=== PATIENT | female | born 1960 | race Caucasian/White ===

== ENCOUNTER → 2017-02-14 | Outpatient (CLI) | payer BC ==
[~2017-02-14] MED LIST: ASCO250T14 PO; CLC100X PO; ENOX30IN SQ; FERR324T PO; FLNIN NAE; GABA-112 PO; GABA-113 PO; GABA1CAP5 PO; HYDR25TA4 PO; LEVO112T4 PO; LEVO200T6 PO; LOSA1TAB38 PO; OMEP20TA PO; OXYC-106 PO; OXYC-57 PO; OXYC-643 PO; PRED10TA PO; PRED20TA PO; PREG100C PO; SPIR1TAB72 PO
[2017-02-14 12:31] LABS: BASO % 0.5 %; BASO ABS # 0.07 K/uL (0-0.2); COMPLETE YES; EOS % 2.8 %; HEMATOCRIT 42.6 % (37-47); IG% 0.5 %; LYMPH ABS # 2.81 K/uL (1.2-3.4); MEAN CELL VOLUME 94.9 fL (80-100); MEAN CORPUSCULAR HGB CONC 32.6 g/dl (32-36); MEAN PLATELET VOLUME 11.2 fL (7.4-10.4); MONO % 5.5 %; NEUT % 69.7 %; PLATELET COUNT 335 K/uL (130-400); RED BLOOD COUNT 4.49 M/uL (4.2-5.4); WHITE BLOOD COUNT 13.38 K/uL (4.8-10.8)
[2017-02-14 12:41] LABS: ALT/SGPT 43 U/L (12-78); AST/SGOT 24 U/L (15-37); BLOOD UREA NITROGEN 11 mg/dl (7-18); BUN/CREATININE RATIO 13.4 (10-20); CALCIUM 8.9 mg/dl (8.5-10.1); CARBON DIOXIDE 26 mmol/L (21-32); CHLORIDE 106 mmol/L (98-107); CHOLESTEROL 177 mg/dl (0-200); CREATININE 0.79 mg/dl (0.60-1.20); GLUCOSE 94 mg/dl (70-99); POTASSIUM 4.2 mmol/L (3.5-5.1); SODIUM 141 mmol/L (136-145); TRIGLYCERIDES 205 mg/dl (0-150); VERY LOW DENSITY LIPOPROT CALC 41 mg/dl
[2017-02-14 12:48] LABS: ALB/GLOB RATIO 0.9 (0.9-2); ALKALINE PHOSPHATASE 95 U/L (45-117); CHOLESTEROL/HDL RATIO 3.1; HDL CHOLESTEROL 57 mg/dl; LDL CHOLESTEROL CALCULATED 79 mg/dl
[2017-02-14 12:56] LABS: URINE APPEARANCE CLEAR (CLEAR); URINE BILIRUBIN NEG (NEG); URINE COLOR YELLOW; URINE EPITHELIAL CELL AUTO 0-5 /lpf (0-5); URINE NITRITE NEG (NEG); URINE PH 6.5 (4.5-7.5); URINE SPECIFIC GRAVITY 1.006 (1.000-1.030); UROBILINOGEN NEG (NEG); ZZUR CULT IF INDIC CLEAN CATCH NO
[2017-02-14 13:09] LABS: MANUAL MICROSCOPIC REQUIRED? NO; REVIEW REQ? NO
[2017-02-14 13:10] LABS: ESTIMATED AVERAGE GLUCOSE 140 mg/dl; HA1C FLAG Normal (Normal)
--- NOTE | 2017-02-20 14:07 | CODING QUERY MEDICAL NECESSITY ---
SUPPORTING DIAGNOSIS NEEDED A supporting diagnosis is required for the test/procedure performed on this patient in order for us to be reimbursed by the patient's insurance. Please provide a supporting diagnosis for the following test/procedure listed below next to the test name along with your signature. *If there is no additional diagnosis for this patient that would support the following test/procedure please document that below next to the test/procedure. Test(s)/Procedure(s) that require a supporting diagnosis: * VITAMIN D 25-HYDROXY DIAGNOSIS: * DOS: 02/14/17 Provider Signature: Date: Thank you Natasha Montes [facility] Information Management Once completed, please kindly fax back to [phone] For questions please call [phone]
== END | disposition home or self-care (01) ==
LOC: C.LABBFT 10:35
PROVIDERS: ATTEND Internal Medicine
DX: Z11.59 Encounter for screening for other viral diseases (principal); R73.9 Hyperglycemia, unspecified; E03.9 Hypothyroidism, unspecified; I10 Essential (primary) hypertension; E66.01 Morbid (severe) obesity due to excess calories; R53.83 Other fatigue

== ENCOUNTER → 2017-07-02 | Day surgery (SDC) | payer BC ==
[2017-06-13 11:09] VITALS: Ht 172.7 cm; Wt 120.5 kg
[~2017-07-02] VITALS: Ht 172.7 cm; Wt 120.5 kg
[~2017-07-02] MED LIST changes: -ASCO250T14 PO; -CLC100X PO; -ENOX30IN SQ; -FERR324T PO; -FLNIN NAE; -GABA1CAP5 PO; +IOPAMIDOL INJ 61% 15 ML VIAL ONE; -LEVO112T4 PO; +LIDOCAINE HCL 1% MPF 5 ML VIAL ONE; -OXYC-106 PO; -OXYC-643 PO; -PRED20TA PO; +SODIUM CHLORIDE 0.9% INJ 10 ML VIAL ONE
--- NOTE | 2017-07-02 13:03 | History & Physical Bridge - SC ---
H&P Re-Evaluation Bridge Note: I have examined the patient, reviewed the History & Physical and in the interval since the performance of the History & Physical I have noted the following changes of clinical significance: No changes noted
[2017-07-02 13:27] VITALS: TEMP 37.2
--- NOTE | 2017-07-02 13:34 | Discharge Instructions ---
Discharge Instructions Date of Service Jul 02, 2017. Visit Reason for Visit: Lumbar Disc Displacement Discharge Discharge Diagnosis / Problem: leg pain Discharge Goals Goal(s): Decrease discomfort, Improve function Activity Recommendations Activity Limitations: resume your previous activity Anesthesia . Post Anesthesia Instructions: If you have had General Anesthesia or IV Sedation: * Do not drive today. * Resume driving when surgeon permits. * Do not make important decisions or sign legal documents today. * Call surgeon for: 1. Temperature elevations greater than 101 degrees F. 2. Uncontrollable pain. 3. Excessive bleeding. 4. Persistent nausea and vomiting. 5. Medication intolerance (nausea, vomiting or rash). * For nausea and vomiting use only clear liquids such as: tea, soda, bouillon until nausea subsides, then gradually increase diet as tolerated. * If you have any concerns or questions, call your surgeon's office. If physician is unavailable and it is an emergency, call 911 or go to the nearest emergency room. . Diet Recommendations Recommended Home Diet: resume previous diet Procedures Procedures Performed: LUMBAR EPIDURAL STEROID INJECTION Pending Studies Studies pending at discharge: no Medical Emergencies . Who to Call and When: Medical Emergencies: If at any time you feel your situation is an emergency, please call 911 immediately. . Non-Emergent Contact Non-Emergency issues call your: Specialist . . "Provider Documentation" section prepared by Solomon Haney. .
[2017-07-02 13:38] VITALS: BP 149/92; PULSE 73; O2SAT 96
--- NOTE | 2017-07-02 13:49 | OPERATIVE REPORT ---
DATE OF OPERATION: 07/02/2017 PREOPERATIVE DIAGNOSIS: Lumbar disc protrusion L4-L5, L5-S1 with bilateral L5 radiculopathies. POSTOPERATIVE DIAGNOSES: Same. PROCEDURE: Right paramedian L5-S1 intralaminar epidural steroid injection under fluoroscopic guidance. SURGEON: Dr. Solomon Haney. INDICATIONS: The patient is a 56-year-old white female who presents today for an epidural steroid injection. She has been bothered by radicular pain for a number of years that has not responded to conservative treatments. She presents today for an epidural injection. PHYSICAL EXAMINATION: Pleasant female seated comfortably. She has a hard time moving from a sit to stand position, some soreness to palpation over lower lumbar region. Sciatic notches are nontender. Difficulty moving from a flexed position to an extended position, some pain inhibition with straight leg testing of the right lower extremity, decreased subjective sensation in the L5 dermatomal distribution without any focal weakness. CONSENT: Verbal and written consent was obtained from the patient. Risks and benefits were reviewed. Risks include but are not limited to epidural abscess, epidural hematoma, allergic reaction, dural puncture. The patient wishes to proceed. PROCEDURE: The patient was taken back to the special procedures room of [facility]. She was maintained in a prone position. Backside was cleansed with Betadine x3 and a dry sterile dressing was applied. Fluoroscope was used to identify the L5-S1 intralaminar space. Overlying skin was anesthetized with 4 mL of lidocaine 1% with a 25 gauge 1.5-inch needle. A 22 gauge 4-1/4 inch Tuohy needle was then directed down towards the intralaminar space. It was advanced under lateral fluoroscopic guidance and loss of resistance was noted at a depth of 9.5 cm. Isovue-300 contrast 1 mL was injected in which demonstrated epidural uptake pattern. This was confirmed with both AP and lateral views. She then underwent injection after negative aspiration of 40 mg of Depo-Medrol and 4 mL of preservative free sodium chloride. Injection was well tolerated and reproduced a very mild transient radicular sensation down the right leg. DISPOSITION: 1. The patient is taken out into the discharge recovery area where she will be discharged home once discharge criteria have been met. 2. Follow up in the [facility] office in 2-4 weeks. I attest to the content of the Intraoperative Record and any orders documented therein. Any exception s are noted below.
== END | disposition home or self-care (01) ==
LOC: X.SURG 12:03
PROVIDERS: ATTEND Physical Medicine & Rehabilitation
DX: M51.17 Intervertebral disc disorders with radiculopathy, lumbosacral region (principal); M54.5 Low back pain; I10 Essential (primary) hypertension; F17.210 Nicotine dependence, cigarettes, uncomplicated

== ENCOUNTER → 2017-08-08 | Outpatient (CLI) | payer BC ==
[~2017-08-08] MED LIST changes: -IOPAMIDOL INJ 61% 15 ML VIAL ONE; -LIDOCAINE HCL 1% MPF 5 ML VIAL ONE; -SODIUM CHLORIDE 0.9% INJ 10 ML VIAL ONE
--- NOTE | 2017-08-08 11:39 | DIAGNOSTIC IMAGING REPORT ---
MRI LUMBAR SPINE W/O CONTRAST CLINICAL HISTORY: Back pain with bilateral leg radiculopathy. TECHNIQUE: Sagittal and axial T1, T2 and STIR images were obtained. COMPARISON STUDY: MRI dated 07/30/2011 OBSERVATIONS: The vertebral bodies and posterior elements appear intact. There is no abnormal bony signal present to suggest a marrow replacement process. L1-2: No disc protrusions or extrusions. No evidence of spinal canal or neural foraminal compromise. L2-3: No disc protrusions or extrusions. No evidence of spinal canal or neural foraminal compromise. L3-4: There is a circumferential disc bulge with mild to moderate spinal stenosis, unchanged the preceding study L4-5: There is an annular fissure. There is a right lateral disc bulge. There is no significant spinal stenosis. There is mild bilateral foraminal narrowing L5-S1: There is an anterior disc protrusion. There is no posterior protrusion. There is facet joint arthropathy. There is no significant spinal stenosis. There is minor bilateral foraminal narrowing. The conus medullaris and cauda equina appear normal. There are T2 bright renal lesions, statistically representing cysts. IMPRESSION: Multilevel spondylitic changes, relatively similar to the preceding 2010 study. The study is most significant for a circumferential disc bulge with mild to moderate spinal stenosis at the L3-4 level. Electronically signed by: Andrew Child M.D. 08/08/2017 11:37 AM Dictated Date/Time: 08/08/2017 11:32 AM
== END | disposition home or self-care (01) ==
LOC: C.MRI 09:52
PROVIDERS: ATTEND Physical Medicine & Rehabilitation
DX: M51.26 Other intervertebral disc displacement, lumbar region (principal); M54.16 Radiculopathy, lumbar region

== ENCOUNTER 2017-09-29 14:20 | Emergency (ER) | payer BC ==
[~2017-09-29] VITALS: Ht 172.7 cm; Wt 122.6 kg
[~2017-09-29 14:20] MED LIST changes: -GABA-112 PO; -GABA-113 PO; +GABA1CAP5 PO; -PRED10TA PO; -PREG100C PO
[2017-09-29 14:25] VITALS: TEMP 37.4; Ht 172.7 cm; Wt 122.6 kg
[2017-09-29] MEDS ORDERED: KETOROLAC TROMETHAMINE 60 MG/2 ML VIAL IM STA (14:41)
[2017-09-29] MEDS ORDERED: OXYC-106 PO (15:00)
[2017-09-29] MEDS ORDERED: PRED20TA PO (15:27)
--- NOTE | 2017-09-29 15:28 | EMERGENCY ROOM VISIT NOTE ---
History First contact with patient: 14:29 Chief Complaint: BACK PAIN Stated Complaint: SHARP BACK PAIN- LEG PAIN AND SPINE History of Present Illness The patient is a 57 year old female who presents to the Emergency Room with complaints of back pain. The patient states that she has had ongoing back pain for several months. Her problems started in May. She states that she sneezed and had a sudden pain in her back with radiation down both legs. She has been seeing Dr. Haney of pain management. She had a steroid injection in June with no relief and has a nerve block scheduled in a few weeks. She has had an MRI performed. She states that she has had pain in the low back with a "lightning bolt" sensation in her right leg. She states that her leg feels heavy. She denies any fevers, numbness/weakness, saddle anesthesias or bowel/ bladder dysfunction. She reports a history of fibromyalgia. She rates her discomfort a 10/10. Review of Systems A complete 10 point review of systems was reviewed with the patient with pertinent positives and negatives as per history of present illness. All else were negative. Social History Smoking Status: Current Every Day Smoker Current/Historical Medications Scheduled Gabapentin (Neurontin), 400 MG PO TID Hctz/Spironolactone (Spironolactone/Hydrochlor 25-25 mg), 1 TAB PO QAM Hydrochlorothiazide (Hctz), 25 MG PO QAM Levothyroxine Sodium (Levothyroxine Sodium), 200 MCG PO QAM Losartan Potassium (Cozaar), 100 MG PO QAM Omeprazole (Omeprazole), 20 MG PO QAM Prednisone (Prednisone), 0 PO DAILY Scheduled PRN Oxycodone/Acetaminophen 10MG/325MG (Percocet 10MG/325MG), 1 TAB PO Q4 PRN for Pain Physical Exam Vital Signs Date Time Temp Pulse Resp B/P (MAP) Pulse Ox O2 Delivery O2 Flow Rate FiO2 09/29/17 15:46 88 18 141/112 97 09/29/17 14:25 37.4 96 20 195/107 96 Room Air Physical Exam VITALS: Vitals are noted on the nurse's note and reviewed by myself. Vital signs stable. GENERAL: This is a 57-year-old female, in no acute distress, nondiaphoretic, well-developed well-nourished. SKIN: The skin was without rashes. HEART: Regular rate and rhythm without murmurs gallops or rubs. LUNGS: Clear to auscultation bilaterally without wheezes, rales or rhonchi. ABDOMEN: Soft, nontender to palpation. MUSCULOSKELETAL: There is tenderness to palpation of the bilateral lumbar region. Full range of motion of bilateral lower extremities. Strength 5/5 in bilateral lower extremities. NEURO: Patient was alert and oriented to person place and time. Normal sensation to light and sharp touch. Deep tendon reflexes 2+ throughout. Medical Decision & Procedures Medications Administered Medications (Trade) Dose Ordered Sig/Janis Route Start Time Stop Time Status Last Admin Dose Admin Ketorolac Tromethamine (Toradol Inj) 60 mg NOW STAT IM 09/29/17 14:41 09/29/17 14:42 DC 09/29/17 14:49 60 MG Medical Decision Differential diagnosis includes cauda equina syndrome, cord compression, disc herniation, muscle spasm, lumbar strain, epidural abscess, malignancy, transverse myelitis, urinary tract infection, colitis, diverticulitis, kidney stone, among others. The patient was evaluated as above. She has had back pain ongoing for several months. She had an MRI here last month. Findings were reviewed. The patient had multilevel degenerative disease as well as a disc bulge at L3 to L4. Patient was given Toradol in the emergency department with some relief. She requested a note for work. She will be placed on prednisone. I recommended that she follow-up with her primary care provider as well as orthopedic spine. The patient was agreeable to this. She will keep her follow-up appointment with pain management. She verbalized understanding of my assessment and treatment plan and was discharged home in good condition. Medication Reconcilliation Current Medication List: was personally reviewed by nh Blood Pressure Screening Patient's blood pressure: Elevated blood pressure Blood pressure disposition: Referred to PCP Impression Primary Impression: Lumbar back pain Departure Information Dispostion Home / Self-Care Condition GOOD Prescriptions Prednisone (Prednisone) 20 Mg Tab 0 PO DAILY, #18 TAB 3 DAILY FOR 3 DAYS, THEN 2 DAILY FOR 3 DAYS, THEN 1 DAILY FOR 3 DAYS. Prov: Mirna Valdivia .RAGHAV 09/29/17 Referrals Arjun De La Torre M.D. (PCP) Solomon TerryDEdgarOEdgar Patient Instructions [facility] Additional Instructions Prednisone as prescribed. You may want to take this in the morning as it can make it difficult to sleep. For pain control, you can use the following qcak-aah-ihegtry medicines (if >12 yo): - Regular strength (325mg/tab) Tylenol (acetaminophen) 2 tabs every 4-6 hours as needed. Do not exceed 12 tablets in a 24 hour period. Avoid taking more than 4 grams (4000 mg) of Tylenol per day. This includes any other sources of acetaminophen you may take on a regular basis. - Regular strength (200 mg/tab) Advil (ibuprofen) 1-2 tabs every 4-6 hours as needed. Do not exceed a dose of 3[address] mg per day[address]. Terry's office to schedule a follow-up. Follow-up with your primary care provider this week. Keep your appointment with pain management as scheduled. Return to the emergency room with numbness/weakness of the legs, bowel/bladder incontinence, numbness in your groin or any other new/concerning symptoms.
[2017-09-29 15:46] VITALS: BP 141/112; PULSE 88; O2SAT 97
== END 2017-09-29 15:47 | disposition home or self-care (01) ==
LOC: C.EDB 14:21 → C.EDC 15:47
DX: M54.5 Low back pain (principal); M79.7 Fibromyalgia; F17.210 Nicotine dependence, cigarettes, uncomplicated; Z79.899 Other long term (current) drug therapy

== ENCOUNTER → 2017-10-15 | Day surgery (SDC) | payer BC ==
[2017-09-25 11:40] VITALS: Ht 172.7 cm; Wt 120.5 kg
[~2017-10-15] VITALS: Ht 172.7 cm; Wt 120.5 kg
[~2017-10-15] MED LIST changes: +BUPIVACAINE 0.25% 2.5MG/ML PF 10 ML VIAL ONE; +LIDOCAINE HCL 1% MPF 5 ML VIAL ONE; +OXYC-106 PO; -OXYC-57 PO; +PRED20TA PO
[2017-10-15 14:19] VITALS: TEMP 36.9
--- NOTE | 2017-10-15 15:40 | Discharge Instructions ---
Discharge Instructions Date of Service Oct 15, 2017. Visit Reason for Visit: Low Back Pain Discharge Discharge Diagnosis / Problem: low back pain Discharge Goals Goal(s): Decrease discomfort, Improve function Activity Recommendations Activity Limitations: resume your previous activity Anesthesia . Post Anesthesia Instructions: If you have had General Anesthesia or IV Sedation: * Do not drive today. * Resume driving when surgeon permits. * Do not make important decisions or sign legal documents today. * Call surgeon for: 1. Temperature elevations greater than 101 degrees F. 2. Uncontrollable pain. 3. Excessive bleeding. 4. Persistent nausea and vomiting. 5. Medication intolerance (nausea, vomiting or rash). * For nausea and vomiting use only clear liquids such as: tea, soda, bouillon until nausea subsides, then gradually increase diet as tolerated. * If you have any concerns or questions, call your surgeon's office. If physician is unavailable and it is an emergency, call 911 or go to the nearest emergency room. . Diet Recommendations Recommended Home Diet: resume previous diet Procedures Procedures Performed: Bilateral L3-4 Medial Branch Blocks Pending Studies Studies pending at discharge: no Medical Emergencies . Who to Call and When: Medical Emergencies: If at any time you feel your situation is an emergency, please call 911 immediately. . Non-Emergent Contact Non-Emergency issues call your: Specialist . . "Provider Documentation" section prepared by Solomon Haney. .
[2017-10-15 15:46] VITALS: BP 160/91; PULSE 72; O2SAT 96
--- NOTE | 2017-10-15 15:54 | OPERATIVE REPORT ---
DATE OF OPERATION: 10/15/2017 PREOPERATIVE DIAGNOSES: Chronic low back pain, lumbar facet arthropathy joint pain. POSTOPERATIVE DIAGNOSES: Same. PROCEDURE: Bilateral L3-L4 medial branch blocks under fluoroscopic guidance. INDICATIONS: The patient is a 57-year-old white female who has a significant low back pain. MRI revealed a significant facet joint signal at L3-L4 bilaterally. This correlates to where she has pain in the back, worse with standing and twisting. She presents today for diagnostic medial branch blocks to determine if indeed this is the etiology of her low back pain. CONSENT: Verbal and written consent was obtained from the patient. Risks and benefits were reviewed. Risks include but are not limited to abscess and allergic reaction. The patient wishes to proceed. DESCRIPTION OF PROCEDURE: The patient was taken back to the special procedures room of the [facility]. She was maintained in a prone position. Backside was cleansed with Betadine x3 and a dry sterile dressing was applied. Fluoroscope was used to identify the L3 transverse process junction and the L4 transverse process junction. Overlying skin was anesthetized with 1.5 mL of lidocaine 1% with a 25 gauge 1.5-inch needle at each site. A 25-gauge 3.5-inch spinal needle was directed contacting bone at each site. She then underwent injection after 1 mL of bupivacaine 0.25% at each site after negative aspiration. The right L3 transverse process junction and the right L4 transverse process junction were then identified fluoroscopically. Overlying skin was anesthetized with 2 mL of lidocaine 1% at each site with a 25-gauge 1.5-inch needle. A 25-gauge 3.5-inch spinal needle was then directed at each bony target and was injected after negative aspiration with bupivacaine 0.25% at each site. DISPOSITION: 1. The patient is taken out into the discharge recovery area where she will be discharged home once discharge criteria have been met. 2. Follow up in the [facility] office in 2-4 weeks. I attest to the content of the Intraoperative Record and any orders documented therein. Any exception s are noted below.
== END | disposition home or self-care (01) ==
LOC: X.SURG 14:10
PROVIDERS: ATTEND Physical Medicine & Rehabilitation
DX: M47.816 Spondylosis without myelopathy or radiculopathy, lumbar region (principal)

== ENCOUNTER → 2017-12-02 | Outpatient (CLI) | payer OTHER ==
[~2017-12-02] MED LIST changes: -BUPIVACAINE 0.25% 2.5MG/ML PF 10 ML VIAL ONE; +CHOL1000 PO; +CYM/60 PO; -HYDR25TA4 PO; -LIDOCAINE HCL 1% MPF 5 ML VIAL ONE; +MELO7.5T5 PO; -PRED20TA PO
[2017-12-02 14:11] LABS: HEMATOCRIT 45.4 % (37-47); HEMOGLOBIN 15.4 g/dL (12.0-16.0); MEAN CORPUSCULAR HEMOGLOBIN 31.9 pg (25-34); MEAN CORPUSCULAR HGB CONC 33.9 g/dl (32-36); MEAN PLATELET VOLUME 11.8 fL (7.4-10.4); PLATELET COUNT 339 K/uL (130-400); RED CELL DISTRIBUTION WIDTH CV 14.7 % (11.5-14.5); RED CELL DISTRIBUTION WIDTH SD 50.3 fL (36.4-46.3)
[2017-12-02 14:15] LABS: BASO % 0.4 %; BASO ABS # 0.06 K/uL (0-0.2); EOS % 3.2 %; EOS ABS # 0.44 K/uL (0-0.5); IG# 0.05 K/uL (0.00-0.02); LYMPH % 18.5 %; LYMPH ABS # 2.57 K/uL (1.2-3.4); MONO % 5.4 %; MONO ABS # 0.75 K/uL (0.11-0.59); NEUT % 72.1 %; NEUT ABS # 10.03 K/uL (1.4-6.5)
== END | disposition home or self-care (01) ==
LOC: C.LABBFT 11:06
PROVIDERS: ATTEND Physician Assistant Medical
DX: E03.9 Hypothyroidism, unspecified (principal); D72.829 Elevated white blood cell count, unspecified

== ENCOUNTER 2017-12-10 06:07 | Inpatient (IN) | payer BC, OTHER ==
[2017-11-26 09:49] VITALS: BMI 40.0
--- NOTE | 2017-11-26 10:26 | PAT Medication Instructions ---
Service Date Nov 26, 2017. Current Home Medication List Cholecalciferol (Vitamin D3), Unknown Dose PO QAM Duloxetine HCl (Cymbalta), 1 CAP PO QAM Gabapentin (Neurontin), 400 MG PO TID Hctz/Spironolactone (Spironolactone/Hydrochlor 25-25 mg), 1 TAB PO QAM Levothyroxine Sodium (Levothyroxine Sodium), 200 MCG PO QAM Losartan Potassium (Cozaar), 100 MG PO QAM Meloxicam (Mobic), 7.5 MG PO UD PRN for prn Omeprazole (Omeprazole), 20 MG PO QAM Oxycodone/Acetaminophen 10MG/325MG (Percocet 10MG/325MG), 1 TAB PO Q4 PRN for Pain Medication Instructions For Your Scheduled Surgery - Check with surgeon for instructions: Meloxicam (Mobic), 7.5 MG PO UD PRN for prn - Hold the following medications the morning of surgery: Cholecalciferol (Vitamin D3), Unknown Dose PO QAM Hctz/Spironolactone (Spironolactone/Hydrochlor 25-25 mg), 1 TAB PO QAM Losartan Potassium (Cozaar), 100 MG PO QAM - Take the following medications the morning of surgery with a sip of water: Omeprazole (Omeprazole), 20 MG PO QAM Oxycodone/Acetaminophen 10MG/325MG (Percocet 10MG/325MG), 1 TAB PO Q4 PRN for Pain (okay to take up to 4 hours prior to surgery if needed) Levothyroxine Sodium (Levothyroxine Sodium), 200 MCG PO QAM Duloxetine HCl (Cymbalta), 1 CAP PO QAM Gabapentin (Neurontin), 400 MG PO TID - Take the following medications as scheduled the night before surgery: Oxycodone/Acetaminophen 10MG/325MG (Percocet 10MG/325MG), 1 TAB PO Q4 PRN for Pain (if needed) Gabapentin (Neurontin), 400 MG PO TID If you have any questions please call us at [phone] or [phone] or [phone]
--- NOTE | 2017-11-26 11:08 | DIAGNOSTIC IMAGING REPORT ---
CHEST 2 VIEWS ROUTINE HISTORY: Preop. COMPARISON: Chest 11/30/2013. FINDINGS: The lungs are clear. Cardiac silhouette is normal in size. No pleural effusions. No pneumothorax. IMPRESSION: No acute process. Electronically signed by: Haseeb Fernandez M.D. 11/26/2017 11:07 AM Dictated Date/Time: 11/26/2017 11:03 AM
[2017-11-26 12:14] LABS: BASO % 0.5 %; BASO ABS # 0.07 K/uL (0-0.2); EOS % 2.9 %; EOS ABS # 0.43 K/uL (0-0.5); HEMATOCRIT 41.7 % (37-47); HEMOGLOBIN 14.2 g/dL (12.0-16.0); IG# 0.07 K/uL (0.00-0.02); LYMPH % 22.8 %; LYMPH ABS # 3.33 K/uL (1.2-3.4); MEAN CELL VOLUME 94.3 fL (80-100); MEAN CORPUSCULAR HEMOGLOBIN 32.1 pg (25-34); MEAN CORPUSCULAR HGB CONC 34.1 g/dl (32-36); MEAN PLATELET VOLUME 11.2 fL (7.4-10.4); MONO ABS # 0.88 K/uL (0.11-0.59); NEUT % 67.3 %; NEUT ABS # 9.82 K/uL (1.4-6.5); PLATELET COUNT 353 K/uL (130-400); RED CELL DISTRIBUTION WIDTH CV 14.6 % (11.5-14.5); RED CELL DISTRIBUTION WIDTH SD 50.5 fL (36.4-46.3)
[2017-11-26 13:04] LABS: CALCIUM 9.1 mg/dl (8.5-10.1); CREATININE 0.92 mg/dl (0.60-1.20)
[2017-12-10] VITALS (8 sets, daily range): BP systolic 107–176; BP diastolic 58–99; PULSE 82–97; TEMP 36.5–37.1; O2SAT 93–97; Ht 172.7 cm; Wt 118.6 kg
[~2017-12-10] VITALS: Ht 172.7 cm; Wt 118.6 kg
[~2017-12-10 06:07] MED LIST changes: +CEFAZOLIN 2000MG IV PUSH 10 ML IV SCH; +LACTATED RINGER'S 1000ML 1,000 ML IV SCH
[2017-12-10] MEDS ORDERED: MIDAZOLAM HCL 1 MG/ML 2ML VIAL ONE (06:38)
[2017-12-10] MEDS ORDERED: FENTANYL CITRATE INJ 50 MCG/1 ML 2 ML VIAL ONE ×6 (06:38→10:39)
[2017-12-10] MEDS ORDERED: BACITRACIN 50000 UNIT VIAL ONE (07:09)
[2017-12-10] MEDS ORDERED: BUPIVACAINE/EPINEPHRINE 0.5% MPF 1:200,000 30 ML VIAL ONE (07:09)
[2017-12-10] MEDS ORDERED: SODIUM CHLORIDE 0.9% PF 50 ML VIAL ONE (07:10)
[2017-12-10] MEDS ORDERED: ONDANSETRON INJ 2 MG/ML 2 ML VIAL IV PRN ×2 (07:15→10:30)
[2017-12-10] MEDS ORDERED: MoRPHine SULFATE 10 MG/ML CARP/VIAL IV PRN (07:15)
[2017-12-10] MEDS ORDERED: ATROPINE SULFATE 0.1 MG/ML 5ML SYR IV PRN (07:15)
[2017-12-10] MEDS ORDERED: EpHEDrine SULFATE INJ 50 MG/ML AMP IV PRN (07:15)
--- NOTE | 2017-12-10 07:26 | History and Physical ---
History & Physical Date Dec 10, 2017. Chief Complaint Back and leg pain History of Present Illness The patient is a 57 year old female with complaints of back and leg pain Additional History Hepatic Disease: No Endocrine Disorder: No Kidney Disease: No Hypertension: Yes Heart Disease: No Bleeding Tendencies: No Infectious Diseases: No Allergies Coded Allergies: Propofol (Verified Allergy, Unknown, NAUSEA AND HEAVING, 12/10/17) NOTED WITH 2012 TOTAL KNEE REPLACEMENT Home Medications Scheduled Cholecalciferol (Vitamin D3), Unknown Dose PO QAM Duloxetine HCl (Cymbalta), 1 CAP PO QAM Gabapentin (Neurontin), 400 MG PO TID Hctz/Spironolactone (Spironolactone/Hydrochlor 25-25 mg), 1 TAB PO QAM Levothyroxine Sodium (Levothyroxine Sodium), 200 MCG PO QAM Losartan Potassium (Cozaar), 100 MG PO QAM Omeprazole (Omeprazole), 20 MG PO QAM Scheduled PRN Meloxicam (Mobic), 7.5 MG PO UD PRN for prn Oxycodone/Acetaminophen 10MG/325MG (Percocet 10MG/325MG), 1 TAB PO Q4 PRN for Pain Physical Examination Skin: warm/dry, no rash Eyes: normal inspection, EOMI, sclerae normal ENT: normal ENT inspection, pharynx normal Head: normocephalic, atraumatic Neck: supple, no adenopathy, trachea midline Respiratory/Chest: lungs clear, normal breath sounds, no respiratory distress Cardiovascular: regular rate, rhythm, no edema, no murmur Abdomen / GI: normal bowel sounds, non tender Back: normal inspection Extremities: normal inspection, normal range of motion Neurologic/Psych: no motor/sensory deficits, alert, normal reflexes, oriented x 3 Diagnosis Lumbar spinal stenosis Plan of Treatment L3 to S1 decompression and fusion
[2017-12-10] MEDS ORDERED: HYDROmorphone INJ 2 MG/ML SYR/VIAL ONE ×3 (07:59→10:34)
[2017-12-10] MEDS ORDERED: CEFAZOLIN SOD 1 GM VIAL ONE (08:18)
[2017-12-10] MEDS ORDERED: DEXAMETHASONE SOD INJ 4 MG/ML VIAL ONE (09:56)
[2017-12-10] MEDS ORDERED: ROCURONIUM BROMIDE 10 MG/ML 5 ML VIAL IV ONE (09:56)
[2017-12-10] MEDS ORDERED: PROPOFOL IV EMULSION 10 MG/ML 20 ML VIAL IV ONE (09:56)
[2017-12-10] MEDS ORDERED: ONDANSETRON INJ 2 MG/ML 2 ML VIAL ONE ×2 (09:56→10:35)
[2017-12-10] MEDS ORDERED: PHENYLEPHRINE 100MCG/ML 5ML SYR ONE (09:56)
[2017-12-10] MEDS ORDERED: EpHEDrine SULFATE 50MG/5ML SYR ONE (09:56)
[2017-12-10] MEDS ORDERED: LIDOCAINE HCL 2% 2 ML VIAL (20MG/ML) ONE (09:56)
[2017-12-10] MEDS ORDERED: FLOSEAL HEMOSTATIC MATRIX 10ML TOP ONE (10:20)
[2017-12-10] MEDS ORDERED: SODIUM CHLORIDE 0.9% 1000ML 1,000 ML IV SCH (10:29)
--- NOTE | 2017-12-10 10:29 | [facility] Operative Report ---
Operative Report Operative Date Dec 10, 2017. Pre-Operative Diagnosis Lumbar Spinal Stenosis Post-Operative Diagnosis Lumbar Spinal Stenosis Procedure(s) Performed #1 lumbar decompression medial facetectomies foraminotomies L2 3 L3 4 L4 5 L5-S1. #2 posterior spinal fusion L3 4 L4 5 L5-S1. #3 placement of posterior segmental instrumentation L3 to S1. #4 interbody fusion L4 5 L5-S1. #5 placement peek cage 15 x 26 mm at L4 5 and 12 x 26 mm at L5-S1. #6 placement of locally harvested morcellized autograft the posterior lateral gutters. #7 placement of infuse collagen sponge, most graft in the posterior lateral gutters and posterior bone graft in the interbody spaces. Surgeon Dr. Solomon Terry Auto Driver Surgeon(s) Sheri Comer PA-C Estimated Blood Loss 450ML Findings Severe spinal stenosis with spondylolisthesis Specimens none per surgeon Dr. Kenji Terry Description of Procedure Patient was met with him preoperatively case discussed all questions addressed. After informed consent obtained patient was taken to the operative suite underwent intubation and placed in a prone position on the [place] table on top of the Jeremiah frame. All bony prominences were well-padded eyes inspected to ensure no external pressure placed upon them. This point the lumbar spine was prepped and draped in the normal sterile fashion. Sharp dissection with the assistance of Bovie cautery was performed onto and exposing the lamina and transverse processes of L3 L4 L5 and the sacral alar bilaterally. From a caudal to cephalad fashion a complete laminectomy of L5 L4 and L3 as well as partial laminectomy of L2 was performed with addressed severe lateral recess and foraminal stenosis. Pedicle screws and placed in L3 L4 L5 and S1 levels bilaterally with the assistance of fluoroscopy. Proper size ronda was placed. Through a transforaminal approach on the left complete discectomy of L5-S1 was performed and plate curetted to subcortical bleeding bone in a 12 x 26 mm peek cage filled with osteotomy of The position. And then proceeded to the L4 5 level again to the right complete discectomy was performed and plates curetted to subcortical bleeding bone and a 15 x 26 mm peek cage filled with ostial bone graft tapped in position. The rods and locked and final position bilaterally. A 15 round ANNE drain inserted. The incision was then closed with 1 Vicryl in the fascia 2-0 Vicryl subcutaneously and 4-0 Monocryl for final skin closure. Steri-Strips sterile dressings placed. Patient will continue back [place]. Please note and there was present at the entire procedure the patient positioning complex portions of the surgery and from skin closure. I attest to the content of the Intraoperative Record and any orders documented therein. Any exceptions are noted below.
[2017-12-10] MEDS ORDERED: DO NOT ADMINISTER FLU VACCINE PRN (10:30)
[2017-12-10] MEDS ORDERED: LORAZEPAM INJ 0.5 MG in SYRINGE 0 ML IV PRN (10:30)
[2017-12-10] MEDS ORDERED: CEFAZOLIN IV 2,000 MG in DEXTROSE 5% 50ML 50 ML IV SCH (10:30)
[2017-12-10] MEDS ORDERED: METOCLOPRAMIDE HCL INJ 5 MG/ML 2 ML VIAL IV PRN (10:30)
[2017-12-10] MEDS ORDERED: PROMETHAZINE HCL INJ 12.5 MG in SODIUM CHLORIDE 0.9% 50ML 50 ML IV PRN (10:30)
[2017-12-10] MEDS ORDERED: ALUMINUM/MAGNESIUM SUSP 30 ML UDC PO PRN (10:30)
[2017-12-10] MEDS ORDERED: BISACODYL 10 MG SUPP PR PRN (10:30)
[2017-12-10] MEDS ORDERED: FAMOTIDINE 20 MG TAB PO PRN (10:30)
[2017-12-10] MEDS ORDERED: SOD PHOSPHATE/SOD BIPHOSPHATE ENEMA 132 ML BTL PR PRN (10:30)
[2017-12-10] MEDS ORDERED: ACETAMINOPHEN 500 MG TAB PO PRN (10:30)
[2017-12-10] MEDS ORDERED: NALOXONE HCL 0.4 MG/1 ML VIAL/CARP IV PRN ×2 (10:30)
[2017-12-10] MEDS ORDERED: hydrOXYzine HCL 25 MG TAB PO PRN (10:30)
[2017-12-10] MEDS ORDERED: DO NOT ADMINISTER PNEUMOCOCCAL VACCINE PRN (10:30)
[2017-12-10] MEDS ORDERED: LORAZEPAM 0.5 MG TAB PO PRN (10:30)
[2017-12-10] MEDS ORDERED: ACETAMINOPHEN IV 100 ML IV PRN (10:30)
[2017-12-10] MEDS ORDERED: MAGNESIUM HYDROXIDE SUSP 30 ML UDC PO PRN (10:30)
[2017-12-10] MEDS ORDERED: KETOROLAC TROMETHAMINE 30 MG/ML VIAL ONE (10:35)
[2017-12-10] MEDS ORDERED: GLYCOPYRROLATE INJ 0.2 MG/ML VIAL ONE (10:35)
[2017-12-10] MEDS ORDERED: NEOSTIGMINE METHYLSULFATE 1 MG/ML 10ML VIAL ONE (10:35)
--- NOTE | 2017-12-10 10:42 | DIAGNOSTIC IMAGING REPORT ---
LUMBAR SPINE, INTRAOPERATIVE FLUOROSCOPY HISTORY: L3-S1 decompression and fusion.. FLUOROSCOPY TIME: 31 seconds. FINDINGS: Intraoperative fluoroscopy was provided for the lumbar spine. 3 fluoroscopic spot images were obtained. Posterior decompression and fusion from L3 through S1 with pedicle screws and rods. The hardware appears intact. IMPRESSION: Fluoroscopy provided for a L3-S1 posterior decompression and fusion. Electronically signed by: Haseeb Fernandez M.D. 12/10/2017 10:41 AM Dictated Date/Time: 12/10/2017 10:40 AM
[2017-12-10] MEDS ORDERED: ESMOLOL HCL 10 MG/ML 10 ML VIAL ONE (10:44)
[2017-12-10] MEDS ORDERED: HYDROmorphone HCL 0.5MG/ML 50 ML CASSETTE ONE (11:12)
--- NOTE | 2017-12-10 11:24 | Anesthesiology Progress Note ---
Anesthesia Post Op Note Date & Time Dec 10, 2017 at 11:24 Vital Signs Pain Intensity: 3 Vital Signs Past 12 Hours Date Time Temp Pulse Resp B/P (MAP) Pulse Ox O2 Delivery O2 Flow Rate FiO2 12/10/17 11:11 102 19 111/59 98 12/10/17 11:11 103 19 12/10/17 11:06 95 18 12/10/17 11:06 95 18 112/64 96 12/10/17 11:01 85 17 100/56 97 12/10/17 11:01 84 17 12/10/17 10:56 84 16 12/10/17 10:56 83 16 95/57 97 12/10/17 10:52 93/50 12/10/17 10:51 82 94 12/10/17 10:51 36.4 83 16 93/50 96 Oxymask 10 12/10/17 10:51 82 12/10/17 06:25 36.7 82 22 176/99 96 Room Air Notes Mental Status: alert / awake / arousable, participated in evaluation Pt Amnestic to Procedure: Yes Nausea / Vomiting: adequately controlled Pain: adequately controlled Airway Patency, RR, SpO2: stable & adequate BP & HR: stable & adequate Hydration State: stable & adequate Anesthetic Complications: no major complications apparent
[2017-12-10] MEDS: FENTANYL CITRATE INJ 50 MCG/1 ML 2 ML VIAL IV PRN ×2 (11:26→11:31)
[2017-12-10] MEDS: HYDROmorphone HCL 0.5MG/ML 50 ML CASSETTE IV PRN ×3 (12:11→23:07)
[2017-12-10] MEDS: SODIUM CHLORIDE 0.9% 1000ML 1,000 ML IV SCH ×2 (13:54→20:40)
[2017-12-10] MEDS: GABAPENTIN 400 MG CAP PO SCH ×2 (13:55→20:41)
[2017-12-10] MEDS: CEFAZOLIN IV 2,000 MG in SYRINGE 0 ML IV SCH ×2 (16:42→23:28)
[2017-12-10] MEDS: DOCUSATE SODIUM/SENNA 50/8.6MG TAB PO SCH (20:41)
[2017-12-11] MEDS: SODIUM CHLORIDE 0.9% 1000ML 1,000 ML IV SCH (02:28)
[2017-12-11 03:00] VITALS: BP 117/74; PULSE 86; TEMP 37.1; O2SAT 94
[2017-12-11] MEDS ORDERED: NURSING DECISION MEDICATION ORDER SCH (05:00)
[2017-12-11 05:55] LABS: BASO % 0.1 %; BASO ABS # 0.01 K/uL (0-0.2); EOS % 0.1 %; EOS ABS # 0.02 K/uL (0-0.5); HEMATOCRIT 32.5 % (37-47); HEMOGLOBIN 10.8 g/dL (12.0-16.0); IG# 0.08 K/uL (0.00-0.02); LYMPH % 10.4 %; LYMPH ABS # 1.91 K/uL (1.2-3.4); MEAN CELL VOLUME 94.8 fL (80-100); MEAN CORPUSCULAR HEMOGLOBIN 31.5 pg (25-34); MEAN CORPUSCULAR HGB CONC 33.2 g/dl (32-36); MEAN PLATELET VOLUME 10.6 fL (7.4-10.4); MONO % 7.5 %; MONO ABS # 1.38 K/uL (0.11-0.59); NEUT % 81.5 %; PLATELET COUNT 269 K/uL (130-400); RED CELL DISTRIBUTION WIDTH CV 15.2 % (11.5-14.5)
[2017-12-11] MEDS: LEVOTHYROXINE 200 MCG TAB PO SCH (06:00)
[2017-12-11] MEDS ORDERED: DC PCA ONE (06:00)
[2017-12-11 06:36] LABS: CALCIUM 7.9 mg/dl (8.5-10.1); CREATININE 0.86 mg/dl (0.60-1.20); POTASSIUM 4.4 mmol/L (3.5-5.1)
[2017-12-11 07:32] VITALS: BP 118/69; PULSE 84; TEMP 36.8; O2SAT 97
[2017-12-11] MEDS ORDERED: RXC5 PO (07:50)
--- NOTE | 2017-12-11 07:51 | Discharge Instructions ---
Discharge Instructions Date of Service Dec 11, 2017. Admission Reason for Admission: Lumbar Spinal Stenosis Ls-S1 Discharge Discharge Diagnosis / Problem: lumbar stenosis Discharge Goals Goal(s): Improve function Activity Recommendations Activity Limitations: per Instructions/Follow-up section . Instructions / Follow-Up Instructions / Follow-Up ACTIVITY RECOMMENDATIONS: SELF CARE INSTRUCTIONS AFTER THORACIC/LUMBAR FUSIONS 1. You may walk to your tolerance. It is good exercise for your legs and back. Expect some back and intermittent leg aches and pains. 2. You may perform "counter-top" level activities (make a sandwich, sofia with a project, etc.). 3. No bending or lifting of more than 10 pounds or back twisting of any nature (roll like a log when turning in bed). 4. You may ride in a car for 20-30 minutes at a time. No driving until after your first visit with your doctor. 5. Frequent changes of position and restricting sitting to 30 minutes at a time will help limit the amount of back spasms and stiffness you may experience. 6. You may discontinue the use of ambulatory aids (cane, crutches, etc.) once your strength and confidence allow. 7. You may information security specialist the shower and let water strike your incision when you arrive home at least once daily. Do not take a tub bath, sit in a hot tub or go into a swimming pool until after your first recheck in the office. SPECIAL CARE INSTRUCTIONS: VERY IMPORTANT TO READ AND REVIEW A. Your surgical incision has been closed with a cosmetic suture under the skin that will dissolve in about 6 weeks. In 14 days, you can use a pair of clean scissors and cut the suture that is left outside of the skin at the ends of your incision. 1. The small skin tapes can be removed 7 days after surgery if they have not fallen off by that point. 2. You may keep the wound open to air as much as possible to promote healing after post-op day number 5 unless told otherwise by your doctor. 3. If you think the wound looks like it is becoming infected (redness or worsening drainage) and/or you are experiencing fever, chill or worsening back pain and muscle spasms, contact the office so that we may evaluate you as soon as possible. B. Complications are uncommon, but please contact us if you have any signs or symptoms of: 1. wound infection (fever higher than 102.5 degrees F, redness, separation of wound, drainage, or increasing pain from the incision) 2. blood clots in legs (pain, swelling, redness and warmth in legs) 3. urinary tract infection (fever higher than 102.5 degrees F, burning upon urination or increased frequency of urination) 4. nerve problems (inability to walk on your toes or heels, numbness, loss of bowel or bladder control) 5. any other symptoms that concern you C. Please call the office at if you have any concerns or questions about your operation or recovery. D. No smoking! Smoking drastically decreases the chance of a solid fusion. E. Do not take any anti-inflammatory medications (Indocin, Advil, Motrin, Aspirin, Naprosyn, etc.) as these may inhibit the chance of a solid fusion. Tylenol is okay to take for pain. MANAGING PAIN AFTER SPINAL SURGERY 1. Narcotic medication is intended for short-term use and will be provided for surgical pain. Surgical pain usually lasts for a period of 4-6 weeks. Narcotic medication includes Percocet, Vicodin, Darvocet, Tylenol #3 or Lortab. 2. Longer-term pain is more appropriately treated with non-narcotic medication such as Tylenol ES. 3. Muscle spasm is not appropriately treated with narcotics. Muscle relaxers such as Soma, Flexeril or Skelaxin can be used along with Tylenol ES. 4. Remember that we all live with some "aches and pains". This is not unusual or uncommon after an injury or as we get older. a. Back pain is expected and may include muscle spasms for 4 to 6 weeks after surgery. The pain should gradually improve. If the pain worsens for no apparent reason, please contact the office. b. Intermittent leg pain may also be experienced and should not be concerned about unless it worsens for no apparent reason. If so, please contact the office. 5. We will provide appropriate medication within the normal guidelines of their prescribed use. We will also be very cautious and aware of potential abuse and extended duration of patients' medication needs. a. Pain medications are for your comfort and to assist with sleep and rest so that the tissue can heal. They are not provided in order to return to normal activity and should not be used through the day. To do so or worsening pain at night can result from ongoing tissue damage and development of tolerance to the prescribed medicine. 6. Please allow 2-3 days to process refills. Prescriptions will not be mailed but must be picked up at the office. FOLLOW UP VISIT: Keep your scheduled follow-up appointment. Any questions, please call the office at . Current Hospital Diet Patient's current hospital diet: Regular Diet Discharge Diet Recommended Diet: Regular Diet Procedures Procedures Performed: #1 lumbar decompression medial facetectomies foraminotomies L2 3 L3 4 L4 5 L5-S1. #2 posterior spinal fusion L3 4 L4 5 L5-S1. #3 placement of posterior segmental instrumentation L3 to S1. #4 interbody fusion L4 5 L5-S1. #5 placement peek cage 15 x 26 mm at L4 5 and 12 x 26 mm at L5-S1. #6 placement of locally harvested morcellized autograft the posterior lateral gutters. #7 placement of infuse collagen sponge, most graft in the posterior lateral gutters and posterior bone graft in the interbody spaces. Pending Studies Studies pending at discharge: no Medical Emergencies . Who to Call and When: Medical Emergencies: If at any time you feel your situation is an emergency, please call 911 immediately. . Non-Emergent Contact Non-Emergency issues call your: Primary Care Provider . "Provider Documentation" section prepared by Solomon Terry. . VTE Core Measure Inpt VTE Proph given/why not?: Maurizio Olivera, [facility]
[2017-12-11] MEDS: HYDROmorphone INJ 0.5 MG/0.5 ML SYR IV PRN (08:02)
[2017-12-11] MEDS: DULOXETINE HCL 60 MG CAP PO SCH (08:03)
[2017-12-11] MEDS: GABAPENTIN 400 MG CAP PO SCH ×3 (08:03→21:02)
[2017-12-11] MEDS: LOSARTAN POTASSIUM 50 MG TAB PO SCH (08:03)
[2017-12-11] MEDS: SPIRONOLACTONE/HCTZ 25-25 PO SCH (08:04)
[2017-12-11] MEDS: PANTOprazole SOD 40 MG TAB PO SCH (08:04)
[2017-12-11] MEDS ORDERED: VOLUVEN IN NSS ONE (08:36)
[2017-12-11 11:10] VITALS: BP 115/77; PULSE 93; TEMP 36.5; O2SAT 93
--- NOTE | 2017-12-11 12:09 | Progress Note ---
Progress Note Date of Service Dec 11, 2017. Progress Note Back pain is controlled. She feels her legs are stronger and pain is improved. An exam she is sitting in chair at bedside screw strength testing. Assessment status post multilevel lumbar decompression fusion preplan this time will continue physical therapy advance her bowel regimen anticipate home Friday or Friday.
[2017-12-11] MEDS: OXYCODONE HCL IR 5 MG TAB (IMMEDIATE RELEASE) PO PRN ×3 (12:11→21:00)
--- NOTE | 2017-12-11 13:46 | Anesthesiology Progress Note ---
Anesthesia Post Op Note Date & Time Dec 11, 2017 at 13:46 Vital Signs Vital Signs Past 12 Hours Date Time Temp Pulse Resp B/P (MAP) Pulse Ox O2 Delivery O2 Flow Rate FiO2 12/11/17 11:10 36.5 93 17 115/77 (90) 93 Room Air 12/11/17 08:15 Room Air 12/11/17 07:32 36.8 84 17 118/69 (85) 97 Nasal Cannula 2.0 12/11/17 03:00 37.1 86 18 117/74 (88) 94 Nasal Cannula 2.0 Notes Mental Status: alert / awake / arousable, participated in evaluation Pt Amnestic to Procedure: Yes Nausea / Vomiting: adequately controlled Pain: adequately controlled Airway Patency, RR, SpO2: stable & adequate BP & HR: stable & adequate Hydration State: stable & adequate Anesthetic Complications: no major complications apparent
[2017-12-11 15:44] VITALS: BP 143/84; PULSE 89; TEMP 36.7; O2SAT 94
[2017-12-11] MEDS: DOCUSATE SODIUM/SENNA 50/8.6MG TAB PO SCH (21:01)
[2017-12-11 23:25] VITALS: BP 146/88; PULSE 92; TEMP 37.2; O2SAT 92
[2017-12-12] MEDS: HYDROmorphone INJ 0.5 MG/0.5 ML SYR IV PRN ×2 (00:24→08:56)
[2017-12-12] MEDS ORDERED: NURSING VERBAL MED ORDER ONE (01:15)
[2017-12-12] MEDS: LEVOTHYROXINE 200 MCG TAB PO SCH (05:39)
[2017-12-12] MEDS: OXYCODONE HCL IR 5 MG TAB (IMMEDIATE RELEASE) PO PRN ×2 (05:42→16:58)
[2017-12-12] MEDS ORDERED: POLYETHYLENE (MIRALAX) 17 GM PACK PO SCH (06:00)
[2017-12-12 06:46] VITALS: BP 124/75; PULSE 82; TEMP 36.8; O2SAT 91
[2017-12-12] MEDS: LOSARTAN POTASSIUM 50 MG TAB PO SCH (07:28)
[2017-12-12] MEDS: DULOXETINE HCL 60 MG CAP PO SCH (07:29)
[2017-12-12] MEDS: GABAPENTIN 400 MG CAP PO SCH ×3 (07:29→20:45)
[2017-12-12] MEDS: PANTOprazole SOD 40 MG TAB PO SCH (07:29)
[2017-12-12] MEDS: SPIRONOLACTONE/HCTZ 25-25 PO SCH (07:29)
--- NOTE | 2017-12-12 13:33 | Progress Note ---
Progress Note Date of Service Dec 12, 2017. Progress Note Patient's back pain is controlled. Leg pain markedly improved. Vital signs stable. On exam she is sitting up in bed has good strength testing. Assessment status post lumbar decompression fusion preplan this time will maintain the ANNE drain and other day and anticipate discharge home tomorrow.
[2017-12-12 15:43] VITALS: BP 122/80; PULSE 90; TEMP 37.2; O2SAT 94
[2017-12-12] MEDS: DOCUSATE SODIUM/SENNA 50/8.6MG TAB PO SCH (20:45)
[2017-12-12 23:20] VITALS: BP 115/74; PULSE 89; TEMP 37.1; O2SAT 92
[2017-12-13] MEDS: OXYCODONE HCL IR 5 MG TAB (IMMEDIATE RELEASE) PO PRN ×3 (00:14→10:01)
[2017-12-13] MEDS: LEVOTHYROXINE 200 MCG TAB PO SCH (05:35)
[2017-12-13 08:08] VITALS: BP 121/86; PULSE 86; TEMP 36.8; O2SAT 95
[2017-12-13] MEDS: PANTOprazole SOD 40 MG TAB PO SCH (08:39)
[2017-12-13] MEDS: DULOXETINE HCL 60 MG CAP PO SCH (08:39)
[2017-12-13] MEDS: SPIRONOLACTONE/HCTZ 25-25 PO SCH (08:39)
[2017-12-13] MEDS: LOSARTAN POTASSIUM 50 MG TAB PO SCH (08:39)
[2017-12-13] MEDS: GABAPENTIN 400 MG CAP PO SCH (08:39)
[2017-12-13 09:08] VITALS: BP 121/86; PULSE 86; TEMP 36.8; O2SAT 95
--- NOTE | 2017-12-13 09:34 | Discharge Summary ---
Orthopedic Discharge Summary Admission Date/Reason Dec 10, 2017 at 07:30 Lumbar Spinal Stenosis Ls-S1. Discharge Date/Disposition Dec 13, 2017 Home Diagnosis Principal Diagnosis: Lumbar spinal stenosis Admission Physical Exam As per Admitting History & Physical. Hospital Course Patient underwent multilevel lumbar decompression and fusion tolerated this well and was taken to the orthopedic floor postoperatively. Postoperative day # 1 she was up and amatory. She progressed nicely throughout her hospital stay. Sexually she was discharged home. Discharge orders and instructions can be found on the chart for further review. Discharge Instructions Please refer to the electronic Patient Visit Report (Discharge Instructions) for additional information.
== END 2017-12-13 10:15 | disposition home or self-care (01) | DRG 455 ==
LOC: C.ACU 06:07 → C.3E 07:30 → ENRESERV 11:54
PROVIDERS: ADMIT Orthopaedic Surgery Orthopaedic Surgery of the Spine; ATTEND Orthopaedic Surgery Orthopaedic Surgery of the Spine
PROC: 0SG1071 Fusion of 2 or more Lumbar Vertebral Joints with Autologous Tissue Substitute, Posterior Approach, Posterior Column, Open Approach (ICD-10-PCS; principal; 2017-12-10 07:45)
PROC: 0ST20ZZ Resection of Lumbar Vertebral Disc, Open Approach (ICD-10-PCS; principal; 2017-12-10 07:45)
PROC: 01NB0ZZ Release Lumbar Nerve, Open Approach (ICD-10-PCS; principal; 2017-12-10 07:45)
PROC: 0SG3071 Fusion of Lumbosacral Joint with Autologous Tissue Substitute, Posterior Approach, Posterior Column, Open Approach (ICD-10-PCS; principal; 2017-12-10 07:45)
PROC: 0SG30AJ Fusion of Lumbosacral Joint with Interbody Fusion Device, Posterior Approach, Anterior Column, Open Approach (ICD-10-PCS; principal; 2017-12-10 07:45)
PROC: 0SG00AJ Fusion of Lumbar Vertebral Joint with Interbody Fusion Device, Posterior Approach, Anterior Column, Open Approach (ICD-10-PCS; principal; 2017-12-10 07:45)
DX: M48.061 Spinal stenosis, lumbar region without neurogenic claudication (principal); M43.16 Spondylolisthesis, lumbar region; I10 Essential (primary) hypertension; Z88.4 Allergy status to anesthetic agent

== ENCOUNTER 2019-06-23 10:55 | Inpatient (IN) ==
--- NOTE | 2019-06-16 16:43 | PAT Medication Instructions ---
Medication Instructions Date of Service June 17, 2019 Home Medications Medication Instructions Recorded oxycodone 5 mg PO Q6H PRN #20 tab 06/09/19 duloxetine 60 mg capsule,delayed 60 mg PO DAILY #90 cap 06/16/19 release cholecalciferol (vitamin D3) [Vitamin D3] 1,000 unit PO QAM hydrochlorothiazide 25 mg PO QAM levothyroxine 175 mcg PO QAM losartan 100 mg PO QAM omeprazole 20 mg PO QAM oxycodone 5 mg PO Q6H NEEDED duloxetine 60 mg capsule,delayed release 60 mg PO DAILY DO NOT take the morning of surgery cholecalciferol (vitamin D3) [Vitamin D3] 1,000 unit PO QAM hydrochlorothiazide 25 mg PO QAM losartan 100 mg PO QAM Take morning of surgery With a small sip of water, OTHERWISE NOTHING TO EAT OR DRINK AFTER MIDNIGHT: levothyroxine 175 mcg PO QAM omeprazole 20 mg PO QAM oxycodone 5 mg PO Q6H NEEDED (if needed; stop 4 hours before surgery) duloxetine 60 mg capsule,delayed release 60 mg PO DAILY Take evening before surgery oxycodone 5 mg PO Q6H NEEDED (if needed) Other Notes If you have any questions please call us at [phone] or [phone] or [phone] or [phone]
--- NOTE | 2019-06-17 09:35 | Anesthesiology Consultation ---
Date of Service June 17, 2019 Assessment & Plan (1) Encounter for pre-operative examination: Chart Review Chart Review: Acceptable Risk for Surgery and Patient seen in Pre Admission Testing Teaching & Discussion Instructed NPO after midnight before surgery, except medications with 15 cc of water. Medication instructions provided according to the PAT guidelines. History Surgery Operation Date: 06/23/19 10:25 Proposed Procedures p L2-L3 Decompression, L2-S1 Fusion, L3-S1 Hardware Removal with Spinal Cord Monitoring - Solomon Terry DO Height/Weight Height: 5 ft 8 in Weight: 120.202 kg Allergies Allergy/AdvReac Type Severity Reaction Status Date / Time propofol AdvReac Mild NAUSEA AND Verified 06/16/19 09:11 HEAVING Medications Home Medications Medication Instructions Recorded Confirmed Last Taken cholecalciferol (vitamin D3) 1,000 unit PO QAM 12/31/18 06/16/19 06/09/19 [Vitamin D3] hydrochlorothiazide 25 mg PO QAM 12/31/18 06/16/19 06/09/19 levothyroxine 175 mcg PO QAM 12/31/18 06/16/19 06/09/19 losartan 100 mg PO QAM 12/31/18 06/16/19 06/09/19 omeprazole 20 mg PO QAM 12/31/18 06/16/19 06/09/19 oxycodone 5 mg PO Q6H PRN #20 tab 06/09/19 06/16/19 Unknown duloxetine 60 mg capsule,delayed 60 mg PO DAILY #90 cap 06/16/19 Unknown release Past Medical History Medical History Lumbar stenosis with neurogenic claudication Fibromyalgia GERD (gastroesophageal reflux disease) History of recurrent UTIs Hypertension Hypothyroidism Leukocytosis Chronic, noted in hx since 2014, stable. Morbid (severe) obesity due to excess calories Osteoarthritis Exercise / Class Metabolic Activity IV < 2 Limit ADL/Bedbound (Using wheelchair and walker primarily x 2wks) Prior to severe back pain, patient could ambulate up stairs without CP or SOB. 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 I DON'T REMEMBER ANY OF IT." - KNEE SURGERY 06/2013 [facility] History of PONV No Hx of Motion Sickness and History of PONV (mild, nausea) Social History Smoking Status: Current some day smoker tobacco type: cigarettes Smoking cigarettes per day: 20 CIG DAILY Do You Dip or Chew Tobacco: No Hx Alcohol Use: No alcohol intake frequency: holidays/special occasions only Hx Substance Use: No substance use type: does not use Review of Systems Pt denies any recent chest pain, shortness of breath, palpitations, cough, fever or URI. Physical Exam Vital Signs BP: 117/82 P: 82bpm SPO2: 96% RA T: 98.3 F R: 16 Constitutional + obese ENMT Mouth: + dentures and + edentulous Thyromental Distance: < 3.5 Finger Breadths (3) Mallampati Class: IV Neck normal visual inspection; neck extension not limited Respiratory normal respiratory effort Auscultation: lungs clear to auscultation bilaterally Cardiovascular Rate/Rhythm: regular rate and regular rhythm Heart Sounds: no murmur Vessels: no carotid bruit Extremities: no edema Testing Laboratory Results 06/17/19 09:24 PT 9.6 Seconds (9.0-12.0) 06/17/19 09:24 INR 0.9 (0.9-1.1) 06/17/19 09:24 APTT 25.1 Seconds (21.0-31.0) 06/17/19 09:24 Urine Color Yellow 06/17/19 09:24 Urine Appearance Clear (Clear) 06/17/19 09:24 Urine pH 5.0 (4.5-7.5) 06/17/19 09:24 Ur Specific [place] 1.011 (1.000-1.030) 06/17/19 09:24 Urine Protein Negative (Negative) 06/17/19 09:24 Urine Glucose (UA) Negative (Negative) 06/17/19 09:24 Urine Ketones Negative (Negative) 06/17/19 09:24 Urine Nitrite Negative (Negative) 06/17/19 09:24 Ur Leukocyte Esterase 2+ (Negative) H 06/17/19 09:24 Urine WBC (Auto) 1-5 /hpf (0-5) 06/17/19 09:24 Urine RBC (Auto) 0-4 /hpf (0-4) 06/17/19 09:24 U Hyaline Cast (Auto) 1-5 /lpf (0-5) 06/17/19 09:24 U Epithel Cells (Auto) 10-20 /lpf (0-5) H 06/17/19 09:24 Urine Bacteria (Auto) Negative (Negative) 06/17/19 09:24 Blood Type O Positive 06/17/19 09:24 Antibody Screen NEGATIVE 06/17/19 09:24 06/09/19 SODIUM: 139 POTASSIUM: 4.0 CHLORIDE: 107 CO2: 23 BUN: 16 CREATININE: 0.96 GLUCOSE: 91 Electrocardiogram Date: 06/17/19 Findings: + NSR @ (76) Chest X-Ray Date: 06/17/19 Findings: + NAD
--- NOTE | 2019-06-17 10:10 | XRay Report ---
XR chest Pre-admission PA/Lat HISTORY: Preop. COMPARISON: Chest 03/06/2019. FINDINGS: The lungs are clear. Cardiac silhouette is normal in size. No pleural effusions. No pneumot horax. Prior cholecystectomy. Posterior fusion within the lower lumbar spine. This is only partially visualized on this study. IMPRESSION: No acute process. Electronically signed by: Haseeb Fernandez M.D. 06/17/2019 10:09 AM
[2019-06-17 11:07] LABS: Basophils # (auto) 0.07 K/uL (0-0.2); Basophils % (auto) 0.4 %; Eosinophils # (auto) 0.53 K/uL (0-0.5); Eosinophils % (auto) 3.2 %; Hematocrit (blood only) 43.2 % (37-47); Hemoglobin 14.3 g/dL (12.0-16.0); Immature Granulocytes # (auto) 0.13 K/uL (0.00-0.02); Immature Granulocytes % (auto) 0.8 %; Lymphocytes # (auto) 3.55 K/uL (1.2-3.4); Lymphocytes % (auto) 21.1 %; Mean Corpuscular Hgb Conc 33.1 g/dL (32-36); Mean Corpuscular Volume 92.9 fL (80-100); Monocytes # (auto) 1.03 K/uL (0.11-0.59); Monocytes % (auto) 6.1 %; Neutrophils % (auto) 68.4 %; Platelet Count 371 K/uL (130-400); RDW Coefficient of Variation 15.8 % (11.5-14.5); RDW Standard Deviation 54.1 fL (36.4-46.3); Red Blood Count 4.65 M/uL (4.2-5.4); White Blood Count 16.81 K/uL (4.8-10.8)
[2019-06-17 11:10] LABS: Appearance Urine Clear (Clear); Bacteria Urine Automated Negative (Negative); Bilirubin Urine Negative (Negative); Blood Urine Negative (Negative); Color Urine Yellow; Glucose Urine UA Negative (Negative); Ketones Urine Negative (Negative); Leukocyte Esterase Urine 2+ (Negative); Nitrite Urine Negative (Negative); Protein Urine Negative (Negative); RBC Urine Automated 0-4 /hpf (0-4); Specific Gravity Urine 1.011 (1.000-1.030); Urobilinogen Urine Negative (Negative)
[2019-06-17 11:24] LABS: INR 0.9 (0.9-1.1); Partial Thromboplastin Ratio 0.9; Partial Thromboplastin Time 25.1 Seconds (21.0-31.0); Prothrombin Time 9.6 Seconds (9.0-12.0)
[~2019-06-23 10:55] MED LIST changes: -CEFAZOLIN 2000MG IV PUSH 10 ML IV SCH; +CEFAZOLIN 3000MG 65 ML IV SCH; -CHOL1000 PO; -CYM/60 PO; -GABA1CAP5 PO; -LACTATED RINGER'S 1000ML 1,000 ML IV SCH; -LEVO200T6 PO; -LOSA1TAB38 PO; +LR 15ML/HR IV SCH; -MELO7.5T5 PO; -OMEP20TA PO; -OXYC-106 PO; -SPIR1TAB72 PO
[2019-06-23] MEDS ORDERED: fentaNYL citrate 100 MCG/2 ML VIAL ONE ×6 (11:14→13:59)
[2019-06-23] MEDS ORDERED: MIDAZOLAM HCL 1 MG/ML 2ML VIAL ONE (11:14)
--- NOTE | 2019-06-23 11:23 | History & Physical Bridge Note ---
Date of Service June 23, 2019 History & Physical Bridge Note I have examined the patient, reviewed the History & Physical and in the interval since the performance of the History & Physical I have noted the following changes of clinical significance: no changes noted
--- NOTE | 2019-06-23 11:24 | History & Physical Report ---
Date of Service June 23, 2019 Assessment & Plan (1) Lumbar stenosis with neurogenic claudication: Decompression L2-3 fusion L2-S1 hardware removal L3-S1 Present on Admission?: Yes History of Present Illness Chief Complaint: Back and leg pain Primary Care Provider: Arjun De La Torre MD This is a 58-year-old female well-known to the presents with worsening back and leg pain. After failing extensive course of nonoperative care is here for surgical intervention. Allergies Allergy/AdvReac Type Severity Reaction Status Date / Time propofol AdvReac Mild NAUSEA AND Verified 06/21/19 13:11 HEAVING Home Medications Home Medications Medication Instructions Recorded Confirmed Type levothyroxine 175 mcg PO QAM 12/31/18 06/20/19 History losartan 100 mg PO QAM 12/31/18 06/20/19 History omeprazole 20 mg PO QAM 12/31/18 06/20/19 History oxycodone 5 mg PO Q6H PRN #20 tab 06/09/19 06/21/19 Rx duloxetine 60 mg capsule,delayed 60 mg PO DAILY #90 cap 06/16/19 06/21/19 Rx release cholecalciferol (vitamin D3) 1,000 1,000 unit PO QAM 06/20/19 06/20/19 History unit capsule Past Med/Surg History Medical History Lumbar stenosis with neurogenic claudication Fibromyalgia GERD (gastroesophageal reflux disease) History of recurrent UTIs Hypertension Hypothyroidism Leukocytosis Chronic, noted in hx since 2014, stable. Morbid (severe) obesity due to excess calories Osteoarthritis Surgical History History of cholecystectomy History of colonoscopy History of knee replacement procedure of right knee History of lumbar surgery HARDWARE PRESENT History of tooth extraction Family History Other No significant family history Social History Preferred Language: Albanian Communication Ability: Effective Dishwashing Machine Repairer Required: No Beliefs That Will Affect Care: None marital status: Current Living Situation: Spouse and Family Current Living Situation Comment: DTR - 15 AND SPECIAL NEEDS SON - 32 current occupational status: employed Other Information That Helps Us Care for You: No Feels Safe at Home: Yes Safety Concerns: Feels Safe At This Time Smoking Status: Never smoker Tobacco Type: cigarettes ; Cigarettes Per Day: 1 PPD ; Do You Dip or Chew Tobacco: No ; Second Hand Exposure: No ; Tobacco Cessation Education Requested by Patient: No Hx Alcohol Use: Yes Hx Substance Use: No Physical Exam Physical Exam: Patient is alert and oriented neurologically intact.
[2019-06-23] MEDS ORDERED: ONDANSETRON INJ 2 MG/ML 2 ML VIAL IV PRN ×2 (11:29→15:31)
[2019-06-23] MEDS ORDERED: ATROPINE SULFATE 0.1 MG/ML 10ML SYR IV PRN (11:29)
[2019-06-23] MEDS ORDERED: ePHEDrine sulfate 50 MG/ML AMP IV PRN (11:29)
[2019-06-23] MEDS ORDERED: HYDROmorphone INJ 1 MG/ML SYRINGE IV PRN (11:29)
[2019-06-23] MEDS ORDERED: DEXAMETHASONE SOD INJ 4 MG/ML VIAL ONE (11:41)
[2019-06-23] MEDS ORDERED: NEOSTIGMINE METHYLSULFATE 1 MG/ML 10ML VIAL ONE (11:41)
[2019-06-23] MEDS ORDERED: LIDOCAINE HCL 2% 2 ML VIAL/AMP(20MG/ML) INFIL ONE (11:41)
[2019-06-23] MEDS ORDERED: PROPOFOL IV EMULSION 10 MG/ML 20 ML VIAL IV ONE (11:41)
[2019-06-23] MEDS ORDERED: ONDANSETRON INJ 2 MG/ML 2 ML VIAL ONE (11:41)
[2019-06-23] MEDS ORDERED: GLYCOPYRROLATE 0.2 MG/ML VIAL ONE (11:41)
[2019-06-23] MEDS ORDERED: ROCURONIUM BROMIDE 10 MG/ML 5 ML VIAL ONE (11:41)
[2019-06-23] MEDS ORDERED: HYDROmorphone INJ 2 MG/ML SYR/VIAL ONE ×2 (11:42→14:00)
[2019-06-23] MEDS ORDERED: BUPIVACAINE/EPINEPHRINE 0.5% MPF 1:200,000 30 ML VIAL ONE (11:44)
[2019-06-23] MEDS ORDERED: BACITRACIN INJ 50,000 UNIT VIAL ONE (11:44)
[2019-06-23 11:56] LABS: BUN Creatinine Ratio 15.9 (10-20); Calcium 9.1 mg/dl (8.5-10.1); Creatinine Clr Calc Pharmacy 103.3 ml/min; Est GFR (African American) 92.1; Est GFR (Non-African American) 79.4; Potassium 3.8 mmol/L (3.5-5.1)
[2019-06-23] MEDS ORDERED: FLOSEAL HEMOSTATIC MATRIX 10ML TOP ONE (13:06)
[2019-06-23] MEDS ORDERED: KETOROLAC 30 MG/ML VIAL ONE (13:53)
[2019-06-23] MEDS ORDERED: LARYING-O-JET KIT (LTA) ONE (13:53)
[2019-06-23] MEDS ORDERED: ePHEDrine sulfate 50 MG/ML SYR ONE (13:53)
--- NOTE | 2019-06-23 13:57 | Operative Report ---
Post Operative Report Pre & Post Diagnosis Operation Date: 06/23/19 12:25 Pre-Op Diagnosis: Lumbar stenosis with neurogenic claudication Post-Op Diagnosis: Lumbar stenosis with neurogenic claudication Procedure Operation Date: 06/23/19 12:25 Actual Procedures #1 removal of posterior segmental instrumentation L3-S1. #2 expiration of fusion L3-S1 per #3 lumbar decompression with bilateral medial facetectomies foraminotomies L1-L2 3. #4 posterior spinal fusion L2-3. #5 placement posterior segmental instrumentation L2-S1. #6 interbody fusion L2-3. #7 placement of peek cage 12 x 22 mm at L2-3. #8 placement of local autograft in the posterior lateral gutters per #9 placement infuse collagen sponge bone mass graft in the posterior lateral gutters and ostial Surgeon Solomon Terry, DO Mortgage Closing Clerk Sheri Deleon Estimated Blood Loss 275 Findings See Below The patient is 5 foot 8 inches tall weighing over 120 kg with a BMI in excess of 40. Patient's body habitus marked scarring from previous decompression added significant technical difficulty throughout the procedure adding at least 40% increase in operative time. She required her deepest retractors and longus instruments in order to perform the procedure. Specimens None Indications This is a 58-year-old female who presents with above-mentioned diagnosis after failing extensive course of nonoperative care noting further decline in ability to ambulate like to undergo the above-mentioned procedure. Description of Procedure Patient was met with identified and informed consent obtained. Patient was then taken to the operative suite underwent intubation placed in a prone position on the [place] table on top of the Jeremiah frame. All bony prominences well-padded eyes inspected to ensure no external pressure placed upon them. This point the lumbar spine was prepped and draped in normal sterile fashion. Sharp dissection with the assistance of Bovie cautery performed down to and exposing the lamina transverse processes of L2 and the instrumentation at L3-L4-L5 and S1 levels bilaterally. And then proceeded to remove the hardware bilaterally I explored the fusion mass noting it to be intact. And then performed a complete laminectomy of L2 partial laminectomy of L1 including bilateral medial facetectomies and foraminotomies addressing severe spinal stenosis. Pedicle screws were then placed in L2-L3-L4 L5-S1 levels bilaterally with assistance of fluoroscopy the purposes ronda placed. By way of a transforaminal approach on the left the discectomy of L2-3 was performed endplates curetted to subcortical bleeding bone and a 12 x 22 mm peek cage filled with ostium bone graft tapped in position. Rods were then locked in final position bilaterally. The transverse processes of L2 and L3 burred to subcortical bleeding bone. Infuse collagen sponge master graft local autograft placed in the posterior lateral gutters. 15 round ANNE drain inserted. Incision was then closed with 1 Vicryl in the fascia 2-0 Vicryl substantially and 4 Monocryl for final skin closure. Steri-Strip sterile dressings placed. Patient will continue PACU stable condition. Please note Sheri Deleon present at the entire procedure involved in patient positioning complex portions of the surgery and final skin closure. Lastly spinal cord monitoring was utilized throughout the procedure no changes noted. I attest to the content of the Intraoperative Record and any orders documented therein. Any exceptions are noted below.
[2019-06-23] MEDS ORDERED: LABETALOL HCL IV 5 MG/ML 20ML IV ONE (14:20)
--- NOTE | 2019-06-23 14:33 | Fluoroscopy Report ---
INTRAOPERATIVE RADIOGRAPHS CLINICAL HISTORY: Hardware removal. L2-S1 spinal fusion. Fluoroscopy time: 11 seconds. FINDINGS: 3 spot fluoroscopic views of the lumbar spine are presented. There has been discectomy at L 2-L3, L4-L5, and L5-S1. There is been laminectomy and posterior fusion from L2 -S1. Interpedicular sc rews are present at all levels. The orthopedic hardware appears intact. IMPRESSION: Intraoperative images from L2 -S1 spinal fusion as above. Electronically signed by: Andrew Dixon M.D. 06/23/2019 2:32 PM
[2019-06-23] MEDS: fentaNYL citrate 100 MCG/2 ML VIAL IV PRN ×2 (14:42→14:47)
--- NOTE | 2019-06-23 15:03 | Anesthesiology Progress Note ---
Date of Service June 23, 2019 Anesthesia Post Procedure Vital Signs Vital Signs: Temp Pulse Pulse Resp BP Pulse Ox 06/23/19 14:55 97.9 F 66 16 111/62 94 06/23/19 14:45 99.0 F 70 15 121/85 95 06/23/19 14:35 99.0 F 73 17 151/91 H 97 06/23/19 14:25 99.0 F 80 15 115/88 94 06/23/19 14:16 99.0 F 65 14 120/76 96 06/23/19 11:36 98.2 F 77 18 145/90 H 96 Transfer of Care Handoff Completed per policy Notes Mental Status: alert / awake / arousable and participated in evaluation Patient Amnestic to Procedure: Yes Nausea / Vomiting: adequately controlled Pain: adequately controlled Airway Patency, RR, SpO2: stable & adequate BP & HR: stable & adequate Hydration State: stable & adequate Anesthetic Complications: no major complications apparent and Pt Satisfied with anesthetic care
[2019-06-23] MEDS: LACTATED RINGER'S 1,000 ML IV SCH ×2 (15:20→21:45)
[2019-06-23] MEDS ORDERED: LORazepam 0.5 MG/1 ML VIAL IV PRN (15:31)
[2019-06-23] MEDS ORDERED: LORazepam 0.5 MG TAB PO PRN (15:31)
[2019-06-23] MEDS ORDERED: DO NOT ADMINISTER FLU VACCINE PRN (15:31)
[2019-06-23] MEDS ORDERED: ALUMINUM/MAGNESIUM SUSP 30 ML UDC PO PRN (15:31)
[2019-06-23] MEDS ORDERED: MAGNESIUM HYDROXIDE SUSP 30 ML UDC PO PRN (15:31)
[2019-06-23] MEDS ORDERED: SOD PHOSPHATE/SOD BIPHOSPHATE ENEMA 132 ML BTL PR PRN (15:31)
[2019-06-23] MEDS ORDERED: DO NOT ADMINISTER PNEUMOCOCCAL VACCINE PRN (15:31)
[2019-06-23] MEDS ORDERED: PROMETHAZINE HCL 12.5 MG in SODIUM CHLORIDE 0.9% 50 ML IV PRN (15:31)
[2019-06-23] MEDS ORDERED: ACETAMINOPHEN 500 MG TAB PO PRN (15:31)
[2019-06-23] MEDS ORDERED: METOCLOPRAMIDE HCL INJ 5 MG/ML 2 ML VIAL IV PRN (15:31)
[2019-06-23] MEDS ORDERED: FAMOTIDINE 20 MG TAB PO PRN (15:31)
[2019-06-23] MEDS ORDERED: ONDANSETRON 4 MG TAB PO PRN (15:31)
[2019-06-23] MEDS ORDERED: BISACODYL 10 MG SUPP PR PRN (15:31)
[2019-06-23] MEDS ORDERED: HYDROmorphone INJ 0.5 MG/0.5 ML SYR IV PRN (15:31)
[2019-06-23] MEDS ORDERED: NALOXONE HCL 0.4 MG/1 ML VIAL/CARP IV PRN (15:31)
[2019-06-23] MEDS ORDERED: TRAMADOL HCL 50 MG TABLET PO PRN (15:31)
[2019-06-23] MEDS ORDERED: ACETAMINOPHEN 1,000 MG/100 ML VIAL IV PRN (15:31)
[2019-06-23] MEDS: OXYCODONE HCL IR 5 MG TAB (IMMEDIATE RELEASE) PO PRN ×2 (15:55→22:24)
[2019-06-23] MEDS: KETOROLAC TROMETHAMINE 15 MG/ML VIAL IV SCH ×2 (16:41→20:27)
[2019-06-23] MEDS: DOCUSATE SODIUM/SENNA 50/8.6MG TAB PO SCH (20:27)
[2019-06-23] MEDS: CEFAZOLIN 2000MG 2,000 MG/15 ML SYR IV SCH (20:27)
[2019-06-24] MEDS: KETOROLAC TROMETHAMINE 15 MG/ML VIAL IV SCH ×2 (03:24→10:00)
[2019-06-24] MEDS: CEFAZOLIN 2000MG 2,000 MG/15 ML SYR IV SCH (03:24)
[2019-06-24] MEDS: OXYCODONE HCL IR 5 MG TAB (IMMEDIATE RELEASE) PO PRN ×3 (05:36→18:41)
[2019-06-24] MEDS: LEVOTHYROXINE SODIUM 175 MCG TABLET PO SCH (05:36)
[2019-06-24] MEDS: POLYETHYLENE (MIRALAX) 17 GM PACK PO SCH ×4 (05:36→23:34)
[2019-06-24 07:46] LABS: Basophils # (auto) 0.02 K/uL (0-0.2); Basophils % (auto) 0.1 %; Eosinophils # (auto) 0.02 K/uL (0-0.5); Eosinophils % (auto) 0.1 %; Hematocrit (blood only) 33.2 % (37-47); Immature Granulocytes % (auto) 0.5 %; Lymphocytes # (auto) 1.63 K/uL (1.2-3.4); Lymphocytes % (auto) 7.7 %; Mean Corpuscular Hgb Conc 33.1 g/dL (32-36); Mean Corpuscular Volume 91.2 fL (80-100); Mean Platelet Volume 10.8 fL (7.4-10.4); Monocytes # (auto) 1.01 K/uL (0.11-0.59); Monocytes % (auto) 4.8 %; Neutrophils % (auto) 86.8 %; Platelet Count 312 K/uL (130-400); RDW Coefficient of Variation 15.5 % (11.5-14.5); RDW Standard Deviation 51.6 fL (36.4-46.3); Red Blood Count 3.64 M/uL (4.2-5.4); White Blood Count 21.08 K/uL (4.8-10.8)
[2019-06-24 07:54] LABS: BUN Creatinine Ratio 16.1 (10-20); Calcium 8.8 mg/dl (8.5-10.1); Creatinine Clr Calc Pharmacy 93.1 ml/min; Est GFR (African American) 81.2; Potassium 4.4 mmol/L (3.5-5.1)
--- NOTE | 2019-06-24 08:20 | Orthopedic Progress Note ---
Date of Service June 24, 2019 Assessment & Plan (1) Lumbar stenosis with neurogenic claudication: This time will initiate physical therapy monitor her ANNE output anticipate discharge home this weekend. Present on Admission?: Yes Subjective Back pain is controlled leg pain improved. Physical Exam Physical Exam: Patient is sitting up in bed she is comfortable. She is good strength testing. Results & Data Vital Signs (Past 12 Hours) Vital Signs Temp Pulse Resp BP BP Pulse Ox 06/24/19 07:53 36.4 C L 74 16 128/65 92 06/24/19 03:35 37 C 64 16 127/78 92 06/24/19 02:55 37 C 80 18 122/77 92 06/23/19 23:05 36.8 C 55 L 16 126/77 93
[2019-06-24] MEDS: DULOXETINE HCL 60 MG CAP PO SCH (08:30)
[2019-06-24] MEDS: LOSARTAN POTASSIUM 50 MG TAB PO SCH (08:30)
[2019-06-24] MEDS: PANTOprazole 40 MG TAB PO SCH (08:31)
--- NOTE | 2019-06-24 09:37 | Anesthesiology Progress Note ---
Date of Service June 24, 2019 Anesthesia Post Procedure Vital Signs Vital Signs: Temp Pulse Pulse Resp BP BP Pulse Ox 06/24/19 07:53 36.4 C L 74 16 128/65 92 06/24/19 03:35 37 C 64 16 127/78 92 06/24/19 02:55 37 C 80 18 122/77 92 06/23/19 23:05 36.8 C 55 L 16 126/77 93 06/23/19 18:29 36.6 C 58 L 17 117/74 94 06/23/19 17:20 36.9 C 67 17 106/66 94 06/23/19 16:26 37.0 C 62 17 106/71 97 06/23/19 15:56 61 15 113/73 95 06/23/19 15:20 37.1 C 77 15 126/83 95 06/23/19 15:05 36.6 C 69 15 117/70 95 06/23/19 14:55 36.6 C 66 16 111/62 94 06/23/19 14:45 37.2 C 70 15 121/85 95 06/23/19 14:35 37.2 C 73 17 151/91 H 97 06/23/19 14:25 37.2 C 80 15 115/88 94 06/23/19 14:16 37.2 C 65 14 120/76 96 06/23/19 11:36 36.8 C 77 18 145/90 H 96 Pain Intensity Back: Pain Intensity: 3 Notes Mental Status: alert / awake / arousable and participated in evaluation Patient Amnestic to Procedure: Yes Nausea / Vomiting: adequately controlled Pain: adequately controlled Airway Patency, RR, SpO2: stable & adequate BP & HR: stable & adequate Hydration State: stable & adequate Anesthetic Complications: no major complications apparent and Pt Satisfied with anesthetic care
[2019-06-24] MEDS: DOCUSATE SODIUM/SENNA 50/8.6MG TAB PO SCH (20:51)
[2019-06-25] MEDS: OXYCODONE HCL IR 5 MG TAB (IMMEDIATE RELEASE) PO PRN ×3 (03:39→15:39)
[2019-06-25] MEDS: LEVOTHYROXINE SODIUM 175 MCG TABLET PO SCH (05:32)
[2019-06-25] MEDS: POLYETHYLENE (MIRALAX) 17 GM PACK PO SCH ×4 (05:32→23:26)
[2019-06-25] MEDS: DULOXETINE HCL 60 MG CAP PO SCH (08:09)
[2019-06-25] MEDS: PANTOprazole 40 MG TAB PO SCH (08:09)
[2019-06-25] MEDS: LOSARTAN POTASSIUM 50 MG TAB PO SCH (08:09)
--- NOTE | 2019-06-25 09:22 | Orthopedic Progress Note ---
Date of Service June 25, 2019 Assessment & Plan (1) Lumbar stenosis with neurogenic claudication: This time we will obtain x-rays of the right knee. She states however she is up and ambulating with a walker and tolerating this overall relatively well. Certainly feels better than her preoperative status. Most likely discharge home tomorrow. Present on Admission?: Yes Subjective Patient overall is doing well struggling mostly with the right knee pain. She did have several falls recently and strained her right knee. She is status post total knee arthroplasty approximately 7 years ago. This was performed by Dr. Rasheed. Physical Exam Physical Exam: On exam she does have pain to palpation the medial aspect of her right knee. She does have some weakness with dorsiflexion on the right. She is markedly tender to palpation. Results & Data Vital Signs (Past 12 Hours) Vital Signs Temp Pulse Resp BP Pulse Ox 06/25/19 07:00 36.8 C 73 16 131/81 94 06/24/19 23:10 36.9 C 71 16 116/76 96
--- NOTE | 2019-06-25 10:20 | XRay Report ---
XR knee RT 3V CLINICAL HISTORY: Right knee pain. COMPARISON: Knee radiographs June 07, 2015. FINDINGS: Alignment of the total right knee arthroplasty is anatomic. There is no periprosthetic fra cture or lucency. A moderate size right knee joint effusion is present. IMPRESSION: 1. Status post total right knee arthroplasty. Hardware intact. No periprosthetic fracture or lucency. 2. Moderate size right knee joint effusion. Electronically signed by: Dhruv Ball M.D. 06/25/2019 10:19 AM
[2019-06-25] MEDS: DOCUSATE SODIUM/SENNA 50/8.6MG TAB PO SCH (21:05)
[2019-06-26] MEDS: POLYETHYLENE (MIRALAX) 17 GM PACK PO SCH (04:28)
[2019-06-26] MEDS: LEVOTHYROXINE SODIUM 175 MCG TABLET PO SCH (04:28)
[2019-06-26] MEDS: OXYCODONE HCL IR 5 MG TAB (IMMEDIATE RELEASE) PO PRN (04:31)
[2019-06-26] MEDS: PANTOprazole 40 MG TAB PO SCH (07:30)
[2019-06-26] MEDS: LOSARTAN POTASSIUM 50 MG TAB PO SCH (07:30)
[2019-06-26] MEDS: DULOXETINE HCL 60 MG CAP PO SCH (07:30)
--- NOTE | 2019-06-26 08:07 | Discharge Summary ---
Date of Service June 26, 2019 Admission HPI Per Admitting Provider This is a 58-year-old female well-known to the presents with worsening back and leg pain. After failing extensive course of nonoperative care is here for surgical intervention. Admission Exam (Per Admitting) Constitutional WD/WN, vitals as above Eyes normal visual sherwood by confrontation ENMT external ear and nose normal, oropharynx normal Neck normal visual inspection Respiratory normal respiratory effort Cardiovascular RRR, no murmur, no edema Chest (Breasts) Chest: normal inspection of chest Gastrointestinal (Abdomen) normal bowel sounds, soft, nontender, no hepatosplenomegaly Musculoskeletal no cyanosis or clubbing, extremities motor strength 5/5 Head/Neck/Chest: + head abnormal to inspection Skin no rashes, warm and dry Neurologic patellar DTR's 2+ bilat, sensation intact normal touch/pain/proprioception and CN's II-XI intact bilaterally Psychiatric A+Ox3, euthymic affect Discharge Data Consultations 06/23/19 15:31 Consult Case Management - Discharge Planning Routine Procedures Performed Operation Date: 06/23/19 12:25 Actual Procedures p L2-L3 Decompression, L2-S1 Fusion, Interbody Fusion L2-L3, with Spinal Cord Monitoring(Not Applicable) - Solomon Terry DO s L3-S1 Hardware Removal(Not Applicable) - Solomon Terry DO Hospital Course (1) Lumbar stenosis with neurogenic claudication: Patient is being discharged home on postoperative day 3. She is had an uncomplicated hospital course. She has noted some right knee pain and is status post right total knee arthroplasty by Dr. Rasheed few years ago. Preoperatively she is having significant pain and weakness that affected her legs therefore causing several falls. She does report 1 of these falls caused her to land directly on her right knee. X-rays were performed which shows small joint effusion. Otherwise she is been making progress with physical therapy. She is passing flatus. No bowel movement. ANNE drain is diminishing. Operative status. Discharge Instructions ACTIVITY RECOMMENDATIONS: SELF CARE INSTRUCTIONS AFTER THORACIC/LUMBAR FUSIONS 1. You may walk to your tolerance. It is good exercise for your legs and back. Expect some back and intermittent leg aches and pains. 2. You may perform "counter-top" level activities (make a sandwich, sofia with a project, etc.). 3. No bending or lifting of more than 10 pounds or back twisting of any nature (roll like a log when turning in bed). 4. You may ride in a car for 20-30 minutes at a time. No driving until after your first visit with your doctor. 5. Frequent changes of position and restricting sitting to 30 minutes at a time will help limit the amount of back spasms and stiffness you may experience. 6. You may discontinue the use of ambulatory aids (cane, crutches, etc.) once your strength and confidence allow. 7. You may aeronautical engineer the shower and let water strike your incision when you arrive home at least once daily. Do not take a tub bath, sit in a hot tub or go into a swimming pool until after your first recheck in the office. SPECIAL CARE INSTRUCTIONS: VERY IMPORTANT TO READ AND REVIEW A. Your surgical incision has been closed with a cosmetic suture under the skin that will dissolve in about 6 weeks. In 14 days, you can use a pair of clean scissors and cut the suture that is left outside of the skin at the ends of your incision. 1. The small skin tapes can be removed 7 days after surgery if they have not fallen off by that point. 2. You may keep the wound open to air as much as possible to promote healing after post-op day number 5 unless told otherwise by your doctor. 3. If you think the wound looks like it is becoming infected (redness or worsening drainage) and/or you are experiencing fever, chill or worsening back pain and muscle spasms, contact the office so that we may evaluate you as soon as possible. B. Complications are uncommon, but please contact us if you have any signs or symptoms of: 1. wound infection (fever higher than 102.5 degrees F, redness, separation of wound, drainage, or increasing pain from the incision) 2. blood clots in legs (pain, swelling, redness and warmth in legs) 3. urinary tract infection (fever higher than 102.5 degrees F, burning upon urination or increased frequency of urination) 4. nerve problems (inability to walk on your toes or heels, numbness, loss of bowel or bladder control) 5. any other symptoms that concern you C. Please call the office at if you have any concerns or questions about your operation or recovery. D. No smoking! Smoking drastically decreases the chance of a solid fusion. E. Do not take any anti-inflammatory medications (Indocin, Advil, Motrin, Aspirin, Naprosyn, etc.) as these may inhibit the chance of a solid fusion. Tylenol is okay to take for pain. MANAGING PAIN AFTER SPINAL SURGERY 1. Narcotic medication is intended for short-term use and will be provided for surgical pain. Surgical pain usually lasts for a period of 4-6 weeks. Narcotic medication includes Percocet, Vicodin, Darvocet, Tylenol #3 or Lortab. 2. Longer-term pain is more appropriately treated with non-narcotic medication such as Tylenol ES. 3. Muscle spasm is not appropriately treated with narcotics. Muscle relaxers such as Soma, Flexeril or Skelaxin can be used along with Tylenol ES. 4. Remember that we all live with some "aches and pains". This is not unusual or uncommon after an injury or as we get older. a. Back pain is expected and may include muscle spasms for 4 to 6 weeks after surgery. The pain should gradually improve. If the pain worsens for no apparent reason, please contact the office. b. Intermittent leg pain may also be experienced and should not be concerned about unless it worsens for no apparent reason. If so, please contact the office. 5. We will provide appropriate medication within the normal guidelines of their prescribed use. We will also be very cautious and aware of potential abuse and extended duration of patients' medication needs. a. Pain medications are for your comfort and to assist with sleep and rest so that the tissue can heal. They are not provided in order to return to normal activity and should not be used through the day. To do so or worsening pain at night can result from ongoing tissue damage and development of tolerance to the prescribed medicine. 6. Please allow 2-3 days to process refills. Prescriptions will not be mailed but must be picked up at the office. FOLLOW UP VISIT: Keep your scheduled follow-up appointment. Any questions, please call the office at . Supervising Physician Co-Signing Physician Notes Dr. Solomon Terry
== END 2019-06-26 09:25 | disposition home or self-care (01) | DRG 455 ==
LOC: ASU 10:55 → 3E 13:59

== ENCOUNTER 2023-06-29 17:18 | Inpatient (IN) ==
[2023-06-29] MEDS ORDERED: CHLORHEXIDINE GLUCONATE 4% SOL 4OZ BTL EXT ONE (17:27)
--- NOTE | 2023-06-29 18:08 | Emergency Department Note ---
Impression & Plan Fall, Poor personal hygiene, Hypoxia, Decubitus skin ulcer, Maggot infestation, Cellulitis, Hematuria ED Provider Note Provider: Antwan Jones MD DATE OF SERVICE: 06/29/2023 CHIEF COMPLAINT: Fall HISTORY OF PRESENT ILLNESS: Patient is a 62-year-old female reported history of hypothyroidism, hypertension, and GERD presenting here via ambulance from her home. EMS reports that the patient fell today as son was trying to help her take a bath. She evidently had her feet slipped out from under her and fell onto her buttocks. Fire and then EMS was called for evaluation. EMS reports that the patient was in a poorly kept state and they report that they have contacted code for evaluation. Patient was found to be somewhat hypoxic on room air and placed on oxygen by EMS. Patient herself upon arrival denies significant complaints. Denies feeling short of breath. Patient does relate s he is a smoker. Denies significant head neck or chest pain. Denies significant pain to the abdomen. EMS noted that the patient had maggots in the groin and vaginal area. Patient states she was unaware of this. She is unable to tell me exactly how long ago she had a bath. PAST MEDICAL HISTORY: As noted above MEDICATIONS: Patient is unsure when she last took prescribed medications SOCIAL HISTORY: Lives at home with son and teenage daughter by her report PHYSICAL EXAM: GENERAL: alert and oriented in no acute distress on stretcher laying flat with a dirty nightgown in place Head: normocephalic and atraumatic EYES: No injection, discharge or icterus. NECK: Trachea midline. Supple. ENT: Mucous membranes pink and moist. LUNGS: Airway patent. No retractions. Breath sounds with faint expiratory wheeze. HEART: Regular rate and rhythm. No chest wall tenderness ABDOMEN: Soft and non-tender, without guarding or rebound. SKIN: Acyanotic predominantly warm and dry without significant rash noted outside of the injuries as result of the bilateral breast as well as the lower abdominal pannus and into the inguinal and groin region there is areas of erythema and some excoriation. Many dozens of maggots are noted in these areas. They are crawling. There are areas of excoriation in the groin and vulvar region Is extending into the proximal thighs. The right groin to medial buttock there is an approximately 4 x 3 cm area of stage II decubitus ulceration from which a wound swab was taken. Pelvic with patient permission and nurse bulk gas specialist Megha latonia Ingris: The external vulvar and vaginal area is irritated with excoriated skin. There are probably 6-12 maggots crawling around the area and the external groin and vaginal area. Speculum inserted into the vagina. The vault is clear with some trace yellowish discharge. Do not see any significant deep or retained magnets or insects at this time. Not significantly inflamed in the anterior vaginal matias. Area flushed with saline and speculum removed. EXTREMITIES: Initially quite dirty and poorly kept without severe wounds noted to the upper or lower extremities. NEUROLOGICAL: No focal deficits. No aphasia. No facial droop or slurred speech. EK bpm normal sinus rhythm. No PVC. No acute ST segment elevation or depression with QTc of 433. CONTINUOUS CARDIAC MONITORING: was ordered and showed a heart rate of 70s-90s bpm in normal sinus rhythm GCS 15. Patient's laboratory studies and imaging reviewed. Differential includes traumatic injury, infection, skin wounds with concern for possible cellulitis/fungal infection, dehydration, metabolic abnormality, hypo/hyperglycemia, electrolyte disturbance, anemia, hypoxia, cardiac sources, intracerebral event, toxicologic, neurologic, as well as other pathologies. IMPRESSION/MEDICAL DECISION MAKING: Patient brought in after what sounds like a fall from near standing onto her buttock region. Patient herself is denying significant pain but found to be according to EMS and very poorly kept home and state. On examination the patient is quite dirty with a stained blouse and upon evaluation of the intertriginous regions under the bilateral breasts and the abdominal pannus and into the groin region there are many maggots noted crawling. The skin itself is excoriated and red in nature. Patient is likely not complaining of any severe pain. Noted be a bit hypoxic in route and question if this may be a bit more chronic with her history of smoking. Will obtain CT imaging as well as x-ray to evaluate the lungs as well as given the fall to exclude any significant traumatic injury of the head neck or abdomen pelvis. Basic blood work obtained. With help of nursing staff, patient was taken and cleaned with soap and water and some Hibiclens to these areas. Did discuss with the patient that given the severity of these wounds and maggots found in the we really need to obtain photos to help us monitor healing. Patient was somewhat reluctant but agreed to this. Case management was alerted as there are some concern for presentation with these maggots and areas of sores. Area of aging did discuss with the patient. Patient requiring some oxygen supplementation likely due to combination of COPD as well as habitus as were positioning and cleaning her. Chest x-ray without clear evidence of pneumonia or pneumothorax. Blood work with a mild leukocytosis 13.7 but no anemia. Some hyponatremia noted of 129. TSH abnormal likely related to possible medication noncompliance as she is unsure when she last took her prescribed medications and its been about 9 months and she was at the doctor's office. No troponin elevation and doubt cardiac injury. Doubt she is in myxedema coma at this time. Negative COVID. Urinalysis sent from [facility] placed here given concern for the open areas and excoriated wounds here. Nystatin powder was ordered for the area. Will cover with Zosyn given the skin wounds prickly in the groin region. Surface skin culture from wound on the groin is ordered. Some fluid hydration ordered. Harris does show hematuria returning. Patient's unsure of how long this may have been present. Blood as well as white blood cells noted and again received antibiotics. Culture sent. 2 L of IV saline ordered for ideal body weight 30 mg/kg fluid bolus. Do not however believe that she is truly septic and likely some of the transient hypoxia/hypotension or during periods where we were frequently moving and rolling and cleaning her likely making these were spurious. CT scans completed and reports reviewed. No signs of severe trauma. Patient agreeable with the plan to stay here for further care and evaluation. DIAGNOSIS: Fall, decubitus ulcerations, poor hygiene, hypoxia, maggot infestation, cellulitis DISPOSITION: Hospitalist will evaluate Past Med/Surg History Medical History Fibromyalgia GERD (gastroesophageal reflux disease) History of recurrent UTIs Hypertension Hypothyroidism Leukocytosis Chronic, noted in hx since 2014, stable. Lumbar stenosis with neurogenic claudication Morbid (severe) obesity due to excess calories Osteoarthritis Surgical History History of section History of cholecystectomy History of colonoscopy History of knee replacement procedure of right knee History of lumbar surgery HARDWARE PRESENT L2-S1 fusion History of tooth extraction Family History Mother Hypertension Father Hypertension Stroke Other No significant family history Denies family history of Breast cancer Colorectal cancer Social History Smoking Status: Heavy tobacco smoker Tobacco Type: Cigarettes Age Started Using Tobacco: 21; packs per day: 1; Cigarettes Per Day: 20; Second Hand Exposure: No; Do You Dip or Chew Tobacco: No; Hx Alcohol Use: No Hx Substance Use: No Preferred Language: Maltese Communication Ability: Effective Cloth Finishing Range Back Tender Required: No Beliefs That Will Affect Care: None marital status: Current Living Situation: Spouse and Family Current Living Situation Comment: DTR - 17, DTR - 30 AND SPECIAL NEEDS SON - 34. Going through a divorce. 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 Feels Safe at Home: Yes Assistive Devices: Walker and Wheelchair Allergies Allergies Allergy/AdvReac Type Severity Reaction Status Date / Time propofol AdvReac Intermediate NAUSEA AND Verified 06/29/23 20:53 HEAVING Home Meds Home Medications Medication Instructions Recorded Confirmed No Known Home Medications 06/29/23 06/29/23 Results & Data (ED) Vital Signs Vital Signs - 24 hr 06/29/23 17:14 06/29/23 17:14 06/29/23 18:32 Temperature 36.8 C Temperature Source Oral Pulse Rate 85 Pulse Rate [Apical] 85 76 Pulse Rate from SpO2 Sensor Pulse Rhythm Regular Pulse Rhythm [Apical] Regular Pulse Strength Normal Pulse Strength [Apical] Normal Respiratory Rate 26 H 26 H 23 Respiratory Effort / Characteristics Labored Labored Spontaneous Respiratory Depth Shallow Shallow Respiratory Pattern Tachypnea Tachypnea Blood Pressure 109/78 Blood Pressure [Right Arm] 109/78 85/73 L Blood Pressure Mean 88 Blood Pressure Mean [Right Arm] 88 77 Blood Pressure Position [Right Arm] Lying Pulse Oximetry 91 91 92 Oxygen Delivery Method Room Air Room Air Oxymask Oxygen Flow Rate 14 Sepsis Recent Fever Within 48 Hours No Sepsis New/Unexplained Change in Mental Status No Sepsis Action Taken by Nursing No Action Required 06/29/23 18:36 06/29/23 20:00 06/29/23 21:26 Temperature Temperature Source Pulse Rate 80 Pulse Rate [Apical] 82 Pulse Rate from SpO2 Sensor Pulse Rhythm Pulse Rhythm [Apical] Regular Pulse Strength Pulse Strength [Apical] Respiratory Rate 16 20 Respiratory Effort / Characteristics Non-Labored Spontaneous Respiratory Depth Normal Respiratory Pattern Regular Blood Pressure Blood Pressure [Right Arm] 122/59 L Blood Pressure Mean Blood Pressure Mean [Right Arm] 80 Blood Pressure Position [Right Arm] Pulse Oximetry 96 95 Oxygen Delivery Method Room Air Oxymask Oxygen Flow Rate 6 Sepsis Recent Fever Within 48 Hours Sepsis New/Unexplained Change in Mental Status Sepsis Action Taken by Nursing 06/29/23 18:30 06/29/23 19:00 06/29/23 19:30 Temperature Temperature Source Pulse Rate 80 73 Pulse Rate [Apical] Pulse Rate from SpO2 Sensor 79 Pulse Rhythm Pulse Rhythm [Apical] Pulse Strength Pulse Strength [Apical] Respiratory Rate 27 H 24 Respiratory Effort / Characteristics Respiratory Depth Respiratory Pattern Blood Pressure 85/73 L 108/88 115/79 Blood Pressure [Right Arm] Blood Pressure Mean 77 94 91 Blood Pressure Mean [Right Arm] Blood Pressure Position [Right Arm] Pulse Oximetry 80 L 92 96 Oxygen Delivery Method Oxymask Oxymask Oxygen Flow Rate 6 6 Sepsis Recent Fever Within 48 Hours Sepsis New/Unexplained Change in Mental Status Sepsis Action Taken by Nursing 06/29/23 20:00 06/29/23 20:30 06/29/23 21:02 Temperature Temperature Source Pulse Rate 80 Pulse Rate [Apical] Pulse Rate from SpO2 Sensor 87 77 Pulse Rhythm Pulse Rhythm [Apical] Pulse Strength Pulse Strength [Apical] Respiratory Rate 20 Respiratory Effort / Characteristics Respiratory Depth Respiratory Pattern Blood Pressure 116/70 127/67 131/75 Blood Pressure [Right Arm] Blood Pressure Mean 85 87 109 Blood Pressure Mean [Right Arm] Blood Pressure Position [Right Arm] Pulse Oximetry 90 95 97 Oxygen Delivery Method Oxymask Oxymask Oxymask Oxygen Flow Rate 6 6 6 Sepsis Recent Fever Within 48 Hours Sepsis New/Unexplained Change in Mental Status Sepsis Action Taken by Nursing 06/29/23 21:30 Temperature Temperature Source Pulse Rate 80 Pulse Rate [Apical] Pulse Rate from SpO2 Sensor Pulse Rhythm Pulse Rhythm [Apical] Pulse Strength Pulse Strength [Apical] Respiratory Rate 23 Respiratory Effort / Characteristics Respiratory Depth Respiratory Pattern Blood Pressure 128/68 Blood Pressure [Right Arm] Blood Pressure Mean 88 Blood Pressure Mean [Right Arm] Blood Pressure Position [Right Arm] Pulse Oximetry 98 Oxygen Delivery Method Oxymask Oxygen Flow Rate 6 Sepsis Recent Fever Within 48 Hours Sepsis New/Unexplained Change in Mental Status Sepsis Action Taken by Nursing Laboratory Data 06/29/23 17:53 06/29/23 17:53 Lab Results 06/29/23 06/29/23 06/29/23 Range/Units 17:53 17:53 17:53 WBC 13.72 H (4.8-10.8) K/ul RBC 4.68 (4.20-5.40) M/uL Hgb 15.5 (12.0-16.0) g/dl POC Hgb (12.0-16.0) g/dl Hct 44.6 (37.0-47.0) % POC Hct (37-47) % MCV 95.3 (80.0-100.0) fL MCH 33.1 (25.0-34.0) pg MCHC 34.8 (32.0-36.0) g/dL RDW Std Deviation 56.0 H (36.4-46.3) fL RDW Coeff of Tino 16.0 H (11.5-14.5) % Plt Count 273 (130-400) K/uL MPV 9.6 (9.4-12.4) fL Immature Gran % (Auto) 1.9 % Neut % (Auto) 83.2 % Lymph % (Auto) 6.3 % [place] % (Auto) 7.9 % Eos % (Auto) 0.3 % Baso % (Auto) 0.4 % Neut # (Auto) 11.42 H (1.40-6.50) K/uL Lymph # (Auto) 0.86 L (1.2-3.4) K/uL [place] # (Auto) 1.08 H (0.11-0.59) K/uL Eos # (Auto) 0.04 (0-0.50) K/uL Baso # (Auto) 0.06 (0-0.2) K/uL Immature Gran # (Auto) 0.26 H (0.01-0.20) K/uL Absolute Nucleated RBC 0.02 (0-0.12) K/uL Nucleated RBC % (auto) 0.1 % PT 11.5 (9.0-12.0) Seconds INR 1.1 (0.9-1.1) POC Sodium (135-144) mmol/L Sodium 129 L (136-145) mmol/L POC Potassium (3.3-5.0) mmol/L Potassium 4.1 (3.5-5.1) mmol/L POC Chloride (101-112) mmol/L Chloride 88 L (98-107) mmol/L Carbon Dioxide 30 (21-32) mmol/L POC Total CO2 (24-31) mmol/L Anion Gap 11 (3-11) POC Anion Gap (16-25) mmol/L POC BUN (7-18) mg/dl BUN 34 H (6-23) mg/dl Creatinine 1.23 H (0.6-1.2) mg/dl POC Creatinine (0.6-1.3) mg/dl Est Cr Clr Drug Dosing 69.5 ml/min Est GFR ( Amer) 54.8 ml/min Est GFR (Non-Af Amer) 47.3 ml/min BUN/Creatinine Ratio 27.6 H (10-20) Glucose 116 H (70-99(Fasting)) mg/dl POC Glucose (other) (70-99) mg/dl Calcium 8.9 (8.6-10.3) mg/dl POC Ioniz Calcium Demetrius (1.12-1.32) mmol/l Magnesium 2.0 (1.7-2.4) mg/dl Total Bilirubin 2.1 H (0.2-1.0) mg/dl AST 20 (13-39) U/L ALT 15 (7-52) U/L Alkaline Phosphatase 86 (34-104) U/L Total Creatine Kinase 228 H (26-192) U/L Troponin I High Sens 10.5 (0-14) pg/ml Total Protein 7.1 (6.0-8.3) gm/dl Albumin 4.3 (3.4-5.0) gm/dl Globulin 2.8 (2.5-4.0) gm/dl Albumin/Globulin Ratio 1.5 (0.9-2) TSH (0.300-4.500) uIu/ml Free T4 (0.61-1.60) ng/dl Urine Color Urine Appearance (Clear) Urine pH (4.5-7.5) Ur Specific [place] (1.000-1.030) Urine Protein (Negative) Urine Glucose (UA) (Negative) Urine Ketones (Negative) Urine Blood (Negative) Urine Nitrite (Negative) Urine Bilirubin (Negative) Urine Urobilinogen (Negative) Ur Leukocyte Esterase (Negative) Urine RBC (0-4) /hpf Urine WBC (0-5) /hpf Ur Epithelial Cells (0-5) /lpf Urine Bacteria (Negative) SARS-CoV-2, RNA, NAAT (NEGATIVE) 06/29/23 06/29/23 06/29/23 Range/Units 17:53 17:53 17:59 WBC (4.8-10.8) K/ul RBC (4.20-5.40) M/uL Hgb (12.0-16.0) g/dl POC Hgb 17.0 H (12.0-16.0) g/dl Hct (37.0-47.0) % POC Hct 50 H (37-47) % MCV (80.0-100.0) fL MCH (25.0-34.0) pg MCHC (32.0-36.0) g/dL RDW Std Deviation (36.4-46.3) fL RDW Coeff of Tino (11.5-14.5) % Plt Count (130-400) K/uL MPV (9.4-12.4) fL Immature Gran % (Auto) % Neut % (Auto) % Lymph % (Auto) % [place] % (Auto) % Eos % (Auto) % Baso % (Auto) % Neut # (Auto) (1.40-6.50) K/uL Lymph # (Auto) (1.2-3.4) K/uL Win[place] # (Auto) (0.11-0.59) K/uL Eos # (Auto) (0-0.50) K/uL Baso # (Auto) (0-0.2) K/uL Immature Gran # (Auto) (0.01-0.20) K/uL Absolute Nucleated RBC (0-0.12) K/uL Nucleated RBC % (auto) % PT (9.0-12.0) Seconds INR (0.9-1.1) POC Sodium 128 L (135-144) mmol/L Sodium (136-145) mmol/L POC Potassium 4.0 (3.3-5.0) mmol/L Potassium (3.5-5.1) mmol/L POC Chloride 89 L (101-112) mmol/L Chloride (98-107) mmol/L Carbon Dioxide (21-32) mmol/L POC Total CO2 29 (24-31) mmol/L Anion Gap (3-11) POC Anion Gap 16.0 (16-25) mmol/L POC BUN 32 H (7-18) mg/dl BUN (6-23) mg/dl Creatinine (0.6-1.2) mg/dl POC Creatinine 1.3 (0.6-1.3) mg/dl Est Cr Clr Drug Dosing ml/min Est GFR ( Amer) ml/min Est GFR (Non-Af Amer) ml/min BUN/Creatinine Ratio (10-20) Glucose (70-99(Fasting)) mg/dl POC Glucose (other) 120 H (70-99) mg/dl Calcium (8.6-10.3) mg/dl POC Ioniz Calcium Demetrius 0.97 L (1.12-1.32) mmol/l Magnesium (1.7-2.4) mg/dl Total Bilirubin (0.2-1.0) mg/dl AST (13-39) U/L ALT (7-52) U/L Alkaline Phosphatase (34-104) U/L Total Creatine Kinase (26-192) U/L Troponin I High Sens (0-14) pg/ml Total Protein (6.0-8.3) gm/dl Albumin (3.4-5.0) gm/dl Globulin (2.5-4.0) gm/dl Albumin/Globulin Ratio (0.9-2) TSH 26.695 H (0.300-4.500) uIu/ml Free T4 < 0.25 L (0.61-1.60) ng/dl Urine Color Urine Appearance (Clear) Urine pH (4.5-7.5) Ur Specific [place] (1.000-1.030) Urine Protein (Negative) Urine Glucose (UA) (Negative) Urine Ketones (Negative) Urine Blood (Negative) Urine Nitrite (Negative) Urine Bilirubin (Negative) Urine Urobilinogen (Negative) Ur Leukocyte Esterase (Negative) Urine RBC (0-4) /hpf Urine WBC (0-5) /hpf Ur Epithelial Cells (0-5) /lpf Urine Bacteria (Negative) SARS-CoV-2, RNA, NAAT NEGATIVE (NEGATIVE) 06/29/23 Range/Units 19:17 WBC (4.8-10.8) K/ul RBC (4.20-5.40) M/uL Hgb (12.0-16.0) g/dl POC Hgb (12.0-16.0) g/dl Hct (37.0-47.0) % POC Hct (37-47) % MCV (80.0-100.0) fL MCH (25.0-34.0) pg MCHC (32.0-36.0) g/dL RDW Std Deviation (36.4-46.3) fL RDW Coeff of Tino (11.5-14.5) % Plt Count (130-400) K/uL MPV (9.4-12.4) fL Immature Gran % (Auto) % Neut % (Auto) % Lymph % (Auto) % [place] % (Auto) % Eos % (Auto) % Baso % (Auto) % Neut # (Auto) (1.40-6.50) K/uL Lymph # (Auto) (1.2-3.4) K/uL [place] # (Auto) (0.11-0.59) K/uL Eos # (Auto) (0-0.50) K/uL Baso # (Auto) (0-0.2) K/uL Immature Gran # (Auto) (0.01-0.20) K/uL Absolute Nucleated RBC (0-0.12) K/uL Nucleated RBC % (auto) % PT (9.0-12.0) Seconds INR (0.9-1.1) POC Sodium (135-144) mmol/L Sodium (136-145) mmol/L POC Potassium (3.3-5.0) mmol/L Potassium (3.5-5.1) mmol/L POC Chloride (101-112) mmol/L Chloride (98-107) mmol/L Carbon Dioxide (21-32) mmol/L POC Total CO2 (24-31) mmol/L Anion Gap (3-11) POC Anion Gap (16-25) mmol/L POC BUN (7-18) mg/dl BUN (6-23) mg/dl Creatinine (0.6-1.2) mg/dl POC Creatinine (0.6-1.3) mg/dl Est Cr Clr Drug Dosing ml/min Est GFR ( Amer) ml/min Est GFR (Non-Af Amer) ml/min BUN/Creatinine Ratio (10-20) Glucose (70-99(Fasting)) mg/dl POC Glucose (other) (70-99) mg/dl Calcium (8.6-10.3) mg/dl POC Ioniz Calcium Demetrius (1.12-1.32) mmol/l Magnesium (1.7-2.4) mg/dl Total Bilirubin (0.2-1.0) mg/dl AST (13-39) U/L ALT (7-52) U/L Alkaline Phosphatase (34-104) U/L Total Creatine Kinase (26-192) U/L Troponin I High Sens (0-14) pg/ml Total Protein (6.0-8.3) gm/dl Albumin (3.4-5.0) gm/dl Globulin (2.5-4.0) gm/dl Albumin/Globulin Ratio (0.9-2) TSH (0.300-4.500) uIu/ml Free T4 (0.61-1.60) ng/dl Urine Color Red Urine Appearance Turbid A (Clear) Urine pH 7.0 (4.5-7.5) Ur Specific [place] 1.020 (1.000-1.030) Urine Protein 3+ H (Negative) Urine Glucose (UA) Negative (Negative) Urine Ketones 2+ H (Negative) Urine Blood 3+ H (Negative) Urine Nitrite Negative (Negative) Urine Bilirubin 3+ H (Negative) Urine Urobilinogen Negative (Negative) Ur Leukocyte Esterase 1+ H (Negative) Urine RBC >30 H (0-4) /hpf Urine WBC >30 H (0-5) /hpf Ur Epithelial Cells 5-10 H (0-5) /lpf Urine Bacteria 1+ H (Negative) SARS-CoV-2, RNA, NAAT (NEGATIVE) Administered Medications Discontinued Medications Albuterol (Albut/Ipratrop 3mg/0.5mg Neb 3 Ml Vial) 3 ml NEB NOW STA; Protocol Stop: 06/29/23 19:29 Last Admin: 06/29/23 21:26 Dose: 3 ml Documented By: MAURISIO Chlorhexidine Gluconate (Chlorhexidine Gluconate 4% Noris 4oz Btl) Confirm Administered Dose 1 btl EXT .STK-MED ONE Stop: 06/29/23 17:28 Last Admin: 06/29/23 19:25 Dose: 1 btl Documented By: YONAS Piperacillin Sod/Tazobactam Sod (Zosyn) 4.5 gm in 120 mls @ 240 mls/hr IV NOW ONE Stop: 06/29/23 19:56 Last Admin: 06/29/23 21:18 Dose: 240 mls/hr Documented By: MAURISIO Sodium Chloride (Nss 1000ml) 1,000 mls @ 999 mls/hr IV .Q1H1M ONE Stop: 06/29/23 22:17 Last Admin: 06/29/23 21:26 Dose: 999 mls/hr Documented By: MAURISIO Ioversol (Optiray 320 100ml) 89 ml IV ONCE ONE Stop: 06/29/23 20:47 Last Admin: 06/29/23 20:46 Dose: 89 ml Documented By: [place] Imaging Data Radiologist's Impression: Chest X-Ray 06/29/23 17:29 XR chest 1V portable CLINICAL HISTORY: fall TECHNIQUE: Single frontal radiograph of the chest was obtained. Comparison: Comparison is made to chest radiograph 09/23/2022 FINDINGS: No lines and tubes are seen. Cardiomegaly is noted. Bilateral atelectasis is seen. No evidence of pleural effusion or pneumothorax. IMPRESSION: No acute chest disease. ACT 112: Negative or not required by law. Electronically signed by: Rosalio Noguera M.D. 06/29/2023 6:45 PM Abdomen/Pelvis CT 06/29/23 17:32 Exam(s): CT ABDOMEN + PELVIS With Contrast IV Amt: 91 ml optiray 320 EXAM: CT Abdomen and Pelvis With Intravenous Contrast CLINICAL HISTORY: Reason for exam: fall. TECHNIQUE: Axial computed tomography images of the abdomen and pelvis with intravenous contrast. Automated exposure control was utilized for the study. A dose lowering technique was utilized adhering to the principles of ALARA. CONTRAST: Patient received 91 ml optiray 320 of IV contrast COMPARISON: CT abdomen pelvis 12/31/2018 FINDINGS: ABDOMEN: Liver: Hepatomegaly and hepatic steatosis. Gallbladder and bile ducts: Cholecystectomy. Pancreas: Unremarkable. Spleen: Unremarkable. Adrenals: Unremarkable. Kidneys and ureters: Few cortical cysts in the kidneys. No hydronephrosis. Stomach and bowel: Unremarkable. PELVIS: Appendix: No findings to suggest acute appendicitis. Bladder: Circumferential mucosal thickening of the bladder with surrounding fat stranding consistent with cystitis. Harris catheter within the bladder. Reproductive: Unremarkable as visualized. ABDOMEN and PELVIS: Intraperitoneal space: Unremarkable. No free air. No significant fluid collection. Bones/joints: Chronic appearing inferior endplate fracture at L1. Advanced degenerative changes at L1-L2. Multilevel fusion construct in the lumbar spine. Soft tissues: Unremarkable. Vasculature: Unremarkable. Lymph nodes: Unremarkable. IMPRESSION: 1. Circumferential mucosal thickening of the bladder with surrounding fat stranding consistent with cystitis. 2. Hepatomegaly and hepatic steatosis. Electronically signed by: Jw Alonso MD 06/29/23 23:[address] 06/29/23 17:32 Exam(s): CT HEAD Without Contrast EXAM: CT Head Without Intravenous Contrast CLINICAL HISTORY: Reason for exam: fall. TECHNIQUE: Axial computed tomography images of the head/brain without intravenous contrast. Automated exposure control was utilized for the study. A dose lowering technique was utilized adhering to the principles of ALARA. COMPARISON: No relevant prior studies available. FINDINGS: Brain: No hemorrhage, extra-axial fluid collection, mass effect, or edema. Ventricles: Unremarkable. Bones/joints: Unremarkable. No fracture. Soft tissues: Unremarkable. Sinuses: No acute sinusitis. Mastoid air cells: Unremarkable as visualized. IMPRESSION: 1. No acute intracranial abnormality. Electronically signed by: Jw Alonso MD 06/29/23 22:47 PM Discharge Plan Visit Data Chief Complaint: Fall Stated Complaint: FALL ED Provider: Antwan Jones Discharge Problem: Fall, Poor personal hygiene, Hypoxia, Decubitus skin ulcer, Maggot infestation, Cellulitis, Hematuria Patient Disposition: Being Evaluated by Hospitalist Discharge Instructions Interventions: ED Discharge Assessment Last Done: 06/29/23 22:20 Fall Qualifiers: Encounter type: initial encounter Qualified Code(s): W19.XXXA - Unspecified fall, initial encounter
[2023-06-29 18:10] LABS: Basophils # (auto) 0.06 K/uL (0-0.2); Basophils % (auto) 0.4 %; Eosinophils # (auto) 0.04 K/uL (0-0.50); Eosinophils % (auto) 0.3 %; Hematocrit (blood only) 44.6 % (37.0-47.0); Hemoglobin 15.5 g/dl (12.0-16.0); Immature Granulocytes # (auto) 0.26 K/uL (0.01-0.20); Immature Granulocytes % (auto) 1.9 %; Lymphocytes # (auto) 0.86 K/uL (1.2-3.4); Lymphocytes % (auto) 6.3 %; Mean Corpuscular Hemoglobin 33.1 pg (25.0-34.0); Mean Corpuscular Hgb Conc 34.8 g/dL (32.0-36.0); Mean Corpuscular Volume 95.3 fL (80.0-100.0); Mean Platelet Volume 9.6 fL (9.4-12.4); Monocytes # (auto) 1.08 K/uL (0.11-0.59); Monocytes % (auto) 7.9 %; Neutrophils # (auto) 11.42 K/uL (1.40-6.50); Neutrophils % (auto) 83.2 %; Nucleated RBC # (auto) 0.02 K/uL (0-0.12); Nucleated RBC % (auto) 0.1 %; Platelet Count 273 K/uL (130-400); Red Blood Count 4.68 M/uL (4.20-5.40); White Blood Count 13.72 K/ul (4.8-10.8)
[2023-06-29 18:13] LABS: iSTAT Creatinine 1.3 mg/dl (0.6-1.3); iSTAT Ionized Calcium 0.97 mmol/l (1.12-1.32)
[2023-06-29 18:24] LABS: Albumin Globulin Ratio 1.5 (0.9-2); Albumin Level 4.3 gm/dl (3.4-5.0); BUN Creatinine Ratio 27.6 (10-20); Bilirubin,Total 2.1 mg/dl (0.2-1.0); Calcium 8.9 mg/dl (8.6-10.3); Creatinine Clr Calc Pharmacy 69.5 ml/min; Est GFR (African American) 54.8 ml/min; Est GFR (Non-African American) 47.3 ml/min; Globulin 2.8 gm/dl (2.5-4.0); Potassium 4.1 mmol/L (3.5-5.1); Total Protein 7.1 gm/dl (6.0-8.3)
[2023-06-29 18:30] LABS: Troponin I High Sensitivity 10.5 pg/ml (0-14)
[2023-06-29 18:33] LABS: INR 1.1 (0.9-1.1); Prothrombin Time 11.5 Seconds (9.0-12.0)
[2023-06-29 18:40] LABS: Thyroid Stimulating Hormone 26.695 uIu/ml (0.300-4.500)
[2023-06-29] MEDS ORDERED: NYSTATIN POWDER 15GM BTL EXT ONE (18:40)
--- NOTE | 2023-06-29 18:46 | XRay Report ---
XR chest 1V portable CLINICAL HISTORY: fall TECHNIQUE: Single frontal radiograph of the chest was obtained. Comparison: Comparison is made to chest radiograph 09/23/2022 FINDINGS: No lines and tubes are seen. Cardiomegaly is noted. Bilateral atelectasis is seen. No evidence of ple ural effusion or pneumothorax. IMPRESSION: No acute chest disease. ACT 112: Negative or not required by law. Electronically signed by: Rosalio Noguera M.D. 06/29/2023 6:45 PM
[2023-06-29 18:50] LABS: T4 Free Thyroxine < 0.25 ng/dl (0.61-1.60)
[2023-06-29] MEDS ORDERED: PIPERACILLIN/TAZOBACTAM 4.5 GM/120 ML BAG IV ONE (19:27)
[2023-06-29] MEDS ORDERED: ALBUT/IPRATROP 3MG/0.5MG NEB 3 ML VIAL NEB STA (19:28)
[2023-06-29] MEDS ORDERED: SODIUM CHLORIDE 0.9% 500 ML IV ONE ×2 (19:28→21:18)
[2023-06-29 19:37] LABS: Appearance Urine Turbid (Clear); Bilirubin Urine 3+ (Negative); Blood Urine 3+ (Negative); Color Urine Red; Glucose Urine UA Negative (Negative); Ketones Urine 2+ (Negative); Leukocyte Esterase Urine 1+ (Negative); Nitrite Urine Negative (Negative); Protein Urine 3+ (Negative); Urobilinogen Urine Negative (Negative)
[2023-06-29 19:38] LABS: RBC Urine >30 /hpf (0-4); WBC Urine >30 /hpf (0-5)
[2023-06-29 19:39] LABS: Bacteria Urine 1+ (Negative)
[2023-06-29] MEDS ORDERED: OPTIRAY 320 100ml IV ONE (20:46)
[2023-06-29] MEDS ORDERED: SODIUM CHLORIDE 0.9% 1,000 ML IV ONE (21:17)
--- NOTE | 2023-06-29 21:36 | History & Physical Report ---
Date of Service June 29, 2023 Assessment & Plan (1) Fall: Plan: 62yo female presenting after a fall at home. Patient is in a poorly kempt state. Has not been taking care of herself. She reports decreased appetite and poor oral intake. Has not taken her medications for at least 8 months. -Admit to medical with telemetry -Maintain fall precautions -PT/OT evaluations appreciated -Case Management assistance appreciated (2) Hematuria: Plan: Patient with hematuria and UTI. Harris in place -Monitor output -Ceftriaxone 2gm IV daily -Follow cultures (3) Maggot infestation: Plan: Patient with fairly diffuse intertriginous yeast infection present under bilateral breasts and groin. Overall in a state of poor hygiene. She has been cleaned in the ER. -Nystatin BID -Oral care q shift -Office of Aging will be following along -Case management assistance appreciated (4) Hypertension: Plan: Patient with low blood pressure in the ER - presently 103/60 after 1L NSS. Per review of last PCP note from 09/26/23, she is to be taking Spironolactone 25mg-HCTZ 25mg Losartan 100mg po daily She reports that she has not been taking any medications for at least 8 months. -Hold antihypertensive agents -Monitor blood pressure (5) Hypothyroidism: Plan: Patient with history of hypothyroidism. She is to be taking Synthroid 200mcg po daily but has not had any medications for over 8 months. Her TSH is markedly elevated at 26.695 and her Free T4 is undetectable at <0.25. Normal temperature. Close attention to mentation and blood pressure. Do not suspect myxedema at this time. -Will resume Synthroid 200mcg po daily -Patient should have a followup TSH outpatient (6) GERD (gastroesophageal reflux disease): Plan: Patient with history of GERD. She is to be on Protonix 40mg po daily. No medications x 8 months -Resume Protonix 40mg po daily (7) Fibromyalgia: Plan: Patient with history of Fibromyalgia. She is on Duloxetine 60mg po daily. -Will hold for now, consider resuming prior to DC F/E/N - LR at 125mL/hr x 2L, hyponatremia with Wx=138 likely secondary to dehydration - patient appears very dry on exam, hypocalcemia with ICal=0.97, will administer 2gm calcium gluconate and repeat ionized Ca in AM, Heart healthy diet with aspiration precautions as tolerated, bowel regimen with Senna and Miralax Ppx - Lovenox Code - Full per discussion with patient Dispo -Admit to medical with telemetry History of Present Illness Chief Complaint: fall Primary Care Provider: Arjun De La Torre MD Rian Hernandez is a 62yo female with history of HTN, Hypothyroidism, GERD, Fibromyalgia and Morbid Obesity presenting after a fall at home. Patient lives in an apartment with her 32yo son (special needs) and daughter. Her son tried to help her get up this afternoon to take a bath. The floor was wet and patient fell onto her buttock. She was unable to get up and EMS was called. She denies head trauma or loss of consciousness. EMS noted that the home and patient were poorly kempt. Patient was hypoxic en route and had supplemental oxygen placed. Upon arrival she was afebrile, hypotensive initially with blood pressure of 85/73, tachypneic with RR of 27 saturating 80% on room air. She was placed on supplemental O2 - currently on 6L Oxymask with adequate oxygenation. Blood pressure did improve after administration of IVF. Patient noted to have fairly severe intertriginous infection with presence of maggots in the groin and vaginal area. The area was cleaned and irrigated by ER staff. Office of the Aging has been contacted and will be following the case to ensure safe and proper discharge plan. Protective Services have also been contacted for patient's son who lives at home and is special needs. ER Course: NSS x 1L Albuterol 3mL neb Zosyn 4.5gm Chlorhexidine oral care Allergies Allergy/AdvReac Type Severity Reaction Status Date / Time propofol AdvReac Intermediate NAUSEA AND Verified 06/29/23 20:53 HEAVING Home Medications Medication Instructions Recorded Confirmed Type No Known Home Medications 06/29/23 06/29/23 History Past Med/Surg History Medical History Fibromyalgia GERD (gastroesophageal reflux disease) History of recurrent UTIs Hypertension Hypothyroidism Leukocytosis Chronic, noted in hx since 2014, stable. Lumbar stenosis with neurogenic claudication Morbid (severe) obesity due to excess calories Osteoarthritis Surgical History History of section History of cholecystectomy History of colonoscopy History of knee replacement procedure of right knee History of lumbar surgery HARDWARE PRESENT L2-S1 fusion History of tooth extraction Family History Mother Hypertension Father Hypertension Stroke Other No significant family history Denies family history of Breast cancer Colorectal cancer Social History Smoking Status: Heavy tobacco smoker Tobacco Type: Cigarettes Age Started Using Tobacco: 21; packs per day: 1; Cigarettes Per Day: 20; Second Hand Exposure: No; Do You Dip or Chew Tobacco: No; Hx Alcohol Use: No Hx Substance Use: No Preferred Language: Cambodian Communication Ability: Effective Manager Continuous Improvement Required: No Beliefs That Will Affect Care: None marital status: Current Living Situation: Spouse and Family Current Living Situation Comment: DTR - 17, DTR - 30 AND SPECIAL NEEDS SON - 34. Going through a divorce. 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 Feels Safe at Home: Yes Assistive Devices: Walker and Wheelchair Review of Systems Review of Systems: All systems reviewed & are unremarkable except as noted in HPI & below Physical Exam Physical Exam: General: morbidly obese female patient resting comfortably, Oxymask in place, NAD, chronically ill and unkempt in appearance, oriented to self and location - able to answer questions and follow commands Skin: intertriginous yeast infection noted under bilateral breasts and in groin HEENT: NC/AT, PERRL, EOMI, anicteric sclera, conjunctiva without injection, external ear normal to inspection and nontender, nares patent, very dry mucus membranes with poor oral care, no oropharyngeal lesions, neck supple, trachea midline, no LAD, no thyromegaly, no JVD Heart: +S1/S2, regular, no m/r/g Lungs: equal air entry bilaterally, no rales/rhonchi/wheezes anteriorly Abd: +BS, soft, NT/ND, no masses/organomegaly/ascites, Harris in place with hematuria and sediment Ext: warm, 2+ pulses in UE/LE bilaterally, no clubbing/cyanosis or edema Neuro: nonfocal, patient AA&O x 2, speech slow but intact, no facial droop, moving all extremities on command with equal strength 5/5 Results & Data Results & Data Vital Signs (Past 12 Hours) Vital Signs Temp Pulse Pulse Resp BP BP Pulse Ox 06/29/23 21:26 20 95 06/29/23 20:00 82 16 122/59 L 96 06/29/23 18:36 80 06/29/23 18:32 76 23 85/73 L 92 06/29/23 17:14 85 26 H 109/78 91 06/29/23 17:14 36.8 C 85 26 H 109/78 91 O2 Del Method O2 Flow Rate 06/29/23 21:26 Oxymask 6 06/29/23 20:00 Room Air 06/29/23 18:36 06/29/23 18:32 Oxymask 14 06/29/23 17:14 Room Air 06/29/23 17:14 Room Air Laboratory Results Laboratory Results WBC 13.72 K/ul (4.8-10.8) H 06/29/23 17:53 RBC 4.68 M/uL (4.20-5.40) 06/29/23 17:53 Hgb 15.5 g/dl (12.0-16.0) 06/29/23 17:53 POC Hgb 17.0 g/dl (12.0-16.0) H 06/29/23 17:59 Hct 44.6 % (37.0-47.0) 06/29/23 17:53 POC Hct 50 % (37-47) H 06/29/23 17:59 MCV 95.3 fL (80.0-100.0) 06/29/23 17:53 MCH 33.1 pg (25.0-34.0) 06/29/23 17:53 MCHC 34.8 g/dL (32.0-36.0) 06/29/23 17:53 RDW Std Deviation 56.0 fL (36.4-46.3) H 06/29/23 17:53 RDW Coeff of Tino 16.0 % (11.5-14.5) H 06/29/23 17:53 Plt Count 273 K/uL (130-400) 06/29/23 17:53 MPV 9.6 fL (9.4-12.4) 06/29/23 17:53 Immature Gran % (Auto) 1.9 % 06/29/23 17:53 Neut % (Auto) 83.2 % 06/29/23 17:53 Lymph % (Auto) 6.3 % 06/29/23 17:53 Otero % (Auto) 7.9 % 06/29/23 17:53 Eos % (Auto) 0.3 % 06/29/23 17:53 Baso % (Auto) 0.4 % 06/29/23 17:53 Neut # (Auto) 11.42 K/uL (1.40-6.50) H 06/29/23 17:53 Lymph # (Auto) 0.86 K/uL (1.2-3.4) L 06/29/23 17:53 Otero # (Auto) 1.08 K/uL (0.11-0.59) H 06/29/23 17:53 Eos # (Auto) 0.04 K/uL (0-0.50) 06/29/23 17:53 Baso # (Auto) 0.06 K/uL (0-0.2) 06/29/23 17:53 Immature Gran # (Auto) 0.26 K/uL (0.01-0.20) H 06/29/23 17:53 Absolute Nucleated RBC 0.02 K/uL (0-0.12) 06/29/23 17:53 Nucleated RBC % (auto) 0.1 % 06/29/23 17:53 PT 11.5 Seconds (9.0-12.0) 06/29/23 17:53 INR 1.1 (0.9-1.1) 06/29/23 17:53 POC Sodium 128 mmol/L (135-144) L 06/29/23 17:59 Sodium 129 mmol/L (136-145) L 06/29/23 17:53 POC Potassium 4.0 mmol/L (3.3-5.0) 06/29/23 17:59 Potassium 4.1 mmol/L (3.5-5.1) 06/29/23 17:53 POC Chloride 89 mmol/L (101-112) L 06/29/23 17:59 Chloride 88 mmol/L (98-107) L 06/29/23 17:53 Carbon Dioxide 30 mmol/L (21-32) 06/29/23 17:53 POC Total CO2 29 mmol/L (24-31) 06/29/23 17:59 Anion Gap 11 (3-11) 06/29/23 17:53 POC Anion Gap 16.0 mmol/L (16-25) 06/29/23 17:59 POC BUN 32 mg/dl (7-18) H 06/29/23 17:59 BUN 34 mg/dl (6-23) H 06/29/23 17:53 Creatinine 1.23 mg/dl (0.6-1.2) H 06/29/23 17:53 POC Creatinine 1.3 mg/dl (0.6-1.3) 06/29/23 17:59 Est Cr Clr Drug Dosing 69.5 ml/min 06/29/23 17:53 Est GFR ( Amer) 54.8 ml/min 06/29/23 17:53 Est GFR (Non-Af Amer) 47.3 ml/min 06/29/23 17:53 BUN/Creatinine Ratio 27.6 (10-20) H 06/29/23 17:53 Glucose 116 mg/dl (70-99(Fasting)) H 06/29/23 17:53 POC Glucose (other) 120 mg/dl (70-99) H 06/29/23 17:59 Calcium 8.9 mg/dl (8.6-10.3) 06/29/23 17:53 POC Ioniz Calcium Demetrius 0.97 mmol/l (1.12-1.32) L 06/29/23 17:59 Magnesium 2.0 mg/dl (1.7-2.4) 06/29/23 17:53 Total Bilirubin 2.1 mg/dl (0.2-1.0) H 06/29/23 17:53 AST 20 U/L (13-39) 06/29/23 17:53 ALT 15 U/L (7-52) 06/29/23 17:53 Alkaline Phosphatase 86 U/L (34-104) 06/29/23 17:53 Total Creatine Kinase 228 U/L (26-192) H 06/29/23 17:53 Troponin I High Sens 10.5 pg/ml (0-14) 06/29/23 17:53 Total Protein 7.1 gm/dl (6.0-8.3) 06/29/23 17:53 Albumin 4.3 gm/dl (3.4-5.0) 06/29/23 17:53 Globulin 2.8 gm/dl (2.5-4.0) 06/29/23 17:53 Albumin/Globulin Ratio 1.5 (0.9-2) 06/29/23 17:53 TSH 26.695 uIu/ml (0.300-4.500) H 06/29/23 17:53 Free T4 < 0.25 ng/dl (0.61-1.60) L 06/29/23 17:53 Urine Color Red 06/29/23 19:17 Urine Appearance Turbid (Clear) A 06/29/23 19:17 Urine pH 7.0 (4.5-7.5) 06/29/23 19:17 Ur Specific [place] 1.020 (1.000-1.030) 06/29/23 19:17 Urine Protein 3+ (Negative) H 06/29/23 19:17 Urine Glucose (UA) Negative (Negative) 06/29/23 19:17 Urine Ketones 2+ (Negative) H 06/29/23 19:17 Urine Blood 3+ (Negative) H 06/29/23 19:17 Urine Nitrite Negative (Negative) 06/29/23 19:17 Urine Bilirubin 3+ (Negative) H 06/29/23 19:17 Urine Urobilinogen Negative (Negative) 06/29/23 19:17 Ur Leukocyte Esterase 1+ (Negative) H 06/29/23 19:17 Urine RBC >30 /hpf (0-4) H 06/29/23 19:17 Urine WBC >30 /hpf (0-5) H 06/29/23 19:17 Ur Epithelial Cells 5-10 /lpf (0-5) H 06/29/23 19:17 Urine Bacteria 1+ (Negative) H 06/29/23 19:17 SARS-CoV-2, RNA, NAAT NEGATIVE (NEGATIVE) 06/29/23 17:53 Impressions Chest X-Ray 06/29/23 17:29 XR chest 1V portable CLINICAL HISTORY: fall TECHNIQUE: Single frontal radiograph of the chest was obtained. Comparison: Comparison is made to chest radiograph 09/23/2022 FINDINGS: No lines and tubes are seen. Cardiomegaly is noted. Bilateral atelectasis is seen. No evidence of pleural effusion or pneumothorax. IMPRESSION: No acute chest disease. ACT 112: Negative or not required by law. Electronically signed by: Rosalio Noguera M.D. 06/29/2023 6:[address] Head, Cervical spine and Abdomen/Pelvis obtained - STAT-rad readings PENDING ECG Additional Comments: EKG - per my interpretation - study is NSR at 79bpm, low voltage, LW=126, QRS=78, PYb=410, no acute ischemic changes PG Care Time/CCT Total # of Minutes Spent Total Time Spent with Patient: Total time spent is greater than 50% in coordination of care (as documented) at patient's floor/unit and/or counseling patient: Coding Level of Care Code 79295 INT INP/OBS CARE MIN Diagnoses Fall W19.XXXA Encounter type: initial encounter Hematuria R31.9 Maggot infestation B87.9 Hypertension I10 Hypothyroidism E03.9 GERD (gastroesophageal reflux disease) K21.9 Fibromyalgia M79.7 (1) Fall Encounter type: initial encounter Qualified Code(s): W19.XXXA - Unspecified fall, initial encounter
[2023-06-29] MEDS ORDERED: STAT IV STA (22:37)
[2023-06-29] MEDS ORDERED: CALCIUM GLUCONATE 10% 2,000 MG in DEXTROSE 5% 50 ML IV STA (22:38)
--- NOTE | 2023-06-29 22:48 | CT Scan Report ---
Exam(s): CT HEAD Without Contrast EXAM: CT Head Without Intravenous Contrast CLINICAL HISTORY: Reason for exam: fall. TECHNIQUE: Axial computed tomography images of the head/brain without intravenous contrast. Automated exposure control was utilized for the study. A dose lowering technique was utilized adhering to the principles of ALARA. COMPARISON: No relevant prior studies available. FINDINGS: Brain: No hemorrhage, extra-axial fluid collection, mass effect, or edema. Ventricles: Unremarkable. Bones/joints: Unremarkable. No fracture. Soft tissues: Unremarkable. Sinuses: No acute sinusitis. Mastoid air cells: Unremarkable as visualized. IMPRESSION: 1. No acute intracranial abnormality. Electronically signed by: Jw Alonso MD 06/29/23 22:47 PM
--- NOTE | 2023-06-29 23:02 | CT Scan Report ---
Exam(s): CT ABDOMEN + PELVIS With Contrast IV Amt: 91 ml optiray 320 EXAM: CT Abdomen and Pelvis With Intravenous Contrast CLINICAL HISTORY: Reason for exam: fall. TECHNIQUE: Axial computed tomography images of the abdomen and pelvis with intravenous contrast. Automated exposure control was utilized for the study. A dose lowering technique was utilized adhering to the principles of ALARA. CONTRAST: Patient received 91 ml optiray 320 of IV contrast COMPARISON: CT abdomen pelvis 12/31/2018 FINDINGS: ABDOMEN: Liver: Hepatomegaly and hepatic steatosis. Gallbladder and bile ducts: Cholecystectomy. Pancreas: Unremarkable. Spleen: Unremarkable. Adrenals: Unremarkable. Kidneys and ureters: Few cortical cysts in the kidneys. No hydronephrosis. Stomach and bowel: Unremarkable. PELVIS: Appendix: No findings to suggest acute appendicitis. Bladder: Circumferential mucosal thickening of the bladder with surrounding fat stranding consistent with cystitis. Harris catheter within the bladder. Reproductive: Unremarkable as visualized. ABDOMEN and PELVIS: Intraperitoneal space: Unremarkable. No free air. No significant fluid collection. Bones/joints: Chronic appearing inferior endplate fracture at L1. Advanced degenerative changes at L1-L2. Multilevel fusion construct in the lumbar spine. Soft tissues: Unremarkable. Vasculature: Unremarkable. Lymph nodes: Unremarkable. IMPRESSION: 1. Circumferential mucosal thickening of the bladder with surrounding fat stranding consistent with cystitis. 2. Hepatomegaly and hepatic steatosis. Electronically signed by: Jw Alonso MD 06/29/23 23:01 PM
--- NOTE | 2023-06-29 23:03 | CT Scan Report ---
Exam(s): CT C SPINE EXAM: CT Cervical Spine Without Intravenous Contrast CLINICAL HISTORY: Reason for exam: fall. TECHNIQUE: Axial computed tomography images of the cervical spine without intravenous contrast. Automated exposure control was utilized for the study. A dose lowering technique was utilized adhering to the principles of ALARA. COMPARISON: No relevant prior studies available. FINDINGS: Vertebrae: No acute fracture or malalignment. Soft tissues: Unremarkable. IMPRESSION: No acute fracture or malalignment. Electronically signed by: Jw Alonso MD 06/29/23 23:03 PM
[2023-06-30] MEDS: cefTRIAXone SODIUM 2,000 MG in DEXTROSE 5% 50 ML IV SCH ×2 (01:12→22:46)
[2023-06-30] MEDS: SODIUM CHLORIDE 0.9% 1,000 ML IV SCH ×2 (02:00→10:21)
[2023-06-30 07:48] LABS: Hemoglobin 15.2 g/dl (12.0-16.0); Mean Corpuscular Volume 99.8 fL (80.0-100.0); Mean Platelet Volume 10.8 fL (9.4-12.4); Platelet Count 190 K/uL (130-400); RDW Coefficient of Variation 16.6 % (11.5-14.5); RDW Standard Deviation 61.3 fL (36.4-46.3); Red Blood Count 4.61 M/uL (4.20-5.40); White Blood Count 11.54 K/ul (4.8-10.8)
[2023-06-30 07:57] LABS: Albumin Level 4.1 gm/dl (3.4-5.0); Bilirubin Direct 0.5 mg/dl (0-0.2); Bilirubin,Total 1.4 mg/dl (0.2-1.0); Calcium 8.6 mg/dl (8.6-10.3); Creatinine Clr Calc Pharmacy 85.4 ml/min; Est GFR (African American) 70.4 ml/min; Est GFR (Non-African American) 60.8 ml/min; Total Protein 6.9 gm/dl (6.0-8.3)
[2023-06-30] MEDS: LEVOTHYROXINE SODIUM 200 MCG TABLET PO SCH (09:09)
[2023-06-30] MEDS: PANTOprazole 40 MG TAB PO SCH (09:09)
[2023-06-30] MEDS: POLYETHYLENE (MIRALAX) 17 GM PACK PO SCH (09:09)
[2023-06-30] MEDS: SENNA 8.6 MG TAB PO SCH (09:09)
[2023-06-30] MEDS: NYSTATIN OINT 15 GM TUBE EXT SCH ×2 (10:29→20:10)
--- NOTE | 2023-06-30 13:34 | Pulmonary Consultation ---
Date of Consultation June 30, 2023 Assessment & Plan (1) Acute hypercapnic respiratory failure: (2) Obesity hypoventilation syndrome: (3) Snoring: (4) Tobacco abuse: Plan IMPRESSION: 62-year-old female with a significant history of tobacco abuse, morbid obesity, and poor functional status who presents after fall and is found to have acute hypercapnic respiratory failure. Pulmonary medicine consulted for ongoing management. RECOMMENDATIONS: 1. Acute hypercapnic respiratory failure - Multiple contributors including extensive tobacco abuse history with likely underlying component of COPD, obesity hypoventilation syndrome, likely sleep disordered breathing, and poor functional capacity. Question if this is largely iatrogenic in the setting of patient with likely sleep disordered breathing who desaturates while sleeping with the addition of supplemental oxygen which likely resulted in decreased respiratory drive and worsening hypercarbia. Patient should continue with BiPAP settings for now. We will repeat a blood gas in 2 hours. Thankfully, she is awakening better and her gas is trending in the right direction. Patient likely requires NIV with sleep. Would aim for an oxygen saturation of 90 to 94%. Patient warrants outpatient sleep study as well as formal pulmonary function testing. 2. Obesity hypoventilation syndrome - Patient would benefit from significant weight loss to improve her respiratory function. 3. Snoring - Patient admits to a significant history of snoring. Patient likely with sleep disordered breathing which is contributing to nocturnal desaturations would continue to advocate for NIV settings overnight. Would continue with BiPAP for now, however patient may benefit from nocturnal CPAP settings in the future. Again, patient warrants outpatient in lab sleep study. 4. Tobacco abuse - Patient reports extensive history of smoking with a 40+ pack-year history. Patient educated on smoking cessation. Given her degree of hypercapnia, this certainly could represent poor ventilatory function and suggestive of diagnosis of COPD. Patient warrants formal pulmonary function testing. Given age and smoking history, she also qualifies for yearly low-dose lung CT screening. Thank you for allowing us to participate in the care of this patient. Supervising Physician Co-Signing Physician Notes Patient seen and examined. EMR reviewed. Discussed with AMANDEEP and agree with assessment plan as noted. The patient has likely sleep disordered breathing/obesity hypoventilation syndrome and possible overlap syndrome. Would avoid oxygen saturations greater than 90%. Continue CPAP until mental status has resolved and then she should be on empiric CPAP at 12-15 cmH2O nightly and when sleeping. Outpatient PFTs and polysomnography recommended. Management of the patient's other medical issues per the primary hospitalist service History of Present Illness Reason for Consultation: acute hypercapnic respiratory failure Requesting Physician: Dr. Voss Attending Physician: Prakahs Voss History of Present Illness Patient is a 62-year-old female with a significant past medical history of hypertension, hypothyroidism, GERD, fibromyalgia, morbid obesity, and tobacco abuse who presented to the emergency department after a fall at home. The patient lives with her special needs son and daughter in an apartment in [facility]. Apparently, she had tried to take a bath and was unable to get out of the tub after sustaining a fall. She was found to have skin breakdown and maggots growing from her intertriginous areas. Patient has been admitted for her multiple complaints stated above. Pulmonary medicine was consulted as the patient was noted to be somnolent on evaluation. She had been placed on oxygen overnight with desaturations while sleeping. She was felt to be a heavy sleeper and on assessment, the patient was noted to have a very significant respiratory acidosis with a CO2 of 122. pH was 7.09. She was started on BiPAP and 2 hours later, her pH had climbed to 7.19 and CO2 decreased to 92. Upon assessment in the emergency department, the patient is initially somnolent with BiPAP in place. Her tidal volumes were in the 3-400 range. Patient awakens with noxious stimuli. She is able to communicate and provides some historical information at this point. She offers no overt complaints at this time. Allergies Allergy/AdvReac Type Severity Reaction Status Date / Time propofol AdvReac Intermediate NAUSEA AND Verified 06/29/23 20:53 HEAVING Home Medications Medication Instructions Recorded Confirmed Type No Known Home Medications 06/29/23 06/29/23 History Patient History Medical History Fibromyalgia GERD (gastroesophageal reflux disease) History of recurrent UTIs Hypertension Hypothyroidism Leukocytosis Chronic, noted in hx since 2014, stable. Lumbar stenosis with neurogenic claudication Morbid (severe) obesity due to excess calories Osteoarthritis Surgical History History of section History of cholecystectomy History of colonoscopy History of knee replacement procedure of right knee History of lumbar surgery HARDWARE PRESENT L2-S1 fusion History of tooth extraction Family History Mother Hypertension Father Hypertension Stroke Other No significant family history Denies family history of Breast cancer Colorectal cancer Social History Smoking Status: Heavy tobacco smoker Tobacco Type: Cigarettes Age Started Using Tobacco: 21; packs per day: 1; Cigarettes Per Day: 20; Second Hand Exposure: No; Do You Dip or Chew Tobacco: No; Hx Alcohol Use: No Hx Substance Use: No Preferred Language: Maltese Communication Ability: Impaired Cleaner And Dyer Required: No Beliefs That Will Affect Care: None marital status: Current Living Situation: Spouse and Family Current Living Situation Comment: DTR - 17, DTR - 30 AND SPECIAL NEEDS SON - 34. Going through a divorce. 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 All else were negative. Physical Exam Physical Exam: VITAL SIGNS - Vital signs and nursing notes were reviewed. GENERAL - 62-year-old female appearing her stated age who is somnolent on exam. Awakens with noxious stimuli and contributed to HPI. NOSE - Midline and without cyanosis. MOUTH/OROPHARYNX - Mask in place. Without perioral cyanosis. LUNGS - No distress. Clear breath sounds without wheezes, rales, or rhonchi. CARDIAC - RRR with S1/S2. No murmur, rubs, or gallops appreciated. ABDOMEN - Abdominal inspection demonstrates an obese abdomen. BS normoactive all four quadrants. No tenderness, palpable masses, or ascites noted. PSYCH -initially somnolent, however eventually woke with noxious stimuli and then was contributing to HPI. Results & Data Results & Data Vital Signs (Past 12 Hours) Vital Signs Pulse Pulse Resp BP BP Pulse Ox O2 Del Method 06/30/23 11:20 71 26 H 96 06/30/23 11:55 68 12 114/85 92 BiPAP 06/30/23 11:00 72 20 114/85 92 BiPAP 06/30/23 09:20 68 23 96 06/30/23 09:07 68 20 98/62 L 90 Oxymask 06/30/23 07:15 72 06/30/23 05:00 72 17 124/74 91 Oxymask 06/30/23 04:30 71 21 116/64 90 Oxymask 06/30/23 03:30 72 19 98/64 L 92 Oxymask 06/30/23 03:00 68 20 98/63 L 92 Oxymask 06/30/23 02:30 69 21 105/60 90 Oxymask 06/30/23 02:00 72 17 107/70 91 Oxymask 06/30/23 01:30 71 20 107/64 94 Oxymask O2 Flow Rate FiO2 06/30/23 11:20 30 06/30/23 11:55 35 06/30/23 11:00 30 06/30/23 09:20 60 06/30/23 09:07 7 06/30/23 07:15 06/30/23 05:00 6 06/30/23 04:30 6 06/30/23 03:30 6 06/30/23 03:00 6 06/30/23 02:30 6 06/30/23 02:00 6 06/30/23 01:30 6 PG Care Time/CCT Total # of Minutes Spent Total Time Spent with Patient: Total time spent is greater than 50% in coordination of care (as documented) at patient's floor/unit and/or counseling patient: Coding Level of Care Code 94943 IN/OBS CONSULT LVL 5,80M Diagnoses Acute hypercapnic respiratory failure J96.02 Obesity hypoventilation syndrome E66.2 Snoring R06.83 Tobacco abuse Z72.0
--- NOTE | 2023-06-30 14:10 | Electrocardiogram Report ---
Test Reason : Blood Pressure : / mmHG Vent. Rate : 079 BPM Atrial Rate : 079 BPM P-R Int : 162 ms QRS Dur : 078 ms QT Int : 378 ms P-R-T Axes : 060 089 066 degrees QTc Int : 433 ms Normal sinus rhythm Low voltage QRS Cannot rule out Anterior infarct (cited on or before 23-SEP-2022) Abnormal ECG When compared with ECG of 23-SEP-2022 16:24, Questionable change in QRS axis Nonspecific T wave abnormality no longer evident in Lateral leads Confirmed by Cosmo Hawkins ([id number]) on 06/30/2023 2:10:10 PM Referred By: REFERRED SELF Confirmed By:Cosmo Hawkins
[2023-06-30 14:16] LABS: iSTAT Arterial Blood Gas HCO3 33 meg/L (19-24); iSTAT Arterial Blood Gas pCO2 73 mmHg (35-46); iSTAT Arterial Blood Gas pH 7.26 (7.35-7.45); iSTAT Arterial Blood Gas pO2 61 mmHg (80-95); iSTAT Carbon Dioxide 35 mmol/L (24-31); iSTAT Hematocrit 46 % (37-47); iSTAT Hemoglobin 15.6 g/dl (12.0-16.0); iSTAT Potassium 3.7 mmol/L (3.3-5.0); iSTAT Sodium 131 mmol/L (135-144)
[2023-06-30 14:45] LABS: Base Excess ABG 2.6 mEq/L (-9-1.8); HCO3 ABG 32 mmol/L (19-24); Oxygen Saturation ABG 96.8 % (90-95); PCO2 ABG 67 mmHg (35-46); PO2 ABG 68 mmHg (80-95); pH ABG 7.28 (7.35-7.45)
[2023-06-30 14:46] LABS: Allen Test Pos (Pos)
[2023-06-30 16:23] LABS: iSTAT Arterial Blood Gas HCO3 38 meg/L (19-24); iSTAT Arterial Blood Gas pCO2 > 115 mmHg (35-46); iSTAT Arterial Blood Gas pO2 69 mmHg (80-95); iSTAT Carbon Dioxide > 40 mmol/L (24-31); iSTAT Hematocrit 48 % (37-47); iSTAT Hemoglobin 16.3 g/dl (12.0-16.0); iSTAT Potassium 3.7 mmol/L (3.3-5.0); iSTAT Sodium 131 mmol/L (135-144)
[2023-06-30 16:24] LABS: iSTAT Arterial Blood Gas HCO3 35 meg/L (19-24); iSTAT Arterial Blood Gas pCO2 92 mmHg (35-46); iSTAT Arterial Blood Gas pH 7.19 (7.35-7.45); iSTAT Arterial Blood Gas pO2 60 mmHg (80-95); iSTAT Carbon Dioxide 38 mmol/L (24-31); iSTAT Hematocrit 47 % (37-47); iSTAT Potassium 3.7 mmol/L (3.3-5.0); iSTAT Sodium 129 mmol/L (135-144)
[2023-06-30 16:36] LABS: iSTAT Arterial Blood Gas HCO3 38 meg/L (19-24); iSTAT Arterial Blood Gas pCO2 > 115 mmHg (35-46); iSTAT Arterial Blood Gas pO2 69 mmHg (80-95); iSTAT Carbon Dioxide > 40 mmol/L (24-31); iSTAT Hematocrit 48 % (37-47); iSTAT Hemoglobin 16.3 g/dl (12.0-16.0); iSTAT Potassium 3.7 mmol/L (3.3-5.0); iSTAT Sodium 131 mmol/L (135-144)
--- NOTE | 2023-06-30 22:31 | Hospitalist Progress Note ---
Date of Service June 30, 2023 Assessment & Plan (1) Acute hypercapnic respiratory failure: Plan: ABG showed severe acute respiratory acidosis. Ph 7.02 Patient was placed on BIPAP, Repeat ABG was ordered, showed improved of ph. THis was again repeated in the afternoon. Patient will remain on BIPAP thorighout the day, also consulted pulmonary. (2) Fall: Plan: 62yo female presenting after a fall at home. Patient is in a poorly kempt state. Has not been taking care of herself. She reports decreased appetite and poor oral intake. Has not taken her medications for at least 8 months. -Admit to medical with telemetry -Maintain fall precautions -PT/OT evaluations appreciated -Case Management assistance appreciated (3) Hematuria: Plan: Patient with hematuria and UTI. Harris in place -Monitor output -Ceftriaxone 2gm IV daily -Follow cultures (4) Maggot infestation: Plan: Patient with fairly diffuse intertriginous yeast infection present under bilateral breasts and groin. Overall in a state of poor hygiene. She has been cleaned in the ER. -Nystatin BID -Oral care q shift -[facility] will be following along -Case management assistance appreciated (5) Hypertension: Plan: Patient with low blood pressure in the ER - presently 103/60 after 1L NSS. Per review of last PCP note from 09/26/23, she is to be taking Spironolactone 25mg-HCTZ 25mg Losartan 100mg po daily She reports that she has not been taking any medications for at least 8 months. -Hold antihypertensive agents -Monitor blood pressure (6) Hypothyroidism: Plan: Patient with history of hypothyroidism. She is to be taking Synthroid 200mcg po daily but has not had any medications for over 8 months. Her TSH is markedly elevated at 26.695 and her Free T4 is undetectable at <0.25. Normal temperature. Close attention to mentation and blood pressure. Do not suspect myxedema at this time. -Will resume Synthroid 200mcg po daily -Patient should have a followup TSH outpatient (7) GERD (gastroesophageal reflux disease): Plan: Patient with history of GERD. She is to be on Protonix 40mg po daily. No medications x 8 months -Resume Protonix 40mg po daily (8) Fibromyalgia: Plan: Patient with history of Fibromyalgia. She is on Duloxetine 60mg po daily. -Will hold for now, consider resuming prior to DC Admission and Anticipated Discharge Date Admission Date: June 29, 2023 Subjective Patient is lethargic on BIPAP. Niurse reports other maggots were found on skin folds, these were on skin folds Review of Systems Review of Systems: Unobtainable due to cognitive status Physical Exam Physical Exam: General: morbidly obese female on BIPAP Skin: intertriginous yeast infection noted under bilateral breasts and in groin HEENT: NC/AT, PERRL, EOMI, anicteric sclera, conjunctiva without injection, Heart: +S1/S2, regular, no m/r/g Lungs: equal air entry bilaterally, no rales/rhonchi/wheezes anteriorly Abd: +BS, soft, NT/ND, no masses/organomegaly/ascites, Harris in place with hematuria and sediment Ext: warm, 2+ pulses in UE/LE bilaterally, no clubbing/cyanosis or edema Neuro: nonfocal, patient AA&O x 2, speech slow but intact, no facial droop, moving all extremities on command with equal strength 5/5 Results & Data Results & Data Vital Signs (Past 12 Hours) Vital Signs Pulse Pulse Resp BP BP Pulse Ox O2 Del Method 06/30/23 22:00 73 22 94 BiPAP 06/30/23 22:00 108/68 06/30/23 21:00 67 23 98 06/30/23 21:00 117/72 06/30/23 20:11 117/72 06/30/23 20:11 75 23 94 06/30/23 20:06 78 06/30/23 20:00 73 24 90 06/30/23 20:00 115/66 06/30/23 19:30 118/71 06/30/23 19:30 75 19 90 BiPAP 06/30/23 19:00 75 17 91 06/30/23 19:00 129/72 06/30/23 18:37 123/77 06/30/23 18:37 76 23 92 06/30/23 18:00 76 27 H 91 06/30/23 17:31 122/73 06/30/23 17:31 72 17 94 06/30/23 17:01 69 18 94 06/30/23 17:00 73 24 95 06/30/23 16:30 69 9 L 94 06/30/23 16:30 106/64 06/30/23 16:01 70 20 93 06/30/23 16:01 122/64 06/30/23 16:00 72 16 96 06/30/23 15:56 120/73 06/30/23 15:56 77 21 94 06/30/23 15:31 69 22 92 06/30/23 15:01 69 12 06/30/23 15:01 106/82 06/30/23 15:00 67 18 94 06/30/23 14:31 71 19 96 06/30/23 14:17 108/79 06/30/23 14:17 67 3 L 93 06/30/23 14:05 79 19 95 06/30/23 14:00 70 5 L 94 06/30/23 13:00 72 17 96 06/30/23 12:00 68 7 L 95 06/30/23 11:11 114/85 06/30/23 11:11 63 16 100 06/30/23 11:00 95 H 21 96 06/30/23 10:31 66 19 97 06/30/23 10:31 104/63 06/30/23 20:04 77 31 H 98 06/30/23 17:00 70 14 118/69 92 BiPAP 06/30/23 15:00 66 14 119/76 93 BiPAP 06/30/23 14:15 63 22 93 06/30/23 14:01 68 12 108/79 93 BiPAP 06/30/23 13:00 68 14 114/85 93 Room Air 06/30/23 11:20 71 26 H 96 06/30/23 11:55 68 12 114/85 92 BiPAP 06/30/23 11:00 72 20 114/85 92 BiPAP FiO2 06/30/23 22:00 06/30/23 22:00 06/30/23 21:00 06/30/23 21:00 06/30/23 20:11 06/30/23 20:11 06/30/23 20:06 06/30/23 20:00 06/30/23 20:00 06/30/23 19:30 06/30/23 19:30 06/30/23 19:00 06/30/23 19:00 06/30/23 18:37 06/30/23 18:37 06/30/23 18:00 06/30/23 17:31 06/30/23 17:31 06/30/23 17:01 06/30/23 17:00 06/30/23 16:30 06/30/23 16:30 06/30/23 16:01 06/30/23 16:01 06/30/23 16:00 06/30/23 15:56 06/30/23 15:56 06/30/23 15:31 06/30/23 15:01 06/30/23 15:01 06/30/23 15:00 06/30/23 14:31 06/30/23 14:17 06/30/23 14:17 06/30/23 14:05 06/30/23 14:00 06/30/23 13:00 06/30/23 12:00 06/30/23 11:11 06/30/23 11:11 06/30/23 11:00 06/30/23 10:31 06/30/23 10:31 06/30/23 20:04 40 06/30/23 17:00 06/30/23 15:00 06/30/23 14:15 30 06/30/23 14:01 06/30/23 13:00 06/30/23 11:20 30 06/30/23 11:55 35 06/30/23 11:00 30 PG Care Time/CCT Total # of Minutes Spent Total Time Spent with Patient: Total time spent is greater than 50% in coordination of care (as documented) at patient's floor/unit and/or counseling patient: Critical Care Time: Yes Total Critical Care Time: 35 This is a life threatening event. Coding Level of Care Code 03884 SUB INP/OBS CARE 3/50MIN (25 - SIGNIFICANT, SEPARATELY IDENTIFIABLE ) Diagnoses Acute hypercapnic respiratory failure J96.02 Fall W19.XXXA Encounter type: initial encounter Hematuria R31.9 Maggot infestation B87.9 Hypertension I10 Hypothyroidism E03.9 GERD (gastroesophageal reflux disease) K21.9 Fibromyalgia M79.7 Additional Codes Critical Care Time - Critical Care Time: Yes ([id number]) (2) Fall Encounter type: initial encounter Qualified Code(s): W19.XXXA - Unspecified fall, initial encounter
[2023-07-01] MEDS: LEVOTHYROXINE SODIUM 200 MCG TABLET PO SCH (07:40)
[2023-07-01 08:03] LABS: Hematocrit (blood only) 39.8 % (37.0-47.0); Hemoglobin 12.9 g/dl (12.0-16.0); Mean Corpuscular Hemoglobin 32.6 pg (25.0-34.0); Mean Corpuscular Hgb Conc 32.4 g/dL (32.0-36.0); Mean Corpuscular Volume 100.5 fL (80.0-100.0); Nucleated RBC # (auto) 0.02 K/uL (0-0.12); Nucleated RBC % (auto) 0.2 %; Platelet Count 208 K/uL (130-400); RDW Coefficient of Variation 16.8 % (11.5-14.5); RDW Standard Deviation 62.6 fL (36.4-46.3); Red Blood Count 3.96 M/uL (4.20-5.40); White Blood Count 9.88 K/ul (4.8-10.8)
[2023-07-01 08:20] LABS: BUN Creatinine Ratio 26.2 (10-20); C Reactive Protein 4.62 mg/dl (0-0.5); Calcium 8.1 mg/dl (8.6-10.3); Creatinine Clr Calc Pharmacy 82.2 ml/min; Est GFR (African American) 67.9 ml/min; Est GFR (Non-African American) 58.6 ml/min; Potassium 3.8 mmol/L (3.5-5.1)
--- NOTE | 2023-07-01 08:25 | Pulmonology Progress Note ---
Date of Service July 01, 2023 Assessment & Plan (1) Acute hypercapnic respiratory failure: (2) Obesity hypoventilation syndrome: (3) Snoring: (4) Tobacco abuse: Plan IMPRESSION: 62-year-old female with a significant history of tobacco abuse, morbid obesity, and poor functional status who presents after fall and is found to have acute hypercapnic respiratory failure. Her mental status is back to normal with noninvasive positive pressure ventilation overnight. She likely has a component of overlap syndrome (COPD and sleep disordered breathing) as well as probable obesity hypoventilation syndrome. RECOMMENDATIONS: 1. Acute hypercapnic respiratory failure -clinically improved. With target oxygen saturation around 89 to 90%. Patient should use BiPAP 16/10 when slee ping as well as if she develops decreased mental status or increasing work of breathing. Patient warrants outpatient sleep study as well as formal pulmonary function testing. Recommend getting case management to get the patient set up with BiPAP to discharge home. 2. Obesity hypoventilation syndrome - Patient would benefit from significant weight loss to improve her respiratory function. Referral to bariatric medicine may be appropriate in the outpatient setting 3. Snoring - Patient admits to a significant history of snoring. Patient likely with sleep disordered breathing which is contributing to nocturnal desaturations would continue to advocate for NIV settings overnight. Would co ntinue with BiPAP for now, however patient may benefit from nocturnal CPAP settings in the future. Again, patient warrants outpatient in lab sleep study. 4. Tobacco abuse - Patient reports extensive history of smoking with a 40+ pack-year history. Patient educated on smoking cessation. Given her degree of hypercapnia, this certainly could represent poor ventilatory function and suggestive of diagnosis of COPD. Patient warrants formal pulmonary function testing. Given age and smoking history, she also qualifies for yearly low-dose lung CT screening. She is not bronchospastic currently no indication for additional inhalers or steroids at this point in time. Thank you for allowing us to participate in the care of this patient. Admission and Anticipated Discharge Date Admission Date: June 29, 2023 Subjective Patient seen and examined. EMR reviewed. She is now awake alert conversant and sitting up. She has minimal recollection of yesterday. She is satting well on 2 L nasal cannula. She was able to use noninvasive positive pressure ventilation all night last evening. Her lower extremity edema is significantly improved as well. Patient denies fevers chills or night sweats. She does report a 1 pack/day tobacco history. She does not use inhalers or oxygen at home. She has never had a prior pulmonary evaluation or PFTs performed Review of Systems Review of Systems: All systems reviewed & are unremarkable except as noted in Subjective Physical Exam Constitutional: WD/WN, vitals as above + morbidly obese; no acute distress Neck: trachea midline, no thyromegaly Respiratory: normal respiratory effort, lungs clear to auscultation Cardiovascular: RRR, no murmur, no edema Gastrointestinal (Abdomen): normal bowel sounds, soft, nontender, no hepatosplenomegaly Musculoskeletal: Extremities: extremities normal to inspection Skin: no rashes, warm and dry Neurologic: Nonfocal exam Lymphatic: no cervical lymphadenopathy Results & Data Results & Data Vital Signs (Past 12 Hours) Vital Signs Temp Pulse Pulse Pulse Resp BP BP 07/01/23 07:53 36.5 C 68 16 94/58 L 07/01/23 07:21 68 27 H 07/01/23 03:25 66 28 H 07/01/23 01:29 07/01/23 00:34 36.9 C 78 20 109/69 06/30/23 23:00 72 22 120/63 06/30/23 22:00 73 22 06/30/23 22:00 108/68 06/30/23 21:00 67 23 06/30/23 21:00 117/72 Pulse Ox O2 Del Method O2 Flow Rate FiO2 07/01/23 07:53 95 Nasal Cannula 2 07/01/23 07:21 97 30 07/01/23 03:25 96 40 07/01/23 01:29 Nasal Cannula 4 07/01/23 00:34 92 Nasal Cannula 4 06/30/23 23:00 96 BiPAP 06/30/23 22:00 94 BiPAP 06/30/23 22:00 06/30/23 21:00 98 06/30/23 21:00 Laboratory Results 07/01/23 07:23 PG Care Time/CCT Total # of Minutes Spent Total Time Spent with Patient: Total time spent is greater than 50% in coordination of care (as documented) at patient's floor/unit and/or counseling patient: Coding Level of Care Code 50188 SUB INP/OBS CARE 2/35MIN Diagnoses Acute hypercapnic respiratory failure J96.02 Obesity hypoventilation syndrome E66.2 Snoring R06.83 Tobacco abuse Z72.0
[2023-07-01] MEDS: NYSTATIN OINT 15 GM TUBE EXT SCH ×2 (08:42→20:13)
[2023-07-01] MEDS: SENNA 8.6 MG TAB PO SCH (08:42)
[2023-07-01] MEDS: POLYETHYLENE (MIRALAX) 17 GM PACK PO SCH (08:42)
[2023-07-01] MEDS: PANTOprazole 40 MG TAB PO SCH (08:42)
--- NOTE | 2023-07-01 14:18 | Psychiatric Consultation ---
Date of Consultation July 01, 2023 Impression / Recommendations Impression 62 yo female with no prior psych hx, onset of depression following inability to work/divorce, contributing to poor self care and noncompliance with medications. (1) Major depress dis, severe: Plan would benefit from a trial of an SSRI, Prozac likely ideal given compliance hx and low energy. Would start 20 mg qam and repeat sodium prior to titration. I suspect patient may require rehab or other placement so will follow to determine appropriateness of any additional services Psych History Identifying Data 62 yo female from [place], was residing with special needs son (reportedly) and 19 yo daughter. Admit with physical decline. Consult is hospitalist service for depression screening. Chief Complaint "I just gave up when [facility] wouldn't let me work there anymore. I guess I'll just be homeless on the streets of [place]." History of Present Illness Patient had fallen out of wheelchair and couldn't get up so family called EMS for assist. patient's home was found to be in deplorable conditions, on exam patient had multiple unattended to conditions. She admits she didn't take any of her medications for 8 months. She was unaware of maggots in skin folds/vagina. She explained to me that after she couldn't go to work any more (wouldn't accommodate her conditions) she didn't care about anything but smoking and didn't have much appetite. She scored 23 on the PHQ-9. She did endorse a 3 on #9 but is not actively suicidal, she said she was hopeless and would "pray my eyes didn't open." The only vegetative symptoms she didn't endorse was poor concentration. She has no prior psychiatric history. She denied a family history of depression. 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 She has 3 children. Her 1st was at bedside when liaison took history and confirmed patient's reports that no prior SI/SA. Allergies Allergy/AdvReac Type Severity Reaction Status Date / Time propofol AdvReac Intermediate NAUSEA AND Verified 06/29/23 20:53 HEAVING Home Medications Medication Instructions Recorded Confirmed Type No Known Home Medications 06/29/23 06/29/23 History Patient History Medical History Fibromyalgia GERD (gastroesophageal reflux disease) History of recurrent UTIs Hypertension Hypothyroidism Leukocytosis Chronic, noted in hx since 2014, stable. Lumbar stenosis with neurogenic claudication Morbid (severe) obesity due to excess calories Osteoarthritis Surgical History History of section History of cholecystectomy History of colonoscopy History of knee replacement procedure of right knee History of lumbar surgery HARDWARE PRESENT L2-S1 fusion History of tooth extraction Family History Mother Hypertension Father Hypertension Stroke Other No significant family history Denies family history of Breast cancer Colorectal cancer Social History Smoking Status: Current every day smoker Tobacco Type: Cigarettes Age Started Using Tobacco: 21; packs per day: 1; Cigarettes Per Day: 20; Second Hand Exposure: No; Do You Dip or Chew Tobacco: No; Hx Alcohol Use: No Hx Substance Use: Yes Last Used Substance: Unknown Preferred Language: Venezuelan Communication Ability: Effective Field Supervisor Required: No Beliefs That Will Affect Care: None marital status: Current Living Situation: Family Current Living Situation Comment: DTR - 17, DTR - 30 AND SPECIAL NEEDS SON - 34. Going through a divorce. 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 Feels Safe at Home: No Is there a partner from a previous relationship who is making you feel unsafe now?: No Assistive Devices: Scooter/Electric Scooter Physical Exam Psychiatric: Orientation: alert Apperance: appropriately groomed Eye Contact: good eye contact Motor Behavior: no abnormal motor movements Speech: normal rate/rhythm/volume of speech Affect: + depressed affect Mood: + depressed mood Thought Process: + concrete thought process Thought Content: reality based without delusions Suicidal Thoughts: denies suicidal thoughts hopeless about housing situation but no intent/plan to harm self Homicidal Thoughts: denies homicidal thoughts Hallucinations: no auditory hallucinations and no visual hallucinations Cognition: attention grossly intact and language grossly intact Insight: + limited insight Judgment: + limited judgement Vital Signs (Past 24 Hours): Last Vital Signs Temp 36.7 C 07/01/23 11:34 Pulse 68 07/01/23 11:34 Resp 16 07/01/23 11:34 BP 105/69 07/01/23 11:34 Pulse Ox 94 07/01/23 11:34 O2 Del Method Nasal Cannula 07/01/23 11:34 O2 Flow Rate 3 07/01/23 11:34 FiO2 30 07/01/23 07:21 Review of Systems All systems reviewed & are unremarkable except as noted in HPI & below (patient reports swelling in hands and feet.) Results & Data (PSY) Laboratory Results 07/01/23 07/01/23 07/01/23 Range/Units 07: 07:23 07:23 WBC (4.8-10.8) K/ul RBC (4.20-5.40) M/uL Hgb (12.0-16.0) g/dl POC Hgb (12.0-16.0) g/dl Hct (37.0-47.0) % POC Hct (37-47) % MCV (80.0-100.0) fL MCH (25.0-34.0) pg MCHC (32.0-36.0) g/dL RDW Std Deviation (36.4-46.3) fL RDW Coeff of Tino (11.5-14.5) % Plt Count (130-400) K/uL MPV (9.4-12.4) fL Absolute Nucleated RBC (0-0.12) K/uL Nucleated RBC % (auto) % POC pH (7.35-7.45) POC pCO2 (35-46) mmHg POC pO2 (80-95) mmHg POC HCO3 (19-24) yosvany/L POC Total CO2 (24-31) mmol/L POC Base Excess (-9-1.8) yosvany/L ABG pH (7.35-7.45) ABG pCO2 (35-46) mmHg ABG pO2 (80-95) mmHg ABG HCO3 (19-24) mmol/L POC ABG O2 Sat (90-95) % ABG O2 Saturation (90-95) % ABG Base Excess (-9-1.8) mEq/L Theron Test (Pos) Oxygen Given POC Sodium (135-144) mmol/L Sodium 133 L (136-145) mmol/L POC Potassium (3.3-5.0) mmol/L Potassium 3.8 (3.5-5.1) mmol/L Chloride 93 L (98-107) mmol/L Carbon Dioxide 33 H (21-32) mmol/L Anion Gap 7 (3-11) BUN 27 H (6-23) mg/dl Creatinine 1.03 (0.6-1.2) mg/dl Est Cr Clr Drug Dosing 82.2 ml/min Est GFR ( Amer) 67.9 ml/min Est GFR (Non-Af Amer) 58.6 ml/min BUN/Creatinine Ratio 26.2 H (10-20) Glucose 90 (70-99(Fasting)) mg/dl Calcium 8.1 L (8.6-10.3) mg/dl C-Reactive Protein 4.62 H (0-0.5) mg/dl Procalcitonin 0.20 (0-0.5) ng/ml Hepatitis C Ab (EIA) Pending 07/01/23 06/30/23 06/30/23 Range/Units 07:23 14:33 11:21 WBC 9.88 (4.8-10.8) K/ul RBC 3.96 L (4.20-5.40) M/uL Hgb 12.9 (12.0-16.0) g/dl POC Hgb 16.0 (12.0-16.0) g/dl Hct 39.8 (37.0-47.0) % POC Hct 47 (37-47) % MCV 100.5 H (80.0-100.0) fL MCH 32.6 (25.0-34.0) pg MCHC 32.4 (32.0-36.0) g/dL RDW Std Deviation 62.6 H (36.4-46.3) fL RDW Coeff of Tino 16.8 H (11.5-14.5) % Plt Count 208 (130-400) K/uL MPV 10.0 (9.4-12.4) fL Absolute Nucleated RBC 0.02 (0-0.12) K/uL Nucleated RBC % (auto) 0.2 % POC pH 7.19 L* (7.35-7.45) POC pCO2 92 H (35-46) mmHg POC pO2 60 L (80-95) mmHg POC HCO3 35 H (19-24) yosvany/L POC Total CO2 38 H (24-31) mmol/L POC Base Excess 6.0 H (-9-1.8) yosvany/L ABG pH 7.28 L (7.35-7.45) ABG pCO2 67 H (35-46) mmHg ABG pO2 68 L (80-95) mmHg ABG HCO3 32 H (19-24) mmol/L POC ABG O2 Sat 82.0 L (90-95) % ABG O2 Saturation 96.8 H (90-95) % ABG Base Excess 2.6 H (-9-1.8) mEq/L Theron Test Pos (Pos) Oxygen Given 7L POC Sodium 129 L (135-144) mmol/L Sodium (136-145) mmol/L POC Potassium 3.7 (3.3-5.0) mmol/L Potassium (3.5-5.1) mmol/L Chloride (98-107) mmol/L Carbon Dioxide (21-32) mmol/L Anion Gap (3-11) BUN (6-23) mg/dl Creatinine (0.6-1.2) mg/dl Est Cr Clr Drug Dosing ml/min Est GFR ( Amer) ml/min Est GFR (Non-Af Amer) ml/min BUN/Creatinine Ratio (10-20) Glucose (70-99(Fasting)) mg/dl Calcium (8.6-10.3) mg/dl C-Reactive Protein (0-0.5) mg/dl Procalcitonin (0-0.5) ng/ml Hepatitis C Ab (EIA) 06/30/23 06/30/23 Range/Units 09:12 09:12 WBC (4.8-10.8) K/ul RBC (4.20-5.40) M/uL Hgb (12.0-16.0) g/dl POC Hgb 16.3 H 16.3 H (12.0-16.0) g/dl Hct (37.0-47.0) % POC Hct 48 H 48 H (37-47) % MCV (80.0-100.0) fL MCH (25.0-34.0) pg MCHC (32.0-36.0) g/dL RDW Std Deviation (36.4-46.3) fL RDW Coeff of Tino (11.5-14.5) % Plt Count (130-400) K/uL MPV (9.4-12.4) fL Absolute Nucleated RBC (0-0.12) K/uL Nucleated RBC % (auto) % POC pH 7.10 L* 7.10 L* (7.35-7.45) POC pCO2 > 115 H > 115 H (35-46) mmHg POC pO2 69 L 69 L (80-95) mmHg POC HCO3 38 H 38 H (19-24) yosvany/L POC Total CO2 > 40 H* > 40 H* (24-31) mmol/L POC Base Excess 8.0 H 8.0 H (-9-1.8) yosvany/L ABG pH (7.35-7.45) ABG pCO2 (35-46) mmHg ABG pO2 (80-95) mmHg ABG HCO3 (19-24) mmol/L POC ABG O2 Sat 83.0 L 83.0 L (90-95) % ABG O2 Saturation (90-95) % ABG Base Excess (-9-1.8) mEq/L Theron Test (Pos) Oxygen Given POC Sodium 131 L 131 L (135-144) mmol/L Sodium (136-145) mmol/L POC Potassium 3.7 3.7 (3.3-5.0) mmol/L Potassium (3.5-5.1) mmol/L Chloride (98-107) mmol/L Carbon Dioxide (21-32) mmol/L Anion Gap (3-11) BUN (6-23) mg/dl Creatinine (0.6-1.2) mg/dl Est Cr Clr Drug Dosing ml/min Est GFR ( Amer) ml/min Est GFR (Non-Af Amer) ml/min BUN/Creatinine Ratio (10-20) Glucose (70-99(Fasting)) mg/dl Calcium (8.6-10.3) mg/dl C-Reactive Protein (0-0.5) mg/dl Procalcitonin (0-0.5) ng/ml Hepatitis C Ab (EIA) Medications Administered Ceftriaxone Sodium 2,000 mg/ (Dextrose) 70 mls @ 100 mls/hr IV Q24H [facility]; Protocol Stop: 07/04/23 22:19 Last Infusion: 07/01/23 00:33 Dose: 0 mls/hr [place] [facility] [place]: 06/30/23 22:46 Dose: 100 mls/hr Documented By: Infusion: 06/30/23 02:00 Dose: 0 mls/hr Documented By: Admin: 06/30/23 01:12 Dose: 100 mls/hr Documented By: MAURISIO Levothyroxine Sodium (Levothyroxine Sodium 200 Mcg Tablet) 200 mcg PO DAILYBB [facility] Stop: 07/30/23 06:29 Last Admin: 07/01/23 07:40 Dose: 200 mcg Documented By: Admin: 06/30/23 09:09 Dose: Not Given Documented By: TAYLOR Nystatin (Nystatin Oint 15 Gm Tube) 1 appln EXT BID [facility] Stop: 07/30/23 08:59 Last Admin: 07/01/23 08:42 Dose: 1 appln Documented By: Admin: 06/30/23 20:10 Dose: 1 appln Documented By: Admin: 06/30/23 10:29 Dose: 1 appln Documented By: TYALOR Pantoprazole Sodium (Pantoprazole 40 Mg Tab) 40 mg PO DAILY [facility] Stop: 07/30/23 08:59 Last Admin: 07/01/23 08:42 Dose: 40 mg Documented By: Admin: 06/30/23 09:09 Dose: Not Given Documented By: TAYLOR Polyethylene Glycol (Polyethylene (Miralax) 17 Gm Pack) 17 gm PO DAILY [facility] Stop: 07/30/23 08:59 Last Admin: 07/01/23 08:42 Dose: Not Given Documented By: Admin: 06/30/23 09:09 Dose: Not Given Documented By: TAYLOR Sennosides (Senna 8.6 Mg Tab) 8.6 mg PO QAM [facility]J Stop: 07/30/23 08:59 Last Admin: 07/01/23 08:42 Dose: 8.6 mg Documented By: Admin: 06/30/23 09:09 Dose: Not Given Documented By: TAYLOR Coding Level of Care Code 93817 [facility] Intl Hosp Care Lvl 2 Diagnoses Major depress dis, severe F32.2
[2023-07-01] MEDS: NICOTINE 21 MG/24 HR TDSY TD SCH (20:15)
--- NOTE | 2023-07-01 22:32 | Hospitalist Progress Note ---
Date of Service July 01, 2023 Assessment & Plan (1) Acute hypercapnic respiratory failure: Plan: ABG showed severe acute respiratory acidosis. Ph 7.02 Patient was placed on BIPAP, Repeat ABG was ordered, showed improved of ph. THis was again repeated in the afternoon. Patient will remain on BIPAP thorighout the day, also consulted pulmonary. PH improved to 7.22 Mental status has improved. Goal is to qualify for home BIPAP. (2) Fall: Plan: 62yo female presenting after a fall at home. Patient is in a poorly kempt state. Has not been taking care of herself. She reports decreased appetite and poor oral intake. Has not taken her medications for at least 8 months. -Admit to medical with telemetry -Maintain fall precautions -PT/OT evaluations appreciated -Case Management assistance appreciated (3) Hematuria: Plan: Patient with hematuria and UTI. Harris in place -Monitor output -Ceftriaxone 2gm IV daily -Follow cultures (4) Maggot infestation: Plan: Patient with fairly diffuse intertriginous yeast infection present under bilateral breasts and groin. Overall in a state of poor hygiene. She has been cleaned in the ER. -Nystatin BID -Oral care q shift -Office of Aging will be following along -Case management assistance appreciated (5) Hypertension: Plan: Patient with low blood pressure in the ER - presently 103/60 after 1L NSS. Per review of last PCP note from 09/26/23, she is to be taking Spironolactone 25mg-HCTZ 25mg Losartan 100mg po daily She reports that she has not been taking any medications for at least 8 months. -Hold antihypertensive agents -Monitor blood pressure (6) Hypothyroidism: Plan: Patient with history of hypothyroidism. She is to be taking Synthroid 200mcg po daily but has not had any medications for over 8 months. Her TSH is markedly elevated at 26.695 and her Free T4 is undetectable at <0.25. Normal temperature. Close attention to mentation and blood pressure. Do not suspect myxedema at this time. -Will resume Synthroid 200mcg po daily -Patient should have a followup TSH outpatient (7) GERD (gastroesophageal reflux disease): Plan: Patient with history of GERD. She is to be on Protonix 40mg po daily. No medications x 8 months -Resume Protonix 40mg po daily (8) Fibromyalgia: Plan: Patient with history of Fibromyalgia. She is on Duloxetine 60mg po daily. -Will hold for now, consider resuming prior to DC Admission and Anticipated Discharge Date Admission Date: June 29, 2023 Subjective Patient reports no new symptoms. Patient is not agreeing to use BIPAP at home. Review of Systems Review of Systems: All systems reviewed & are unremarkable except as noted in HPI & below Physical Exam Physical Exam: General: morbidly obese female on BIPAP Skin: intertriginous yeast infection noted under bilateral breasts and in groin HEENT: NC/AT, PERRL, EOMI, anicteric sclera, conjunctiva without injection, Heart: +S1/S2, regular, no m/r/g Lungs: equal air entry bilaterally, no rales/rhonchi/wheezes anteriorly Abd: +BS, soft, NT/ND, no masses/organomegaly/ascites, Harris in place with hematuria and sediment Ext: warm, 2+ pulses in UE/LE bilaterally, no clubbing/cyanosis or edema Neuro: nonfocal, patient AA&O x 2, speech slow but intact, no facial droop, moving all extremities on command with equal strength 5/5 Results & Data Results & Data Vital Signs (Past 12 Hours) Vital Signs Temp Pulse Pulse Pulse Resp BP BP 07/01/23 21:16 07/01/23 19:00 36.8 C 73 20 118/71 07/01/23 17:17 07/01/23 14:00 73 07/01/23 15:11 36.8 C 71 16 100/64 07/01/23 11:34 36.7 C 68 16 105/69 Pulse Ox O2 Del Method O2 Flow Rate 07/01/23 21:16 Nasal Cannula 3 07/01/23 19:00 95 Nasal Cannula 3 07/01/23 17:17 Nasal Cannula 3 07/01/23 14:00 07/01/23 15:11 93 Nasal Cannula 3 07/01/23 11:34 94 Nasal Cannula 3 PG Care Time/CCT Total # of Minutes Spent Total Time Spent with Patient: Total time spent is greater than 50% in coordination of care (as documented) at patient's floor/unit and/or counseling patient: Coding Level of Care Code 11782 SUB INP/OBS CARE 2/35MIN Diagnoses Acute hypercapnic respiratory failure J96.02 Fall W19.XXXA Encounter type: initial encounter Hematuria R31.9 Maggot infestation B87.9 Hypertension I10 Hypothyroidism E03.9 GERD (gastroesophageal reflux disease) K21.9 Fibromyalgia M79.7 (2) Fall Encounter type: initial encounter Qualified Code(s): W19.XXXA - Unspecified fall, initial encounter
[2023-07-01] MEDS: cefTRIAXone SODIUM 2,000 MG in DEXTROSE 5% 50 ML IV SCH (23:23)
[2023-07-02] MEDS: LEVOTHYROXINE SODIUM 200 MCG TABLET PO SCH (05:16)
[2023-07-02] MEDS: ONDANSETRON INJ 2 MG/ML 2 ML VIAL IV PRN (05:17)
[2023-07-02] MEDS: NYSTATIN OINT 15 GM TUBE EXT SCH ×2 (08:05→20:18)
[2023-07-02] MEDS: POLYETHYLENE (MIRALAX) 17 GM PACK PO SCH (08:06)
[2023-07-02] MEDS: ACETAMINOPHEN 325 MG TAB PO PRN (08:07)
[2023-07-02] MEDS: NICOTINE 21 MG/24 HR TDSY TD SCH (08:08)
[2023-07-02] MEDS: PANTOprazole 40 MG TAB PO SCH (08:09)
[2023-07-02] MEDS: SENNA 8.6 MG TAB PO SCH (08:09)
[2023-07-02] MEDS: FLUoxetine HCL 20 MG CAP PO SCH (09:11)
--- NOTE | 2023-07-02 09:49 | Pulmonology Progress Note ---
Date of Service July 02, 2023 Assessment & Plan (1) Acute hypercapnic respiratory failure: (2) Obesity hypoventilation syndrome: (3) Snoring: (4) Tobacco abuse: Plan IMPRESSION: 62-year-old female with a significant history of tobacco abuse, morbid obesity, and poor functional status who presents after fall and is found to have acute hypercapnic respiratory failure. Her mental status is back to normal with noninvasive positive pressure ventilation overnight. She likely has a component of overlap syndrome (COPD and sleep disordered breathing) as well as probable obesity hypoventilation syndrome. RECOMMENDATIONS: 1. Acute hypercapnic respiratory failure - Improved and back to her baseline at this time. With target oxygen saturation around 89 to 90%. Patient should use BiPAP 16/10 when sleeping as well as if she develops decreased mental status or increasing work of breathing. Patient warrants outpatient sleep study as well as formal pulmonary function testing. Recommend getting case management to get the patient set up with BiPAP to discharge home. 2. Obesity hypoventilation syndrome - Patient would benefit from significant weight loss to improve her respiratory function. Referral to bariatric medicine may be appropriate in the outpatient setting 3. Snoring - Patient admits to a significant history of snoring. Patient likely with sleep disordered breathing which is contributing to nocturnal desaturations would continue to advocate for NIV settings overnight. Would continue with BiPAP for now, however patient may benefit from nocturnal CPAP settings in the future. Again, patient warrants outpatient in lab sleep study. 4. Tobacco abuse - Patient reports extensive history of smoking with a 40+ pack-year history. Patient educated on smoking cessation. Given her degree of hypercapnia, this certainly could represent poor ventilatory function and suggestive of diagnosis of COPD. Patient warrants formal pulmonary function testing. Given age and smoking history, she also qualifies for yearly low-dose lung CT screening. She is not bronchospastic currently no indication for additional inhalers or steroids at this point in time. Thank you for allowing us to participate in the care of this patient. Pulmonary medicine will sign off at this time. Please reach out to us if we can be of any futher help. Admission and Anticipated Discharge Date Admission Date: June 29, 2023 Supervising Physician Co-Signing Physician Notes Patient seen and examined. EMR reviewed. Discussed with AMANDEEP. Agree with assessment plan as noted. The patient continues to improve from a respiratory standpoint. Recommendations are as noted previously. Recommend discharging the patient on BiPAP at night and when sleeping. Outpatient PFTs and polysomnography should be conducted. This may be somewhat difficult due to the patient's social situation. Pulmonary has nothing else to add at this point time. Her acute issues appear resolved. We will sign off. Feel free to contact us with questions or concerns Subjective Patient was seen and evaluated bedside today. Patient is awake alert and oriented back to her baseline at this time. She does not enjoy the BiPAP, but understands utility. She offers no other complaints today other than her worsening depression with concerns for homelessness. Review of Systems Review of Systems: A complete 10 point review of systems was reviewed with the patient with pertinent positives and negatives as per history of present illness. All else were negative. Physical Exam Physical Exam: VITAL SIGNS - Vital signs and nursing notes were reviewed. GENERAL - 62-year-old female appearing her stated age who is somnolent on exam. Awakens with noxious stimuli and contributed to HPI. LUNGS - No distress. Clear breath sounds without wheezes, rales, or rhonchi. CARDIAC - RRR with S1/S2. No murmur, rubs, or gallops appreciated. PSYCH -initially somnolent, however eventually woke with noxious stimuli and then was contributing to HPI. Results & Data Results & Data Vital Signs (Past 12 Hours) Vital Signs Temp Pulse Pulse Pulse Pulse Resp BP 07/02/23 07:56 36.7 C 69 16 97/60 L 07/02/23 06:00 67 07/02/23 03:00 36.8 C 67 18 111/67 07/02/23 03:21 66 07/01/23 23:39 36.8 C 72 18 108/68 07/01/23 23:30 79 24 Pulse Ox O2 Del Method FiO2 07/02/23 07:56 97 Nasal Cannula 07/02/23 06:00 07/02/23 03:00 98 CPAP 07/02/23 03:21 07/01/23 23:39 94 Room Air 07/01/23 23:30 93 35 PG Care Time/CCT Total # of Minutes Spent Total Time Spent with Patient: Total time spent is greater than 50% in coordination of care (as documented) at patient's floor/unit and/or counseling patient: Coding Level of Care Code 51477 SUB INP/OBS CARE 2/35MIN Diagnoses Acute hypercapnic respiratory failure J96.02 Obesity hypoventilation syndrome E66.2 Snoring R06.83 Tobacco abuse Z72.0
[2023-07-02] MEDS: ENOXAPARIN INJ 40 MG/0.4 ML SYR SQ SCH ×2 (15:04→22:57)
[2023-07-02] MEDS: cefTRIAXone SODIUM 2,000 MG in DEXTROSE 5% 50 ML IV SCH (22:54)
[2023-07-03] MEDS ORDERED: LACTATED RINGER'S 1,000 ML IV ONE (00:09)
[2023-07-03] MEDS: LEVOTHYROXINE SODIUM 200 MCG TABLET PO SCH (06:33)
--- NOTE | 2023-07-03 06:44 | Hospitalist Progress Note ---
Date of Service July 02, 2023 Assessment & Plan (1) Acute hypercapnic respiratory failure: Plan: Likely Chronic respiratory failure with hypoxia ABG showed severe acute respiratory acidosis. Ph 7.02 Patient was placed on BIPAP, Repeat ABG was ordered, showed improved of ph. THis was again repeated in the afternoon. Patient will remain on BIPAP thorighout the day, also consulted pulmonary. PH improved to 7.28 Mental status has improved. Goal is to qualify for home BIPAP. Obtain ABG on 07/03 in AM after being on oxygen supplementation overnight. (2) Fall: Plan: 62yo female presenting after a fall at home. Patient is in a poorly kempt state. Has not been taking care of herself. She reports decreased appetite and poor oral intake. Has not taken her medications for at least 8 months. -Admit to medical with telemetry -Maintain fall precautions -PT/OT evaluations appreciated -Case Management assistance appreciated (3) Hematuria: Plan: Patient with hematuria and UTI. Harris in place -Monitor output -Ceftriaxone 2gm IV daily -cultures showed proteus and E coli. UA improved. (4) Maggot infestation: Plan: Total self-care deficit Patient with fairly diffuse intertriginous yeast infection present under b ilateral breasts and groin. Overall in a state of poor hygiene. She has been cleaned in the ER. -Nystatin BID -Oral care q shift -Office of Aging will be following along -Case management assistance appreciated Wound culture on decubitus ulcers: positive for proteus, on ceftriaxone. (5) Hypertension: Plan: Patient with low blood pressure in the ER - presently 103/60 after 1L NSS. Per review of last PCP note from 09/26/23, she is to be taking Spironolactone 25mg-HCTZ 25mg Losartan 100mg po daily She reports that she has not been taking any medications for at least 8 months. -Hold antihypertensive agents -Monitor blood pressure (6) Hypothyroidism: Plan: Patient with history of hypothyroidism. She is to be taking Synthroid 200mcg po daily but has not had any medications for over 8 months. Her TSH is markedly elevated at 26.695 and her Free T4 is undetectable at <0.25. Normal temperature. Close attention to mentation and blood pressure. Do not suspect myxedema at this time. -Will resume Synthroid 200mcg po daily -Patient should have a followup TSH outpatient (7) GERD (gastroesophageal reflux disease): Plan: Patient with history of GERD. She is to be on Protonix 40mg po daily. No medications x 8 months -Resume Protonix 40mg po daily (8) Fibromyalgia: Plan: Patient with history of Fibromyalgia. She is on Duloxetine 60mg po daily. -Will resume on 07/03 Admission and Anticipated Discharge Date Admission Date: June 29, 2023 Subjective Patient is resting comfortably. Patient has no new complaints. Review of Systems Review of Systems: All systems reviewed & are unremarkable except as noted in HPI & below Physical Exam Physical Exam: General: morbidly obese female on nasal cannula, speech improved. Skin: intertriginous yeast infection noted under bilateral breasts and in groin HEENT: NC/AT, PERRL, EOMI, anicteric sclera, conjunctiva without injection, Heart: +S1/S2, regular, no m/r/g Lungs: equal air entry bilaterally, no rales/rhonchi/wheezes anteriorly Abd: +BS, soft, NT/ND, no masses/organomegaly/ascites, Harris in place with hematuria and sediment Ext: warm, 2+ pulses in UE/LE bilaterally, no clubbing/cyanosis or edema Results & Data Results & Data Vital Signs (Past 12 Hours) Vital Signs Temp Pulse Pulse Resp BP BP Pulse Ox 07/03/23 04:28 36.4 C L 72 20 104/70 95 07/03/23 01:49 36.4 C L 98 H 20 104/72 95 07/03/23 00:32 124 H 22 94 07/03/23 00:04 36.6 C 121 H 18 115/75 92 07/02/23 22:00 36.7 C 67 20 105/69 92 07/02/23 19:00 36.7 C 70 20 103/62 93 O2 Del Method O2 Flow Rate FiO2 07/03/23 04:28 Nasal Cannula 3 07/03/23 01:49 Nasal Cannula 3 07/03/23 00:32 35 07/03/23 00:04 Nasal Cannula 3 07/02/23 22:00 Nasal Cannula 3 07/02/23 19:00 Nasal Cannula 3 PG Care Time/CCT Total # of Minutes Spent Total Time Spent with Patient: Total time spent is greater than 50% in coordination of care (as documented) at patient's floor/unit and/or counseling patient: Coding Level of Care Code 47276 SUB INP/OBS CARE 2/35MIN Diagnoses Acute hypercapnic respiratory failure J96.02 Fall W19.XXXA Encounter type: initial encounter Hematuria R31.9 Maggot infestation B87.9 Hypertension I10 Hypothyroidism E03.9 GERD (gastroesophageal reflux disease) K21.9 Fibromyalgia M79.7 (2) Fall Encounter type: initial encounter Qualified Code(s): W19.XXXA - Unspecified fall, initial encounter
[2023-07-03 07:56] LABS: Allen Test Pos (Pos); Base Excess ABG 4.4 mEq/L (-9-1.8); HCO3 ABG 33 mmol/L (19-24); Oxygen Saturation ABG 98.8 % (90-95); PCO2 ABG 65 mmHg (35-46); PO2 ABG 87 mmHg (80-95); pH ABG 7.31 (7.35-7.45)
[2023-07-03 08:02] LABS: Hematocrit (blood only) 37.6 % (37.0-47.0); Hemoglobin 12.6 g/dl (12.0-16.0); Mean Corpuscular Hemoglobin 32.5 pg (25.0-34.0); Mean Corpuscular Hgb Conc 33.5 g/dL (32.0-36.0); Mean Corpuscular Volume 96.9 fL (80.0-100.0); Mean Platelet Volume 10.1 fL (9.4-12.4); Platelet Count 198 K/uL (130-400); RDW Coefficient of Variation 15.8 % (11.5-14.5); RDW Standard Deviation 56.6 fL (36.4-46.3); Red Blood Count 3.88 M/uL (4.20-5.40); White Blood Count 7.92 K/ul (4.8-10.8)
[2023-07-03] MEDS: SENNA 8.6 MG TAB PO SCH (08:09)
[2023-07-03] MEDS: PANTOprazole 40 MG TAB PO SCH (08:09)
[2023-07-03] MEDS: NICOTINE 21 MG/24 HR TDSY TD SCH (08:09)
[2023-07-03] MEDS: ENOXAPARIN INJ 40 MG/0.4 ML SYR SQ SCH ×2 (08:09→20:19)
[2023-07-03] MEDS: FLUoxetine HCL 20 MG CAP PO SCH (08:09)
[2023-07-03] MEDS: POLYETHYLENE (MIRALAX) 17 GM PACK PO SCH (08:10)
[2023-07-03] MEDS: NYSTATIN OINT 15 GM TUBE EXT SCH ×2 (08:10→20:21)
[2023-07-03 08:34] LABS: BUN Creatinine Ratio 17.3 (10-20); Calcium 8.2 mg/dl (8.6-10.3); Creatinine Clr Calc Pharmacy 112.8 ml/min; Est GFR (African American) 99.7 ml/min; Potassium 3.7 mmol/L (3.5-5.1)
--- NOTE | 2023-07-03 15:45 | Electrocardiogram Report ---
Test Reason : Blood Pressure : / mmHG Vent. Rate : 112 BPM Atrial Rate : 129 BPM P-R Int : 000 ms QRS Dur : 092 ms QT Int : 318 ms P-R-T Axes : 000 064 016 degrees QTc Int : 434 ms Atrial fibrillation with rapid ventricular response Low voltage QRS Abnormal ECG When compared with ECG of 29-JUN-2023 18:48, Atrial fibrillation has replaced Sinus rhythm Confirmed by Cosmo Hawkins ([id number]) on 07/03/2023 3:44:38 PM Referred By: REFERRED SELF Confirmed By:Cosmo Hawkins
--- NOTE | 2023-07-03 16:33 | Hospitalist Progress Note ---
Date of Service July 03, 2023 Assessment & Plan (1) Acute hypercapnic respiratory failure: Plan: Likely Chronic respiratory failure with hypoxia ABG showed severe acute respiratory acidosis and hypercarbia. in the morning even after BiPAP bentonite the patient has hypercarbia and depressed pH consulted pulmonary recommending home with noninvasive positive pressure ventilator shunt device however patient has insurance barriers and this was going to be challenging to accomplish. we will attempt to maximize her medical management however patient may need nursing placement to continue this treatment (2) Fall: Plan: 62yo female presenting after a fall at home. Has not taken her medications for a few months. Patient states she recently retired from the [employer] (3) Hematuria: Plan: Patient with hematuria and UTI. Harris in place -Monitor output -Ceftriaxone 2gm IV daily -cultures showed proteus and E coli. UA improved. (4) Maggot infestation: Plan: Total self-care deficit Patient with fairly diffuse intertriginous yeast infection present under bilateral breasts and groin. Overall in a state of poor hygiene. She has been cleaned in the ER. -Nystatin BID -Oral care q shift -Office of Aging will be following along -Case management assistance appreciated Wound culture on decubitus ulcers: positive for proteus, on ceftriaxone. (5) Hypertension: Plan: previously on losartan and spironolactone hydrochlorothiazide these are currently on hold (6) Hypothyroidism: Plan: Patient with history of hypothyroidism. She is to be taking Synthroid 200mcg po daily but has not had any medications for over 8 months. Her TSH is markedly elevated at 26.695 and her Free T4 is undetectable at <0.25. Normal temperature. Close attention to mentation and blood pressure. Do not suspect myxedema at this time. - did resume Synthroid 200mcg po daily -Patient should have a followup TSH outpatient (7) GERD (gastroesophageal reflux disease): Plan: Patient with history of GERD. She is to be on Protonix 40mg po daily. No medications x 8 months -Resume Protonix 40mg po daily (8) Fibromyalgia: Plan: Patient with history of Fibromyalgia. She is on Duloxetine 60mg po daily. -Will resume on 07/03 (9) Hyponatremia: Plan: patient noted to be hyponatremic in the afternoon of 817. Placed on fluid restriction we will check a serum osmolality in the morning and urine sodium for SIADH. (10) Major depress dis, severe: Plan: Patient claims to be severely depressed she has been so in the past is agreeable to talk to counseling services and start antidepressant, previously on duloxetine we will restart Admission and Anticipated Discharge Date Admission Date: June 29, 2023 Subjective patient was sleeping upon my entering the room she awoke she was appropriate. Disposition is a challenge as the patient does not have a safe place to go at this time and there is insurance conflict regarding placement Physical Exam Physical Exam: patient awoke and was oriented x3 Results & Data Results & Data Vital Signs (Past 12 Hours) Vital Signs Temp Pulse Pulse Resp BP BP Pulse Ox 07/03/23 16:00 60 07/03/23 16:17 97.5 F L 66 16 108/68 97 07/03/23 10:44 97.5 F L 72 16 94/63 L 97 07/03/23 08:00 67 07/03/23 07:44 97.7 F 69 16 91/60 L 96 07/03/23 04:28 97.5 F L 72 20 104/70 95 O2 Del Method O2 Flow Rate 07/03/23 16:00 07/03/23 16:17 Nasal Cannula 3 07/03/23 10:44 Nasal Cannula 3 07/03/23 08:00 07/03/23 07:44 Nasal Cannula 3 07/03/23 04:28 Nasal Cannula 3 Laboratory Results reviewed CBC reviewed arterial blood gas reviewed chemistry PG Care Time/CCT Total # of Minutes Spent Total Time Spent with Patient: Total time spent is greater than 50% in coordination of care (as documented) at patient's floor/unit and/or counseling patient: Coding Level of Care Code 08410 SUB INP/OBS CARE 2/35MIN Diagnoses Acute hypercapnic respiratory failure J96.02 Fall W19.XXXA Encounter type: initial encounter Hematuria R31.9 Maggot infestation B87.9 Hypertension I10 Hypothyroidism E03.9 GERD (gastroesophageal reflux disease) K21.9 Fibromyalgia M79.7 Hyponatremia E87.1 Major depress dis, severe F32.2 (2) Fall Encounter type: initial encounter Qualified Code(s): W19.XXXA - Unspecified fall, initial encounter
[2023-07-04] MEDS: cefTRIAXone SODIUM 2,000 MG in DEXTROSE 5% 50 ML IV SCH (00:02)
[2023-07-04] MEDS: LEVOTHYROXINE SODIUM 200 MCG TABLET PO SCH (05:45)
[2023-07-04] MEDS: ACETAMINOPHEN 325 MG TAB PO PRN ×2 (06:01→20:15)
[2023-07-04 08:01] LABS: BUN Creatinine Ratio 15.3 (10-20); Calcium 8.3 mg/dl (8.6-10.3); Creatinine Clr Calc Pharmacy 117.2 ml/min; Est GFR (African American) 104.8 ml/min; Est GFR (Non-African American) 90.4 ml/min; Potassium 3.6 mmol/L (3.5-5.1)
[2023-07-04] MEDS: SENNA 8.6 MG TAB PO SCH (08:45)
[2023-07-04] MEDS: PANTOprazole 40 MG TAB PO SCH (08:45)
[2023-07-04] MEDS: FLUoxetine HCL 20 MG CAP PO SCH (08:45)
[2023-07-04] MEDS: ENOXAPARIN INJ 40 MG/0.4 ML SYR SQ SCH ×2 (08:45→20:17)
[2023-07-04] MEDS: POLYETHYLENE (MIRALAX) 17 GM PACK PO SCH (08:46)
[2023-07-04] MEDS: NYSTATIN OINT 15 GM TUBE EXT SCH ×2 (08:46→20:19)
[2023-07-04] MEDS: NICOTINE 21 MG/24 HR TDSY TD SCH (08:46)
[2023-07-04] MEDS ORDERED: DULoxetine HCL 30 MG CAP PO SCH (09:00)
--- NOTE | 2023-07-04 17:19 | Hospitalist Progress Note ---
Date of Service July 04, 2023 Assessment & Plan (1) Acute hypercapnic respiratory failure: Plan: Likely Chronic respiratory failure with hypoxia ABG showed severe acute respiratory acidosis and hypercarbia. in the morning even after BiPAP bentonite the patient has hypercarbia and depressed pH consulted pulmonary recommending home with noninvasive positive pressure ventilator device however patient has insurance barriers and this was going to be challenging to accomplish. we will attempt to maximize her medical management however patient may need nursing placement to continue this treatment (2) Fall: Plan: 62yo female presenting after a fall at home. Has not taken her medications for a few months. Patient states she recently retired from the [employer] has been shut in and disheveled with poor self-care (3) Hematuria: Plan: Patient with hematuria and UTI. Harris in place -Monitor output -Ceftriaxone 2gm IV daily -cultures showed proteus and E coli. UA improved. (4) Maggot infestation: Plan: Total self-care deficit Patient with fairly diffuse intertriginous yeast infection present under bilateral breasts and groin. Overall in a state of poor hygiene. She has been cleaned in the ER. -Nystatin BID -Oral care q shift -Office of Aging will be following along -Case management assistance appreciated Wound culture on decubitus ulcers: positive for proteus, on ceftriaxone. (5) Hypertension: Plan: previously on losartan and spironolactone hydrochlorothiazide these are currently on hold with hyponatremia suggested to be hypervolemic hyponatremia diuretic therapy and fluid restriction will be the treatment (6) Hypothyroidism: Plan: Patient with history of hypothyroidism. She is to be taking Synthroid 200mcg po daily but has not had any medications for over 8 months. Her TSH is markedly elevated at 26.695 and her Free T4 is undetectable at <0.25. Normal temperature. Close attention to mentation and blood pressure. Do not suspect myxedema at this time. - did resume Synthroid 200mcg po daily -Patient should have a followup TSH outpatient (7) GERD (gastroesophageal reflux disease): Plan: Patient with history of GERD. She is to be on Protonix 40mg po daily. No medications x 8 months -Resume Protonix 40mg po daily (8) Fibromyalgia: Plan: Patient with history of Fibromyalgia. She is on Duloxetine 60mg po daily. -Will resume on 07/03 (9) Hyponatremia: Plan: patient noted to be hyponatremic in the afternoon of 817. Placed on fluid restriction decreased serum osmolality and low urine sodium suspect hypervolemic hyponatremia fluid restriction and diuretic therapy used (10) Major depress dis, severe: Plan: Patient claims to be severely depressed she has been so in the past is agreeable to talk to counseling services and start antidepressant, previously on duloxetine we will restart Admission and Anticipated Discharge Date Admission Date: June 29, 2023 Subjective patient states she cannot tolerate BiPAP or CPAP any longer. she is agreeable to wearing nocturnal oxygen though. Patient still does not have a place to live. Patient is open to rehab. She is open to continued treatment for her depression. She is been ambulating short distances with a walker Physical Exam Physical Exam: patient awoke and was oriented x3 pulm exam is diminished at the bases but otherwise clear Results & Data Results & Data Vital Signs (Past 12 Hours) Vital Signs Temp Pulse Pulse Pulse Resp BP Pulse Ox 07/04/23 16:00 67 07/04/23 15:59 97.7 F 66 17 109/71 94 07/04/23 11:30 98.1 F 64 16 118/76 95 07/04/23 08:00 65 07/04/23 08:00 07/04/23 07:24 97.9 F 64 18 106/68 96 O2 Del Method O2 Flow Rate 07/04/23 16:00 07/04/23 15:59 Nasal Cannula 1.5 07/04/23 11:30 Nasal Cannula 95 07/04/23 08:00 07/04/23 08:00 Nasal Cannula 1.5 07/04/23 07:24 Nasal Cannula 3 Laboratory Results reviewed chemistry reviewed serum osmolality reviewed random sodium PG Care Time/CCT Total # of Minutes Spent Total Time Spent with Patient: Total time spent is greater than 50% in coordination of care (as documented) at patient's floor/unit and/or counseling patient: Coding Level of Care Code 22259 SUB INP/OBS CARE 2/35MIN Diagnoses Acute hypercapnic respiratory failure J96.02 Fall W19.XXXA Encounter type: initial encounter Hematuria R31.9 Maggot infestation B87.9 Hypertension I10 Hypothyroidism E03.9 GERD (gastroesophageal reflux disease) K21.9 Fibromyalgia M79.7 Hyponatremia E87.1 Major depress dis, severe F32.2 (2) Fall Encounter type: initial encounter Qualified Code(s): W19.XXXA - Unspecified fall, initial encounter
[2023-07-04] MEDS ORDERED: CALCIUM CARBONATE 500 MG CHEWABLE TAB PO PRN (21:34)
[2023-07-05] MEDS: ACETAMINOPHEN 325 MG TAB PO PRN (00:23)
[2023-07-05] MEDS: LEVOTHYROXINE SODIUM 200 MCG TABLET PO SCH (06:03)
[2023-07-05] MEDS: FUROSEMIDE 20 MG TAB PO SCH (08:19)
[2023-07-05] MEDS: SENNA 8.6 MG TAB PO SCH (08:19)
[2023-07-05] MEDS: PANTOprazole 40 MG TAB PO SCH (08:19)
[2023-07-05] MEDS: ENOXAPARIN INJ 40 MG/0.4 ML SYR SQ SCH ×2 (08:19→21:02)
[2023-07-05] MEDS: FLUoxetine HCL 20 MG CAP PO SCH (08:19)
[2023-07-05] MEDS: NICOTINE 21 MG/24 HR TDSY TD SCH (08:19)
[2023-07-05] MEDS: POLYETHYLENE (MIRALAX) 17 GM PACK PO SCH (08:20)
[2023-07-05] MEDS: NYSTATIN OINT 15 GM TUBE EXT SCH ×2 (08:20→21:02)
[2023-07-05 08:45] LABS: Creatinine Clr Calc Pharmacy 143.5 ml/min; Est GFR (Non-African American) 98.4 ml/min
--- NOTE | 2023-07-05 13:18 | Psychiatric Progress Note ---
Date of Service July 05, 2023 Impression / Recommendations Impression 62 yo woman with no prior psych hx, onset of depression following inability to work/divorce, contributing to poor self care and nonadherence with medications. Diagnostically consistent with major depressive episode. Acute risk of self-harm is low given denial of active SI, future-oriented, strong deterrents to suicide, interested in psychiatric medications to help with depression. Chronic risk is low to moderate given periods of passive SI associated with MDD but no hx of prior attempts. Continues to have hyponatremia but given severity of depression and likelihood it contributed to recent poor self-care would consider augmentation of fluoxetine with Wellbutrin XL 150mg daily which should offer faster effect from dopaminergic activity and hopefully will also help with tobacco cessation. (1) Major depress dis, severe: (2) Personal history of tobacco use: Plan -Consider starting Wellbutrin XL 150mg daily if safe from cardiac standpoint, modafinil could also be considered in the future if increased concern for cardiac effects -Continue with fluoxetine 20mg daily -Agree with ongoing monitoring of hyponatremia Interval History Identifying Information 62 yo female from [place], was residing with special needs son (reportedly) and 19 yo daughter. Admit with physical decline. Consult is hospitalist service for depression screening. Chief Complaint "All the time". Subjective Subjective Patient was seen & assessed and interval progress reviewed. No side effects so far from fluoxetine. Still feels depressed "all the time". Still has interm ittent passive SI but denies active SI, no hx prior attempts, no access to guns, states strong deterrents of her children. No history of seizures. Used to like crocheting but difficult due to arthritis. Likes to play games on her phone. Doesn't like bipap as makes her feel claustrophobic. Physical Exam Psychiatric Orientation: alert and oriented x 3 Apperance: appropriately groomed Eye Contact: good eye contact Motor Behavior: no abnormal motor movements Speech: normal rate/rhythm/volume of speech Affect: + depressed affect Mood: + depressed mood Thought Process: + concrete thought process Thought Content: reality based without delusions Suicidal Thoughts: denies suicidal plan and denies suicidal intent; + reports suicidal thoughts (passive SI, denies active SI) Homicidal Thoughts: denies homicidal thoughts Hallucinations: no auditory hallucinations and no visual hallucinations Cognition: attention grossly intact and language grossly intact Insight: + limited insight Judgment: + limited judgement Vital Signs (Past 24 Hours) Last Vital Signs Temp 36.5 C 07/05/23 11:19 Pulse 74 07/05/23 11:19 Resp 18 07/05/23 11:19 BP 103/70 07/05/23 11:19 Pulse Ox 94 07/05/23 11:19 O2 Del Method Nasal Cannula 07/05/23 11:19 O2 Flow Rate 2 07/05/23 11:19 FiO2 35 07/03/23 00:32 Results & Data ([facility]) Laboratory Results Laboratory Results - last 24 hr 07/05/23 07/05/23 07/05/23 05:06 05:10 07:10 Creatinine 0.60 Est Cr Clr Drug Dosing 143.5 Est GFR ( Amer) 114.0 Est GFR (Non-Af Amer) 98.4 Stl C. diff Tox B Gene Negative Cdiff Gene C. difficile Tox B Gene Cancelled Current Inpatient Medications Current Inpatient Medications: Current Inpatient Medications Acetaminophen (Acetaminophen 325 Mg Tab) 650 mg PO Q4H PRN PRN Reason: Pain or Fever Stop: 07/29/23 22:19 Last Admin: 07/05/23 00:23 Dose: 650 mg Calcium Carbonate (Calcium Carbonate 500 Mg Chewable Tab) 500 mg PO Q2H PRN PRN Reason: Indigestion Stop: 08/03/23 21:33 Last Admin: 07/04/23 21:53 Dose: 500 mg Enoxaparin Sodium (Enoxaparin Inj 40 Mg/0.4 Ml Syr) 40 mg SQ BID [facility] Stop: 08/01/23 13:59 Last Admin: 07/05/23 08:19 Dose: 40 mg Fluoxetine HCl (Fluoxetine Hcl 20 Mg Cap) 20 mg PO QAM [facility] Stop: 08/01/23 08:59 Last Admin: 07/05/23 08:19 Dose: 20 mg Furosemide (Furosemide 20 Mg Tab) 20 mg PO QAM [facility] Stop: 08/04/23 08:59 Last Admin: 07/05/23 08:19 Dose: 20 mg Levothyroxine Sodium (Levothyroxine Sodium 200 Mcg Tablet) 200 mcg PO DAILYBB [facility] Stop: 07/30/23 06:29 Last Admin: 07/05/23 06:03 Dose: 200 mcg Miscellaneous (Remove Nicoderm Patch) 1 each N/A DAILY@0859 [facility] Stop: 08/01/23 08:58 Last Admin: 07/05/23 08:19 Dose: 1 each Nicotine (Nicotine 21 Mg/24 Hr Tdsy) 21 mg TD QAM [facility] Stop: 07/31/23 16:29 Last Admin: 07/05/23 08:19 Dose: 21 mg Nystatin (Nystatin Oint 15 Gm Tube) 1 appln EXT BID [facility] Stop: 07/30/23 08:59 Last Admin: 07/05/23 08:20 Dose: 1 appln Ondansetron HCl (Ondansetron Inj 2 Mg/Ml 2 Ml Vial) 4 mg IV Q6H PRN PRN Reason: Nausea Stop: 07/29/23 22:19 Last Admin: 07/02/23 05:17 Dose: 4 mg Pantoprazole Sodium (Pantoprazole 40 Mg Tab) 40 mg PO DAILY [facility] Stop: 07/30/23 08:59 Last Admin: 07/05/23 08:19 Dose: 40 mg Polyethylene Glycol (Polyethylene (Miralax) 17 Gm Pack) 17 gm PO DAILY [facility] Stop: 07/30/23 08:59 Last Admin: 07/05/23 08:20 Dose: Not Given Sennosides (Senna 8.6 Mg Tab) 8.6 mg PO QAM [facility] Stop: 07/30/23 08:59 Last Admin: 07/05/23 08:19 Dose: 8.6 mg
--- NOTE | 2023-07-05 15:10 | Hospitalist Progress Note ---
Date of Service July 05, 2023 Assessment & Plan (1) Acute hypercapnic respiratory failure: Plan: Likely Chronic respiratory failure with hypoxia ABG showed severe acute respiratory acidosis and hypercarbia. in the morning even after BiPAP bentonite the patient has hypercarbia and depressed pH consulted pulmonary recommending home with noninvasive positive pressure ventilator device however patient has insurance barriers and this was going to be challenging to accomplish. we will attempt to maximize her medical management however patient may need nursing placement to continue this treatment (2) Fall: Plan: 62yo female presenting after a fall at home. Has not taken her medications for a few months. Patient states she recently retired from the [employer] has been shut in and disheveled with poor self-care (3) Hematuria: Plan: Patient with hematuria and UTI. Proteus and E. coli UTI has been treated, persistent mild hematuria from Harris catheter which has been hesitant to be removed due to her mobility issues (4) Major depress dis, severe: Plan: Patient claims to be severely depressed she has been so in the past is agreeable to talk to counseling services and start antidepressant, previously on duloxetine patient been started on Prozac and continued. Reviewed repeat visit by psychiatric services recommend consideration of Wellbutrin if patient sodium issue improves (5) Maggot infestation: Plan: Total self-care deficit now improved Patient with fairly diffuse intertriginous yeast infection present under bilateral breasts and groin. Overall in a state of poor hygiene. She has been cleaned in the ER. -Nystatin BID -Oral care q shift -[facility] will be following along -Case management assistance appreciated Wound culture on decubitus ulcers: positive for proteus, completed treatment with ceftriaxone. (6) Hypertension: Plan: previously on losartan and spironolactone hydrochlorothiazide these are currently on hold with hyponatremia suggested to be hypervolemic hyponatremia diuretic therapy and fluid restriction will be the treatment (7) Hypothyroidism: Plan: Patient with history of hypothyroidism. She is to be taking Synthroid 200mcg po daily but has not had any medications for over 8 months. Her TSH is markedly elevated at 26.695 and her Free T4 is undetectable at <0.25. Normal temperature. Close attention to mentation and blood pressure. Do not suspect myxedema at this time. - did resume Synthroid 200mcg po daily -Patient should have a followup TSH outpatient (8) GERD (gastroesophageal reflux disease): Plan: Patient with history of GERD. She is to be on Protonix 40mg po daily. No medications x 8 months -Resume Protonix 40mg po daily (9) Fibromyalgia: Plan: Patient with history of Fibromyalgia. She is on Duloxetine 60mg po daily. -Will resume on 07/03 (10) Hyponatremia: Plan: patient noted to be hyponatremic in the afternoon of 817. Placed on fluid restriction decreased serum osmolality and low urine sodium suspect hypervolemic hyponatremia fluid restriction and diuretic therapy used Admission and Anticipated Discharge Date Admission Date: June 29, 2023 Subjective patient continues to state that shecannot tolerate BiPAP or CPAP. she is agreeable to wearing nocturnal oxygen though. Patient still does not have a place to live. Patient is open to rehab. She is open to continued treatment for her depression. psychiatry is recommending instituting additional medications if her laboratories are favorable She is been ambulating short distances with a walker Physical Exam Physical Exam: patient awoke and was oriented x3 pulm exam is diminished at the bases but otherwise clear extremities are with 1+ edema bilaterally Results & Data Results & Data Vital Signs (Past 12 Hours) Vital Signs Temp Pulse Pulse Resp BP Pulse Ox O2 Del Method 07/05/23 11:19 97.7 F 74 18 103/70 94 Nasal Cannula 07/05/23 08:00 72 07/05/23 07:39 79 07/05/23 07:28 98.4 F 115 H 18 107/73 92 Nasal Cannula 07/05/23 03:58 97.5 F L 66 18 101/63 95 Nasal Cannula O2 Flow Rate 07/05/23 11:19 2 07/05/23 08:00 07/05/23 07:39 07/05/23 07:28 2 07/05/23 03:58 1.5 PG Care Time/CCT Total # of Minutes Spent Total Time Spent with Patient: Total time spent is greater than 50% in coordination of care (as documented) at patient's floor/unit and/or counseling patient: Coding Level of Care Code 22700 SUB INP/OBS CARE 2/35MIN Diagnoses Acute hypercapnic respiratory failure J96.02 Fall W19.XXXA Encounter type: initial encounter Hematuria R31.9 Major depress dis, severe F32.2 Maggot infestation B87.9 Hypertension I10 Hypothyroidism E03.9 GERD (gastroesophageal reflux disease) K21.9 Fibromyalgia M79.7 Hyponatremia E87.1 (2) Fall Encounter type: initial encounter Qualified Code(s): W19.XXXA - Unspecified fall, initial encounter
[2023-07-06] MEDS: LEVOTHYROXINE SODIUM 200 MCG TABLET PO SCH (06:10)
[2023-07-06 08:10] LABS: BUN Creatinine Ratio 17.9 (10-20); Calcium 8.6 mg/dl (8.6-10.3); Creatinine Clr Calc Pharmacy 153.8 ml/min; Est GFR (African American) 116.6 ml/min; Est GFR (Non-African American) 100.6 ml/min; Potassium 3.4 mmol/L (3.5-5.1)
[2023-07-06] MEDS: NICOTINE 21 MG/24 HR TDSY TD SCH (08:21)
[2023-07-06] MEDS: FLUoxetine HCL 20 MG CAP PO SCH (08:21)
[2023-07-06] MEDS: ENOXAPARIN INJ 40 MG/0.4 ML SYR SQ SCH ×2 (08:21→20:33)
[2023-07-06] MEDS: FUROSEMIDE 20 MG TAB PO SCH (08:21)
[2023-07-06] MEDS: PANTOprazole 40 MG TAB PO SCH (08:21)
[2023-07-06] MEDS: NYSTATIN OINT 15 GM TUBE EXT SCH ×2 (08:21→20:33)
[2023-07-06] MEDS: SENNA 8.6 MG TAB PO SCH (08:22)
[2023-07-06] MEDS: POLYETHYLENE (MIRALAX) 17 GM PACK PO SCH (08:22)
[2023-07-06] MEDS ORDERED: POTASSIUM CHLORIDE CRTAB 20 MEQ TABCR PO STA (09:46)
--- NOTE | 2023-07-06 16:53 | Hospitalist Progress Note ---
Date of Service July 06, 2023 Assessment & Plan (1) Acute hypercapnic respiratory failure: Plan: Likely Chronic respiratory failure with hypoxia ABG showed severe acute respiratory acidosis and hypercarbia. in the morning even after BiPAP bentonite the patient has hypercarbia and depressed pH consulted pulmonary recommending home with noninvasive positive pressure ventilator device however patient has insurance barriers and this was going to be challenging to accomplish. we will attempt to maximize her medical management however patient may need nursing placement to continue this treatment (2) Fall: Plan: 62yo female presenting after a fall at home. Has not taken her medications for a few months. Patient states she recently retired from the [employer] has been shut in and disheveled with poor self-care (3) Hematuria: Plan: Patient with hematuria and UTI. Proteus and E. coli UTI has been treated, persistent mild hematuria from Harris catheter which has been hesitant to be removed due to her mobility issues (4) Major depress dis, severe: Plan: Patient claims to be severely depressed she has been so in the past is agreeable to talk to counseling services and start antidepressant, previously on duloxetine patient been started on Prozac and continued. Reviewed repeat visit by psychiatric services recommend consideration of Wellbutrin since sodium has improved lites do Wellbutrin on 07/06 (5) Maggot infestation: Plan: Total self-care deficit now improved Patient with fairly diffuse intertriginous yeast infection present under bilateral breasts and groin. Overall in a state of poor hygiene. She has been cleaned in the ER. -Nystatin BID -Oral care q shift -[facility] will be following along -Case management assistance appreciated Wound culture on decubitus ulcers: positive for proteus, completed treatment with ceftriaxone. (6) Hypertension: Plan: previously on losartan and spironolactone hydrochlorothiazide these are currently on hold with hyponatremia suggested to be hypervolemic hyponatremia diuretic therapy and fluid restriction will be the treatment (7) Hypothyroidism: Plan: Patient with history of hypothyroidism. She is to be taking Synthroid 200mcg po daily but has not had any medications for over 8 months. Her TSH is markedly elevated at 26.695 and her Free T4 is undetectable at <0.25. Normal temperature. Close attention to mentation and blood pressure. Do not suspect myxedema at this time. - did resume Synthroid 200mcg po daily -Patient should have a followup TSH outpatient (8) GERD (gastroesophageal reflux disease): Plan: Patient with history of GERD. She is to be on Protonix 40mg po daily. No medications x 8 months -Resume Protonix 40mg po daily (9) Fibromyalgia: Plan: Patient with history of Fibromyalgia. She is on Duloxetine 60mg po daily. -Will resume on 07/03 (10) Hyponatremia: Plan: patient noted to be hyponatremic in the afternoon of 817. Placed on fluid restriction decreased serum osmolality and low urine sodium suspect hypervolemic hyponatremia fluid restriction and diuretic therapy used slow and steady improvement of sodium hypokalemia from diuretic instituting potassium replacement therapy Admission and Anticipated Discharge Date Admission Date: June 29, 2023 Subjective patient continues to slowly improve. Electrolytes are stabilized we will institute Wellbutrin therapy. We will need to replete hypokalemia on 07/06 patient is activity is still limited due to deconditioning and fatigue Physical Exam Physical Exam: patient awoke and was oriented x3 pulm exam is diminished at the bases but otherwise clear extremities are with 1+ edema bilaterally Results & Data Results & Data Vital Signs (Past 12 Hours) Vital Signs Temp Pulse Pulse Resp BP BP Pulse Ox 07/06/23 16:00 62 07/06/23 14:38 97.9 F 69 18 124/80 92 07/06/23 11:16 97.5 F L 68 18 124/80 94 07/06/23 08:00 72 07/06/23 07:26 97.5 F L 65 20 168/85 H 96 O2 Del Method O2 Flow Rate 07/06/23 16:00 07/06/23 14:38 Room Air 07/06/23 11:16 Nasal Cannula 2 07/06/23 08:00 07/06/23 07:26 Room Air Laboratory Results reviewed chemistry PG Care Time/CCT Total # of Minutes Spent Total Time Spent with Patient: Total time spent is greater than 50% in coordination of care (as documented) at patient's floor/unit and/or counseling patient: Coding Level of Care Code 28375 SUB INP/OBS CARE 2/35MIN Diagnoses Acute hypercapnic respiratory failure J96.02 Fall W19.XXXA Encounter type: initial encounter Hematuria R31.9 Major depress dis, severe F32.2 Maggot infestation B87.9 Hypertension I10 Hypothyroidism E03.9 GERD (gastroesophageal reflux disease) K21.9 Fibromyalgia M79.7 Hyponatremia E87.1 (2) Fall Encounter type: initial encounter Qualified Code(s): W19.XXXA - Unspecified fall, initial encounter
[2023-07-06] MEDS: buPROPion SR 100 MG TABCR PO SCH (20:33)
[2023-07-07] MEDS: LEVOTHYROXINE SODIUM 200 MCG TABLET PO SCH (05:54)
[2023-07-07] MEDS: NICOTINE 21 MG/24 HR TDSY TD SCH (08:39)
[2023-07-07] MEDS: FUROSEMIDE 20 MG TAB PO SCH (08:39)
[2023-07-07] MEDS: ENOXAPARIN INJ 40 MG/0.4 ML SYR SQ SCH (08:39)
[2023-07-07] MEDS: PANTOprazole 40 MG TAB PO SCH (08:39)
[2023-07-07] MEDS: FLUoxetine HCL 20 MG CAP PO SCH (08:39)
[2023-07-07] MEDS: buPROPion SR 100 MG TABCR PO SCH ×2 (08:39→20:12)
[2023-07-07] MEDS: NYSTATIN OINT 15 GM TUBE EXT SCH ×2 (08:40→20:13)
[2023-07-07] MEDS: SENNA 8.6 MG TAB PO SCH (08:40)
[2023-07-07] MEDS: POLYETHYLENE (MIRALAX) 17 GM PACK PO SCH ×2 (08:40→20:12)
[2023-07-07] MEDS: POTASSIUM CHLORIDE CRTAB 20 MEQ TABCR PO SCH (08:41)
[2023-07-07 08:46] LABS: BUN Creatinine Ratio 14.8 (10-20); Calcium 8.3 mg/dl (8.6-10.3); Creatinine Clr Calc Pharmacy 145.5 ml/min; Est GFR (Non-African American) 101.8 ml/min; Potassium 3.2 mmol/L (3.5-5.1)
--- NOTE | 2023-07-07 14:11 | Hospitalist Progress Note ---
Date of Service July 07, 2023 Assessment & Plan (1) Acute hypercapnic respiratory failure: Plan: Likely Chronic respiratory failure with hypoxia ABG showed severe acute respiratory acidosis and hypercarbia. patient has been rescued now and is on nasal cannula cannot tolerate noninvasive positive pressure ventilation and consulted pulmonary recommending home with noninvasive positive pressure ventilator device however patient has insurance barriers and this was going to be challenging to accomplish. we will attempt to maximize her medical management however patient may need nursing placement to continue this treatment (2) Fall: Plan: 62yo female presenting after a fall at home. Has not taken her medications for a few months. Patient states she recently retired from the [employer] has been shut in and disheveled with poor self-care (3) Hematuria: Plan: Patient with hematuria and UTI. Proteus and E. coli UTI has been treated, persistent mild hematuria from Harris catheter which has been hesitant to be removed due to her mobility issues (4) Major depress dis, severe: Plan: Patient claims to be severely depressed she has been so in the past is agreeable to talk to counseling services and start antidepressant, previously on duloxetine patient been started on Prozac and continued. Reviewed repeat visit by psychiatric services recommend consideration of Wellbutrin since sodium has improved lites do Wellbutrin on 07/06 (5) Maggot infestation: Plan: Total self-care deficit now improved Patient with fairly diffuse intertriginous yeast infection present under bilateral breasts and groin. Overall in a state of poor hygiene. She has been cleaned in the ER. -Nystatin BID -Oral care q shift -[facility] will be following along -Case management assistance appreciated Wound culture on decubitus ulcers: positive for proteus, completed treatment with ceftriaxone. (6) Hypertension: Plan: previously on losartan and spironolactone hydrochlorothiazide these are currently on hold hyponatremia has improved hypokalemia persistent will be replete discontinuation of Lasix due to lower blood pressure (7) Hypothyroidism: Plan: Patient with history of hypothyroidism. She is to be taking Synthroid 200mcg po daily but has not had any medications for over 8 months. Her TSH is markedly elevated at 26.695 and her Free T4 is undetectable at <0.25. Normal temperature. Close attention to mentation and blood pressure. Do not suspect myxedema at this time. - did resume Synthroid 200mcg po daily -Patient should have a followup TSH outpatient (8) GERD (gastroesophageal reflux disease): Plan: Patient with history of GERD. She is to be on Protonix 40mg po daily. No medications x 8 months -Resume Protonix 40mg po daily patient complains of constipation abdominal fullness chest x-ray continues on Protonix increased cathartic agents have dietary supplement ordered patient says she cannot taste any of her food will order COVID testing (9) Fibromyalgia: Plan: Patient with history of Fibromyalgia. She is on Duloxetine 60mg po daily. -Will resume on 07/03 (10) Hyponatremia: Plan: improving Admission and Anticipated Discharge Date Admission Date: June 29, 2023 Subjective patient is less upbeat today continues to complain about not wanting to eat because she cannot taste her food. Having reduced output of stool but has issues with constipation at home. Still challenging with disposition blood pressure slightly lower we will discontinue diuretic therapy she is hypokalemic we will need to continue her potassium replacement for a few more days Physical Exam Physical Exam: patient awake and oriented x3 pulm exam is diminished at the bases but otherwise clear extremities are with 1+ edema bilaterally abdomen NABS soft and nontender Results & Data Results & Data Vital Signs (Past 12 Hours) Vital Signs Temp Pulse Pulse Resp BP Pulse Ox O2 Del Method 07/07/23 11:39 97.5 F L 82 19 96/60 L 93 Room Air 07/07/23 07:53 97.3 F L 87 19 119/72 93 Room Air 07/07/23 02:58 97.3 F L 82 12 124/83 95 Room Air Laboratory Results reviewed chemistry change potassium supplementation and discontinue Lasix increased cathartic medications ordered dietary consult ordered COVID test ordered KUB of abdomen look for obstipation PG Care Time/CCT Total # of Minutes Spent Total Time Spent with Patient: Total time spent is greater than 50% in coordination of care (as documented) at patient's floor/unit and/or counseling patient: Coding Level of Care Code 36015 SUB INP/OBS CARE 3/50MIN Diagnoses Acute hypercapnic respiratory failure J96.02 Fall W19.XXXA Encounter type: initial encounter Hematuria R31.9 Major depress dis, severe F32.2 Maggot infestation B87.9 Hypertension I10 Hypothyroidism E03.9 GERD (gastroesophageal reflux disease) K21.9 Fibromyalgia M79.7 Hyponatremia E87.1 (2) Fall Encounter type: initial encounter Qualified Code(s): W19.XXXA - Unspecified fall, initial encounter
--- NOTE | 2023-07-07 17:03 | XRay Report ---
KUB HISTORY: Acute generalized abdominal pain eval for bowel obs COMPARISON: CT 06/29/2023. FINDINGS: Nonobstructive bowel gas pattern. Cholecystectomy. Mild gaseous distention of the central s mall bowel. No renal calculi. No ureteral calculi. No pneumoperitoneum or pneumatosis. Degenerative and postoperative changes of the lumbar spine. No fracture. IMPRESSION: Mild gaseous distention of small bowel loops within the central abdomen which may represent an ileus versus developing obstruction. Follow-up recommended. ACT 112: Negative or not required by law. The above report was generated using voice recognition software. It may contain grammatical, syntax o r spelling errors. Electronically signed by: Wilfredo Fraire M.D. 07/07/2023 5:02 PM
[2023-07-08] MEDS: LEVOTHYROXINE SODIUM 200 MCG TABLET PO SCH (05:51)
[2023-07-08] MEDS: POTASSIUM CHLORIDE CRTAB 20 MEQ TABCR PO SCH (08:24)
[2023-07-08] MEDS: NICOTINE 21 MG/24 HR TDSY TD SCH (08:25)
[2023-07-08] MEDS: SENNA 8.6 MG TAB PO SCH (08:25)
[2023-07-08] MEDS: buPROPion SR 100 MG TABCR PO SCH ×2 (08:25→20:09)
[2023-07-08] MEDS: ENOXAPARIN INJ 40 MG/0.4 ML SYR SQ SCH (08:25)
[2023-07-08] MEDS: FLUoxetine HCL 20 MG CAP PO SCH (08:25)
[2023-07-08] MEDS: PANTOprazole 40 MG TAB PO SCH (08:25)
[2023-07-08] MEDS: NYSTATIN OINT 15 GM TUBE EXT SCH ×2 (08:26→20:10)
[2023-07-08] MEDS: POLYETHYLENE (MIRALAX) 17 GM PACK PO SCH ×2 (08:26→20:10)
[2023-07-08 08:33] LABS: BUN Creatinine Ratio 15.5 (10-20); Calcium 8.4 mg/dl (8.6-10.3); Creatinine Clr Calc Pharmacy 145.8 ml/min; Est GFR (African American) 115.3 ml/min; Est GFR (Non-African American) 99.5 ml/min; Potassium 3.3 mmol/L (3.5-5.1)
--- NOTE | 2023-07-08 18:25 | Hospitalist Progress Note ---
Date of Service July 08, 2023 Assessment & Plan (1) Acute hypercapnic respiratory failure: Plan: Likely Chronic respiratory failure with hypoxia ABG showed severe acute respiratory acidosis and hypercarbia. patient has been rescued now and is on nasal cannula cannot tolerate noninvasive positive pressure ventilation and consulted pulmonary recommending home with noninvasive positive pressure ventilator device however patient has insurance barriers and this was going to be challenging to accomplish. we will attempt to maximize her medical management however patient may need nursing placement to continue this treatment (2) Fall: Plan: 62yo female presenting after a fall at home. Has not taken her medications for a few months. Patient states she recently retired from the [employer] has been shut in and disheveled with poor self-care (3) Hematuria: Plan: Patient with hematuria and UTI. Proteus and E. coli UTI has been treated, persistent mild hematuria from Harris catheter which has been hesitant to be removed due to her mobility issues (4) Major depress dis, severe: Plan: Patient claims to be severely depressed she has been so in the past is agreeable to talk to counseling services and start antidepressant, previously on duloxetine patient been started on Prozac and continued. Reviewed repeat visit by psychiatric services recommend consideration of Wellbutrin started Wellbutrin on 07/06 (5) Maggot infestation: Plan: Total self-care deficit now improved Patient with fairly diffuse intertriginous yeast infection present under bilateral breasts and groin. Overall in a state of poor hygiene. She has been cleaned in the ER. -Nystatin BID -Oral care q shift -Office of Aging will be following along -Case management assistance appreciated Wound culture on decubitus ulcers: positive for proteus, completed treatment with ceftriaxone. (6) Hypertension: Plan: previously on losartan and spironolactone hydrochlorothiazide these are currently on hold hyponatremia has improved hypokalemia persistent will be replete discontinuation of Lasix due to lower blood pressure (7) Hypothyroidism: Plan: Patient with history of hypothyroidism. She is to be taking Synthroid 200mcg po daily but has not had any medications for over 8 months. Her TSH is markedly elevated at 26.695 and her Free T4 is undetectable at <0.25. Normal temperature. Close attention to mentation and blood pressure. Do not suspect myxedema at this time. - did resume Synthroid 200mcg po daily -Patient should have a followup TSH outpatient somewhere around the end of July 2020 (8) GERD (gastroesophageal reflux disease): Plan: Patient with history of GERD. She is to be on Protonix 40mg po daily. No medications x 8 months -Resume Protonix 40mg po daily patient complains of constipation abdominal fullness on Protonix increased cathartic agents have dietary supplement ordered also ordering probiotic patient says she cannot taste any of her food will order COVID testing negative (9) Fibromyalgia: Plan: Patient with history of Fibromyalgia. She is on Duloxetine 60mg po daily. -Will resume on 07/03 (10) Hyponatremia: Plan: improving Admission and Anticipated Discharge Date Admission Date: June 29, 2023 Subjective pa patient continues to endorse not wanting to eat because she cannot taste her food. Abdominal x-ray did not show any obstruction or obstipation still challenging with disposition she is hypokalemic we will need to continue her potassium replacement for a few more days Physical Exam Physical Exam: patient awake and oriented x3 pulm exam is diminished at the bases but otherwise clear extremities are with 1+ edema bilaterally abdomen NABS soft and nontender Results & Data Results & Data Vital Signs (Past 12 Hours) Vital Signs Temp Pulse Pulse Resp BP Pulse Ox O2 Del Method 07/08/23 15:20 97.7 F 67 16 113/79 90 Room Air 07/08/23 16:00 78 07/08/23 11:05 97.5 F L 72 16 113/76 92 Room Air 07/08/23 08:00 61 07/08/23 07:30 97.5 F L 65 16 102/69 90 Room Air Laboratory Results Reviewed chemistry Reviewed prior days COVID test being negative PG Care Time/CCT Total # of Minutes Spent Total Time Spent with Patient: Total time spent is greater than 50% in coordination of care (as documented) at patient's floor/unit and/or counseling patient: Coding Level of Care Code 51075 SUB INP/OBS CARE 2/35MIN Diagnoses Acute hypercapnic respiratory failure J96.02 Fall W19.XXXA Encounter type: initial encounter Hematuria R31.9 Major depress dis, severe F32.2 Maggot infestation B87.9 Hypertension I10 Hypothyroidism E03.9 GERD (gastroesophageal reflux disease) K21.9 Fibromyalgia M79.7 Hyponatremia E87.1 (2) Fall Encounter type: initial encounter Qualified Code(s): W19.XXXA - Unspecified fall, initial encounter
[2023-07-09] MEDS: LEVOTHYROXINE SODIUM 200 MCG TABLET PO SCH (05:31)
[2023-07-09] MEDS: PANTOprazole 40 MG TAB PO SCH (09:50)
[2023-07-09] MEDS: FLUoxetine HCL 20 MG CAP PO SCH (09:50)
[2023-07-09] MEDS: SACCHAROMYCES BOULARDII 250 MG CAP PO SCH (09:50)
[2023-07-09] MEDS: ENOXAPARIN INJ 40 MG/0.4 ML SYR SQ SCH (09:50)
[2023-07-09] MEDS: buPROPion SR 100 MG TABCR PO SCH ×2 (09:51→21:00)
[2023-07-09] MEDS: POLYETHYLENE (MIRALAX) 17 GM PACK PO SCH ×2 (09:51→21:00)
[2023-07-09] MEDS: POTASSIUM CHLORIDE CRTAB 20 MEQ TABCR PO SCH (09:52)
[2023-07-09] MEDS: SENNA 8.6 MG TAB PO SCH (09:53)
[2023-07-09] MEDS: NICOTINE 21 MG/24 HR TDSY TD SCH (09:56)
[2023-07-09] MEDS: CIPROFLOXACIN HCL 0.3% OP SOLN 2.5 ML BTL OP SCH ×3 (10:00→21:00)
[2023-07-09] MEDS: NYSTATIN OINT 15 GM TUBE EXT SCH (10:15)
--- NOTE | 2023-07-09 16:58 | Hospitalist Progress Note ---
Date of Service July 09, 2023 Assessment & Plan (1) Acute hypercapnic respiratory failure: Plan: Likely Chronic respiratory failure with hypoxia ABG showed severe acute respiratory acidosis and hypercarbia. patient has been rescued now and is on nasal cannula cannot tolerate noninvasive positive pressure ventilation and consulted pulmonary recommending home with noninvasive positive pressure ventilator device however patient has insurance barriers and this was going to be challenging to accomplish. we will attempt to maximize her medical management however patient may need nursing placement to continue this treatment (2) Fall: Plan: 62yo female presenting after a fall at home. Has not taken her medications for a few months. Patient states she recently retired from the [employer] has been shut in and disheveled with poor self-care (3) Hematuria: Plan: Patient with hematuria and UTI. Proteus and E. coli UTI has been treated, persistent mild hematuria from Harris catheter which has been hesitant to be removed due to her mobility issues (4) Major depress dis, severe: Plan: Patient claims to be severely depressed she has been so in the past is agreeable to talk to counseling services and start antidepressant, previously on duloxetine patient been started on Prozac and continued. Reviewed repeat visit by psychiatric services recommend consideration of Wellbutrin started Wellbutrin on 07/06 (5) Maggot infestation: Plan: Total self-care deficit now improved Patient with fairly diffuse intertriginous yeast infection present under bilateral breasts and groin. Overall in a state of poor hygiene. She has been cleaned in the ER. -Nystatin BID -Oral care q shift -Office of Aging will be following along -Case management assistance appreciated Wound culture on decubitus ulcers: positive for proteus, completed treatment with ceftriaxone. (6) Hypertension: Plan: previously on losartan and spironolactone hydrochlorothiazide these are currently on hold hyponatremia has improved hypokalemia persistent will be replete discontinuation of Lasix due to lower blood pressure (7) Hypothyroidism: Plan: Patient with history of hypothyroidism. She is to be taking Synthroid 200mcg po daily but has not had any medications for over 8 months. Her TSH is markedly elevated at 26.695 and her Free T4 is undetectable at <0.25. Normal temperature. Close attention to mentation and blood pressure. Do not suspect myxedema at this time. - did resume Synthroid 200mcg po daily -Patient should have a followup TSH outpatient somewhere around the end of July 2020 (8) GERD (gastroesophageal reflux disease): Plan: Patient with history of GERD. She is to be on Protonix 40mg po daily. No medications x 8 months -Resume Protonix 40mg po daily patient complains of constipation abdominal fullness on Protonix increased cathartic agents have dietary supplement ordered also ordering probiotic patient says she cannot taste any of her food will order COVID testing negative (9) Fibromyalgia: Plan: Patient with history of Fibromyalgia. She is on Duloxetine 60mg po daily. -Will resume on 07/03 (10) Hyponatremia: Plan: improving Plan conjunctivitis, use cipro gtts culture Admission and Anticipated Discharge Date Admission Date: June 29, 2023 Subjective pa patient continues to endorse not wanting to eat because she cannot taste her food. Abdominal x-ray did not show any obstruction or obstipation still challenging with disposition ordering BOOST did have some eye drainage, culture and staring gtts she is hypokalemic we will need to continue her potassium replacement for a few more days Physical Exam Physical Exam: patient awake and oriented x3 eyes did not seem abn when I saw him pulm exam is diminished at the bases but otherwise clear extremities are with 1+ edema bilaterally abdomen NABS soft and nontender Results & Data Results & Data Vital Signs (Past 12 Hours) Vital Signs Temp Pulse Pulse Resp BP Pulse Ox O2 Del Method 07/09/23 14:55 97.3 F L 72 16 107/73 93 Room Air 07/09/23 15:52 68 07/09/23 11:43 97.3 F L 73 16 103/70 91 Room Air 07/09/23 07:15 97.9 F 95 H 16 104/70 91 Room Air 07/09/23 08:12 75 PG Care Time/CCT Total # of Minutes Spent Total Time Spent with Patient: Total time spent is greater than 50% in coordination of care (as documented) at patient's floor/unit and/or counseling patient: Coding Level of Care Code 09163 SUB INP/OBS CARE 2/35MIN Diagnoses Acute hypercapnic respiratory failure J96.02 Fall W19.XXXA Encounter type: initial encounter Hematuria R31.9 Major depress dis, severe F32.2 Maggot infestation B87.9 Hypertension I10 Hypothyroidism E03.9 GERD (gastroesophageal reflux disease) K21.9 Fibromyalgia M79.7 Hyponatremia E87.1 (2) Fall Encounter type: initial encounter Qualified Code(s): W19.XXXA - Unspecified fall, initial encounter
[2023-07-09] MEDS: MICONAZOLE NITRATE POWDER 85 GM EXT SCH (21:00)
[2023-07-10] MEDS: LEVOTHYROXINE SODIUM 200 MCG TABLET PO SCH (05:53)
[2023-07-10 06:32] LABS: Hematocrit (blood only) 36.9 % (37.0-47.0); Hemoglobin 12.8 g/dl (12.0-16.0); Mean Corpuscular Hemoglobin 32.4 pg (25.0-34.0); Mean Corpuscular Hgb Conc 34.7 g/dL (32.0-36.0); Mean Corpuscular Volume 93.4 fL (80.0-100.0); Mean Platelet Volume 10.2 fL (9.4-12.4); Platelet Count 227 K/uL (130-400); RDW Coefficient of Variation 15.9 % (11.5-14.5); RDW Standard Deviation 54.4 fL (36.4-46.3); Red Blood Count 3.95 M/uL (4.20-5.40); White Blood Count 6.84 K/ul (4.8-10.8)
[2023-07-10 06:55] LABS: BUN Creatinine Ratio 18.5 (10-20); Calcium 8.2 mg/dl (8.6-10.3); Creatinine Clr Calc Pharmacy 124.8 ml/min; Est GFR (African American) 111.1 ml/min; Est GFR (Non-African American) 95.8 ml/min; Magnesium 1.7 mg/dl (1.7-2.4); Potassium 3.2 mmol/L (3.5-5.1)
[2023-07-10] MEDS: SENNA 8.6 MG TAB PO SCH (09:49)
[2023-07-10] MEDS: PANTOprazole 40 MG TAB PO SCH (09:49)
[2023-07-10] MEDS: SACCHAROMYCES BOULARDII 250 MG CAP PO SCH (09:49)
[2023-07-10] MEDS: POLYETHYLENE (MIRALAX) 17 GM PACK PO SCH ×2 (09:49→21:48)
[2023-07-10] MEDS: CIPROFLOXACIN HCL 0.3% OP SOLN 2.5 ML BTL OP SCH ×3 (09:50→21:47)
[2023-07-10] MEDS: ENOXAPARIN INJ 40 MG/0.4 ML SYR SQ SCH (09:50)
[2023-07-10] MEDS: MICONAZOLE NITRATE POWDER 85 GM EXT SCH ×2 (09:50→21:48)
[2023-07-10] MEDS: FLUoxetine HCL 20 MG CAP PO SCH (09:50)
[2023-07-10] MEDS: NICOTINE 21 MG/24 HR TDSY TD SCH (09:50)
[2023-07-10] MEDS: buPROPion SR 100 MG TABCR PO SCH ×2 (09:51→21:47)
--- NOTE | 2023-07-10 13:59 | Hospitalist Progress Note ---
Date of Service July 10, 2023 Assessment & Plan (1) Acute hypercapnic respiratory failure: Plan: Chronic respiratory failure with hypoxia, hypercapnia. Obesity hypoventilation syndrome, tobacco abuse BMI 40. Additionally with [id number] history of smoking, no PFTs available for review. ABG on admit with severe acute respiratory acidosis and hypercapnia Recommended to use BiPAP 16/10 at bedtime. Is not tolerating noninvasive PPV. Tolerates nasal cannula, subsequently weaned from this during the day On admit 06/30 ABG 7.10/115/69/38/40 severe acute hypox/hypercap RF. Repeat ABG 07/03: 7.3 //33, chronic incompletely compensated respiratory acidosis Pulmonology consulted. Recommending home with noninvasive positive pressure ventilator device however patient has insurance barriers and this was going to be challenging to accomplish. -Placement pending, office of aging contacted and pending recommendations as well (2) Fall: Plan: 62yo female presenting after a fall at home. Has not taken her medications for a few months. Patient states she recently retired from the [employer] has been shut in and disheveled with poor self-care (3) Hematuria: Plan: Patient with hematuria and UTI. Proteus and E. coli UTI has been treated, persistent mild hematuria from Harris catheter, removed 07/10. May use PureWick (4) Major depress dis, severe: Plan: Patient claims to be severely depressed she has been so in the past is agreeable to talk to counseling services and start antidepressant, previously on duloxetine patient been started on Prozac and continued. Reviewed repeat visit by psychiatric services recommend consideration of Wellbutrin started Wellbutrin on 07/06 (5) Maggot infestation: Plan: Total self-care deficit now improving Patient with fairly diffuse intertriginous yeast infection present under bilateral breasts and groin. Overall in a state of poor hygiene. She has been cleaned in the ER. -Nystatin BID -Oral care q shift -Office of Aging contacted, pending recommendations. Discussed with CM -Case management assistance appreciated Wound culture on decubitus ulcers: positive for proteus, completed treatment with ceftriaxone. (6) Hypertension: Plan: previously on losartan and spironolactone hydrochlorothiazide these are currently on hold. Patient remains normotensive 07/10 hyponatremia has improved hypokalemia persistent will be replete discontinuation of Lasix due to lower blood pressure (7) Hypothyroidism: Plan: Patient with history of hypothyroidism. She is to be taking Synthroid 200mcg po daily but has not had any medications for over 8 months. Her TSH is markedly elevated at 26.695 and her Free T4 is undetectable at <0.25. Normal temperature. Close attention to mentation and blood pressure. Do not suspect myxedema at this time. - did resume Synthroid 200mcg po daily -Patient should have a followup TSH outpatient somewhere around the end of July 2020 (8) GERD (gastroesophageal reflux disease): Plan: Patient with history of GERD. She is to be on Protonix 40mg po daily. No medications x 8 months -Resume Protonix 40mg po daily patient complains of constipation abdominal fullness on Protonix increased cathartic agents have dietary supplement ordered also ordering probiotic patient says she cannot taste any of her food will order COVID testing negative (9) Fibromyalgia: Plan: Patient with history of Fibromyalgia. She is on Duloxetine 60mg po daily. -Will resume on 07/03 (10) Hyponatremia: Plan: improving (11) Ageusia: Plan: Unclear cause Recommend tobacco cessation Really reported with AB/ARB which were discontinued. Continue boost B12, zinc levels pending. Replete if low Plan conjunctivitis on cipro drops TID Admission and Anticipated Discharge Date Admission Date: June 29, 2023 Subjective Continues to report poor appetite, reports she cannot smell or taste and this makes food mostly unpalatable to her. Denies nausea. Reports she has bowel movements generally daily and does not have abdominal pain at time of visit. No other questions or concerns. Discussed with case management, pending callback from office of aging and regarding placement Review of Systems Review of Systems: All systems reviewed & are unremarkable except as noted in Subjective Physical Exam Physical Exam: General: Somnolent, awakens easily. Answers questions appropriately HEENT: Atraumatic, normocephalic. Pulm: CTAB A&P. -wheezes, -rales, -rhonchi. Symmetrical chest rise. No increased work of breathing. No respiratory distress. Cardiac: RRR, -mrg. Radial pulses intact and symmetrical. Abdominal: Nontender, nondistended, soft. BS present. Results & Data Results & Data Vital Signs (Past 12 Hours) Vital Signs Temp Pulse Pulse Resp BP Pulse Ox O2 Del Method 07/10/23 13:00 36.4 C L 65 18 121/69 94 Room Air 07/10/23 10:10 62 07/10/23 09:12 36.8 C 67 18 109/64 92 Room Air 07/10/23 03:08 36.4 C L 65 18 114/67 98 Nasal Cannula 07/10/23 02:51 18 94 Nasal Cannula O2 Flow Rate 07/10/23 13:00 07/10/23 10:10 07/10/23 09:12 07/10/23 03:08 2 07/10/23 02:51 2 PG Care Time/CCT Total # of Minutes Spent Total Time Spent with Patient: Total time spent is greater than 50% in coordination of care (as documented) at patient's floor/unit and/or counseling patient: Coding Level of Care Code 48825 SUB INP/OBS CARE 3/50MIN Diagnoses Acute hypercapnic respiratory failure J96.02 Fall W19.XXXA Encounter type: initial encounter Hematuria R31.9 Major depress dis, severe F32.2 Maggot infestation B87.9 Hypertension I10 Hypothyroidism E03.9 GERD (gastroesophageal reflux disease) K21.9 Fibromyalgia M79.7 Hyponatremia E87.1 Ageusia R43.2 (2) Fall Encounter type: initial encounter Qualified Code(s): W19.XXXA - Unspecified fall, initial encounter
[2023-07-10] MEDS: ONDANSETRON INJ 2 MG/ML 2 ML VIAL IV PRN (14:22)
[2023-07-11] MEDS: LEVOTHYROXINE SODIUM 200 MCG TABLET PO SCH (06:12)
[2023-07-11 07:39] LABS: Basophils # (auto) 0.05 K/uL (0.00-0.20); Basophils % (auto) 0.7 %; Eosinophils # (auto) 0.11 K/uL (0.00-0.50); Eosinophils % (auto) 1.5 %; Hematocrit (blood only) 35.5 % (37.0-47.0); Hemoglobin 12.3 g/dl (12.0-16.0); Immature Granulocytes # (auto) 0.05 K/uL (0.01-0.20); Immature Granulocytes % (auto) 0.7 %; Lymphocytes # (auto) 1.43 K/uL (1.20-3.40); Lymphocytes % (auto) 19.4 %; Mean Corpuscular Hemoglobin 32.8 pg (25.0-34.0); Mean Corpuscular Hgb Conc 34.6 g/dL (32.0-36.0); Mean Corpuscular Volume 94.7 fL (80.0-100.0); Mean Platelet Volume 10.2 fL (9.4-12.4); Monocytes # (auto) 0.55 K/uL (0.11-0.59); Monocytes % (auto) 7.5 %; Neutrophils # (auto) 5.19 K/uL (1.40-6.50); Neutrophils % (auto) 70.2 %; Platelet Count 220 K/uL (130-400); Red Blood Count 3.75 M/uL (4.20-5.40); White Blood Count 7.38 K/ul (4.8-10.8)
--- NOTE | 2023-07-11 07:43 | Hospitalist Progress Note ---
Date of Service July 11, 2023 Assessment & Plan (1) Acute hypercapnic respiratory failure: Plan: Chronic respiratory failure with hypoxia, hypercapnia. Obesity hypoventilation syndrome, tobacco abuse BMI 40. Additionally with [id number] history of smoking, no PFTs available for review ABG on admit with severe acute respiratory acidosis and hypercapnia Recommended to use BiPAP 16/10 at bedtime. Unfortunately, patient is not tolerating noninvasive PPV. Tolerates nasal cannula, subsequently weaned from this during daytime Pulmonology consulted this admission, recommending home with NIPPV device however patient has insurance barriers and this was going to be challenging to accomplish, outpatient PFTs and polysomnography recommended Placement pending, OOA involved due to severely unkempt state and evidence of neglect, poor care/help at home, poor access to healthcare services, Case Management assisting as well (2) Maggot infestation: Plan: - Total self-care deficit now improving, infestation resolved - Patient with fairly diffuse intertriginous yeast infection present under bilateral breasts and groin, ulcerations of buttocks, improving with wound care. Overall in a state of poor hygiene on admission - Fungal powder and wound care per nursing, assistance by wound care services - Oral care q shift - Office of Aging contacted, pending recommendations. Discussed with CM - Case management assistance appreciated Wound culture on decubitus ulcers: - Positive for proteus, completed treatment with ceftriaxone. (3) Fall: Plan: Has not taken her medications for a few months. Patient states she recently retired from the [employer] Has been shut in and disheveled with poor self-care, no help at home from daughter per patient (4) Hematuria: Plan: - Patient with hematuria and UTI. Proteus and E. coli UTI has been treated, persistent mild hematuria from Harris catheter, removed 07/10. May use PureWick (5) Major depress dis, severe: Plan: - Patient claims to be severely depressed she has been so in the past is agreeable to talk to counseling services and start antidepressant, previously on duloxetine. Per Psych recommendations this admission has been started on fluoxetine/Wellbutrin (6) Hypertension: Plan: - Previously on losartan, spironolactone, hydrochlorothiazide however hadn't taken medications for months, patient normotensive so deferring use now (7) Hypothyroidism: Plan: Patient with history of hypothyroidism. She is to be taking Synthroid 200mcg po daily but has not had any medications for over 8 months. Her TSH was markedly elevated at 26.695 and her Free T4 is undetectable at <0.25. Normal temperature. Close attention to mentation and blood pressure. Do not suspect myxedema at this time. - Resumed Synthroid 200mcg PO daily this admission - Patient should have a followup TSH outpatient somewhere around the end of July (8) GERD (gastroesophageal reflux disease): Plan: Patient with history of GERD. She is to be on Protonix 40mg po daily. No medications x 8 months -Resume Protonix 40mg po daily -Patient says she cannot taste any of her food, COVID testing negative (9) Fibromyalgia: Plan: Patient with history of Fibromyalgia. Now on fluoxetine 20mg daily. (10) Hyponatremia: Plan: improving (11) Ageusia: Plan: Recommend tobacco cessation Rarely reported with AB/ARB which were discontinued due to normotensive Continue Boost B12 normal, zinc pending Folate level 2.20, could be contributing to her symptoms so will add folic acid supplement first IV daily then transition to PO on discharge (12) Nutritional deficiency: Plan: With hypokalemia and hypomagnesemia in the setting of poor appetite, depression K 2.9, Mg 1.6 Replete with Mg Sulfate, KCl/KRiders with repeat BMP tomorrow (13) Conjunctivitis: Plan: Cipro drops for conjunctivitis transitioned to gentamicin today as eye culture grew S. aureus Conjunctivitis improving Plan Patient is not safe for discharge to home given the conditions that were reported of her home, her lack of help at home, and her overall poor medical state on arrival. OOA and Case Management working on insurance, placement, and discharge planning. 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 Difficulty with taste has developed in the last 4 weeks she thinks, has noticed that she needs to add more sour or flavorful things to taste them (examples include sauerkraut on hot dogs, "a bunch of style sauces" to her chicken at home, more hot sauce. She notes that foods taste normal for a the first few seconds but then taste "like gruel or dirt". She notes that mashed potatoes tasted normal, and Boost tastes pretty good. She denies pain, itching, SOB, nausea. Review of Systems Review of Systems: All systems reviewed & are unremarkable except as noted in Subjective Physical Exam Constitutional: WD/WN, vitals as above Respiratory: normal respiratory effort, lungs clear to auscultation Cardiovascular: RRR, no murmur, no edema Gastrointestinal (Abdomen): normal bowel sounds, soft, nontender, no hepatosplenomegaly Skin: no rash noted to inframammary folds, noted to have redness and superficial open areas in deep lower abdominal skin fold that appear somewhat improved compared to previous record Psychiatric: A+Ox3, euthymic affect Results & Data Results & Data Vital Signs (Past 12 Hours) Vital Signs Temp Pulse Pulse Resp BP BP Pulse Ox 07/10/23 22:37 66 07/11/23 03:00 36.4 C L 65 20 93/58 L 93 07/10/23 22:00 36.7 C 64 20 122/74 92 O2 Del Method 07/10/23 22:37 07/11/23 03:00 Room Air 07/10/23 22:00 Room Air PG Care Time/CCT Total # of Minutes Spent Total Time Spent with Patient: Total time spent is greater than 50% in coordination of care (as documented) at patient's floor/unit and/or counseling patient: Coding Level of Care Code 32097 SUB INP/OBS CARE 3/50MIN Diagnoses Acute hypercapnic respiratory failure J96.02 Maggot infestation B87.9 Fall W19.XXXA Encounter type: initial encounter Hematuria R31.9 Major depress dis, severe F32.2 Hypertension I10 Hypothyroidism E03.9 GERD (gastroesophageal reflux disease) K21.9 Fibromyalgia M79.7 Hyponatremia E87.1 Ageusia R43.2 Nutritional deficiency E63.9 Conjunctivitis H10.9 (3) Fall Encounter type: initial encounter Qualified Code(s): W19.XXXA - Unspecified fall, initial encounter
[2023-07-11 08:01] LABS: BUN Creatinine Ratio 23.8 (10-20); Calcium 8.2 mg/dl (8.6-10.3); Creatinine Clr Calc Pharmacy 133.3 ml/min; Est GFR (African American) 112.2 ml/min; Est GFR (Non-African American) 96.8 ml/min; Magnesium 1.6 mg/dl (1.7-2.4); Potassium 2.9 mmol/L (3.5-5.1)
[2023-07-11] MEDS ORDERED: POTASSIUM CHLORIDE CRTAB 20 MEQ TABCR PO STA (10:13)
[2023-07-11] MEDS: NICOTINE 21 MG/24 HR TDSY TD SCH (10:21)
[2023-07-11] MEDS: PANTOprazole 40 MG TAB PO SCH (10:22)
[2023-07-11] MEDS: buPROPion SR 100 MG TABCR PO SCH ×2 (10:22→21:07)
[2023-07-11] MEDS: FLUoxetine HCL 20 MG CAP PO SCH (10:22)
[2023-07-11] MEDS: SACCHAROMYCES BOULARDII 250 MG CAP PO SCH (10:22)
[2023-07-11] MEDS: ONDANSETRON INJ 2 MG/ML 2 ML VIAL IV PRN (10:22)
[2023-07-11] MEDS: POLYETHYLENE (MIRALAX) 17 GM PACK PO SCH ×2 (10:22→21:07)
[2023-07-11] MEDS: CIPROFLOXACIN HCL 0.3% OP SOLN 2.5 ML BTL OP SCH ×2 (10:22→13:18)
[2023-07-11] MEDS: ENOXAPARIN INJ 40 MG/0.4 ML SYR SQ SCH (10:22)
[2023-07-11] MEDS: SENNA 8.6 MG TAB PO SCH (10:23)
[2023-07-11] MEDS: MICONAZOLE NITRATE POWDER 85 GM EXT SCH ×2 (10:23→21:07)
[2023-07-11] MEDS: ACETAMINOPHEN 325 MG TAB PO PRN (11:21)
[2023-07-11] MEDS: MAGNESIUM SULFATE / D5W 1 GM/100 ML BAG IV SCH ×2 (12:03→13:17)
[2023-07-11] MEDS: POTASSIUM CHLORIDE / WTR 10 MEQ/100 ML PLCT IV SCH ×4 (12:03→16:11)
[2023-07-11] MEDS: GENTAMICIN SULFATE 0.3% OP SOLN 5 ML BTL OP SCH ×2 (16:11→21:06)
[2023-07-11] MEDS ORDERED: TRIMETHOPRIM/POLYMYXIN B OP SCH (17:00)
[2023-07-11] MEDS: FOLIC ACID 1 MG in SYRINGE 9.8 ML IV SCH (21:05)
[2023-07-12 06:26] LABS: Basophils # (auto) 0.06 K/uL (0.00-0.20); Eosinophils # (auto) 0.15 K/uL (0.00-0.50); Eosinophils % (auto) 2.4 %; Hematocrit (blood only) 35.2 % (37.0-47.0); Hemoglobin 12.3 g/dl (12.0-16.0); Immature Granulocytes # (auto) 0.04 K/uL (0.01-0.20); Immature Granulocytes % (auto) 0.6 %; Lymphocytes # (auto) 1.55 K/uL (1.20-3.40); Mean Corpuscular Hemoglobin 32.7 pg (25.0-34.0); Mean Corpuscular Hgb Conc 34.9 g/dL (32.0-36.0); Mean Corpuscular Volume 93.6 fL (80.0-100.0); Mean Platelet Volume 10.4 fL (9.4-12.4); Monocytes % (auto) 8.1 %; Neutrophils % (auto) 62.9 %; Platelet Count 245 K/uL (130-400); RDW Coefficient of Variation 15.9 % (11.5-14.5); RDW Standard Deviation 54.5 fL (36.4-46.3); Red Blood Count 3.76 M/uL (4.20-5.40)
[2023-07-12] MEDS: LEVOTHYROXINE SODIUM 200 MCG TABLET PO SCH (06:37)
[2023-07-12 06:48] LABS: Anion Gap 6 (3-11); BUN Creatinine Ratio 23.8 (10-20); Blood Urea Nitrogen 15 mg/dl (6-23); Calcium 8.3 mg/dl (8.6-10.3); Carbon Dioxide 30 mmol/L (21-32); Chloride 96 mmol/L (98-107); Creatinine Clr Calc Pharmacy 133.1 ml/min; Est GFR (African American) 112.2 ml/min; Est GFR (Non-African American) 96.8 ml/min; Glucose 90 mg/dl (70-99(Fasting)); Sodium 132 mmol/L (136-145)
--- NOTE | 2023-07-12 08:02 | Hospitalist Progress Note ---
Date of Service July 12, 2023 Assessment & Plan (1) Acute hypercapnic respiratory failure: Plan: Chronic respiratory failure with hypoxia, hypercapnia, obesity hypoventilation syndrome, tobacco abuse BMI 40. Additionally with [id number] history of smoking, no PFTs available for review ABG on admit with severe acute respiratory acidosis and hypercapnia Pulmonology consulted this admission, recommending home with NIPPV device however patient has insurance barriers making this challenging to accomplish, and patient has so far been intolerant of NIPPV, outpatient PFTs and polysomnography recommended (2) Maggot infestation: Plan: - Total self-care deficit now improving, infestation resolved - Patient with fairly diffuse intertriginous yeast infection present under bilateral breasts and groin, ulcerations of buttocks, improving with wound care. Overall in a state of poor hygiene on admission - Fungal powder and wound care per nursing, assistance by wound care services - Oral care q shift - Placement pending, OOA involved due to severely unkempt state and evidence of neglect, poor care/help at home, poor access to healthcare services, Case Management assisting as well Wound culture on decubitus ulcers: - Positive for Proteus, completed treatment with ceftriaxone (3) Ageusia: Plan: Recommended tobacco cessation this admission Rarely reported with AB/ARB which were discontinued due to normotensive status Continue Boost B12 normal, zinc pending Folate level 2.20, could be contributing to her symptoms so will add folic acid supplement, to continue on discharge Hopeful that with nutritional supplementation, hypothyroidism tx, and trying different foods that we can continue to improve upon this problem and find good balance for her nutritionally (4) Nutritional deficiency: Plan: With hypokalemia and hypomagnesemia in the setting of poor appetite, depression K 2.9, Mg 1.6 on 07/11 both resolved with normal potassium and magnesium levels today Check BMP/Mg intermittently while admitted (5) Hypothyroidism: Plan: Patient with history of hypothyroidism. She was to be taking Synthroid 200mcg po daily but had not had any medications for over 8 months, with reported worsening fatigue, depression at home. Her TSH was markedly elevated at 26.695 and her Free T4 was undetectable at <0.25. Normal temperature. Close attention to mentation and blood pressure. Do not suspect myxedema at this time. - Resumed Synthroid 200mcg PO daily this admission - Patient should have a followup TSH outpatient around the end of July (6) Conjunctivitis: Plan: Cipro drops started 07/09 for conjunctivitis transitioned to gentamicin 07/11 as eye culture grew S. aureus, however per patient gentamicin drops are irritating and to my exam conjunctivitis has resolved, drops stopped (7) Fall: Plan: Has not taken her medications for a few months. Patient states she recently retired from the [employer] Has been shut in and disheveled with poor self-care, no help at home from daughter per patient Per patient had been dwindling over months, so tired she couldn't get up some days (8) Hematuria: Plan: - Patient with hematuria and UTI. Proteus and E. coli UTI has been treated, Harris catheter removed 07/10. May use PureWick (9) Major depress dis, severe: Plan: - Patient claims to be severely depressed, and has been so in the past, is agreeable to talk to counseling services and start antidepressant, previously on duloxetine. Per Psych recommendations this admission has been started on fluoxetine/Wellbutrin with good tolerance to date. Melatonin added for sleep. (10) Hypertension: Plan: - Previously on losartan, spironolactone, hydrochlorothiazide however hadn't taken medications for months, patient's BPs have been at goal for age so have not reinitiated (11) GERD (gastroesophageal reflux disease): Plan: -Continue Protonix 40mg PO daily x2 months (12) Fibromyalgia: Plan: -Patient with history of fibromyalgia, continue fluoxetine 20mg daily (13) Hyponatremia: Plan: Stable at ~132 Plan Patient is not safe for discharge to home given the conditions that were reported of her home, her lack of help at home, and her overall poor medical state on arrival. OOA and Case Management working on insurance, placement, and discharge planning. Continue working on nutrition, repleting electrolytes as necessary Admission and Anticipated Discharge Date Admission Date: June 29, 2023 Subjective Overnight had some difficulty with sleeping, very worried overall about what sort of home she will return to if/when she returns to her home. She endorses having few social supports in her life, none that she feels would be willing to assist her with ADLs should she need it. Nervous about money, and about not having insurance. Regarding diet, notes that yesterday into today had some foods that she liked; notes that her coffee with creamer today tasted normal, as did the noodle portion of the stuffed shells. She notes that her weird taste gets worse the more she chews her food. Physical Exam Constitutional: WD/WN, vitals as above Respiratory: normal respiratory effort, lungs clear to auscultation Cardiovascular: RRR, no murmur, no edema Gastrointestinal (Abdomen): normal bowel sounds, soft, nontender, no hepatosplenomegaly Psychiatric: alert and oriented, tearful at times Results & Data Results & Data Vital Signs (Past 12 Hours) Vital Signs Temp Pulse Pulse Resp BP Pulse Ox O2 Del Method 07/12/23 07:46 36.5 C 66 16 141/84 H 93 Room Air 07/12/23 04:00 36.8 C 67 18 127/86 92 Room Air 07/12/23 03:20 Room Air 07/12/23 03:00 65 07/12/23 00:00 36.6 C 61 18 118/81 94 Room Air PG Care Time/CCT Total # of Minutes Spent Total Time Spent with Patient: Total time spent is greater than 50% in coordination of care (as documented) at patient's floor/unit and/or counseling patient: Coding Level of Care Code 42233 SUB INP/OBS CARE 3/50MIN Diagnoses Acute hypercapnic respiratory failure J96.02 Maggot infestation B87.9 Ageusia R43.2 Nutritional deficiency E63.9 Hypothyroidism E03.9 Conjunctivitis H10.9 Fall W19.XXXA Encounter type: initial encounter Hematuria R31.9 Major depress dis, severe F32.2 Hypertension I10 GERD (gastroesophageal reflux disease) K21.9 Fibromyalgia M79.7 Hyponatremia E87.1 (7) Fall Encounter type: initial encounter Qualified Code(s): W19.XXXA - Unspecified fall, initial encounter
[2023-07-12] MEDS: GENTAMICIN SULFATE 0.3% OP SOLN 5 ML BTL OP SCH ×3 (09:17→16:24)
[2023-07-12] MEDS: SENNA 8.6 MG TAB PO SCH (09:20)
[2023-07-12] MEDS: POLYETHYLENE (MIRALAX) 17 GM PACK PO SCH ×2 (09:20→21:15)
[2023-07-12] MEDS: ENOXAPARIN INJ 40 MG/0.4 ML SYR SQ SCH (09:20)
[2023-07-12] MEDS: FLUoxetine HCL 20 MG CAP PO SCH (09:21)
[2023-07-12] MEDS: MULTIVITAMIN TAB PO SCH (09:21)
[2023-07-12] MEDS: PANTOprazole 40 MG TAB PO SCH (09:21)
[2023-07-12] MEDS: NICOTINE 21 MG/24 HR TDSY TD SCH (09:22)
[2023-07-12] MEDS: SACCHAROMYCES BOULARDII 250 MG CAP PO SCH (09:22)
[2023-07-12] MEDS: FOLIC ACID 1 MG in SYRINGE 9.8 ML IV SCH (09:23)
[2023-07-12] MEDS: buPROPion SR 100 MG TABCR PO SCH ×2 (09:23→21:15)
[2023-07-12] MEDS: MICONAZOLE NITRATE POWDER 85 GM EXT SCH ×2 (09:23→21:16)
[2023-07-12] MEDS: MELATONIN 3 MG TAB PO SCH (21:14)
[2023-07-13 05:57] LABS: Basophils # (auto) 0.08 K/uL (0.00-0.20); Basophils % (auto) 1.1 %; Eosinophils # (auto) 0.16 K/uL (0.00-0.50); Eosinophils % (auto) 2.3 %; Hematocrit (blood only) 34.4 % (37.0-47.0); Hemoglobin 12.1 g/dl (12.0-16.0); Immature Granulocytes # (auto) 0.04 K/uL (0.01-0.20); Immature Granulocytes % (auto) 0.6 %; Lymphocytes # (auto) 1.51 K/uL (1.20-3.40); Lymphocytes % (auto) 21.7 %; Mean Corpuscular Hemoglobin 32.4 pg (25.0-34.0); Mean Corpuscular Hgb Conc 35.2 g/dL (32.0-36.0); Mean Platelet Volume 10.3 fL (9.4-12.4); Monocytes # (auto) 0.59 K/uL (0.11-0.59); Monocytes % (auto) 8.5 %; Neutrophils # (auto) 4.58 K/uL (1.40-6.50); Neutrophils % (auto) 65.8 %; Platelet Count 233 K/uL (130-400); RDW Coefficient of Variation 16.1 % (11.5-14.5); RDW Standard Deviation 54.1 fL (36.4-46.3); Red Blood Count 3.74 M/uL (4.20-5.40); White Blood Count 6.96 K/ul (4.8-10.8)
[2023-07-13 06:18] LABS: BUN Creatinine Ratio 23.8 (10-20); Calcium 8.5 mg/dl (8.6-10.3); Creatinine Clr Calc Pharmacy 133.1 ml/min; Est GFR (African American) 112.2 ml/min; Est GFR (Non-African American) 96.8 ml/min; Potassium 3.4 mmol/L (3.5-5.1)
[2023-07-13] MEDS: LEVOTHYROXINE SODIUM 200 MCG TABLET PO SCH (06:22)
--- NOTE | 2023-07-13 07:38 | Hospitalist Progress Note ---
Date of Service July 13, 2023 Assessment & Plan (1) Acute hypercapnic respiratory failure: Plan: Chronic respiratory failure with hypoxia, hypercapnia, obesity hypoventilation syndrome, tobacco abuse BMI 40. Additionally with [id number] history of smoking, no PFTs available for review ABG on admit with severe acute respiratory acidosis and hypercapnia Pulmonology consulted this admission, recommending home with NIPPV device however patient has insurance barriers making this challenging to accomplish, and patient has so far been intolerant of NIPPV, outpatient PFTs and polysomnography recommended (2) Maggot infestation: Plan: - Total self-care deficit now improving, infestation resolved - Patient with fairly diffuse intertriginous yeast infection present under bilateral breasts and groin, ulcerations of buttocks, improving with wound care. Overall in a state of poor hygiene on admission - Fungal powder and wound care daily per nursing, assistance by wound care services - Oral care q shift - Placement pending, OOA involved due to severely unkempt state and evidence of neglect, poor care/help at home, poor access to healthcare services, Case Management assisting as well Wound culture on decubitus ulcers: - Positive for Proteus, completed treatment with ceftriaxone (3) Ageusia: Plan: Symptoms of decreased / bad taste are better today, tolerated breakfast fairly well Recommended tobacco cessation this admission Rarely reported with AB/ARB which were discontinued due to normotensive status Continue Boost B12 normal, zinc pending Folate level 2.20, could be contributing to her symptoms so added supplement, unclear if this is helping her symptoms but given low levels will continue Hopeful that with nutritional supplementation, hypothyroidism tx, and trying different foods that we can continue to improve upon this problem and find good balance for her nutritionally (4) Nutritional deficiency: Plan: With hypokalemia and hypomagnesemia in the setting of poor appetite, depression K 2.9, Mg 1.6 on 07/11 both resolved, start KCl 20meq daily supplement for K 3.4 today Check BMP/Mg intermittently while admitted (5) Hypothyroidism: Plan: Patient with history of hypothyroidism. She was to be taking Synthroid 200mcg po daily but had not had any medications for over 8 months, with reported worsening fatigue, depression at home. Her TSH was markedly elevated at 26.695 and her Free T4 was undetectable at <0.25. Normal temperature. Close attention to mentation and blood pressure. Do not suspect myxedema at this time. - Resumed Synthroid 200mcg PO daily this admission - Patient should have a followup TSH outpatient around the end of July (6) Conjunctivitis: Plan: Cipro drops started 07/09 for conjunctivitis transitioned to gentamicin 07/11 as eye culture grew S. aureus, continue these (7) Fall: Plan: Has not taken her medications for a few months. Patient states she recently retired from [employer] Has been shut in and disheveled with poor self-care, no help at home from daughter per patient Per patient had been dwindling over months, so tired she couldn't get up some days, see hypothyroidism tx (8) Hematuria: Plan: - Patient with hematuria and UTI. Proteus and E. coli UTI has been treated, Harris catheter removed 07/10. May use PureWick (9) Major depress dis, severe: Plan: - Patient claims to be severely depressed, and has been so in the past, agreeable to outpatient counseling services and starting antidepressant, previously on duloxetine. Per Psych recommendations this admission has been started on fluoxetine/Wellbutrin with good tolerance to date. Melatonin added for sleep. (10) Hypertension: Plan: - Previously on losartan, spironolactone, hydrochlorothiazide however hadn't taken medications for months, patient's BPs have been at goal for age so have n ot reinitiated (11) GERD (gastroesophageal reflux disease): Plan: -Continue Protonix 40mg PO daily x2 months (12) Fibromyalgia: Plan: -Patient with history of fibromyalgia, continue fluoxetine 20mg daily (13) Hyponatremia: Plan: Stable at ~133 Plan Patient is not safe for discharge to home given the conditions that were reported of her home, her lack of help at home, and her overall poor medical state on arrival. OOA and Case Management working on insurance, placement, and discharge planning. Continue working on nutrition, repleting electrolytes as necessary Admission and Anticipated Discharge Date Admission Date: June 29, 2023 Subjective Today patient is in better spirits, feels that she can smell and taste better today, today ate all of her eggs without any bad taste or smell. Denies chest pain, SOB, abdominal pain, nausea. Physical Exam Constitutional: WD/WN, vitals as above Respiratory: normal respiratory effort, lungs clear to auscultation Cardiovascular: RRR, no murmur, no edema Gastrointestinal (Abdomen): normal bowel sounds, soft, nontender, no hepatosplenomegaly Psychiatric: alert and oriented, euthymic affect Results & Data Results & Data Vital Signs (Past 12 Hours) Vital Signs Temp Pulse Pulse Resp BP BP Pulse Ox 07/13/23 06:00 56 L 07/13/23 04:00 36.8 C 69 18 117/70 95 07/12/23 23:00 36.6 C 60 18 127/83 94 07/13/23 00:54 07/13/23 00:50 60 O2 Del Method 07/13/23 06:00 07/13/23 04:00 Room Air 07/12/23 23:00 Room Air 07/13/23 00:54 Room Air 07/13/23 00:50 PG Care Time/CCT Total # of Minutes Spent Total Time Spent with Patient: Total time spent is greater than 50% in coordination of care (as documented) at patient's floor/unit and/or counseling patient: Coding Level of Care Code 98610 SUB INP/OBS CARE 2/35MIN Diagnoses Acute hypercapnic respiratory failure J96.02 Maggot infestation B87.9 Ageusia R43.2 Nutritional deficiency E63.9 Hypothyroidism E03.9 Conjunctivitis H10.9 Fall W19.XXXA Encounter type: initial encounter Hematuria R31.9 Major depress dis, severe F32.2 Hypertension I10 GERD (gastroesophageal reflux disease) K21.9 Fibromyalgia M79.7 Hyponatremia E87.1 (7) Fall Encounter type: initial encounter Qualified Code(s): W19.XXXA - Unspecified fall, initial encounter
[2023-07-13] MEDS: FOLIC ACID 1 MG in SYRINGE 9.8 ML IV SCH (08:34)
[2023-07-13] MEDS: ENOXAPARIN INJ 40 MG/0.4 ML SYR SQ SCH (08:34)
[2023-07-13] MEDS: POTASSIUM CHLORIDE CRTAB 20 MEQ TABCR PO SCH (08:35)
[2023-07-13] MEDS: buPROPion SR 100 MG TABCR PO SCH ×2 (08:36→21:27)
[2023-07-13] MEDS: FLUoxetine HCL 20 MG CAP PO SCH (08:36)
[2023-07-13] MEDS: NICOTINE 21 MG/24 HR TDSY TD SCH (08:36)
[2023-07-13] MEDS: SENNA 8.6 MG TAB PO SCH (08:36)
[2023-07-13] MEDS: POLYETHYLENE (MIRALAX) 17 GM PACK PO SCH ×2 (08:36→21:27)
[2023-07-13] MEDS: MULTIVITAMIN TAB PO SCH (08:36)
[2023-07-13] MEDS: MICONAZOLE NITRATE POWDER 85 GM EXT SCH ×2 (08:36→21:29)
[2023-07-13] MEDS: SACCHAROMYCES BOULARDII 250 MG CAP PO SCH (08:36)
[2023-07-13] MEDS: PANTOprazole 40 MG TAB PO SCH (08:36)
[2023-07-13] MEDS: GENTAMICIN SULFATE 0.3% OP SOLN 5 ML BTL OP SCH ×2 (19:16→21:26)
[2023-07-13] MEDS: MELATONIN 3 MG TAB PO SCH (21:27)
[2023-07-14] MEDS: LEVOTHYROXINE SODIUM 200 MCG TABLET PO SCH (05:56)
--- NOTE | 2023-07-14 07:58 | Hospitalist Progress Note ---
Date of Service July 14, 2023 Assessment & Plan (1) Ageusia: Plan: Symptoms of decreased / bad taste are better, tolerated last several meals fairly well Recommended tobacco cessation this admission, continue nicotine patch Rarely reported with AB/ARB which were discontinued anyway due to low normal BPs Continue Boost, line out man involved in care this admission B12 normal, zinc pending Folate level 2.20, could be contributing to her symptoms so added supplement, symptoms improving so will continue supplementation now transitioned to 1mg PO daily Hopeful that with nutritional supplementation, hypothyroidism tx, and trying different foods that we can continue to improve upon this problem and find good balance for her nutritionally (2) Acute hypercapnic respiratory failure: Plan: Chronic respiratory failure with hypoxia, hypercapnia, obesity hypoventilation syndrome, tobacco abuse BMI 40. Additionally with [id number] history of smoking, no PFTs available for review ABG on admit with severe acute respiratory acidosis and hypercapnia, resolved Pulmonology consulted this admission, recommending home with NIPPV device however patient has insurance barriers making this challenging to accomplish, and patient has so far been intolerant of NIPPV, outpatient PFTs and polysomnography recommended (3) Maggot infestation: Plan: - Total self-care deficit now improving while admitted, infestation resolved - Patient with fairly diffuse intertriginous yeast infection present under bilateral breasts and groin, ulcerations of buttocks, improving with wound care. Overall in a state of poor hygiene on admission - Fungal powder and wound care daily per nursing, assistance by wound care services - Oral care q shift - Placement pending; OOA involved due to severely unkempt state and evidence of neglect, poor care/help at home, poor access to healthcare services and lack of health insurance, Case Management assisting as well Wound culture on decubitus ulcers: - Positive for Proteus, completed treatment with ceftriaxone (4) Nutritional deficiency: Plan: With hypokalemia and hypomagnesemia this admission in the setting of poor appetite and depression Continue KCl 20md daily supplement, start Mg Oxide 400mg daily supplement for Mg 1.4 today Check BMP/Mg intermittently while admitted (5) Hypothyroidism: Plan: Patient with history of hypothyroidism. She was to be taking Synthroid 200mcg po daily but had not had any medications for over 8 months, with reported worsening fatigue, depression at home. Her TSH was markedly elevated at 26.695 and her Free T4 was undetectable at <0.25. Normal temperature. Close attention to mentation and blood pressure. Do not suspect myxedema at this time. - Resumed Synthroid 200mcg PO daily this admission - Patient should have a followup TSH outpatient around the end of July (6) Conjunctivitis: Plan: Continue gentamicin drops for bilateral L>R conjunctivitis, improving (7) Fall: Plan: Has not taken her medications for a few months. Patient states she recently retired from [employer] Has been shut in and disheveled with poor self-care, no help at home from daughter per patient, with fall at home prior to admission Per patient had been dwindling over months, so tired she couldn't get up some days, see hypothyroidism and depression tx (8) Hematuria: Plan: - Patient with hematuria and UTI earlier this admission. Proteus and E. coli UTI has been treated, Harris catheter removed 07/10. May use PureWick (9) Major depress dis, severe: Plan: - Patient claimed to be severely depressed, and has been so in the past, agreeable to outpatient counseling services and starting antidepressant, previously on duloxetine. Per Psych recommendations this admission has been started on fluoxetine/Wellbutrin with good tolerance to date. Melatonin added for sleep. (10) Hypertension: Plan: - Previously on losartan, spironolactone, hydrochlorothiazide however hadn't taken medications for months, patient's BPs have been at goal for age so have not reinitiated (11) GERD (gastroesophageal reflux disease): Plan: -Continue Protonix 40mg PO daily x2 months (12) Fibromyalgia: Plan: -Patient with history of fibromyalgia, continue fluoxetine 20mg daily (13) Hyponatremia: Plan: Stable at ~134 Plan Patient is not safe for discharge to home given the conditions that were reported of her home, her lack of help at home, and her overall poor medical state on arrival. OOA and Case Management working on insurance, placement, and discharge planning. Continue working on nutrition, repleting electrolytes as necessary Admission and Anticipated Discharge Date Admission Date: June 29, 2023 Subjective No overnight events, food continues to taste better, eyes not as irritated and tolerating drops ok, no complaints of chest pain, SOB, nausea, abdominal pain. Physical Exam Constitutional: WD/WN, vitals as above Respiratory: normal respiratory effort, lungs clear to auscultation Cardiovascular: RRR, no murmur, no edema Gastrointestinal (Abdomen): normal bowel sounds, soft, nontender, no hepatosplenomegaly Psychiatric: alert and oriented, euthymic affect Results & Data Results & Data Vital Signs (Past 12 Hours) Vital Signs Temp Pulse Pulse Resp BP Pulse Ox O2 Del Method 07/14/23 06:22 62 07/14/23 04:00 36.5 C 60 18 119/69 93 Room Air 07/14/23 03:25 Room Air 07/14/23 01:00 62 07/13/23 23:00 36.5 C 61 18 132/84 94 Room Air PG Care Time/CCT Total # of Minutes Spent Total Time Spent with Patient: Total time spent is greater than 50% in coordination of care (as documented) at patient's floor/unit and/or counseling patient: Coding Level of Care Code 67686 SUB INP/OBS CARE 2/35MIN Diagnoses Ageusia R43.2 Acute hypercapnic respiratory failure J96.02 Maggot infestation B87.9 Nutritional deficiency E63.9 Hypothyroidism E03.9 Conjunctivitis H10.9 Fall W19.XXXA Encounter type: initial encounter Hematuria R31.9 Major depress dis, severe F32.2 Hypertension I10 GERD (gastroesophageal reflux disease) K21.9 Fibromyalgia M79.7 Hyponatremia E87.1 (7) Fall Encounter type: initial encounter Qualified Code(s): W19.XXXA - Unspecified fall, initial encounter
[2023-07-14] MEDS: POLYETHYLENE (MIRALAX) 17 GM PACK PO SCH ×2 (09:19→21:00)
[2023-07-14] MEDS: MULTIVITAMIN TAB PO SCH (09:19)
[2023-07-14] MEDS: PANTOprazole 40 MG TAB PO SCH (09:19)
[2023-07-14] MEDS: SACCHAROMYCES BOULARDII 250 MG CAP PO SCH (09:19)
[2023-07-14] MEDS: GENTAMICIN SULFATE 0.3% OP SOLN 5 ML BTL OP SCH ×4 (09:19→21:00)
[2023-07-14] MEDS: FLUoxetine HCL 20 MG CAP PO SCH (09:19)
[2023-07-14] MEDS: buPROPion SR 100 MG TABCR PO SCH ×2 (09:19→20:59)
[2023-07-14] MEDS: MICONAZOLE NITRATE POWDER 85 GM EXT SCH ×2 (09:20→21:00)
[2023-07-14] MEDS: FOLIC ACID 1 MG in SYRINGE 9.8 ML IV SCH (09:20)
[2023-07-14] MEDS: SENNA 8.6 MG TAB PO SCH (09:20)
[2023-07-14] MEDS: NICOTINE 21 MG/24 HR TDSY TD SCH (09:20)
[2023-07-14] MEDS: POTASSIUM CHLORIDE CRTAB 20 MEQ TABCR PO SCH (09:20)
[2023-07-14] MEDS: ENOXAPARIN INJ 40 MG/0.4 ML SYR SQ SCH (09:21)
[2023-07-14 10:07] LABS: BUN Creatinine Ratio 17.6 (10-20); Calcium 8.9 mg/dl (8.6-10.3); Creatinine Clr Calc Pharmacy 113.7 ml/min; Est GFR (African American) 101.3 ml/min; Est GFR (Non-African American) 87.4 ml/min; Magnesium 1.4 mg/dl (1.7-2.4); Potassium 3.5 mmol/L (3.5-5.1)
[2023-07-14] MEDS ORDERED: MAGNESIUM OXIDE 400 MG TAB PO ONE (16:47)
[2023-07-14] MEDS: MELATONIN 3 MG TAB PO SCH (20:59)
[2023-07-15 02:37] LABS: Zinc 67 mcg/dL (60-130)
[2023-07-15] MEDS: LEVOTHYROXINE SODIUM 200 MCG TABLET PO SCH (05:43)
--- NOTE | 2023-07-15 07:48 | Hospitalist Progress Note ---
Date of Service July 15, 2023 Assessment & Plan (1) Ageusia: Plan: Symptoms of decreased / bad taste are much improved, tolerating food fairly well Recommended tobacco cessation this admission, continue nicotine patch Ageusia rarely reported with AB/ARB, discontinued, had not been taking at home regardless Continue Boost, financial systems manager involved in care this admission B12 normal, zinc level normal Folate level 2.20, could be contributing to her symptoms so added supplement,and symptoms improved (unclear if related), continue folic acid 1mg PO daily (2) Acute hypercapnic respiratory failure: Plan: Chronic respiratory failure with hypoxia, hypercapnia multifactorial with obesity hypoventilation syndrome, tobacco use history (40 pack years) without PFTs for review ABG on admit with severe acute respiratory acidosis and hypercapnia, resolved Pulmonology consulted this admission, recommending home with NIPPV device however patient has insurance barriers making this challenging to accomplish, and patient has so far been intolerant of NIPPV; outpatient PFTs and polysomnography recommended (3) Maggot infestation: Plan: - Total self-care deficit now improving while admitted, infestation resolved - Patient with fairly diffuse intertriginous yeast infection present under bilateral breasts and groin, ulcerations of buttocks, greatly improved with wound care. Overall in a state of poor hygiene on admission - Fungal powder and wound care daily per nursing, assistance by wound care services - Oral care q shift - Placement pending; OOA involved due to severely unkempt state and evidence of neglect, poor care/help at home, poor access to healthcare services and lack of health insurance, Case Management assisting as well Wound culture on decubitus ulcers: - Positive for Proteus, completed treatment with ceftriaxone (4) Nutritional deficiency: Plan: With hypokalemia and hypomagnesemia this admission in the setting of poor appetite and depression Continue KCl 20meq daily supplement and Mg Oxide 400mg daily supplement, K and Mg normal today (5) Hypothyroidism: Plan: Patient with history of hypothyroidism. She was to be taking Synthroid 200mcg po daily but had not had any medications for over 8 months, with reported worsening fatigue, depression at home. Her TSH was markedly elevated at 26.695 and her Free T4 was undetectable at <0.25. Normal temperature. Close attention to mentation and blood pressure. Do not suspect myxedema at this time. - Resumed Synthroid 200mcg PO daily this admission - Patient should have a followup TSH outpatient around the end of July (6) Conjunctivitis: Plan: Continue gentamicin drops for bilateral L>R conjunctivitis through 07/23/23, improving (7) Fall: Plan: Has not taken her medications for a few months. Patient states she recently retired from the [employer] Has been shut in and disheveled with poor self-care, no help at home from daughter per patient, with fall at home prior to admission Per patient had been dwindling over months, so tired she couldn't get up some days, see hypothyroidism and depression tx (8) Hematuria: Plan: - Patient with hematuria and UTI earlier this admission. Proteus and E. coli UTI has been treated, Harris catheter removed 07/10. May use PureWick (9) Major depress dis, severe: Plan: - Patient claimed to be severely depressed, and has been so in the past, agreeable to outpatient counseling services and starting antidepressant, previously on duloxetine. Per Psych recommendations this admission has been started on fluoxetine/Wellbutrin with good tolerance to date. Melatonin added for sleep. (10) Hypertension: Plan: - Previously on losartan, spironolactone, and hydrochlorothiazide however hadn't taken medications for months at home Patient's BPs have been generally at goal for age so have not reinitiated medications, continue to monitor (11) GERD (gastroesophageal reflux disease): Plan: -Continue Protonix 40mg PO daily x2 months (12) Fibromyalgia: Plan: -Patient with history of fibromyalgia, continue fluoxetine 20mg daily (13) Hyponatremia: Plan: Stable in mid-130s Plan Patient is not safe for discharge to home given the conditions that were reported of her home, her lack of help at home, and her overall poor medical state on arrival. OOA and Case Management working on insurance, placement, and discharge planning. Admission and Anticipated Discharge Date Admission Date: June 29, 2023 Subjective No acute overnight events, denies pain, SOB, nausea. [place]all feeling well today. Physical Exam Constitutional: WD/WN, vitals as above Psychiatric: alert and oriented, euthymic affect Results & Data Results & Data Vital Signs (Past 12 Hours) Vital Signs Temp Pulse Resp BP Pulse Ox O2 Del Method 07/14/23 23:51 Room Air 07/14/23 23:25 36.5 C 68 16 132/85 93 Room Air 07/14/23 20:05 36.3 C L 68 18 132/85 94 Room Air PG Care Time/CCT Total # of Minutes Spent Total Time Spent with Patient: Total time spent is greater than 50% in coordination of care (as documented) at patient's floor/unit and/or counseling patient: Coding Level of Care Code 97881 SUB INP/OBS CARE 2/35MIN Diagnoses Ageusia R43.2 Acute hypercapnic respiratory failure J96.02 Maggot infestation B87.9 Nutritional deficiency E63.9 Hypothyroidism E03.9 Conjunctivitis H10.9 Fall W19.XXXA Encounter type: initial encounter Hematuria R31.9 Major depress dis, severe F32.2 Hypertension I10 GERD (gastroesophageal reflux disease) K21.9 Fibromyalgia M79.7 Hyponatremia E87.1 (7) Fall Encounter type: initial encounter Qualified Code(s): W19.XXXA - Unspecified fall, initial encounter
[2023-07-15 08:04] LABS: BUN Creatinine Ratio 16.9 (10-20); Creatinine Clr Calc Pharmacy 118.7 ml/min; Est GFR (African American) 106.5 ml/min; Est GFR (Non-African American) 91.9 ml/min; Magnesium 1.7 mg/dl (1.7-2.4); Potassium 3.9 mmol/L (3.5-5.1)
[2023-07-15] MEDS: MULTIVITAMIN TAB PO SCH (08:41)
[2023-07-15] MEDS: PANTOprazole 40 MG TAB PO SCH (08:41)
[2023-07-15] MEDS: GENTAMICIN SULFATE 0.3% OP SOLN 5 ML BTL OP SCH ×4 (08:41→20:11)
[2023-07-15] MEDS: buPROPion SR 100 MG TABCR PO SCH ×2 (08:41→20:11)
[2023-07-15] MEDS: SACCHAROMYCES BOULARDII 250 MG CAP PO SCH (08:41)
[2023-07-15] MEDS: POTASSIUM CHLORIDE CRTAB 20 MEQ TABCR PO SCH (08:41)
[2023-07-15] MEDS: FLUoxetine HCL 20 MG CAP PO SCH (08:41)
[2023-07-15] MEDS: FOLIC ACID 1 MG TAB PO SCH (08:41)
[2023-07-15] MEDS: SENNA 8.6 MG TAB PO SCH (08:41)
[2023-07-15] MEDS: MICONAZOLE NITRATE POWDER 85 GM EXT SCH ×2 (08:42→20:12)
[2023-07-15] MEDS: ENOXAPARIN INJ 40 MG/0.4 ML SYR SQ SCH (08:42)
[2023-07-15] MEDS: POLYETHYLENE (MIRALAX) 17 GM PACK PO SCH ×2 (08:43→20:07)
[2023-07-15] MEDS: NICOTINE 21 MG/24 HR TDSY TD SCH (08:43)
[2023-07-15] MEDS: MELATONIN 3 MG TAB PO SCH (20:11)
[2023-07-16] MEDS: LEVOTHYROXINE SODIUM 200 MCG TABLET PO SCH (05:35)
[2023-07-16] MEDS: MULTIVITAMIN TAB PO SCH (08:06)
[2023-07-16] MEDS: GENTAMICIN SULFATE 0.3% OP SOLN 5 ML BTL OP SCH ×4 (08:06→20:18)
[2023-07-16] MEDS: SENNA 8.6 MG TAB PO SCH (08:07)
[2023-07-16] MEDS: buPROPion SR 100 MG TABCR PO SCH ×2 (08:07→20:18)
[2023-07-16] MEDS: PANTOprazole 40 MG TAB PO SCH (08:07)
[2023-07-16] MEDS: FLUoxetine HCL 20 MG CAP PO SCH (08:07)
[2023-07-16] MEDS: ENOXAPARIN INJ 40 MG/0.4 ML SYR SQ SCH (08:08)
[2023-07-16] MEDS: SACCHAROMYCES BOULARDII 250 MG CAP PO SCH (08:08)
[2023-07-16] MEDS: FOLIC ACID 1 MG TAB PO SCH (08:08)
[2023-07-16] MEDS: NICOTINE 21 MG/24 HR TDSY TD SCH (08:09)
[2023-07-16] MEDS: MICONAZOLE NITRATE POWDER 85 GM EXT SCH ×2 (08:10→20:19)
[2023-07-16] MEDS: POLYETHYLENE (MIRALAX) 17 GM PACK PO SCH ×2 (08:10→20:17)
[2023-07-16] MEDS: POTASSIUM CHLORIDE CRTAB 20 MEQ TABCR PO SCH (09:05)
[2023-07-16] MEDS: ACETAMINOPHEN 325 MG TAB PO PRN (11:30)
--- NOTE | 2023-07-16 17:51 | Hospitalist Progress Note ---
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 admission B12 normal, zinc level normal Folate level 2.20, could be contributing to her symptoms so added supplement, and symptoms improved (unclear if related), continue folic acid 1mg PO daily (2) Acute hypercapnic respiratory failure: Plan: Chronic respiratory failure with hypoxia, hypercapnia Multifactorial with obesity hypoventilation syndrome, tobacco use history (40 pack years) without PFTs for review ABG on admit with severe acute respiratory acidosis and hypercapnia, resolved Pulmonology consulted this admission, recommending home with NIPPV device however patient has insurance barriers making this challenging to accomplish, and patient has so far been intolerant of NIPPV; outpatient PFTs and polysomnography recommended (3) Maggot infestation: Plan: - Total self-care deficit now resolved while admitted, infestation resolved - Patient with fairly diffuse intertriginous yeast infection present under bilateral breasts and groin, ulcerations of buttocks, greatly improved with wound care. Overall in a state of poor hygiene on admission - Fungal powder and wound care daily per nursing, assistance by wound care services - Oral care q shift - Placement pending; OOA involved due to severely unkempt state and evidence of neglect on admission, poor care/help at home, poor access to healthcare services and lack of health insurance, Case Management assisting as well Wound culture on decubitus ulcers: - Positive for Proteus, completed treatment with ceftriaxone (4) Nutritional deficiency: Plan: With hypokalemia and hypomagnesemia this admission in the setting of poor appetite and depression Continue KCl 20meq daily supplement and Mg Oxide 400mg daily supplement, with intermittent checks moving forward (5) Hypothyroidism: Plan: Patient with history of hypothyroidism. She was to be taking Synthroid 200mcg po daily but had not had any medications for over 8 months, with reported worsening fatigue, depression at home. Her TSH was markedly elevated at 26.695 and her Free T4 was undetectable at <0.25. Normal temperature. Close attention to mentation and blood pressure. Do not suspect myxedema at this time. - Resumed Synthroid 200mcg PO daily on admission - Patient should have a followup TSH outpatient around the end of July (6) Conjunctivitis: Plan: Continue gentamicin drops for bilateral L>R conjunctivitis through 07/23/23, improving (7) Fall: Plan: Has not taken her medications for a few months. Patient states she recently retired from [employer] Has been shut in and disheveled with poor self-care, no help at home from daughter per patient, with fall at home prior to admission Per patient had been dwindling over months, so tired she couldn't get up some days, see hypothyroidism and depression tx (8) Hematuria: Plan: - Patient with hematuria and UTI earlier this admission. Proteus and E. coli UTI has been treated, Harris catheter removed 07/10. May use PureWick (9) Major depress dis, severe: Plan: - Patient claimed to be severely depressed, and has been so in the past, agreeable to outpatient counseling services and starting antidepressant, previously on duloxetine. Per Psych recommendations this admission has been started on fluoxetine/Wellbutrin with good tolerance to date. Melatonin added for sleep. (10) Hypertension: Plan: - Previously on losartan, spironolactone, and hydrochlorothiazide however hadn't taken medications for months at home Patient's BPs have been generally at goal for age so have not reinitiated medications, continue to monitor (11) GERD (gastroesophageal reflux disease): Plan: -Continue Protonix 40mg PO daily x2 months (12) Fibromyalgia: Plan: -Patient with history of fibromyalgia, continue fluoxetine 20mg daily (13) Hyponatremia: Plan: Stable in mid-130s Plan Patient is not safe for discharge to home given the conditions that were reported of her home, her lack of help at home, and her overall poor medical state on arrival. OOA and Case Management working on insurance, placement, and discharge planning. Patient is medically stable for discharge from hospital when safe discharge plan can be arranged. Admission and Anticipated Discharge Date Admission Date: June 29, 2023 Subjective Overnight slept funny, today with some shoulder/neck muscular pain and frontal headache. Denies chest pain, SOB, nausea, abdominal pain Physical Exam Constitutional: WD/WN, vitals as above Respiratory: normal respiratory effort, lungs clear to auscultation Cardiovascular: RRR, no murmur, no edema Psychiatric: alert and oriented, euthymic affect Results & Data Results & Data Vital Signs (Past 12 Hours) Vital Signs Temp Pulse Resp BP Pulse Ox O2 Del Method 07/16/23 15:05 36.6 C 71 16 143/87 H 94 Room Air 07/16/23 07:35 Room Air 07/16/23 07:28 36.7 C 66 16 135/84 95 Room Air PG Care Time/CCT Total # of Minutes Spent Total Time Spent with Patient: Total time spent is greater than 50% in coordination of care (as documented) at patient's floor/unit and/or counseling patient: Coding Level of Care Code 16693 SUB INP/OBS CARE 12/11MIN Diagnoses Ageusia R43.2 Acute hypercapnic respiratory failure J96.02 Maggot infestation B87.9 Nutritional deficiency E63.9 Hypothyroidism E03.9 Conjunctivitis H10.9 Fall W19.XXXA Encounter type: initial encounter Hematuria R31.9 Major depress dis, severe F32.2 Hypertension I10 GERD (gastroesophageal reflux disease) K21.9 Fibromyalgia M79.7 Hyponatremia E87.1 (7) Fall Encounter type: initial encounter Qualified Code(s): W19.XXXA - Unspecified fall, initial encounter
[2023-07-16] MEDS: MELATONIN 3 MG TAB PO SCH (20:18)
[2023-07-17] MEDS: LEVOTHYROXINE SODIUM 200 MCG TABLET PO SCH (05:37)
[2023-07-17] MEDS: GENTAMICIN SULFATE 0.3% OP SOLN 5 ML BTL OP SCH ×4 (07:50→20:48)
--- NOTE | 2023-07-17 07:59 | Hospitalist Progress Note ---
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 admission B12 normal, zinc level normal Folate level 2.20 earlier this admission, could be contributing to her symptoms so added supplement, and symptoms improved (unclear if related), continue folic acid 1mg PO daily (2) Acute hypercapnic respiratory failure: Plan: Chronic respiratory failure with hypoxia, hypercapnia Multifactorial with obesity hypoventilation syndrome, tobacco use history (40 pack years) without PFTs for review ABG on admit with severe acute respiratory acidosis and hypercapnia, resolved Pulmonology consulted this admission, recommending home with NIPPV device however patient has insurance barriers making this challenging to accomplish, and patient has so far been intolerant of NIPPV; outpatient PFTs and polysomnography recommended (3) Maggot infestation: Plan: - Total self-care deficit now resolved while admitted, infestation resolved - Patient with fairly diffuse intertriginous yeast infection present under bilateral breasts and groin, ulcerations of buttocks, greatly improved with wound care. Overall in a state of poor hygiene on admission - Fungal powder and wound care daily per nursing, assistance by wound care services - Oral care q shift - Placement pending; OOA involved due to severely unkempt state and evidence of neglect on admission, poor care/help at home, poor access to healthcare services and lack of health insurance, Case Management assisting as well Wound culture on decubitus ulcers: - Positive for Proteus, completed treatment with ceftriaxone, continue wound care (4) Nutritional deficiency: Plan: With hypokalemia and hypomagnesemia this admission in the setting of poor appetite and depression Continue KCl 20meq daily supplement and Mg Oxide 400mg daily supplement, with intermittent checks moving forward (5) Hypothyroidism: Plan: Patient with history of hypothyroidism. She was to be taking Synthroid 200mcg po daily but had not had any medications for over 8 months, with reported worsening fatigue, depression at home. Her TSH was markedly elevated at 26.695 and her Free T4 was undetectable at <0.25. Normal temperature. Close attention to mentation and blood pressure. Do not suspect myxedema at this time. - Resumed Synthroid 200mcg PO daily on admission - Patient should have a followup TSH outpatient around the end of July - Depressive symptoms and fatigue are both improving while admitted (6) Conjunctivitis: Plan: Continue gentamicin drops for bilateral L>R conjunctivitis through 07/23/23, improving (7) Fall: Plan: Has not taken her medications for a few months. Patient states she recently retired from [employer] Has been shut in and disheveled with poor self-care, no help at home from daughter per patient, with fall at home prior to admission Per patient had been dwindling over months, so tired she couldn't get up some days, see hypothyroidism and depression tx (8) Hematuria: Plan: - Patient with hematuria and UTI earlier this admission. Proteus and E. coli UTI has been treated, Harris catheter removed 07/10. May use PureWick (9) Major depress dis, severe: Plan: - Patient severely depressed, and has been so in the past, agreeable to outpatient counseling services and starting antidepressant, previously on duloxetine. Per Psych recommendations this admission has been started on fluoxetine/Wellbutrin with good tolerance to date. Melatonin added for sleep. (10) Hypertension: Plan: - Previously on losartan, spironolactone, and hydrochlorothiazide however hadn't taken medications for months at home - Patient's BPs have been generally at goal for age so have not reinitiated medications, continue to monitor (11) GERD (gastroesophageal reflux disease): Plan: -Continue Protonix 40mg PO daily x2 months (12) Fibromyalgia: Plan: -Patient with history of fibromyalgia, continue fluoxetine 20mg daily (13) Hyponatremia: Plan: - Stable in mid-130s on previous checks, repeat BMP tomorrow Plan Patient is not safe for discharge to home given the conditions that were reported of her home, her lack of help at home, and her overall poor medical state on arrival. OOA and Case Management working on insurance, placement, and discharge planning. Patient is medically stable for discharge from hospital when safe discharge plan can be arranged. Admission and Anticipated Discharge Date Admission Date: June 29, 2023 Subjective Today shoulders and neck feels better, thinks she slept funny on her right hip area, some discomfort in that area. Otherwise, no complaints today. Physical Exam Constitutional: WD/WN, vitals as above Respiratory: normal respiratory effort, lungs clear to auscultation Cardiovascular: RRR, no murmur, no edema Musculoskeletal: No TTP over R lumbar spine, paraspinal muscles, or SI joint Psychiatric: alert and oriented, euthymic affect Results & Data Results & Data Vital Signs (Past 12 Hours) Vital Signs Temp Pulse Resp BP Pulse Ox O2 Del Method 07/16/23 22:38 Room Air 07/16/23 20:17 36.6 C 67 16 114/66 95 Room Air PG Care Time/CCT Total # of Minutes Spent Total Time Spent with Patient: Total time spent is greater than 50% in coordination of care (as documented) at patient's floor/unit and/or counseling patient: Coding Level of Care Code 73501 SUB INP/OBS CARE 12/11MIN Diagnoses Ageusia R43.2 Acute hypercapnic respiratory failure J96.02 Maggot infestation B87.9 Nutritional deficiency E63.9 Hypothyroidism E03.9 Conjunctivitis H10.9 Fall W19.XXXA Encounter type: initial encounter Hematuria R31.9 Major depress dis, severe F32.2 Hypertension I10 GERD (gastroesophageal reflux disease) K21.9 Fibromyalgia M79.7 Hyponatremia E87.1 (7) Fall Encounter type: initial encounter Qualified Code(s): W19.XXXA - Unspecified fall, initial encounter
[2023-07-17] MEDS: SACCHAROMYCES BOULARDII 250 MG CAP PO SCH (08:07)
[2023-07-17] MEDS: MULTIVITAMIN TAB PO SCH (08:07)
[2023-07-17] MEDS: FLUoxetine HCL 20 MG CAP PO SCH (08:07)
[2023-07-17] MEDS: buPROPion SR 100 MG TABCR PO SCH ×2 (08:08→20:49)
[2023-07-17] MEDS: PANTOprazole 40 MG TAB PO SCH (08:08)
[2023-07-17] MEDS: SENNA 8.6 MG TAB PO SCH (08:08)
[2023-07-17] MEDS: FOLIC ACID 1 MG TAB PO SCH (08:08)
[2023-07-17] MEDS: ENOXAPARIN INJ 40 MG/0.4 ML SYR SQ SCH (08:09)
[2023-07-17] MEDS: MICONAZOLE NITRATE POWDER 85 GM EXT SCH ×2 (08:15→20:55)
[2023-07-17] MEDS: POLYETHYLENE (MIRALAX) 17 GM PACK PO SCH ×2 (08:57→20:53)
[2023-07-17] MEDS: POTASSIUM CHLORIDE CRTAB 20 MEQ TABCR PO SCH (08:57)
[2023-07-17] MEDS: NICOTINE 21 MG/24 HR TDSY TD SCH (08:59)
[2023-07-17] MEDS: ACETAMINOPHEN 325 MG TAB PO PRN (11:50)
[2023-07-17] MEDS: MELATONIN 3 MG TAB PO SCH (20:53)
[2023-07-18] MEDS: LEVOTHYROXINE SODIUM 200 MCG TABLET PO SCH (05:36)
[2023-07-18] MEDS: ACETAMINOPHEN 325 MG TAB PO PRN (07:10)
[2023-07-18 07:53] LABS: Hematocrit (blood only) 35.4 % (37.0-47.0); Hemoglobin 12.6 g/dl (12.0-16.0); Mean Corpuscular Hgb Conc 35.6 g/dL (32.0-36.0); Mean Corpuscular Volume 92.7 fL (80.0-100.0); Mean Platelet Volume 10.9 fL (9.4-12.4); Platelet Count 250 K/uL (130-400); RDW Coefficient of Variation 16.7 % (11.5-14.5); RDW Standard Deviation 56.8 fL (36.4-46.3); Red Blood Count 3.82 M/uL (4.20-5.40); White Blood Count 5.56 K/ul (4.8-10.8)
[2023-07-18 08:16] LABS: BUN Creatinine Ratio 14.3 (10-20); Calcium 8.9 mg/dl (8.6-10.3); Creatinine Clr Calc Pharmacy 120.4 ml/min; Est GFR (African American) 108.4 ml/min; Est GFR (Non-African American) 93.5 ml/min; Magnesium 1.6 mg/dl (1.7-2.4)
[2023-07-18] MEDS: FOLIC ACID 1 MG TAB PO SCH (08:53)
[2023-07-18] MEDS: GENTAMICIN SULFATE 0.3% OP SOLN 5 ML BTL OP SCH ×4 (08:53→20:06)
[2023-07-18] MEDS: MULTIVITAMIN TAB PO SCH (08:53)
[2023-07-18] MEDS: buPROPion SR 100 MG TABCR PO SCH ×2 (08:53→20:07)
[2023-07-18] MEDS: ENOXAPARIN INJ 40 MG/0.4 ML SYR SQ SCH (08:54)
[2023-07-18] MEDS: PANTOprazole 40 MG TAB PO SCH (08:54)
[2023-07-18] MEDS: FLUoxetine HCL 20 MG CAP PO SCH (08:55)
[2023-07-18] MEDS: SACCHAROMYCES BOULARDII 250 MG CAP PO SCH (08:55)
[2023-07-18] MEDS: SENNA 8.6 MG TAB PO SCH (08:55)
[2023-07-18] MEDS: NICOTINE 21 MG/24 HR TDSY TD SCH (08:55)
[2023-07-18] MEDS: MICONAZOLE NITRATE POWDER 85 GM EXT SCH ×2 (08:57→20:08)
[2023-07-18] MEDS: POTASSIUM CHLORIDE CRTAB 20 MEQ TABCR PO SCH (09:02)
[2023-07-18] MEDS: POLYETHYLENE (MIRALAX) 17 GM PACK PO SCH ×2 (09:02→20:10)
--- NOTE | 2023-07-18 14:04 | Hospitalist Progress Note ---
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 Overall in a state of poor hygiene on admission - Fungal powder and wound care daily per nursing, assistance by wound care services - Oral care q shift - Placement pending; OOA involved due to severely unkempt state and evidence of neglect on admission, poor care/help at home, poor access to healthcare services and lack of health insurance, Case Management assisting as well Wound culture on decubitus ulcers: - Positive for Proteus, completed treatment with ceftriaxone, continue wound care (4) Nutritional deficiency: Plan: With hypokalemia and hypomagnesemia this admission in the setting of poor appetite and depression Continue KCl 20meq daily supplement and Mg Oxide 400mg daily supplement, with intermittent checks moving forward (5) Hypothyroidism: Plan: Patient with history of hypothyroidism. She was to be taking Synthroid 200mcg po daily but had not had any medications for over 8 months, with reported worsening fatigue, depression at home. Her TSH was markedly elevated at 26.695 and her Free T4 was undetectable at <0.25. Normal temperature. Close attention to mentation and blood pressure. Do not suspect myxedema at this time. - Resumed Synthroid 200mcg PO daily on admission - Patient should have a followup TSH outpatient around the end of July - Depressive symptoms and fatigue are both improving while admitted (6) Conjunctivitis: Plan: Continue gentamicin drops for bilateral L>R conjunctivitis through 07/23/23, improving (7) Fall: Plan: Has not taken her medications for a few months. Patient states she recently retired from [employer] Has been shut in and disheveled with poor self-care, no help at home from daughter per patient, with fall at home prior to admission Per patient had been dwindling over months, so tired she couldn't get up some days, see hypothyroidism and depression tx (8) Hematuria: Plan: - Patient with hematuria and UTI earlier this admission. Proteus and E. coli UTI has been treated, Harris catheter removed 07/10. May use PureWick (9) Major depress dis, severe: Plan: - Patient severely depressed, and has been so in the past, agreeable to outpatient counseling services and starting antidepressant, previously on duloxetine. Per Psych recommendations this admission has been started on fluoxetine/Wellbutrin with good tolerance to date. Melatonin added for sleep. (10) Hypertension: Plan: - Previously on losartan, spironolactone, and hydrochlorothiazide however hadn't taken medications for months at home - Patient's BPs have been generally at goal for age so have not reinitiated medications, continue to monitor (11) GERD (gastroesophageal reflux disease): Plan: -Continue Protonix 40mg PO daily x2 months (12) Fibromyalgia: Plan: -Patient with history of fibromyalgia, continue fluoxetine 20mg daily (13) Hyponatremia: Plan: - Stable in mid-130s on previous checks, repeat BMP tomorrow Plan Patient is not safe for discharge to home given the conditions that were reported of her home, her lack of help at home, and her overall poor medical state on arrival. OOA and Case Management working on insurance, placement, and discharge planning. Patient is medically stable for discharge from hospital when safe discharge plan can be arranged. Admission and Anticipated Discharge Date Admission Date: June 29, 2023 Subjective patient seen and examined, no new complaints Review of Systems Review of Systems: All systems reviewed are negative, apart from the ones contained in the history. Physical Exam Physical Exam: The patient is awake, alert and oriented 3, well developed and well nourished, normocephalic and atraumatic, lying in bed and in no acute distress. HEENT--PERRL, EOMI, mucous membranes and oropharynx mildly dry Neck--supple. No JVD. No bruits. Thyroid normal, trachea midline, no adenopathy. Heart--normal S1 and S2. No murmurs, rubs or gallops. Lungs--clear bilaterally, no respiratory distress, no accessory muscle use. Abdomen--normal bowel sounds and soft. Mild epigastric and left sided abdominal pain Extremities--no cyanosis or clubbing. No edema. Dermatologic--normal skin turgor, normal color, no abnormal lymph nodes, no rash. Neurologic--cranial nerves II through XII grossly intact. Rheumatologic--normal range of motion. Psychiatric--normal affect. Results & Data Results & Data Vital Signs (Past 12 Hours) Vital Signs Temp Pulse Resp BP Pulse Ox O2 Del Method 07/18/23 07:21 97.9 F 64 18 118/85 95 Room Air PG Care Time/CCT Total # of Minutes Spent Total Time Spent with Patient: Total time spent is greater than 50% in coordination of care (as documented) at patient's floor/unit and/or counseling patient: Coding Level of Care Code 12399 SUB INP/OBS CARE 2/35MIN Diagnoses Ageusia R43.2 Acute hypercapnic respiratory failure J96.02 Maggot infestation B87.9 Nutritional deficiency E63.9 Hypothyroidism E03.9 Conjunctivitis H10.9 Fall W19.XXXA Encounter type: initial encounter Hematuria R31.9 Major depress dis, severe F32.2 Hypertension I10 GERD (gastroesophageal reflux disease) K21.9 Fibromyalgia M79.7 Hyponatremia E87.1 Time Spent (min) 35 (7) Fall Encounter type: initial encounter Qualified Code(s): W19.XXXA - Unspecified fall, initial encounter
[2023-07-18] MEDS: MELATONIN 3 MG TAB PO SCH (20:10)
[2023-07-19] MEDS: LEVOTHYROXINE SODIUM 200 MCG TABLET PO SCH (05:32)
[2023-07-19] MEDS: ONDANSETRON INJ 2 MG/ML 2 ML VIAL IV PRN (08:20)
[2023-07-19] MEDS: ENOXAPARIN INJ 40 MG/0.4 ML SYR SQ SCH (08:20)
[2023-07-19] MEDS: GENTAMICIN SULFATE 0.3% OP SOLN 5 ML BTL OP SCH ×4 (08:21→21:13)
[2023-07-19] MEDS: NICOTINE 21 MG/24 HR TDSY TD SCH (08:21)
[2023-07-19] MEDS: FLUoxetine HCL 20 MG CAP PO SCH (08:22)
[2023-07-19] MEDS: PANTOprazole 40 MG TAB PO SCH (08:22)
[2023-07-19] MEDS: FOLIC ACID 1 MG TAB PO SCH (08:22)
[2023-07-19] MEDS: SENNA 8.6 MG TAB PO SCH (08:22)
[2023-07-19] MEDS: ACETAMINOPHEN 325 MG TAB PO PRN (08:22)
[2023-07-19] MEDS: buPROPion SR 100 MG TABCR PO SCH ×2 (08:22→21:14)
[2023-07-19] MEDS: MULTIVITAMIN TAB PO SCH (08:22)
[2023-07-19] MEDS: MICONAZOLE NITRATE POWDER 85 GM EXT SCH ×2 (08:27→21:15)
[2023-07-19] MEDS: POTASSIUM CHLORIDE CRTAB 20 MEQ TABCR PO SCH (08:35)
[2023-07-19] MEDS: POLYETHYLENE (MIRALAX) 17 GM PACK PO SCH ×2 (08:36→21:12)
[2023-07-19] MEDS: SACCHAROMYCES BOULARDII 250 MG CAP PO SCH (09:43)
[2023-07-19] MEDS ORDERED: bisacodyL 10 MG SUPP PR STA (10:58)
[2023-07-19] MEDS: traMADol HCL 50 MG TABLET PO PRN ×3 (11:28→21:12)
[2023-07-19] MEDS ORDERED: KETOROLAC TROMETHAMINE 15 MG/ML VIAL IV ONE (13:03)
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
--- NOTE | 2023-07-19 17:18 | XRay Report ---
XR hip RT 2V w pelvis CLINICAL HISTORY: right hip pain TECHNIQUE: 2 views of the right hip and single frontal view of the pelvis were obtained. Comparison: None available at the time of this dictation. FINDINGS: There is no evidence of an acute fracture. Posterior fixation hardware is seen. Degenerative changes are seen in the hip joint. No soft tissue abnormality is seen. IMPRESSION: No evidence of acute osseous injury. ACT 112: Negative or not required by law. Electronically signed by: Rosalio Noguera M.D. 07/19/2023 5:16 PM
[2023-07-19] MEDS: MELATONIN 3 MG TAB PO SCH (21:12)
[2023-07-20] MEDS: LEVOTHYROXINE SODIUM 200 MCG TABLET PO SCH (05:37)
[2023-07-20] MEDS: GENTAMICIN SULFATE 0.3% OP SOLN 5 ML BTL OP SCH ×4 (07:39→20:47)
[2023-07-20] MEDS: NICOTINE 21 MG/24 HR TDSY TD SCH (07:39)
[2023-07-20] MEDS: MULTIVITAMIN TAB PO SCH (07:39)
[2023-07-20] MEDS: FOLIC ACID 1 MG TAB PO SCH (07:39)
[2023-07-20] MEDS: SACCHAROMYCES BOULARDII 250 MG CAP PO SCH (07:39)
[2023-07-20] MEDS: PANTOprazole 40 MG TAB PO SCH (07:39)
[2023-07-20] MEDS: ENOXAPARIN INJ 40 MG/0.4 ML SYR SQ SCH (07:40)
[2023-07-20] MEDS: FLUoxetine HCL 20 MG CAP PO SCH (07:40)
[2023-07-20] MEDS: traMADol HCL 50 MG TABLET PO PRN ×2 (07:41→17:27)
[2023-07-20] MEDS: ONDANSETRON INJ 2 MG/ML 2 ML VIAL IV PRN (07:41)
[2023-07-20] MEDS: buPROPion SR 100 MG TABCR PO SCH ×2 (07:41→20:47)
[2023-07-20] MEDS: MICONAZOLE NITRATE POWDER 85 GM EXT SCH ×2 (07:42→20:47)
[2023-07-20] MEDS: POLYETHYLENE (MIRALAX) 17 GM PACK PO SCH ×2 (07:42→20:46)
[2023-07-20] MEDS: POTASSIUM CHLORIDE CRTAB 20 MEQ TABCR PO SCH (07:42)
[2023-07-20] MEDS: SENNA 8.6 MG TAB PO SCH (08:45)
[2023-07-20] MEDS ORDERED: KETOROLAC TROMETHAMINE 15 MG/ML VIAL IV ONE (10:29)
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
[2023-07-20] MEDS: MELATONIN 3 MG TAB PO SCH (20:46)
[2023-07-21] MEDS: LEVOTHYROXINE SODIUM 200 MCG TABLET PO SCH (05:38)
[2023-07-21] MEDS: traMADol HCL 50 MG TABLET PO PRN (07:22)
[2023-07-21] MEDS: GENTAMICIN SULFATE 0.3% OP SOLN 5 ML BTL OP SCH ×4 (08:23→20:34)
[2023-07-21] MEDS: buPROPion SR 100 MG TABCR PO SCH ×2 (08:24→20:34)
[2023-07-21] MEDS: FOLIC ACID 1 MG TAB PO SCH (08:24)
[2023-07-21] MEDS: FLUoxetine HCL 20 MG CAP PO SCH (08:24)
[2023-07-21] MEDS: ENOXAPARIN INJ 40 MG/0.4 ML SYR SQ SCH (08:24)
[2023-07-21] MEDS: MICONAZOLE NITRATE POWDER 85 GM EXT SCH ×2 (08:25→20:35)
[2023-07-21] MEDS: NICOTINE 21 MG/24 HR TDSY TD SCH (08:25)
[2023-07-21] MEDS: MULTIVITAMIN TAB PO SCH (08:25)
[2023-07-21] MEDS: SENNA 8.6 MG TAB PO SCH (08:26)
[2023-07-21] MEDS: SACCHAROMYCES BOULARDII 250 MG CAP PO SCH (08:26)
[2023-07-21] MEDS: PANTOprazole 40 MG TAB PO SCH (08:26)
[2023-07-21] MEDS: POLYETHYLENE (MIRALAX) 17 GM PACK PO SCH ×2 (08:32→20:40)
[2023-07-21] MEDS: POTASSIUM CHLORIDE CRTAB 20 MEQ TABCR PO SCH (08:32)
[2023-07-21] MEDS: methylPREDNISolone 40 MG in SYRINGE 0 ML IV SCH ×2 (12:31→20:34)
--- NOTE | 2023-07-21 15:48 | Hospitalist Progress Note ---
Date of Service July 21, 2023 Assessment & Plan (1) Back pain: Plan: Lumbar pain and what appears to be right lumbar radiculopathy. Parenteral steroids ordered. Supportive care. Pain control measures. X ray right hip did not show any acute pathology. (2) Ageusia: Plan: Resolved (3) Acute hypercapnic respiratory failure: Plan: Present on admission. Now resolved. (4) Maggot infestation: Plan: Present on admission. Now resolved. This was due to intertriginous yeast infection present under bilateral breasts and groin. Wound culture on decubitus ulcers: Positive for Proteus. Completed treatment with ceftriaxone. Continue wound care (5) Nutritional deficiency: Plan: With hypokalemia and hypomagnesemia this admission in the setting of poor appetite and depression. Corrected with supplementation. (6) Hypothyroidism: Plan: Patient with history of hypothyroidism. She was to be taking Synthroid 200mcg po daily but had not had any medications for over 8 months. Reported worsening fatigue, depression at home. Her TSH was markedly elevated at 26.695 and her Free T4 was undetectable at <0.25. Normal temperature. Resumed Synthroid 200mcg PO daily on admission. Will need thyroid levels checked at a later date (7) Conjunctivitis: Plan: Much improved with gentamicin drops for bilateral L>R conjunctivitis through 07/23/23 (8) Fall: Plan: From deconditioning and chronic back pains. Continue OT and PT (9) Hematuria: Plan: hematuria and UTI earlier this admission. Proteus and E. coli UTI has been treated. (10) Major depress dis, severe: Plan: Patient severely depressed on admission. Agreeable to outpatient counseling services. Started antidepressant per Psych recommendations this admission - fluoxetine/Wellbutrin. (11) Hypertension: Plan: Previously on losartan, spironolactone, and hydrochlorothiazide however hadn't taken medications for months at home. Patient's BPs have been generally at goal for age so have not reinitiated medications (12) GERD (gastroesophageal reflux disease): Plan: Stable. Continue Protonix therapy (13) Hyponatremia: Plan: Mild. Stable. No intervention necessary at this time Plan Placement pending. Case management involved Admission and Anticipated Discharge Date Admission Date: June 29, 2023 Subjective Alert and oriented. No distress. She has developed what appears to be right sciatica. Parenteral steroids initiated today, July 21. Otherwise stable. Placement proceedings are pending Review of Systems Review of Systems: Constitutional-no fever or chills ENT-no blurred vision, no double vision, no epistaxis, no sore throat Respiratory-no cough, no wheezing, no shortness of breath Cardiac-no palpitations, no chest pain, no syncope GI-no nausea, vomiting, diarrhea, melena, hematochezia -no urinary retention, no urinary incontinence, no dysuria, no hematuria Musculoskeletal-right lower extremity sciatica symptoms Skin-no bruising, no rashes, no pruritus Neuro-no isolated weakness, no paresthesia, no weakness Psych-no depression, no anxiety Physical Exam Physical Exam: General-alert and oriented x3, no fevers, no chills HEENT-head atraumatic and normocephalic, pupils equal and reactive to light, extraocular muscles intact Neck-no lymphadenopathy or thyromegaly, trachea midline Chest-clear to auscultation percussion. No rales wheezing or rhonchi Cardiac-regular rate and rhythm, normal S1 and S2 Abdomen-normal bowel sounds, nontender, no hepatosplenomegaly Extremities-no cyanosis, clubbing, or edema Neuro-cranial nerves II through XII intact, right lower extremity sciatica sym ptoms . No tenderness over the right hip joint Psych-normal affect, normal mood Results & Data Results & Data Vital Signs (Past 12 Hours) Vital Signs Temp Pulse Resp BP Pulse Ox O2 Del Method 07/21/23 14:51 36.4 C L 65 18 116/74 93 Room Air 07/21/23 07:40 36.7 C 58 L 16 115/72 94 Room Air Laboratory Results 07/18/23 07:10 07/18/23 07:10 PG Care Time/CCT Total # of Minutes Spent Total Time Spent with Patient: Total time spent is greater than 50% in coordination of care (as documented) at patient's floor/unit and/or counseling patient: Coding Level of Care Code 45223 SUB INP/OBS CARE 3/50MIN Diagnoses Back pain M54.9 Ageusia R43.2 Acute hypercapnic respiratory failure J96.02 Maggot infestation B87.9 Nutritional deficiency E63.9 Hypothyroidism E03.9 Conjunctivitis H10.9 Fall W19.XXXA Encounter type: initial encounter Hematuria R31.9 Major depress dis, severe F32.2 Hypertension I10 GERD (gastroesophageal reflux disease) K21.9 Hyponatremia E87.1 (8) Fall Encounter type: initial encounter Qualified Code(s): W19.XXXA - Unspecified fall, initial encounter
[2023-07-21] MEDS: MELATONIN 3 MG TAB PO SCH (20:40)
[2023-07-22] MEDS: methylPREDNISolone 40 MG in SYRINGE 0 ML IV SCH (04:12)
[2023-07-22] MEDS: LEVOTHYROXINE SODIUM 200 MCG TABLET PO SCH (05:04)
[2023-07-22 07:33] LABS: Basophils # (auto) 0.03 K/uL (0.00-0.20); Basophils % (auto) 0.3 %; Hematocrit (blood only) 41.2 % (37.0-47.0); Hemoglobin 14.3 g/dl (12.0-16.0); Immature Granulocytes # (auto) 0.12 K/uL (0.01-0.20); Immature Granulocytes % (auto) 1.1 %; Lymphocytes # (auto) 0.82 K/uL (1.20-3.40); Lymphocytes % (auto) 7.6 %; Mean Corpuscular Hemoglobin 32.4 pg (25.0-34.0); Mean Corpuscular Hgb Conc 34.7 g/dL (32.0-36.0); Mean Corpuscular Volume 93.2 fL (80.0-100.0); Mean Platelet Volume 10.8 fL (9.4-12.4); Monocytes # (auto) 0.28 K/uL (0.11-0.59); Monocytes % (auto) 2.6 %; Neutrophils # (auto) 9.53 K/uL (1.40-6.50); Neutrophils % (auto) 88.4 %; Platelet Count 308 K/uL (130-400); RDW Coefficient of Variation 16.4 % (11.5-14.5); RDW Standard Deviation 55.6 fL (36.4-46.3); Red Blood Count 4.42 M/uL (4.20-5.40); White Blood Count 10.78 K/ul (4.8-10.8)
[2023-07-22 07:45] LABS: BUN Creatinine Ratio 19.1 (10-20); Calcium 9.6 mg/dl (8.6-10.3); Creatinine Clr Calc Pharmacy 120.8 ml/min; Est GFR (African American) 109.4 ml/min; Est GFR (Non-African American) 94.4 ml/min; Potassium 4.5 mmol/L (3.5-5.1)
[2023-07-22] MEDS: GENTAMICIN SULFATE 0.3% OP SOLN 5 ML BTL OP SCH ×4 (08:21→21:12)
[2023-07-22] MEDS: buPROPion SR 100 MG TABCR PO SCH ×2 (08:25→21:12)
[2023-07-22] MEDS: PANTOprazole 40 MG TAB PO SCH (08:25)
[2023-07-22] MEDS: SACCHAROMYCES BOULARDII 250 MG CAP PO SCH (08:25)
[2023-07-22] MEDS: FLUoxetine HCL 20 MG CAP PO SCH (08:25)
[2023-07-22] MEDS: NICOTINE 21 MG/24 HR TDSY TD SCH (08:25)
[2023-07-22] MEDS: FOLIC ACID 1 MG TAB PO SCH (08:25)
[2023-07-22] MEDS: MULTIVITAMIN TAB PO SCH (08:25)
[2023-07-22] MEDS: ENOXAPARIN INJ 40 MG/0.4 ML SYR SQ SCH (08:25)
[2023-07-22] MEDS: SENNA 8.6 MG TAB PO SCH (08:26)
[2023-07-22] MEDS: POTASSIUM CHLORIDE CRTAB 20 MEQ TABCR PO SCH (08:34)
[2023-07-22] MEDS: MICONAZOLE NITRATE POWDER 85 GM EXT SCH ×2 (08:35→21:12)
[2023-07-22] MEDS: POLYETHYLENE (MIRALAX) 17 GM PACK PO SCH ×2 (08:35→21:11)
[2023-07-22 10:45] LABS: Thyroid Stimulating Hormone 7.19 uIu/ml (0.300-4.500)
[2023-07-22 10:47] LABS: T4 Free Thyroxine 1.09 ng/dl (0.61-1.60)
--- NOTE | 2023-07-22 13:43 | Hospitalist Progress Note ---
Date of Service July 22, 2023 Assessment & Plan (1) Back pain: Plan: Lumbar pain and what appears to be right lumbar radiculopathy have nearly resolved with parenteral steroid therapy which has been switched over to oral prednisone which will gradually be tapered off. Supportive care. Pain control measures. X ray right hip did not show any acute pathology. (2) Ageusia: Plan: Resolved (3) Acute hypercapnic respiratory failure: Plan: Present on admission. Now resolved. (4) Maggot infestation: Plan: Present on admission. Now resolved. This was due to intertriginous yeast infection present under bilateral breasts and groin. Wound culture on decubitus ulcers: Positive for Proteus. Completed treatment with ceftriaxone. Continue wound care (5) Nutritional deficiency: Plan: With hypokalemia and hypomagnesemia this admission in the setting of poor appetite and depression. Corrected with supplementation. (6) Hypothyroidism: Plan: Patient with history of hypothyroidism. She was to be taking Synthroid daily b ut had not had any medications for over 8 months. Reported worsening fatigue, depression at home. Her TSH was markedly elevated at 26.695 and her Free T4 was undetectable at <0.25. TSH has improved to 7 and free T4 is now normal. Synthroid dosage has been down titrated today, July 22. (7) Conjunctivitis: Plan: Much improved with gentamicin drops for bilateral L>R conjunctivitis through 07/23/23 (8) Fall: Plan: From deconditioning and chronic back pains. Continue OT and PT (9) Hematuria: Plan: hematuria and UTI earlier this admission have resolved. Proteus and E. coli UTI has been treated. (10) Major depress dis, severe: Plan: Patient severely depressed on admission. Agreeable to outpatient counseling ser vices. Started antidepressant per Psych recommendations this admission - fluoxetine/Wellbutrin. (11) Hypertension: Plan: Previously on losartan, spironolactone, and hydrochlorothiazide however hadn't taken medications for months at home. Patient's BPs have been generally at goal for age so have not restarted these medications (12) GERD (gastroesophageal reflux disease): Plan: Stable. Continue Protonix therapy (13) Hyponatremia: Plan: Mild. Stable. No intervention necessary at this time Plan Placement pending. Case management involved Admission and Anticipated Discharge Date Admission Date: June 29, 2023 Subjective Alert and oriented. Good spirits. The parenteral steroids helped dramatically with the right sciatica symptoms. She states she is feeling 100% better. Solu- Medrol switched to oral prednisone which will be tapered off gradually. Thyroid status has markedly improved with high-dose Synthroid. TSH is down to 7 and free T4 levels are now normal. Synthroid dose has been decreased to 150 mcg daily. Placement proceedings continue Review of Systems Review of Systems: Constitutional-no fever or chills ENT-no blurred vision, no double vision, no epistaxis, no sore throat Respiratory-no cough, no wheezing, no shortness of breath Cardiac-no palpitations, no chest pain, no syncope GI-no nausea, vomiting, diarrhea, melena, hematochezia -no urinary retention, no urinary incontinence, no dysuria, no hematuria Musculoskeletal-right lower extremity sciatica symptoms Skin-no bruising, no rashes, no pruritus Neuro-no isolated weakness, no paresthesia, no weakness Psych-no depression, no anxiety Physical Exam Physical Exam: General-alert and oriented x3, no fevers, no chills HEENT-head atraumatic and normocephalic, pupils equal and reactive to light, extraocular muscles intact Neck-no lymphadenopathy or thyromegaly, trachea midline Chest-clear to auscultation percussion. No rales wheezing or rhonchi Cardiac-regular rate and rhythm, normal S1 and S2 Abdomen-normal bowel sounds, nontender, no hepatosplenomegaly Extremities-no cyanosis, clubbing, or edema Neuro-cranial nerves II through XII intact, right lower extremity sciatica symptoms have resolved. No tenderness over the right hip joint Psych-normal affect, normal mood Results & Data Results & Data Vital Signs (Past 12 Hours) Vital Signs Temp Pulse Resp BP Pulse Ox O2 Del Method 07/22/23 07:06 36.6 C 53 L 17 145/85 H 92 Room Air Laboratory Results 07/22/23 06:46 07/22/23 06:46 PG Care Time/CCT Total # of Minutes Spent Total Time Spent with Patient: Total time spent is greater than 50% in coordination of care (as documented) at patient's floor/unit and/or counseling patient: Coding Level of Care Code 39998 SUB INP/OBS CARE 3/50MIN Diagnoses Back pain M54.9 Ageusia R43.2 Acute hypercapnic respiratory failure J96.02 Maggot infestation B87.9 Nutritional deficiency E63.9 Hypothyroidism E03.9 Conjunctivitis H10.9 Fall W19.XXXA Encounter type: initial encounter Hematuria R31.9 Major depress dis, severe F32.2 Hypertension I10 GERD (gastroesophageal reflux disease) K21.9 Hyponatremia E87.1 (8) Fall Encounter type: initial encounter Qualified Code(s): W19.XXXA - Unspecified fall, initial encounter
[2023-07-22] MEDS: predniSONE 10 MG TABLET PO SCH ×2 (14:25→21:12)
[2023-07-22] MEDS: MELATONIN 3 MG TAB PO SCH (21:12)
[2023-07-23] MEDS: LEVOTHYROXINE SODIUM 150 MCG TABLET PO SCH (05:40)
[2023-07-23] MEDS: GENTAMICIN SULFATE 0.3% OP SOLN 5 ML BTL OP SCH (09:17)
[2023-07-23] MEDS: NICOTINE 21 MG/24 HR TDSY TD SCH (09:19)
[2023-07-23] MEDS: MULTIVITAMIN TAB PO SCH (09:20)
[2023-07-23] MEDS: FLUoxetine HCL 20 MG CAP PO SCH (09:20)
[2023-07-23] MEDS: buPROPion SR 100 MG TABCR PO SCH ×2 (09:20→20:44)
[2023-07-23] MEDS: FOLIC ACID 1 MG TAB PO SCH (09:20)
[2023-07-23] MEDS: SACCHAROMYCES BOULARDII 250 MG CAP PO SCH (09:21)
[2023-07-23] MEDS: predniSONE 10 MG TABLET PO SCH ×3 (09:21→20:44)
[2023-07-23] MEDS: PANTOprazole 40 MG TAB PO SCH (09:21)
[2023-07-23] MEDS: MICONAZOLE NITRATE POWDER 85 GM EXT SCH ×2 (09:22→20:45)
[2023-07-23] MEDS: SENNA 8.6 MG TAB PO SCH (09:22)
[2023-07-23] MEDS: ENOXAPARIN INJ 40 MG/0.4 ML SYR SQ SCH (09:22)
[2023-07-23] MEDS: POLYETHYLENE (MIRALAX) 17 GM PACK PO SCH ×2 (09:27→20:44)
[2023-07-23] MEDS: POTASSIUM CHLORIDE CRTAB 20 MEQ TABCR PO SCH (09:27)
--- NOTE | 2023-07-23 17:06 | Hospitalist Progress Note ---
Date of Service July 23, 2023 Assessment & Plan (1) Back pain: Plan: Lumbar pain and what appears to be right lumbar radiculopathy have resolved with steroid therapy. She is currently on oral prednisone which will be tapered down and eventually tapered off. Supportive care. Pain control measures. X ray right hip did not show any acute pathology. (2) Ageusia: Plan: Resolved (3) Acute hypercapnic respiratory failure: Plan: Present on admission. Now resolved. (4) Maggot infestation: Plan: Present on admission. Now resolved. This was due to intertriginous yeast infection present under bilateral breasts and groin. Wound culture on decubitus ulcers revealed Proteus. Completed treatment with ceftriaxone. Continue wound care (5) Nutritional deficiency: Plan: With hypokalemia and hypomagnesemia this admission in the setting of poor appetite and depression. Corrected with supplementation. (6) Hypothyroidism: Plan: Patient with history of hypothyroidism. She was to be taking Synthroid daily but had not had any medications for over 8 months. Reported worsening fatigue, depression at home. Her TSH was markedly elevated at 26.695 and her Free T4 was undetectable at <0.25. TSH has since improved to 7 and free T4 is now normal. Synthroid dosage was down titrated on July 22. (7) Conjunctivitis: Plan: Resolved with gentamicin drops. Discontinued today, July 23 (8) Fall: Plan: From deconditioning and chronic back pains. Continue OT and PT (9) Hematuria: Plan: hematuria and UTI earlier this admission have resolved. Proteus and E. coli UTI has been treated. (10) Major depress dis, severe: Plan: Patient severely depressed on admission. Agreeable to outpatient counseling services. Started antidepressant per Psych recommendations this admission - fluoxetine/Wellbutrin. (11) Hypertension: Plan: Previously on losartan, spironolactone, and hydrochlorothiazide however hadn't taken medications for months at home. Patient's BPs have been generally at goal for age so have not restarted these medications (12) GERD (gastroesophageal reflux disease): Plan: Stable. Continue Protonix therapy (13) Hyponatremia: Plan: Mild. Stable. No intervention necessary at this time Plan Placement pending. Case management involved Admission and Anticipated Discharge Date Admission Date: June 29, 2023 Subjective Alert and oriented. No new problems. Conjunctivitis has resolved. Gentamicin eyedrops have been discontinued. Review of Systems Review of Systems: Constitutional-no fever or chills ENT-no blurred vision, no double vision, no epistaxis, no sore throat Respiratory-no cough, no wheezing, no shortness of breath Cardiac-no palpitations, no chest pain, no syncope GI-no nausea, vomiting, diarrhea, melena, hematochezia -no urinary retention, no urinary incontinence, no dysuria, no hematuria Musculoskeletal-right lower extremity sciatica symptoms have resolved Skin-no bruising, no rashes, no pruritus Neuro-no isolated weakness, no paresthesia, no weakness Psych-no depression, no anxiety Physical Exam Physical Exam: General-alert and oriented x3, no fevers, no chills HEENT-head atraumatic and normocephalic, pupils equal and reactive to light, extraocular muscles intact Neck-no lymphadenopathy or thyromegaly, trachea midline Chest-clear to auscultation percussion. No rales wheezing or rhonchi Cardiac-regular rate and rhythm, normal S1 and S2 Abdomen-normal bowel sounds, nontender, no hepatosplenomegaly Extremities-no cyanosis, clubbing, or edema Neuro-cranial nerves II through XII intact, right lower extremity sciatica symptoms have resolved. No tenderness over the right hip joint Psych-normal affect, normal mood Results & Data Results & Data Vital Signs (Past 12 Hours) Vital Signs Temp Pulse Resp BP Pulse Ox O2 Del Method 07/23/23 14:24 36.6 C 73 16 140/90 94 Room Air 07/23/23 07:50 Room Air 07/23/23 07:31 36.6 C 68 17 117/75 93 Room Air Laboratory Results 07/22/23 06:46 07/22/23 06:46 PG Care Time/CCT Total # of Minutes Spent Total Time Spent with Patient: Total time spent is greater than 50% in coordination of care (as documented) at patient's floor/unit and/or counseling patient: Coding Level of Care Code 16789 SUB INP/OBS CARE 2/35MIN Diagnoses Back pain M54.9 Ageusia R43.2 Acute hypercapnic respiratory failure J96.02 Maggot infestation B87.9 Nutritional deficiency E63.9 Hypothyroidism E03.9 Conjunctivitis H10.9 Fall W19.XXXA Encounter type: initial encounter Hematuria R31.9 Major depress dis, severe F32.2 Hypertension I10 GERD (gastroesophageal reflux disease) K21.9 Hyponatremia E87.1 (8) Fall Encounter type: initial encounter Qualified Code(s): W19.XXXA - Unspecified fall, initial encounter
[2023-07-23] MEDS: MELATONIN 3 MG TAB PO SCH (20:44)
[2023-07-24] MEDS: LEVOTHYROXINE SODIUM 150 MCG TABLET PO SCH (06:30)
[2023-07-24] MEDS: ENOXAPARIN INJ 40 MG/0.4 ML SYR SQ SCH (08:38)
[2023-07-24] MEDS: FOLIC ACID 1 MG TAB PO SCH (08:38)
[2023-07-24] MEDS: FLUoxetine HCL 20 MG CAP PO SCH (08:38)
[2023-07-24] MEDS: buPROPion SR 100 MG TABCR PO SCH ×2 (08:38→20:36)
[2023-07-24] MEDS: MICONAZOLE NITRATE POWDER 85 GM EXT SCH ×2 (08:39→20:36)
[2023-07-24] MEDS: predniSONE 10 MG TABLET PO SCH ×3 (08:39→20:35)
[2023-07-24] MEDS: NICOTINE 21 MG/24 HR TDSY TD SCH (08:39)
[2023-07-24] MEDS: MULTIVITAMIN TAB PO SCH (08:39)
[2023-07-24] MEDS: PANTOprazole 40 MG TAB PO SCH (08:39)
[2023-07-24] MEDS: SACCHAROMYCES BOULARDII 250 MG CAP PO SCH (08:39)
[2023-07-24] MEDS: POTASSIUM CHLORIDE CRTAB 20 MEQ TABCR PO SCH (08:44)
[2023-07-24] MEDS: POLYETHYLENE (MIRALAX) 17 GM PACK PO SCH ×2 (08:44→20:36)
[2023-07-24] MEDS: SENNA 8.6 MG TAB PO SCH (08:45)
--- NOTE | 2023-07-24 14:12 | Hospitalist Progress Note ---
Date of Service July 24, 2023 Assessment & Plan (1) Back pain: Plan: Lumbar pain and what appears to be right lumbar radiculopathy have resolved with steroid therapy. She is currently on oral prednisone which will be tapered down and eventually tapered off. Supportive care. Pain control measures. X ray right hip did not show any acute pathology. (2) Ageusia: Plan: Resolved (3) Acute hypercapnic respiratory failure: Plan: Present on admission. Now resolved. (4) Maggot infestation: Plan: Present on admission. Now resolved. This was due to intertriginous yeast infection present under bilateral breasts and groin. Wound culture on decubitus ulcers revealed Proteus. Completed treatment with ceftriaxone. Continue wound care (5) Nutritional deficiency: Plan: With hypokalemia and hypomagnesemia this admission in the setting of poor appetite and depression. Corrected with supplementation. (6) Hypothyroidism: Plan: Patient with history of hypothyroidism. She was to be taking Synthroid daily but had not had any medications for over 8 months. Reported worsening fatigue, depression at home. Her TSH was markedly elevated at 26.695 and her Free T4 was undetectable at <0.25. TSH has since improved to 7 and free T4 is now normal. Synthroid dosage was down titrated on July 22. (7) Conjunctivitis: Plan: Resolved with gentamicin drops. Discontinued on July 23 (8) Fall: Plan: From deconditioning and chronic back pains. Continue OT and PT (9) Hematuria: Plan: hematuria and UTI earlier this admission have resolved. Proteus and E. coli UTI has been treated. (10) Major depress dis, severe: Plan: Patient severely depressed on admission. Agreeable to outpatient counseling services. Started antidepressant per Psych recommendations this admission - fluoxetine/Wellbutrin. (11) Hypertension: Plan: Previously on losartan, spironolactone, and hydrochlorothiazide however hadn't taken medications for months at home. Patient's BPs have been generally at goal for age so have not restarted these medications (12) GERD (gastroesophageal reflux disease): Plan: Stable. Continue Protonix therapy (13) Hyponatremia: Plan: Mild. Stable. No intervention necessary at this time Plan Placement pending. Case management involved Admission and Anticipated Discharge Date Admission Date: June 29, 2023 Subjective Alert and oriented. No new problems Review of Systems Review of Systems: Constitutional-no fever or chills ENT-no blurred vision, no double vision, no epistaxis, no sore throat Respiratory-no cough, no wheezing, no shortness of breath Cardiac-no palpitations, no chest pain, no syncope GI-no nausea, vomiting, diarrhea, melena, hematochezia -no urinary retention, no urinary incontinence, no dysuria, no hematuria Musculoskeletal-right lower extremity sciatica symptoms have resolved Skin-no bruising, no rashes, no pruritus Neuro-no isolated weakness, no paresthesia, no weakness Psych-no depression, no anxiety Physical Exam Physical Exam: General-alert and oriented x3, no fevers, no chills HEENT-head atraumatic and normocephalic, pupils equal and reactive to light, extraocular muscles intact Neck-no lymphadenopathy or thyromegaly, trachea midline Chest-clear to auscultation percussion. No rales wheezing or rhonchi Cardiac-regular rate and rhythm, normal S1 and S2 Abdomen-normal bowel sounds, nontender, no hepatosplenomegaly Extremities-no cyanosis, clubbing, or edema Neuro-cranial nerves II through XII intact, right lower extremity sciatica symptoms have resolved. No tenderness over the right hip joint Psych-normal affect, normal mood Results & Data Results & Data Vital Signs (Past 12 Hours) Vital Signs Temp Pulse Resp BP Pulse Ox O2 Del Method 07/24/23 07:30 Room Air 07/24/23 07:23 36.4 C L 66 16 122/73 96 Room Air Laboratory Results 07/22/23 06:46 07/22/23 06:46 PG Care Time/CCT Total # of Minutes Spent Total Time Spent with Patient: Total time spent is greater than 50% in coordination of care (as documented) at patient's floor/unit and/or counseling patient: Coding Level of Care Code 42528 SUB INP/OBS CARE 2/35MIN Diagnoses Back pain M54.9 Ageusia R43.2 Acute hypercapnic respiratory failure J96.02 Maggot infestation B87.9 Nutritional deficiency E63.9 Hypothyroidism E03.9 Conjunctivitis H10.9 Fall W19.XXXA Encounter type: initial encounter Hematuria R31.9 Major depress dis, severe F32.2 Hypertension I10 GERD (gastroesophageal reflux disease) K21.9 Hyponatremia E87.1 (8) Fall Encounter type: initial encounter Qualified Code(s): W19.XXXA - Unspecified fall, initial encounter
[2023-07-24] MEDS: MELATONIN 3 MG TAB PO SCH (20:35)
[2023-07-25] MEDS: LEVOTHYROXINE SODIUM 150 MCG TABLET PO SCH (05:48)
[2023-07-25] MEDS: POLYETHYLENE (MIRALAX) 17 GM PACK PO SCH ×2 (07:57→20:14)
[2023-07-25] MEDS: ENOXAPARIN INJ 40 MG/0.4 ML SYR SQ SCH (08:00)
[2023-07-25] MEDS: NICOTINE 21 MG/24 HR TDSY TD SCH (08:00)
[2023-07-25] MEDS: SACCHAROMYCES BOULARDII 250 MG CAP PO SCH (08:01)
[2023-07-25] MEDS: FOLIC ACID 1 MG TAB PO SCH (08:01)
[2023-07-25] MEDS: MULTIVITAMIN TAB PO SCH (08:01)
[2023-07-25] MEDS: predniSONE 10 MG TABLET PO SCH ×2 (08:01→20:14)
[2023-07-25] MEDS: buPROPion SR 100 MG TABCR PO SCH ×2 (08:01→20:13)
[2023-07-25] MEDS: SENNA 8.6 MG TAB PO SCH (08:01)
[2023-07-25] MEDS: FLUoxetine HCL 20 MG CAP PO SCH (08:01)
[2023-07-25] MEDS: PANTOprazole 40 MG TAB PO SCH (08:01)
[2023-07-25] MEDS: POTASSIUM CHLORIDE CRTAB 20 MEQ TABCR PO SCH (08:02)
[2023-07-25] MEDS: MICONAZOLE NITRATE POWDER 85 GM EXT SCH ×2 (08:02→20:15)
--- NOTE | 2023-07-25 12:54 | Hospitalist Progress Note ---
Date of Service July 25, 2023 Assessment & Plan (1) Back pain: Plan: Lumbar pain and what appears to be right lumbar radiculopathy have resolved with steroid therapy. She is currently on oral prednisone which has been tapered down today, July 25. It will eventually be tapered off. Supportive care. Pain control measures. X ray right hip did not show any acute pathology. (2) Ageusia: Plan: Resolved (3) Acute hypercapnic respiratory failure: Plan: Present on admission. Now resolved. (4) Maggot infestation: Plan: Present on admission. Now resolved. This was due to intertriginous yeast infection present under bilateral breasts and groin. Wound culture on decubitus ulcers revealed Proteus. Completed treatment with ceftriaxone. Continue wound care (5) Nutritional deficiency: Plan: With hypokalemia and hypomagnesemia this admission in the setting of poor appetite and depression. Corrected with supplementation. (6) Hypothyroidism: Plan: Patient with history of hypothyroidism. She was to be taking Synthroid daily but had not had any medications for over 8 months. Reported worsening fatigue, depression at home. Her TSH was markedly elevated at 26.695 and her Free T4 was undetectable at <0.25. TSH has since improved to 7 and free T4 is now normal. Synthroid dosage was down titrated on July 22. (7) Conjunctivitis: Plan: Resolved with gentamicin drops. Discontinued on July 23 (8) Fall: Plan: From deconditioning and chronic back pains. Continue OT and PT (9) Hematuria: Plan: hematuria and UTI earlier this admission have resolved. Proteus and E. coli UTI has been treated. (10) Major depress dis, severe: Plan: Patient severely depressed on admission. Agreeable to outpatient counseling services. Started antidepressant per Psych recommendations this admission - fluoxetine/Wellbutrin. (11) Hypertension: Plan: Previously on losartan, spironolactone, and hydrochlorothiazide however hadn't taken medications for months at home. Patient's BPs have been generally at goal for age so have not restarted these medications (12) GERD (gastroesophageal reflux disease): Plan: Stable. Continue Protonix therapy (13) Hyponatremia: Plan: Mild. Stable. No intervention necessary at this time Plan Placement pending. Case management involved Admission and Anticipated Discharge Date Admission Date: June 29, 2023 Subjective Alert and oriented. No new problems. Prednisone taper down to 10 mg twice daily dosing today. Stable overall. Placement is pending. Review of Systems Review of Systems: Constitutional-no fever or chills ENT-no blurred vision, no double vision, no epistaxis, no sore throat Respiratory-no cough, no wheezing, no shortness of breath Cardiac-no palpitations, no chest pain, no syncope GI-no nausea, vomiting, diarrhea, melena, hematochezia -no urinary retention, no urinary incontinence, no dysuria, no hematuria Musculoskeletal-right lower extremity sciatica symptoms have resolved Skin-no bruising, no rashes, no pruritus Neuro-no isolated weakness, no paresthesia, no weakness Psych-no depression, no anxiety Physical Exam Physical Exam: General-alert and oriented x3, no fevers, no chills HEENT-head atraumatic and normocephalic, pupils equal and reactive to light, extraocular muscles intact Neck-no lymphadenopathy or thyromegaly, trachea midline Chest-clear to auscultation percussion. No rales wheezing or rhonchi Cardiac-regular rate and rhythm, normal S1 and S2 Abdomen-normal bowel sounds, nontender, no hepatosplenomegaly Extremities-no cyanosis, clubbing, or edema Neuro-cranial nerves II through XII intact, right lower extremity sciatica symptoms have resolved. No tenderness over the right hip joint Psych-normal affect, normal mood Results & Data Results & Data Vital Signs (Past 12 Hours) Vital Signs Temp Pulse Resp BP Pulse Ox O2 Del Method 07/25/23 07:30 Room Air 07/25/23 06:52 36.6 C 62 16 143/86 H 94 Room Air Laboratory Results 07/22/23 06:46 07/22/23 06:46 PG Care Time/CCT Total # of Minutes Spent Total Time Spent with Patient: Total time spent is greater than 50% in coordination of care (as documented) at patient's floor/unit and/or counseling patient: Coding Level of Care Code 32481 SUB INP/OBS CARE 2/35MIN Diagnoses Back pain M54.9 Ageusia R43.2 Acute hypercapnic respiratory failure J96.02 Maggot infestation B87.9 Nutritional deficiency E63.9 Hypothyroidism E03.9 Conjunctivitis H10.9 Fall W19.XXXA Encounter type: initial encounter Hematuria R31.9 Major depress dis, severe F32.2 Hypertension I10 GERD (gastroesophageal reflux disease) K21.9 Hyponatremia E87.1 (8) Fall Encounter type: initial encounter Qualified Code(s): W19.XXXA - Unspecified fall, initial encounter
[2023-07-25] MEDS: MELATONIN 3 MG TAB PO SCH (20:13)
[2023-07-26] MEDS: LEVOTHYROXINE SODIUM 150 MCG TABLET PO SCH (05:30)
[2023-07-26] MEDS: SENNA 8.6 MG TAB PO SCH (08:29)
[2023-07-26] MEDS: POLYETHYLENE (MIRALAX) 17 GM PACK PO SCH ×2 (08:29→19:22)
[2023-07-26] MEDS: buPROPion SR 100 MG TABCR PO SCH ×2 (08:40→19:22)
[2023-07-26] MEDS: SACCHAROMYCES BOULARDII 250 MG CAP PO SCH (08:40)
[2023-07-26] MEDS: FOLIC ACID 1 MG TAB PO SCH (08:40)
[2023-07-26] MEDS: predniSONE 10 MG TABLET PO SCH ×2 (08:40→19:21)
[2023-07-26] MEDS: POTASSIUM CHLORIDE CRTAB 20 MEQ TABCR PO SCH (08:40)
[2023-07-26] MEDS: NICOTINE 21 MG/24 HR TDSY TD SCH (08:40)
[2023-07-26] MEDS: PANTOprazole 40 MG TAB PO SCH (08:40)
[2023-07-26] MEDS: MICONAZOLE NITRATE POWDER 85 GM EXT SCH ×2 (08:41→19:22)
[2023-07-26] MEDS: MULTIVITAMIN TAB PO SCH (08:41)
[2023-07-26] MEDS: FLUoxetine HCL 20 MG CAP PO SCH (08:41)
[2023-07-26] MEDS: ENOXAPARIN INJ 40 MG/0.4 ML SYR SQ SCH (08:41)
--- NOTE | 2023-07-26 15:34 | Hospitalist Progress Note ---
Date of Service July 26, 2023 Assessment & Plan (1) Back pain: Plan: Lumbar pain and what appears to be right lumbar radiculopathy have resolved with steroid therapy. She is currently on oral prednisone which has been tapered down today, July 25. It will eventually be tapered off. Supportive care. Pain control measures. X ray right hip did not show any acute pathology. (2) Ageusia: Plan: Resolved (3) Acute hypercapnic respiratory failure: Plan: Present on admission. Now resolved. (4) Maggot infestation: Plan: Present on admission. Now resolved. This was due to intertriginous yeast infection present under bilateral breasts and groin. Wound culture on decubitus ulcers revealed Proteus. Completed treatment with ceftriaxone. Continue wound care (5) Nutritional deficiency: Plan: With hypokalemia and hypomagnesemia this admission in the setting of poor appetite and depression. Corrected with supplementation. (6) Hypothyroidism: Plan: Patient with history of hypothyroidism. She was to be taking Synthroid daily but had not had any medications for over 8 months. Reported worsening fatigue, depression at home. Her TSH was markedly elevated at 26.695 and her Free T4 was undetectable at <0.25. TSH has since improved to 7 and free T4 is now normal. Synthroid dosage was down titrated on July 22. (7) Conjunctivitis: Plan: Resolved with gentamicin drops. Discontinued on July 23 (8) Fall: Plan: From deconditioning and chronic back pains. Continue OT and PT (9) Hematuria: Plan: hematuria and UTI earlier this admission have resolved. Proteus and E. coli UTI has been treated. (10) Major depress dis, severe: Plan: Patient severely depressed on admission. Agreeable to outpatient counseling services. Started antidepressant per Psych recommendations this admission - fluoxetine/Wellbutrin. (11) Hypertension: Plan: Previously on losartan, spironolactone, and hydrochlorothiazide however hadn't taken medications for months at home. Patient's BPs have been generally at goal for age so have not restarted these medications (12) GERD (gastroesophageal reflux disease): Plan: Stable. Continue Protonix therapy (13) Hyponatremia: Plan: Mild. Stable. No intervention necessary at this time Plan Placement pending. Case management involved Admission and Anticipated Discharge Date Admission Date: June 29, 2023 Subjective Alert and oriented. No new problems Review of Systems Review of Systems: Constitutional-no fever or chills ENT-no blurred vision, no double vision, no epistaxis, no sore throat Respiratory-no cough, no wheezing, no shortness of breath Cardiac-no palpitations, no chest pain, no syncope GI-no nausea, vomiting, diarrhea, melena, hematochezia -no urinary retention, no urinary incontinence, no dysuria, no hematuria Musculoskeletal-right lower extremity sciatica symptoms have resolved Skin-no bruising, no rashes, no pruritus Neuro-no isolated weakness, no paresthesia, no weakness Psych-no depression, no anxiety Physical Exam Physical Exam: General-alert and oriented x3, no fevers, no chills HEENT-head atraumatic and normocephalic, pupils equal and reactive to light, extraocular muscles intact Neck-no lymphadenopathy or thyromegaly, trachea midline Chest-clear to auscultation percussion. No rales wheezing or rhonchi Cardiac-regular rate and rhythm, normal S1 and S2 Abdomen-normal bowel sounds, nontender, no hepatosplenomegaly Extremities-no cyanosis, clubbing, or edema Neuro-cranial nerves II through XII intact, right lower extremity sciatica symptoms have resolved. No tenderness over the right hip joint Psych-normal affect, normal mood Results & Data Results & Data Vital Signs (Past 12 Hours) Vital Signs Temp Pulse Resp BP Pulse Ox O2 Del Method 07/26/23 14:25 36.9 C 76 18 122/81 96 Room Air 07/26/23 07:04 36.9 C 75 18 136/78 96 Room Air Laboratory Results 07/22/23 06:46 07/22/23 06:46 PG Care Time/CCT Total # of Minutes Spent Total Time Spent with Patient: Total time spent is greater than 50% in coordination of care (as documented) at patient's floor/unit and/or counseling patient: Coding Level of Care Code 09666 SUB INP/OBS CARE 2/35MIN Diagnoses Back pain M54.9 Ageusia R43.2 Acute hypercapnic respiratory failure J96.02 Maggot infestation B87.9 Nutritional deficiency E63.9 Hypothyroidism E03.9 Conjunctivitis H10.9 Fall W19.XXXA Encounter type: initial encounter Hematuria R31.9 Major depress dis, severe F32.2 Hypertension I10 GERD (gastroesophageal reflux disease) K21.9 Hyponatremia E87.1 (8) Fall Encounter type: initial encounter Qualified Code(s): W19.XXXA - Unspecified fall, initial encounter
[2023-07-26] MEDS: ONDANSETRON INJ 2 MG/ML 2 ML VIAL IV PRN (18:11)
[2023-07-26] MEDS ORDERED: ACETAMINOPHEN 1,000 MG/100 ML VIAL IV STA (18:26)
[2023-07-26] MEDS ORDERED: ACETAMINOPHEN 1,000 MG/100 ML VIAL IV PRN (18:26)
--- NOTE | 2023-07-26 19:16 | XRay Report ---
KUB CLINICAL HISTORY: Generalized abdominal pain. FINDINGS: 2 AP, portable, supine abdominal radiographs are compared to study dated 07/07/2023 and dimple elated with abdominal CT dated 06/29/2023. There is a nonobstructed abdominal bowel gas pattern. Moder ate fecal retention is seen throughout the colon. Cholecystectomy clips are noted in the right upper quadrant. There are no abnormal abdominal calcifications. No evidence of intraperitoneal free air is seen on these supine images. The skeletal structures are osteopenic. Postsurgical and spondylotic thom nge is noted in the lumbar spine. IMPRESSION: No acute abnormality is identified. Electronically signed by: Andrew Dixon M.D. 07/26/2023 7:14 PM
[2023-07-26] MEDS: MELATONIN 3 MG TAB PO SCH (19:21)
[2023-07-27] MEDS: LEVOTHYROXINE SODIUM 150 MCG TABLET PO SCH (05:34)
[2023-07-27] MEDS: POLYETHYLENE (MIRALAX) 17 GM PACK PO SCH ×2 (07:35→19:33)
[2023-07-27] MEDS: SENNA 8.6 MG TAB PO SCH (07:35)
[2023-07-27] MEDS: ACETAMINOPHEN 325 MG TAB PO PRN ×2 (07:38→15:16)
[2023-07-27] MEDS: FLUoxetine HCL 20 MG CAP PO SCH (09:35)
[2023-07-27] MEDS: MICONAZOLE NITRATE POWDER 85 GM EXT SCH ×2 (09:35→19:33)
[2023-07-27] MEDS: SACCHAROMYCES BOULARDII 250 MG CAP PO SCH (09:35)
[2023-07-27] MEDS: ENOXAPARIN INJ 40 MG/0.4 ML SYR SQ SCH (09:35)
[2023-07-27] MEDS: NICOTINE 21 MG/24 HR TDSY TD SCH (09:35)
[2023-07-27] MEDS: MULTIVITAMIN TAB PO SCH (09:35)
[2023-07-27] MEDS: buPROPion SR 100 MG TABCR PO SCH ×2 (09:35→19:32)
[2023-07-27] MEDS: PANTOprazole 40 MG TAB PO SCH (09:35)
[2023-07-27] MEDS: predniSONE 10 MG TABLET PO SCH ×2 (09:35→19:32)
[2023-07-27] MEDS: FOLIC ACID 1 MG TAB PO SCH (09:35)
[2023-07-27] MEDS: POTASSIUM CHLORIDE CRTAB 20 MEQ TABCR PO SCH (09:40)
--- NOTE | 2023-07-27 12:52 | Hospitalist Progress Note ---
Date of Service July 27, 2023 Assessment & Plan (1) Back pain: Plan: Lumbar pain and what appears to be right lumbar radiculopathy have resolved with steroid therapy. She is currently on oral prednisone which was tapered down on July 25. It will eventually be tapered off. Supportive care. Pain control measures. X ray right hip did not show any acute pathology. (2) Ageusia: Plan: Resolved (3) Acute hypercapnic respiratory failure: Plan: Present on admission. Now resolved. (4) Maggot infestation: Plan: Present on admission. Now resolved. This was due to intertriginous yeast infection present under bilateral breasts and groin. Wound culture on decubitus ulcers revealed Proteus. Completed treatment with ceftriaxone. Continue wound care (5) Nutritional deficiency: Plan: With hypokalemia and hypomagnesemia this admission in the setting of poor appetite and depression. Corrected with supplementation. (6) Hypothyroidism: Plan: Patient with history of hypothyroidism. She was to be taking Synthroid daily but had not had any medications for over 8 months. Reported worsening fatigue, depression at home. Her TSH was markedly elevated at 26.695 and her Free T4 was undetectable at <0.25. TSH has since improved to 7 and free T4 is now normal. Synthroid dosage was down titrated on July 22. (7) Conjunctivitis: Plan: Resolved with gentamicin drops. Discontinued on July 23 (8) Fall: Plan: From deconditioning and chronic back pains. Continue OT and PT (9) Hematuria: Plan: hematuria and UTI earlier this admission have resolved. Proteus and E. coli UTI has been treated. (10) Major depress dis, severe: Plan: Patient severely depressed on admission. Agreeable to outpatient counseling services. Started antidepressant per Psych recommendations this admission - fluoxetine/Wellbutrin. (11) Hypertension: Plan: Previously on losartan, spironolactone, and hydrochlorothiazide however hadn't taken medications for months at home. Patient's BPs have been generally at goal for age so have not restarted these medications (12) GERD (gastroesophageal reflux disease): Plan: Stable. Continue Protonix therapy (13) Hyponatremia: Plan: Mild. Stable. No intervention necessary at this time Plan Placement pending. Case management involved Admission and Anticipated Discharge Date Admission Date: June 29, 2023 Subjective Alert and oriented. No distress. She had abdominal pain and vomiting after eating yesterday evening. KUB was negative. Symptoms have subsequently resolved. We will blame it on hospital food. Currently she is doing well. She remains on prednisone twice daily which was tapered down from 3 times daily on July 25. Medical assistance application remains pending Review of Systems Review of Systems: Constitutional-no fever or chills ENT-no blurred vision, no double vision, no epistaxis, no sore throat Respiratory-no cough, no wheezing, no shortness of breath Cardiac-no palpitations, no chest pain, no syncope GI-no nausea, vomiting, diarrhea, melena, hematochezia -no urinary retention, no urinary incontinence, no dysuria, no hematuria Musculoskeletal-right lower extremity sciatica symptoms have resolved Skin-no bruising, no rashes, no pruritus Neuro-no isolated weakness, no paresthesia, no weakness Psych-no depression, no anxiety Physical Exam Physical Exam: General-alert and oriented x3, no fevers, no chills HEENT-head atraumatic and normocephalic, pupils equal and reactive to light, extraocular muscles intact Neck-no lymphadenopathy or thyromegaly, trachea midline Chest-clear to auscultation percussion. No rales wheezing or rhonchi Cardiac-regular rate and rhythm, normal S1 and S2 Abdomen-normal bowel sounds, nontender, no hepatosplenomegaly Extremities-no cyanosis, clubbing, or edema Neuro-cranial nerves II through XII intact, right lower extremity sciatica symptoms have resolved. No tenderness over the right hip joint Psych-normal affect, normal mood Results & Data Results & Data Vital Signs (Past 12 Hours) Vital Signs Temp Pulse Resp BP Pulse Ox O2 Del Method 07/27/23 07:44 37.1 C 64 18 122/83 93 Room Air Laboratory Results 07/22/23 06:46 07/22/23 06:46 PG Care Time/CCT Total # of Minutes Spent Total Time Spent with Patient: Total time spent is greater than 50% in coordination of care (as documented) at patient's floor/unit and/or counseling patient: Coding Level of Care Code 59271 SUB INP/OBS CARE 2/35MIN Diagnoses Back pain M54.9 Ageusia R43.2 Acute hypercapnic respiratory failure J96.02 Maggot infestation B87.9 Nutritional deficiency E63.9 Hypothyroidism E03.9 Conjunctivitis H10.9 Fall W19.XXXA Encounter type: initial encounter Hematuria R31.9 Major depress dis, severe F32.2 Hypertension I10 GERD (gastroesophageal reflux disease) K21.9 Hyponatremia E87.1 (8) Fall Encounter type: initial encounter Qualified Code(s): W19.XXXA - Unspecified fall, initial encounter
[2023-07-27] MEDS: MELATONIN 3 MG TAB PO SCH (19:32)
[2023-07-28] MEDS: LEVOTHYROXINE SODIUM 150 MCG TABLET PO SCH (05:30)
[2023-07-28] MEDS: FLUoxetine HCL 20 MG CAP PO SCH (08:25)
[2023-07-28] MEDS: buPROPion SR 100 MG TABCR PO SCH ×2 (08:25→20:12)
[2023-07-28] MEDS: MULTIVITAMIN TAB PO SCH (08:25)
[2023-07-28] MEDS: SACCHAROMYCES BOULARDII 250 MG CAP PO SCH (08:26)
[2023-07-28] MEDS: SENNA 8.6 MG TAB PO SCH (08:26)
[2023-07-28] MEDS: PANTOprazole 40 MG TAB PO SCH (08:26)
[2023-07-28] MEDS: predniSONE 10 MG TABLET PO SCH (08:26)
[2023-07-28] MEDS: ENOXAPARIN INJ 40 MG/0.4 ML SYR SQ SCH (08:27)
[2023-07-28] MEDS: FOLIC ACID 1 MG TAB PO SCH (08:27)
[2023-07-28] MEDS: NICOTINE 21 MG/24 HR TDSY TD SCH (08:27)
[2023-07-28] MEDS: MICONAZOLE NITRATE POWDER 85 GM EXT SCH ×2 (08:29→20:13)
[2023-07-28] MEDS: POLYETHYLENE (MIRALAX) 17 GM PACK PO SCH ×2 (08:30→20:13)
[2023-07-28] MEDS: POTASSIUM CHLORIDE CRTAB 20 MEQ TABCR PO SCH (08:34)
--- NOTE | 2023-07-28 14:06 | Hospitalist Progress Note ---
Date of Service July 28, 2023 Assessment & Plan (1) Back pain: Plan: Lumbar pain and what appears to be right lumbar radiculopathy have resolved with steroid therapy. She is currently on oral prednisone which was tapered down on July 25 and again today, July 28. It will be tapered off completely in 2 days. upportive care. Pain control measures. X ray right hip did not show any acute pathology. (2) Ageusia: Plan: Resolved (3) Acute hypercapnic respiratory failure: Plan: Present on admission. Now resolved. (4) Maggot infestation: Plan: Present on admission. Now resolved. This was due to intertriginous yeast infection present under bilateral breasts and groin. Wound culture on decubitus ulcers revealed Proteus. Completed treatment with ceftriaxone. Continue wound care (5) Nutritional deficiency: Plan: With hypokalemia and hypomagnesemia this admission in the setting of poor appetite and depression. Corrected with supplementation. (6) Hypothyroidism: Plan: Patient with history of hypothyroidism. She was to be taking Synthroid daily but had not had any medications for over 8 months. Reported worsening fatigue, depression at home. Her TSH was markedly elevated at 26.695 and her Free T4 was undetectable at <0.25. TSH has since improved to 7 and free T4 is now normal. Synthroid dosage was down titrated on July 22. (7) Conjunctivitis: Plan: Resolved with gentamicin drops. Discontinued on July 23 (8) Fall: Plan: From deconditioning and chronic back pains. Continue OT and PT (9) Hematuria: Plan: hematuria and UTI earlier this admission have resolved. Proteus and E. coli UTI has been treated. (10) Major depress dis, severe: Plan: Patient severely depressed on admission. Agreeable to outpatient counseling services. Started antidepressant per Psych recommendations this admission - fluoxetine/Wellbutrin. (11) Hypertension: Plan: Previously on losartan, spironolactone, and hydrochlorothiazide however hadn't taken medications for months at home. Patient's BPs have been generally at goal for age so have not restarted these medications (12) GERD (gastroesophageal reflux disease): Plan: Stable. Continue Protonix therapy (13) Hyponatremia: Plan: Mild. Stable. No intervention necessary at this time Plan Placement pending. Case management involved Admission and Anticipated Discharge Date Admission Date: June 29, 2023 Subjective Alert and oriented. No distress. Afebrile with stable vital signs. Prednisone was tapered down again today, July 28. No complaints of sciatica anymore. Prednisone can be discontinued in 2 days Review of Systems Review of Systems: Constitutional-no fever or chills ENT-no blurred vision, no double vision, no epistaxis, no sore throat Respiratory-no cough, no wheezing, no shortness of breath Cardiac-no palpitations, no chest pain, no syncope GI-no nausea, vomiting, diarrhea, melena, hematochezia -no urinary retention, no urinary incontinence, no dysuria, no hematuria Musculoskeletal-right lower extremity sciatica symptoms have resolved Skin-no bruising, no rashes, no pruritus Neuro-no isolated weakness, no paresthesia, no weakness Psych-no depression, no anxiety Physical Exam Physical Exam: General-alert and oriented x3, no fevers, no chills HEENT-head atraumatic and normocephalic, pupils equal and reactive to light, extraocular muscles intact Neck-no lymphadenopathy or thyromegaly, trachea midline Chest-clear to auscultation percussion. No rales wheezing or rhonchi Cardiac-regular rate and rhythm, normal S1 and S2 Abdomen-normal bowel sounds, nontender, no hepatosplenomegaly Extremities-no cyanosis, clubbing, or edema Neuro-cranial nerves II through XII intact, right lower extremity sciatica symptoms have resolved. No tenderness over the right hip joint Psych-normal affect, normal mood Results & Data Results & Data Vital Signs (Past 12 Hours) Vital Signs Temp Pulse Resp BP Pulse Ox O2 Del Method 07/28/23 07:35 Room Air 07/28/23 07:29 36.6 C 63 16 115/77 96 Room Air Laboratory Results 07/22/23 06:46 07/22/23 06:46 PG Care Time/CCT Total # of Minutes Spent Total Time Spent with Patient: Total time spent is greater than 50% in coordination of care (as documented) at patient's floor/unit and/or counseling patient: Coding Level of Care Code 84137 SUB INP/OBS CARE 2/35MIN Diagnoses Back pain M54.9 Ageusia R43.2 Acute hypercapnic respiratory failure J96.02 Maggot infestation B87.9 Nutritional deficiency E63.9 Hypothyroidism E03.9 Conjunctivitis H10.9 Fall W19.XXXA Encounter type: initial encounter Hematuria R31.9 Major depress dis, severe F32.2 Hypertension I10 GERD (gastroesophageal reflux disease) K21.9 Hyponatremia E87.1 (8) Fall Encounter type: initial encounter Qualified Code(s): W19.XXXA - Unspecified fall, initial encounter
[2023-07-28] MEDS: MELATONIN 3 MG TAB PO SCH (20:12)
[2023-07-29] MEDS: LEVOTHYROXINE SODIUM 150 MCG TABLET PO SCH (05:35)
[2023-07-29] MEDS: predniSONE 10 MG TABLET PO SCH (08:19)
[2023-07-29] MEDS: PANTOprazole 40 MG TAB PO SCH (08:19)
[2023-07-29] MEDS: MULTIVITAMIN TAB PO SCH (08:19)
[2023-07-29] MEDS: FLUoxetine HCL 20 MG CAP PO SCH (08:19)
[2023-07-29] MEDS: buPROPion SR 100 MG TABCR PO SCH ×2 (08:19→20:12)
[2023-07-29] MEDS: ENOXAPARIN INJ 40 MG/0.4 ML SYR SQ SCH (08:20)
[2023-07-29] MEDS: SENNA 8.6 MG TAB PO SCH (08:20)
[2023-07-29] MEDS: FOLIC ACID 1 MG TAB PO SCH (08:20)
[2023-07-29] MEDS: SACCHAROMYCES BOULARDII 250 MG CAP PO SCH (08:20)
[2023-07-29] MEDS: NICOTINE 21 MG/24 HR TDSY TD SCH (08:21)
[2023-07-29] MEDS: MICONAZOLE NITRATE POWDER 85 GM EXT SCH ×2 (08:21→20:12)
[2023-07-29] MEDS: POLYETHYLENE (MIRALAX) 17 GM PACK PO SCH ×2 (08:22→20:13)
[2023-07-29] MEDS: POTASSIUM CHLORIDE CRTAB 20 MEQ TABCR PO SCH (08:34)
--- NOTE | 2023-07-29 10:57 | Hospitalist Progress Note ---
Date of Service July 29, 2023 Assessment & Plan (1) Back pain: Plan: Lumbar pain and what appears to be right lumbar radiculopathy have resolved with steroid therapy. She is currently on oral prednisone which was tapered down on July 25 and again today, July 28. It will be tapered off completely in 2 days. Supportive care. Pain control measures. X ray right hip did not show any acute pathology. (2) Ageusia: Plan: Resolved (3) Acute hypercapnic respiratory failure: Plan: Present on admission. Now resolved. (4) Maggot infestation: Plan: Present on admission. Now resolved. This was due to intertriginous yeast infection present under bilateral breasts and groin. Wound culture on decubitus ulcers revealed Proteus. Completed treatment with ceftriaxone. Continue wound care (5) Nutritional deficiency: Plan: With hypokalemia and hypomagnesemia this admission in the setting of poor appetite and depression. Corrected with supplementation. (6) Hypothyroidism: Plan: Patient with history of hypothyroidism. She was to be taking Synthroid daily but had not had any medications for over 8 months. Reported worsening fatigue, depression at home. Her TSH was markedly elevated at 26.695 and her Free T4 was undetectable at <0.25. TSH has since improved to 7 and free T4 is now normal. Synthroid dosage was down titrated on July 22. (7) Conjunctivitis: Plan: Resolved with gentamicin drops. Discontinued on July 23 (8) Fall: Plan: From deconditioning and chronic back pains. Continue OT and PT (9) Hematuria: Plan: hematuria and UTI earlier this admission have resolved. Proteus and E. coli UTI has been treated. (10) Major depress dis, severe: Plan: Patient severely depressed on admission. Agreeable to outpatient counseling services. Started antidepressant per Psych recommendations this admission - fl uoxetine/Wellbutrin. (11) Hypertension: Plan: Previously on losartan, spironolactone, and hydrochlorothiazide however hadn't taken medications for months at home. Patient's BPs have been generally at goal for age so have not restarted these medications (12) GERD (gastroesophageal reflux disease): Plan: Stable. Continue Protonix therapy (13) Hyponatremia: Plan: Mild. Stable. No intervention necessary at this time (14) Diarrhea: Plan: Appears to be noninfectious. Stool Bio[employer] and C. difficile toxin assay ordered and pending. Plan Placement pending. Case management involved Admission and Anticipated Discharge Date Admission Date: June 29, 2023 Subjective Alert and oriented. She has developed some diarrhea which occurs after meals. Stool Bio[employer] ordered along with C. difficile assay. Prednisone has been tapered down and can be discontinued tomorrow, July 30. Sciatica symptoms have resolved. Medical assistance approval process continues. Review of Systems Review of Systems: Constitutional-no fever or chills ENT-no blurred vision, no double vision, no epistaxis, no sore throat Respiratory-no cough, no wheezing, no shortness of breath Cardiac-no palpitations, no chest pain, no syncope GI-no nausea, vomiting, diarrhea, melena, hematochezia -no urinary retention, no urinary incontinence, no dysuria, no hematuria Musculoskeletal-right lower extremity sciatica symptoms have resolved Skin-no bruising, no rashes, no pruritus Neuro-no isolated weakness, no paresthesia, no weakness Psych-no depression, no anxiety Physical Exam Physical Exam: General-alert and oriented x3, no fevers, no chills HEENT-head atraumatic and normocephalic, pupils equal and reactive to light, extraocular muscles intact Neck-no lymphadenopathy or thyromegaly, trachea midline Chest-clear to auscultation percussion. No rales wheezing or rhonchi Cardiac-regular rate and rhythm, normal S1 and S2 Abdomen-normal bowel sounds, nontender, no hepatosplenomegaly Extremities-no cyanosis, clubbing, or edema Neuro-cranial nerves II through XII intact, right lower extremity sciatica symptoms have resolved. No tenderness over the right hip joint Psych-normal affect, normal mood Results & Data Results & Data Vital Signs (Past 12 Hours) Vital Signs Temp Pulse Pulse Resp BP BP Pulse Ox 07/29/23 07:30 07/29/23 07:47 36.5 C 67 20 106/70 91 07/29/23 07:39 36.8 C 73 16 112/73 94 O2 Del Method 07/29/23 07:30 Room Air 07/29/23 07:47 Room Air 07/29/23 07:39 Room Air Laboratory Results 07/22/23 06:46 07/22/23 06:46 PG Care Time/CCT Total # of Minutes Spent Total Time Spent with Patient: Total time spent is greater than 50% in coordination of care (as documented) at patient's floor/unit and/or counseling patient: Coding Level of Care Code 72622 SUB INP/OBS CARE 3/50MIN Diagnoses Back pain M54.9 Ageusia R43.2 Acute hypercapnic respiratory failure J96.02 Maggot infestation B87.9 Nutritional deficiency E63.9 Hypothyroidism E03.9 Conjunctivitis H10.9 Fall W19.XXXA Encounter type: initial encounter Hematuria R31.9 Major depress dis, severe F32.2 Hypertension I10 GERD (gastroesophageal reflux disease) K21.9 Hyponatremia E87.1 Diarrhea R19.7 (8) Fall Encounter type: initial encounter Qualified Code(s): W19.XXXA - Unspecified fall, initial encounter
[2023-07-29] MEDS: MELATONIN 3 MG TAB PO SCH (20:12)
[2023-07-30] MEDS: LEVOTHYROXINE SODIUM 150 MCG TABLET PO SCH (05:55)
[2023-07-30] MEDS: POTASSIUM CHLORIDE CRTAB 20 MEQ TABCR PO SCH (09:32)
[2023-07-30] MEDS: NICOTINE 21 MG/24 HR TDSY TD SCH (09:32)
[2023-07-30] MEDS: ENOXAPARIN INJ 40 MG/0.4 ML SYR SQ SCH (09:32)
[2023-07-30] MEDS: MULTIVITAMIN TAB PO SCH (09:33)
[2023-07-30] MEDS: SACCHAROMYCES BOULARDII 250 MG CAP PO SCH (09:33)
[2023-07-30] MEDS: predniSONE 10 MG TABLET PO SCH (09:33)
[2023-07-30] MEDS: FLUoxetine HCL 20 MG CAP PO SCH (09:34)
[2023-07-30] MEDS: FOLIC ACID 1 MG TAB PO SCH (09:34)
[2023-07-30] MEDS: buPROPion SR 100 MG TABCR PO SCH ×2 (09:34→20:37)
[2023-07-30] MEDS: POLYETHYLENE (MIRALAX) 17 GM PACK PO SCH ×2 (09:37→20:38)
[2023-07-30] MEDS: traMADol HCL 50 MG TABLET PO PRN (09:44)
[2023-07-30] MEDS: MICONAZOLE NITRATE POWDER 85 GM EXT SCH ×2 (09:47→20:38)
--- NOTE | 2023-07-30 12:37 | Hospitalist Progress Note ---
Date of Service July 30, 2023 Assessment & Plan (1) Back pain: Plan: Lumbar pain and what appears to be right lumbar radiculopathy have resolved with steroid therapy. She is currently on oral prednisone which will be tapered off today Supportive care. Pain control measures. X ray right hip did not show any acute pathology. (2) Ageusia: Plan: Resolved (3) Acute hypercapnic respiratory failure: Plan: Present on admission. Now resolved. (4) Maggot infestation: Plan: Present on admission. Now resolved. This was due to intertriginous yeast infection present under bilateral breasts and groin. Wound culture on decubitus ulcers revealed Proteus. Completed treatment with ceftriaxone. Continue wound care (5) Nutritional deficiency: Plan: With hypokalemia and hypomagnesemia this admission in the setting of poor appetite and depression. Corrected with supplementation. (6) Hypothyroidism: Plan: Patient with history of hypothyroidism. She was to be taking Synthroid daily but had not had any medications for over 8 months. Reported worsening fatigue, depression at home. Her TSH was markedly elevated at 26.695 and her Free T4 was undetectable at <0.25. TSH has since improved to 7 and free T4 is now normal. Synthroid dosage was down titrated on July 22. (7) Conjunctivitis: Plan: Resolved with gentamicin drops. Discontinued on July 23 (8) Fall: Plan: From deconditioning and chronic back pains. Continue OT and PT (9) Hematuria: Plan: hematuria and UTI earlier this admission have resolved. Proteus and E. coli UTI has been treated. (10) Major depress dis, severe: Plan: Patient severely depressed on admission. Agreeable to outpatient counseling services. Started antidepressant per Psych recommendations this admission - fluoxetine/Wellbutrin. (11) Hypertension: Plan: Previously on losartan, spironolactone, and hydrochlorothiazide however hadn't taken medications for months at home. Patient's BPs have been generally at goal for age so have not restarted these medications (12) GERD (gastroesophageal reflux disease): Plan: Stable. Continue Protonix therapy (13) Hyponatremia: Plan: Mild. Stable. No intervention necessary at this time (14) Diarrhea: Plan: Appears to be noninfectious. Stool [employer] and C. difficile toxin assay ordered and pending. Plan Placement pending. Case management involved Admission and Anticipated Discharge Date Admission Date: June 29, 2023 Subjective patient seen and examined, back pain is better, diarrhea is also better Review of Systems Review of Systems: All systems reviewed are negative, apart from the ones contained in the history. Physical Exam Physical Exam: The patient is awake, alert and oriented 3, well developed and well nourished, normocephalic and atraumatic, lying in bed and in no acute distress. HEENT--PERRL, EOMI, mucous membranes and oropharynx mildly dry Neck--supple. No JVD. No bruits. Thyroid normal, trachea midline, no adenopathy. Heart--normal S1 and S2. No murmurs, rubs or gallops. Lungs--clear bilaterally, no respiratory distress, no accessory muscle use. Abdomen--normal bowel sounds and soft. Mild epigastric and left sided abdominal pain Extremities--no cyanosis or clubbing. No edema. Dermatologic--normal skin turgor, normal color, no abnormal lymph nodes, no rash. Neurologic--cranial nerves II through XII grossly intact. Rheumatologic--normal range of motion. Psychiatric--normal affect. Results & Data Results & Data Vital Signs (Past 12 Hours) Vital Signs Temp Pulse Resp BP Pulse Ox O2 Del Method 07/30/23 07:18 97.9 F 67 17 95/68 L 94 Room Air PG Care Time/CCT Total # of Minutes Spent Total Time Spent with Patient: Total time spent is greater than 50% in coordination of care (as documented) at patient's floor/unit and/or counseling patient: Coding Level of Care Code 67002 SUB INP/OBS CARE 2/35MIN Diagnoses Back pain M54.9 Ageusia R43.2 Acute hypercapnic respiratory failure J96.02 Maggot infestation B87.9 Nutritional deficiency E63.9 Hypothyroidism E03.9 Conjunctivitis H10.9 Fall W19.XXXA Encounter type: initial encounter Hematuria R31.9 Major depress dis, severe F32.2 Hypertension I10 GERD (gastroesophageal reflux disease) K21.9 Hyponatremia E87.1 Diarrhea R19.7 Time Spent (min) 35 (8) Fall Encounter type: initial encounter Qualified Code(s): W19.XXXA - Unspecified fall, initial encounter
[2023-07-30] MEDS: MELATONIN 3 MG TAB PO SCH (20:39)
[2023-07-31] MEDS: LEVOTHYROXINE SODIUM 150 MCG TABLET PO SCH (06:12)
[2023-07-31] MEDS: MULTIVITAMIN TAB PO SCH (08:56)
[2023-07-31] MEDS: FOLIC ACID 1 MG TAB PO SCH (08:56)
[2023-07-31] MEDS: FLUoxetine HCL 20 MG CAP PO SCH (08:56)
[2023-07-31] MEDS: NICOTINE 21 MG/24 HR TDSY TD SCH (08:57)
[2023-07-31] MEDS: POLYETHYLENE (MIRALAX) 17 GM PACK PO SCH (08:58)
[2023-07-31] MEDS: predniSONE 10 MG TABLET PO SCH (08:59)
[2023-07-31] MEDS: SACCHAROMYCES BOULARDII 250 MG CAP PO SCH (08:59)
[2023-07-31] MEDS: ENOXAPARIN INJ 40 MG/0.4 ML SYR SQ SCH (09:00)
[2023-07-31] MEDS: MICONAZOLE NITRATE POWDER 85 GM EXT SCH (09:03)
[2023-07-31] MEDS: POTASSIUM CHLORIDE CRTAB 20 MEQ TABCR PO SCH (09:07)
[2023-07-31] MEDS: traMADol HCL 50 MG TABLET PO PRN (09:08)
[2023-07-31] MEDS: buPROPion SR 100 MG TABCR PO SCH (10:04)
--- NOTE | 2023-07-31 12:01 | Discharge Summary ---
Date of Service July 31, 2023 Admission HPI Per Admitting Provider Rian Hernandez is a 62yo female with history of HTN, Hypothyroidism, GERD, Fibromyalgia and Morbid Obesity presenting after a fall at home. Patient lives in an apartment with her 32yo son (special needs) and daughter. Her son tried to help her get up this afternoon to take a bath. The floor was wet and patient fell onto her buttock. She was unable to get up and EMS was called. She denies head trauma or loss of consciousness. EMS noted that the home and patient were poorly kempt. Patient was hypoxic en route and had supplemental oxygen placed. Upon arrival she was afebrile, hypotensive initially with blood pressure of 85/73, tachypneic with RR of 27 saturating 80% on room air. She was placed on supplemental O2 - currently on 6L Oxymask with adequate oxygenation. Blood pressure did improve after administration of IVF. Patient noted to have fairly severe intertriginous infection with presence of maggots in the groin and vaginal area. The area was cleaned and irrigated by ER staff. [facility] of the Aging has been contacted and will be following the case to ensure safe and proper discharge plan. Protective Services have also been contacted for patient's son who lives at home and is special needs. ER Course: NSS x 1L Albuterol 3mL neb Zosyn 4.5gm Chlorhexidine oral care Principal Diagnosis failure to thrive-resolved Discharge Exam The patient is awake, alert and oriented 3, well developed and well nourished, normocephalic and atraumatic, lying in bed and in no acute distress. HEENT--PERRL, EOMI, mucous membranes and oropharynx mildly dry Neck--supple. No JVD. No bruits. Thyroid normal, trachea midline, no adenopathy. Heart--normal S1 and S2. No murmurs, rubs or gallops. Lungs--clear bilaterally, no respiratory distress, no accessory muscle use. Abdomen--normal bowel sounds and soft. Mild epigastric and left sided abdominal pain Extremities--no cyanosis or clubbing. No edema. Dermatologic--normal skin turgor, normal color, no abnormal lymph nodes, no rash. Neurologic--cranial nerves II through XII grossly intact. Rheumatologic--normal range of motion. Psychiatric--normal affect. Discharge Data Allergies Allergy/AdvReac Type Severity Reaction Status Date / Time propofol AdvReac Intermediate NAUSEA AND Verified 06/29/23 20:53 HEAVING Consultations 06/29/23 21:16 ED Decision to Admit Stat 06/30/23 12:18 Consult Pulmonology Routine 06/30/23 14:28 Consult Psychiatry Routine Ordered Studies 06/29/23 17:32 CT abd pelvis IV con only Stat CT cervical spine wo con Stat CT head/brain wo con Stat Hospital Course (1) Back pain: Lumbar pain and what appears to be right lumbar radiculopathy have resolved with steroid therapy. She is currently on oral prednisone which will be tapered off today Supportive care. Pain control measures. X ray right hip did not show any acute pathology. (2) Ageusia: Resolved (3) Acute hypercapnic respiratory failure: Present on admission. Now resolved. (4) Maggot infestation: Present on admission. Now resolved. This was due to intertriginous yeast infection present under bilateral breasts and groin. Wound culture on decubitus ulcers revealed Proteus. Completed treatment with ceftriaxone. Continue wound care (5) Nutritional deficiency: With hypokalemia and hypomagnesemia this admission in the setting of poor appetite and depression. Corrected with supplementation. (6) Hypothyroidism: Patient with history of hypothyroidism. She was to be taking Synthroid daily but had not had any medications for over 8 months. Reported worsening fatigue, depression at home. Her TSH was markedly elevated at 26.695 and her Free T4 was undetectable at <0.25. TSH has since improved to 7 and free T4 is now normal. Synthroid dosage was down titrated on July 22. (7) Conjunctivitis: Resolved with gentamicin drops. Discontinued on July 23 (8) Fall: From deconditioning and chronic back pains. Continue OT and PT (9) Hematuria: hematuria and UTI earlier this admission have resolved. Proteus and E. coli UTI has been treated. (10) Major depress dis, severe: Patient severely depressed on admission. Agreeable to outpatient counseling services. Started antidepressant per Psych recommendations this admission - fluoxetine/Wellbutrin. (11) Hypertension: Previously on losartan, spironolactone, and hydrochlorothiazide however hadn't taken medications for months at home. Patient's BPs have been generally at goal for age so have not restarted these medications (12) GERD (gastroesophageal reflux disease): Stable. Continue Protonix therapy (13) Hyponatremia: Mild. Stable. No intervention necessary at this time (14) Diarrhea: Appears to be noninfectious. Stool Bio[employer] and C. difficile toxin assay ordered and pending. Plan discharge home Total Time Total Time Spent Total Time Spent (In Minutes): 35 Discharge Plan Discharge Items Patient Disposition: Home - Self-Care Reason For Visit: FALL, FAILURE TO THRIVE Discharge Diagnosis: Failure to thrive-resolved Activity: Resume your previous activity Non-emergency contact: Primary Care Provider and Psychiatrist Call non-emergency contact if: you have any medication questions Follow-up/Referrals: Arjun De La Torre MD [Primary Care Provider] - Diet: Regular Addtl Attending Provider Instructions: Please make appointment to follow up with your regular PCP Pending Studies at Discharge: No Stand-Alone Forms: [facility], Smoking Cessation Medications and DC Order Prescriptions: New bupropion HCl 100 mg Tablet Sustained-Release 12 Hr 100 mg PO BID 30 Days Qty: 60 0RF levothyroxine [Synthroid] 150 mcg Tablet 150 mcg PO DAILYBB 30 Days Qty: 30 0RF fluoxetine 20 mg Capsule 20 mg PO QAM 30 Days Qty: 30 0RF Discharge Orders: Discharge Order (Routine); Ordered 07/31/23 Ordered By: Aele Puckett Admission Data Admit Date/Time: 06/29/23 21:36 Attending Provider: Alee Puckett Admit Provider: Cristy Coyle Primary Care Provider: Arjun De La Torre Other Providers: Rocky De La Paz ; Cristy Coyle ; Claudia Ramirez ; Katherine Marinelli ; Devon Munoz ; [facility] Coding Level of Care Code 15769 INP/OBS DISCH >30 MIN Diagnoses Back pain M54.9 Ageusia R43.2 Acute hypercapnic respiratory failure J96.02 Maggot infestation B87.9 Nutritional deficiency E63.9 Hypothyroidism E03.9 Conjunctivitis H10.9 Fall W19.XXXA Encounter type: initial encounter Hematuria R31.9 Major depress dis, severe F32.2 Hypertension I10 GERD (gastroesophageal reflux disease) K21.9 Hyponatremia E87.1 Diarrhea R19.7 Time Spent (min) 35
[2023-07-31] MEDS ORDERED: buPROPion HCl 100 MG TABLET PO ONE (15:01)
== END 2023-07-31 16:45 | disposition home or self-care (01) | DRG 189 ==
LOC: ED 17:18 → EDINP 21:36 → SUATTDRO 21:36 → 2W 06-30 23:55 → 3N 07-14 23:40